=== PATIENT | female | born 1945 | race Caucasian/White ===

== ENCOUNTER → 2017-12-26 08:26 | Outpatient (REF) | payer OTHER, SELFPAY ==
[2017-12-26 09:13] LABS: Add Manual Diff / Slide Review NO; Basophils Percent Auto 0.9 % (0-2); Eosinophils Percent Auto 1.3 % (2-4); Hematocrit 37.1 % (36-46); Hemoglobin 12.3 g/dL (12.0-16.0); Lymphocytes Percent Auto 25.8 % (25-40); Mean Corpuscular HGB Conc 33.2 % (30-36); Mean Corpuscular Volume 90.5 fL (80-100); Monocytes Percent Auto 10.1 % (3-14); Neutrophils Absolute Auto 5000 /uL (3000-5900); Neutrophils Percent Auto 61.9 % (50-75); Platelet Count 233 X10^3/uL (150-400); Red Cell Distribution Width 18.8 % (11.6-14.8)
[2017-12-26 09:38] LABS: Alanine Aminotransferase 36 IU/L (9-52); Albumin 4.1 g/dL (3.5-5.0); Albumin Globulin Ratio 1.5 (1.0-2.8); Alkaline Phosphatase 56 U/L (38-126); Aspartate Aminotransferase 42 IU/L (14-36); BUN Creatinine Ratio 24.3 (6-22); Bilirubin Total 0.7 mg/dL (0.2-1.3); Calcium 8.9 mg/dL (8.4-10.2); Estimated Glomerular Filt Rate > 60.0 mL/min (>60); Globulin 2.8 g/dL (1.7-4.1); Glucose 75 mg/dL (80-110); HEMOLYSIS < 15 (0-50); Potassium 4.2 mmol/L (3.4-5.1); Sodium 140 mmol/L (137-145); Total Protein 6.9 g/dL (6.3-8.2)
== END ==
LOC: LAB 08:26
PROVIDERS: PCP Internal Medicine; Visit Provider Nurse Practitioner Family
DX: N39.0 Urinary tract infection, site not specified (principal); R53.83 Other fatigue
CPT/HCPCS: 36415; 80053; 85025

== ENCOUNTER → 2018-01-04 08:15 | Outpatient (REF) | payer OTHER, SELFPAY ==
[2018-01-04 08:57] LABS: INR 2.7 (0.9-1.3); Prothrombin Time 28.7 SECONDS (10.1-12.7)
== END ==
LOC: LAB 08:15
PROVIDERS: PCP Internal Medicine; Visit Provider Nurse Practitioner Family
DX: Z92.29 Personal history of other drug therapy (principal)
CPT/HCPCS: 36415; 85610

== ENCOUNTER 2018-01-10 10:47 | Emergency (ER) | payer OTHER, SELFPAY ==
[2018-01-10] VITALS (7 sets, daily range): BP systolic 98–109; BP diastolic 50–67; PULSE 97–105; RESP 14–20; TEMP 36.3; O2SAT 95–100
--- NOTE | 2018-01-10 11:08 | ED.ABDPAIN ---
HPI - Abdominal Pain General Chief Complaint: Abdominal Pain Stated Complaint: Belly Pain Time Seen by Provider: 01/10/18 11:08 Source: patient Mode of arrival: EMS Limitations: no limitations History of Present Illness HPI narrative: 72-year-old female with a history of cardiac valve replacement presents with suprapubic abdominal pain since this morning. It has been intermittent and come on very strong twice rated at its worst as a 6/10. At the current moment she has no pain. Nothing she does makes the pain worse and nothing she does makes the pain better. There has been no injury. She denies any dysuria or urinary frequency but did have some several days ago. Denies fevers but has had some chills/felt cold. Denies history of frequent UTIs. Denies history of diverticulitis. Denies diarrhea or constipation, nausea or vomiting. Related Data Home Medications Medication Instructions Recorded Confirmed risperidone [Risperdal] 0.5 mg PO BID #0 05/13/16 01/10/18 furosemide 80 mg PO QDAY #0 05/14/17 01/10/18 isosorbide dinitrate 30 mg PO QDAY #0 05/14/17 01/10/18 sennosides [senna] 2 tab PO QDAY #0 05/14/17 01/10/18 warfarin [Coumadin] 4 mg PO QPM #0 05/14/17 01/10/18 acetaminophen 650 mg PO BID 01/10/18 01/10/18 albuterol sulfate [Ventolin HFA] 2 puff INHALATION Q2H PRN 01/10/18 01/10/18 atorvastatin 80 mg PO DAILY 01/10/18 01/10/18 beclomethasone dipropionate [Qvar 2 puff INHALATION BID 01/10/18 01/10/18 RediHaler] calcium carbonate [Tums] 2 tab PO TID PRN 01/10/18 01/10/18 docusate sodium 100 mg PO DAILY 01/10/18 01/10/18 duloxetine 20 mg PO DAILY 01/10/18 01/10/18 ezetimibe 10 mg PO DAILY 01/10/18 01/10/18 fluticasone 1 spray INTRANASAL DAILY 01/10/18 01/10/18 hydrocodone-acetaminophen 1 tab PO BID MDD 3 gm apap 01/10/18 01/10/18 hydrocodone-acetaminophen 1 tab PO Q4HP PRN MDD 3 gm apap 01/10/18 01/10/18 lidocaine HCl 1 applic TOPICAL QAM 01/10/18 01/10/18 magnesium chloride [Mag 64] 2 tab PO DAILY 01/10/18 01/10/18 methimazole 5 mg PO DAILY 01/10/18 01/10/18 metoprolol tartrate [Lopressor] 50 mg PO BID 01/10/18 01/10/18 nystatin 1 applic TOPICAL TID PRN 01/10/18 01/10/18 omeprazole 40 mg PO DAILY 01/10/18 01/10/18 potassium chloride 40 meq PO BID 01/10/18 01/10/18 pramipexole 1 mg PO BEDTIME 01/10/18 01/10/18 prednisone 10 mg PO QDAY 01/10/18 01/10/18 spironolactone 25 mg PO DAILY 01/10/18 01/10/18 Previous Rx's Medication Instructions Recorded nitrofurantoin monohyd/m-cryst 100 mg PO Q12H 10 Days #20 cap 01/10/18 [Macrobid] Allergies Allergy/AdvReac Type Severity Reaction Status Date / Time aspartame [ASPARTAME] Allergy Intermediate violently Verified 01/10/18 11:00 ill, fever, rashes. codeine [CODEINE] Allergy Intermediate PROJECTILE Verified 01/10/18 11:00 VOMITING latex [LATEX] Allergy Intermediate VERY Verified 01/10/18 11:00 ITCHY RASH morphine [MORPHINE] Allergy Intermediate HALLUCINATI Verified 01/10/18 11:00 ONS. albuterol Allergy Verified 01/10/18 11:07 ipratropium Allergy Verified 01/10/18 11:07 Review of Systems Review of Systems All systems reviewed & are unremarkable except as noted in HPI and below Constitutional Denies chills, Denies fever(s), Denies lethargy and Denies weakness Eyes Denies change in vision, Denies eye discharge, Denies irritation and Denies loss of vision ENT Ears, Nose, Mouth, and Throat: Denies change in voice, Denies neck pain and Denies sore throat Cardiovascular Denies chest pain, Denies irregular heart rhythm, Denies lightheadedness, Denies palpitations, Denies dyspnea, Denies dyspnea on exertion and Denies orthopnea Respiratory Denies cough, Denies dyspnea, Denies dyspnea on exertion and Denies wheezing Gastrointestinal Gastrointestinal: Reports abdominal pain (Suprapubic), Denies change in bowel habits, Denies diarrhea, Denies nausea and Denies vomiting Genitourinary Denies hematuria, Denies flank pain, Denies urinary incontinence and Denies urinary urgency Musculoskeletal Denies neck pain Integumentary/Breasts Denies pruritus, Denies erythema, Denies rash and Denies wounds Neurologic Denies confusion, Denies loss of vision and Denies weakness Psychiatric Denies anxiety, Denies confusion, Denies depression, Denies homicidal ideation and Denies suicidal ideation Endocrine Denies palpitations Hematologic/Lymphatic Denies easy bruising Allergic/Immunologic Denies wheezing [facility] Surgical History Status post appendectomy Status post hysterectomy Social History Smoking Status: Former smoker Exam Initial Vital Signs Initial Vital Signs: Vital Signs Temperature 97.3 F L 01/10/18 10:55 Pulse Rate 105 H 01/10/18 10:55 Respiratory Rate 18 01/10/18 10:55 Blood Pressure 101/50 L 01/10/18 10:55 Pulse Oximetry 95 01/10/18 10:55 Const General: cooperative and well developed Nutritional Appearance: well nourished Orientation: alert, awake, oriented x3 and not confused [facility] Head: normocephalic and atraumatic Ears: external ears normal and TM's normal bilaterally Nose: external nose normal and No nasal discharge Face and sinus: sinuses nontender, face symmetric, no sinus tenderness and No dry mucous membranes Mouth: oral mucosae normal and moist mucous membranes Teeth and gingiva: dentition normal Throat: tonsils normal and uvula midline Eyes General: appearance normal, both eyes and all related structures Eyelids: eyelids normal Conjunctivae: conjunctivae normal Sclera: sclerae normal Pupils: PERRL EOM: EOM intact bilaterally Neck Neck: normal visual inspection, trachea midline, No lymphadenopathy, No midline deformity and No JVD Lymphatic: No lymphedema Chest Chest: normal inspection of the chest Resp Effort & Inspection: normal respiratory effort, able to speak in complete sentences, no respiratory distress and no use of accessory muscles Auscultation: clear to auscultation bilaterally, no rales, no rhonchi and no wheezes Cardio Rate: regular rate Rhythm: regular rhythm Heart Sounds: no click, no gallops, no murmurs and no rubs Pulses: normal peripheral pulses GI Inspection: non-distended Palpation: soft, no hepatosplenomegaly, No guarding, No pulsatile mass and tender (Suprapubic tenderness to palpation. No overlying rashes or skin changes) Auscultation: normal bowel sounds Back/Spine/Pelvis Back: No CVA tenderness Cervical Spine: cervical ROM normal and No pain with cervical ROM Thoracic/Lumbar Spine: thoracic and lumbar spine normal to inspection Skin General: no rashes or lesions noted, No jaundice and No petechiae Neuro General: alert, oriented x3, gait normal and no focal motor deficits Speech: speech normal Extrem General: full ROM, no clubbing, cyanosis or edema, no pedal edema and no calf tenderness Psych Appearance: well kempt Mental Status: mental status grossly normal Attitude: cooperative Thought Content: normal and suicidality Judgment: judgment good Course Orders Ordered: ED Orders 01/10/18 11:00 Complete Blood Count AUTO DIFF Stat Comprehensive Metabolic Panel Stat Lipase Stat 01/10/18 13:10 Urine Culture Stat Urine Microscopic Stat Discontinued Medications Sodium Chloride (Normal Saline 0.9%) 1,000 mls @ 150 mls/hr IV CONT AGUSTIN Last Admin: 01/10/18 11:27 Dose: 150 mls/hr Vital Signs - 8 hr 01/10/18 10:55 01/10/18 10:57 01/10/18 11:30 Temperature 97.3 F L 97.3 F L Pulse Rate 105 H 105 H 102 H Respiratory Rate 18 18 18 Blood Pressure 101/50 L Blood Pressure [Right Arm] 101/50 L 98/56 L Pulse Oximetry 95 95 96 01/10/18 12:32 01/10/18 13:07 01/10/18 14:02 Temperature Pulse Rate 100 H 102 H 97 H Respiratory Rate 14 20 16 Blood Pressure Blood Pressure [Right Arm] 106/54 L 106/54 L 104/59 L Pulse Oximetry 95 100 97 01/10/18 14:45 Temperature Pulse Rate 98 H Respiratory Rate 17 Blood Pressure Blood Pressure [Right Arm] 109/67 Pulse Oximetry 96 MDM - Abdominal Pain Differential Diagnosis Differential diagnosis: Likely abdominal pain, acute appendicitis, diverticulitis, gastroenteritis and small bowel obstruction Medical Records Attestation: I reviewed the patient's medical records. Lab Data Attestation: I reviewed the patient's lab results. Result diagrams: 01/10/18 11:00 01/10/18 11:00 Lab Results 01/10/18 01/10/18 01/10/18 Range/Units 11:00 11:00 13:10 WBC 9.1 (4.5-11.0) X10^3/uL RBC 4.15 (4.0-5.2) X10^6/uL Hgb 12.5 (12.0-16.0) g/dL Hct 38.3 (36-46) % MCV 92.3 (80-100) fL MCH 30.2 (26-34) PG MCHC 32.7 (30-36) % RDW 17.9 H (11.6-14.8) % Plt Count 240 (150-400) X10^3/uL Neut % (Auto) 69.7 (50-75) % Lymph % (Auto) 17.3 L (25-40) % [place] % (Auto) 11.3 (3-14) % Eos % (Auto) 0.9 L (2-4) % Baso % (Auto) 0.8 (0-2) % Neut # (Auto) 6300 H (7446-6625) /uL Sodium 143 (137-145) mmol/L Potassium 4.0 (3.4-5.1) mmol/L Chloride 99 (98-107) mmol/L Carbon Dioxide 31 (22-32) mmol/L BUN 16 (7-17) mg/dL Creatinine 0.50 L (0.52-1.04) mg/dL Estimated GFR > 60.0 (>60) mL/min BUN/Creatinine Ratio 32.0 H (6-22) Glucose 90 (80-110) mg/dL Calcium 8.9 (8.4-10.2) mg/dL Total Bilirubin 0.8 (0.2-1.3) mg/dL AST 55 H (14-36) IU/L ALT 51 (9-52) IU/L Alkaline Phosphatase 54 (38-126) U/L Total Protein 7.4 (6.3-8.2) g/dL Albumin 4.3 (3.5-5.0) g/dL Globulin 3.1 (1.7-4.1) g/dL Albumin/Globulin Ratio 1.4 (1.0-2.8) Lipase 134 (23-300) U/L Urine RBC 5-10/hpf H (0-5/HPF) Urine WBC 10-30/hpf H (0-5/HPF) Urine Bacteria Many (>30) H (None) Ur Culture Indicated? Specimen cultured Micro UA Comment Microscopic normal MDM Narrative Medical decision making narrative: 72-year-old female presenting with intermittent suprapubic abdominal pain and dysuria several days ago. She has a history of recurrent UTIs. She denies fevers or chills. She was afebrile and vitals were essentially normal although she was borderline tachycardic. She had no pain in the ER although there was some mild suprapubic tenderness. Her catheterized UA is consistent with UTI. She has no flank pain to suggest renal stone. Given that her labs do not show a significant leukocytosis, she had no flank pain, and her vitals were centrally normal, did not feel an abdominal CT was necessary although I did consider it. She was given Pyridium and Macrobid for her pain and UTI. Ten days of Macrobid were given as she stated that her most recent antibiotic was only a 5 day course. We called her facility to try to locate the name of most recent antibiotic and how long it was taken, but after speaking with 5 nurses known was able to tell us. I prescribed Macrobid while we are waiting cultures, due to less interaction with Coumadin then other antibiotics. Patient understands and agrees with the plan for follow-up. Return precautions given. Discharge Plan Departure Patient Disposition: Home, Self-Care Clinical Impression: Acute UTI, Abdominal pain, lower Discharge Date/Time: 01/10/18 15:24 Interventions: ED Discharge Assessment Last Done: 01/10/18 15:23 Instructions: DI for Urinary Tract Infection (UTI) Activity Restrictions/Additional Instructions: Thank you for trusting is with your care today. You have urinary tract infection causing your pain. Take the antibiotics and Pyridium as prescribed. Return to the ER for new or worsening symptoms. Follow up with your primary care within 1 week. Prescriptions: New nitrofurantoin monohyd/m-cryst [Macrobid] 100 mg capsule 100 mg PO Q12H 10 Days Qty: 20 RF: 0 No Action risperidone [Risperdal] 0.5 MG tablet 0.5 mg PO BID Qty: 0 RF: 0 furosemide 80 MG tablet 80 mg PO QDAY Qty: 0 RF: 0 isosorbide dinitrate 30 MG tablet 30 mg PO QDAY Qty: 0 RF: 0 sennosides [senna] 8.6 MG tablet 2 tab PO QDAY Qty: 0 RF: 0 warfarin [Coumadin] 4 MG tablet 4 mg PO QPM Qty: 0 RF: 0 atorvastatin 80 mg Tablet 80 mg PO DAILY RF: 0 acetaminophen 325 mg Tablet 650 mg PO BID RF: 0 docusate sodium 100 mg Capsule 100 mg PO DAILY RF: 0 ezetimibe 10 mg Tablet 10 mg PO DAILY RF: 0 duloxetine 20 mg Capsule,Delayed Release(Dr/Ec) 20 mg PO DAILY RF: 0 pramipexole 1 mg Tablet 1 mg PO BEDTIME RF: 0 omeprazole 40 mg Capsule,Delayed Release(Dr/Ec) 40 mg PO DAILY RF: 0 spironolactone 25 mg Tablet 25 mg PO DAILY RF: 0 calcium carbonate [Tums] 200 mg calcium (500 mg) Tablet,Chewable 2 tab PO TID PRN (Reason: Indigestion) RF: 0 metoprolol tartrate [Lopressor] 50 mg Tablet 50 mg PO BID RF: 0 methimazole 5 mg Tablet 5 mg PO DAILY RF: 0 nystatin 100,000 unit/gram Powder 1 applic TOPICAL TID PRN (Reason: yeast) RF: 0 albuterol sulfate [Ventolin HFA] 90 mcg/actuation Hfa Aerosol Inhaler 2 puff Inhalation Q2H PRN (Reason: Shortness Of Breath Or Wheezing) RF: 0 fluticasone 50 mcg/actuation [place],Suspension 1 spray INTRANASAL DAILY RF: 0 lidocaine HCl 4 % Solution 1 applic Topical QAM RF: 0 magnesium chloride [Mag 64] 64 mg Tablet,Delayed Release (Dr/Ec) 2 tab PO DAILY RF: 0 potassium chloride 20 mEq Tablet Extended Release 40 meq PO BID RF: 0 beclomethasone dipropionate [Qvar RediHaler] 40 mcg/actuation Hfa Aerosol Breath Activated 2 puff INHALATION BID RF: 0 prednisone 10 MG tablet 10 mg PO QDAY RF: 0 hydrocodone-acetaminophen 5 MG/325 MG tablet 1 tab PO BID MDD 3 gm apap RF: 0 hydrocodone-acetaminophen 5 MG/325 MG tablet 1 tab PO Q4HP MDD 3 gm apap PRN (Reason: Pain, Moderate) RF: 0
[2018-01-10 11:18] LABS: Add Manual Diff / Slide Review NO; Basophils Percent Auto 0.8 % (0-2); Eosinophils Percent Auto 0.9 % (2-4); Hematocrit 38.3 % (36-46); Hemoglobin 12.5 g/dL (12.0-16.0); Lymphocytes Percent Auto 17.3 % (25-40); Mean Corpuscular HGB Conc 32.7 % (30-36); Mean Corpuscular Hemoglobin 30.2 PG (26-34); Mean Corpuscular Volume 92.3 fL (80-100); Monocytes Percent Auto 11.3 % (3-14); Neutrophils Absolute Auto 6300 /uL (3000-5900); Neutrophils Percent Auto 69.7 % (50-75); Platelet Count 240 X10^3/uL (150-400); Red Blood Cell Count 4.15 X10^6/uL (4.0-5.2); Red Cell Distribution Width 17.9 % (11.6-14.8); White Blood Cell Count 9.1 X10^3/uL (4.5-11.0)
[2018-01-10 11:24] LABS: Alanine Aminotransferase 51 IU/L (9-52); Albumin 4.3 g/dL (3.5-5.0); Albumin Globulin Ratio 1.4 (1.0-2.8); Alkaline Phosphatase 54 U/L (38-126); Aspartate Aminotransferase 55 IU/L (14-36); Bilirubin Total 0.8 mg/dL (0.2-1.3); Blood Urea Nitrogen 16 mg/dL (7-17); Calcium 8.9 mg/dL (8.4-10.2); Carbon Dioxide 31 mmol/L (22-32); Chloride 99 mmol/L (98-107); Estimated Glomerular Filt Rate > 60.0 mL/min (>60); Globulin 3.1 g/dL (1.7-4.1); Glucose 90 mg/dL (80-110); HEMOLYSIS 15 (0-50); Lipase 134 U/L (23-300); Sodium 143 mmol/L (137-145); Total Protein 7.4 g/dL (6.3-8.2)
[2018-01-10] MEDS: SODIUM CHLORIDE 0.9% 1,000 ML 150 ML IV (11:27)
[2018-01-10 13:35] LABS: RBC Urine 5-10/HPF (0-5/HPF); WBC Urine 10-30/HPF (0-5/HPF)
[2018-01-10 13:36] LABS: Bacteria Urine Many (>30); Culture Indicated Urine Specimen Cultured; Urine Comments Microscopic Normal
--- NOTE | 2018-02-25 13:56 | PC.NURSE ---
Sodium Chloride stopped at 01/10/18 1640
== END 2018-01-10 15:24 | disposition home or self-care (01) ==
PROVIDERS: Emergency Provider Emergency Medicine; PCP Internal Medicine
DX: N39.0 Urinary tract infection, site not specified (principal); R10.30 Lower abdominal pain, unspecified
CPT/HCPCS: 80053; 81003; 81015; 83690; 85025; 87077; 87086; 87186; 96360; 96361; 99284; 99285

== ENCOUNTER → 2018-01-17 13:21 | Outpatient (CLI) | payer OTHER, SELFPAY ==
[2018-01-17 14:11] LABS: Add Manual Diff / Slide Review NO; Basophils Percent Auto 0.6 % (0-2); Eosinophils Percent Auto 0.3 % (2-4); Hematocrit 37.7 % (36-46); Hemoglobin 12.2 g/dL (12.0-16.0); Lymphocytes Percent Auto 8.9 % (25-40); Mean Corpuscular HGB Conc 32.4 % (30-36); Mean Corpuscular Volume 92.6 fL (80-100); Monocytes Percent Auto 4.9 % (3-14); Neutrophils Absolute Auto 7800 /uL (3000-5900); Neutrophils Percent Auto 85.3 % (50-75); Platelet Count 242 X10^3/uL (150-400); Red Blood Cell Count 4.07 X10^6/uL (4.0-5.2); Red Cell Distribution Width 17.5 % (11.6-14.8); White Blood Cell Count 9.1 X10^3/uL (4.5-11.0)
[2018-01-17 19:18] LABS: Alanine Aminotransferase 52 IU/L (9-52); Albumin 4.1 g/dL (3.5-5.0); Albumin Globulin Ratio 1.4 (1.0-2.8); Alkaline Phosphatase 65 U/L (38-126); Aspartate Aminotransferase 48 IU/L (14-36); Bilirubin Total 0.8 mg/dL (0.2-1.3); Blood Urea Nitrogen 18 mg/dL (7-17); Carbon Dioxide 26 mmol/L (22-32); Chloride 99 mmol/L (98-107); Estimated Glomerular Filt Rate > 60.0 mL/min (>60); Globulin 2.9 g/dL (1.7-4.1); Glucose 192 mg/dL (80-110); HEMOLYSIS < 15 (0-50); Potassium 4.1 mmol/L (3.4-5.1); Sodium 140 mmol/L (137-145)
== END ==
PROVIDERS: PCP Internal Medicine; Visit Provider Nurse Practitioner Family
DX: R10.9 Unspecified abdominal pain (principal)
CPT/HCPCS: 36415; 80053; 83880; 85025

== ENCOUNTER → 2018-01-25 12:34 | Outpatient (CLI) | payer OTHER, SELFPAY ==
--- NOTE | 2018-01-25 | DI.CT.S_ITS ---
PROCEDURE: CT ABDOMEN WO CON INDICATIONS: ABDOMINAL PAIN TECHNIQUE: After the administration of oral contrast, 5 mm thick sections acquired from the diaphragms to the iliac crests. 5 mm coronal and sagittal reformats were then performed. For radiation dose reduction, the following was used: automated exposure control, adjustment of mA and/or kV according to patient size. COMPARISON: [facility], CT, ABDOMEN/PELVIS WITH CONTRAST, 07/17/2015, 23:35. FINDINGS: Image quality: Excellent. Lung bases: Lung bases are clear. Heart size is borderline enlarged and there are mitral valvular and coronary artery calcifications. Solid organs: Liver is normal in size. Gallbladder contains multiple 5 mm gallstones although no definite gallbladder wall thickening or pericholecystic inflammation. There is minimal hazy attenuation surrounding the head and uncinate process of the pancreas although this could be due to fatty infiltration. This is probably grossly unchanged since 07/17/15 the lower to mid correlation with pancreatic enzymes if needed. Spleen is normal in size. No adrenal nodules. Both kidneys are normal in size, without hydronephrosis or nephrolithiasis. Peritoneum and bowel: Bowel loops demonstrate normal wall thickness and caliber. No free fluid or air. Nodes and vessels: No retroperitoneal or mesenteric adenopathy by size criteria. Aorta and inferior vena cava are normal in size. Bones: No suspicious bony lesions. Multiple unchanged lumbar compression fractures. There is diffuse osteopenia Miscellaneous: No ventral hernias. Partially visualized left flank subcutaneous edema IMPRESSION: Overall, no acute abnormality. Cholelithiasis without evidence of acute cholecystitis; recommend clinical correlation and with LFTs. Minimal hazy attenuation surrounding the head and uncinate process of the pancreas although this could be a chronic appearance. Please see discussion above. Recommend clinical correlation and if needed with pancreatic enzymes Additional chronic and incidental findings as above. Dictated by: Adan Ohara M.D. on 01/25/2018 at 12:41 Approved by: Adan Ohara M.D. on 01/25/2018 at 13:06
== END ==
PROVIDERS: PCP Internal Medicine; Visit Provider Nurse Practitioner Family
DX: R10.9 Unspecified abdominal pain (principal); K80.20 Calculus of gallbladder without cholecystitis without obstruction
CPT/HCPCS: 74150

== ENCOUNTER → 2018-01-30 07:40 | Outpatient (REF) | payer OTHER, SELFPAY ==
[2018-01-30 08:19] LABS: Add Manual Diff / Slide Review NO; Basophils Percent Auto 0.7 % (0-2); Eosinophils Percent Auto 0.6 % (2-4); Hematocrit 37.5 % (36-46); Hemoglobin 12.2 g/dL (12.0-16.0); Mean Corpuscular HGB Conc 32.6 % (30-36); Mean Corpuscular Hemoglobin 29.9 PG (26-34); Mean Corpuscular Volume 91.8 fL (80-100); Monocytes Percent Auto 10.2 % (3-14); Neutrophils Absolute Auto 5300 /uL (3000-5900); Neutrophils Percent Auto 63.5 % (50-75); Platelet Count 265 X10^3/uL (150-400); Red Blood Cell Count 4.08 X10^6/uL (4.0-5.2); Red Cell Distribution Width 16.5 % (11.6-14.8); White Blood Cell Count 8.3 X10^3/uL (4.5-11.0)
[2018-01-30 08:35] LABS: Alanine Aminotransferase 37 IU/L (9-52); Albumin 3.9 g/dL (3.5-5.0); Albumin Globulin Ratio 1.3 (1.0-2.8); Alkaline Phosphatase 52 U/L (38-126); Amylase 79 U/L (30-110); Aspartate Aminotransferase 38 IU/L (14-36); Bilirubin Total 0.6 mg/dL (0.2-1.3); Bilirubin Unconjugated 0.4 mg/dL (0.0-1.1); HEMOLYSIS < 15 (0-50); Lipase 121 U/L (23-300); Total Protein 6.9 g/dL (6.3-8.2)
== END ==
LOC: LAB 07:40
PROVIDERS: PCP Internal Medicine; Visit Provider Nurse Practitioner Family
DX: R10.9 Unspecified abdominal pain (principal)
CPT/HCPCS: 36415; 80076; 82150; 83690; 85025

== ENCOUNTER → 2018-02-01 07:26 | Outpatient (REF) | payer OTHER, SELFPAY ==
[2018-02-01 08:00] LABS: INR 2.5 (0.9-1.3); Prothrombin Time 27.2 SECONDS (10.1-12.7)
== END ==
LOC: LAB 07:26
PROVIDERS: PCP Internal Medicine; Visit Provider Nurse Practitioner Family
DX: Z51.81 Encounter for therapeutic drug level monitoring (principal)
CPT/HCPCS: 36415; 85610

== ENCOUNTER 2018-02-21 14:00 | Emergency (ER) | payer OTHER, SELFPAY ==
[2018-02-21] VITALS (8 sets, daily range): BP systolic 110–124; BP diastolic 63–72; PULSE 95–104; RESP 14–24; TEMP 36.6; O2SAT 94–100
--- NOTE | 2018-02-21 14:09 | DI.RAD.S_ITS ---
PROCEDURE: XR CHEST 1V INDICATIONS: short of breath TECHNIQUE: One view of the chest was acquired. COMPARISON: [facility], , CHEST 1 VIEW, 10/14/2017, 10:10. [facility], , CHEST 2 VIEW, 10/13/2017, 13:48. Abdomen and pelvis CT from 01/25/2018. FINDINGS: Surgical changes and devices: None. Lungs and pleura: No pleural effusions or pneumothorax. Lungs are clear. Mediastinum: Interval enlargement of the cardiomediastinal silhouette. Sternotomy with mediastinal postoperative changes and mitral valve prosthesis. Bones and chest wall: No suspicious bony lesions. Overlying soft tissues appear unremarkable. IMPRESSION: 1. Minimal enlargement of the cardiomediastinal silhouette. Given its rapid onset findings are concerning for pericardial effusion. Consider a chest CT with contrast for further evaluation. 2. Sternotomy with mitral valve prosthesis. Dictated by: Rohit Patel M.D. on 02/21/2018 at 14:56 Approved by: Rohit Patel M.D. on 02/21/2018 at 14:58
[2018-02-21 14:20] LABS: Add Manual Diff / Slide Review NO; Basophils Percent Auto 0.5 % (0-2); Eosinophils Percent Auto 0.2 % (2-4); Hematocrit 39.8 % (36-46); Hemoglobin 13.1 g/dL (12.0-16.0); Lymphocytes Percent Auto 9.4 % (25-40); Mean Corpuscular Volume 90.9 fL (80-100); Monocytes Percent Auto 3.8 % (3-14); Neutrophils Absolute Auto 10100 /uL (3000-5900); Neutrophils Percent Auto 86.1 % (50-75); Platelet Count 285 X10^3/uL (150-400); Red Blood Cell Count 4.37 X10^6/uL (4.0-5.2); Red Cell Distribution Width 15.7 % (11.6-14.8); White Blood Cell Count 11.7 X10^3/uL (4.5-11.0)
[2018-02-21 14:23] LABS: INR 4.3 (0.9-1.3); Prothrombin Time 48.4 SECONDS (10.1-12.7)
[2018-02-21 14:26] LABS: PTT Partial Thromboplastin Tim 44 SECONDS (26.4-36.2)
[2018-02-21 14:32] LABS: Alanine Aminotransferase 38 IU/L (9-52); Albumin 4.5 g/dL (3.5-5.0); Albumin Globulin Ratio 1.5 (1.0-2.8); Alkaline Phosphatase 63 U/L (38-126); Aspartate Aminotransferase 60 IU/L (14-36); Bilirubin Total 0.9 mg/dL (0.2-1.3); Blood Urea Nitrogen 15 mg/dL (7-17); Calcium 9.5 mg/dL (8.4-10.2); Carbon Dioxide 27 mmol/L (22-32); Chloride 98 mmol/L (98-107); Estimated Glomerular Filt Rate > 60.0 mL/min (>60); Globulin 3.1 g/dL (1.7-4.1); Glucose 167 mg/dL (80-110); HEMOLYSIS 29 (0-50); Potassium 4.6 mmol/L (3.4-5.1); Sodium 138 mmol/L (137-145); Total Protein 7.6 g/dL (6.3-8.2)
[2018-02-21 14:33] LABS: Creatine Kinase 68 U/L (30-135); Magnesium 2.1 mg/dL (1.6-2.3)
[2018-02-21 14:48] LABS: Troponin I < 0.012 ng/mL (0.01-0.034)
[2018-02-21 14:54] LABS: Lactate (Lactic Acid) 1.6 mmol/L (0.7-2.1)
[2018-02-21] MEDS: ALBUTEROL/IPRATROPIUM 3 ML AMPUL INH (14:54)
[2018-02-21 14:58] LABS: Procalcitonin < 0.05 ng/mL (<0.5)
--- NOTE | 2018-02-21 15:33 | DI.CT.S_ITS ---
PROCEDURE: CT ANGIO CHEST PE PROTOCOL INDICATIONS: Shortness of breath, pericardial effusion on x ray TECHNIQUE: After the administration of intravenous contrast, 2 mm thick sections acquired from the pulmonary apices to the posterior costophrenic angles. 3-dimensional maximum intensity projection (MIP) coronal and sagittal reformats were then acquired through the thorax. For radiation dose reduction, the following was used: automated exposure control, adjustment of mA and/or kV according to patient size. COMPARISON: [facility], CT, PE STUDY (CTA CHEST), 11/18/2015, 10:39. [facility], CR, CHEST 1 VIEW, 10/14/2017, 10:10. [facility], CT, CT ABDOMEN WO CON, 01/25/2018, 12:56. [facility], CR, XR CHEST 1V, 02/21/2018, 14:15. FINDINGS: Image quality: Excellent. Pulmonary arteries: Pulmonary arteries are normal in size, and demonstrate no intraluminal filling defects to suggest central pulmonary embolism. Lungs and pleura: There is increased pulmonary vascularity and mild groundglass infiltrates in the lower lobes, consistent mild congestive heart failure. No confluent edema. No focal consolidation or pleural effusion. No pneumothorax. Central and peripheral airways are patent. Mediastinum: Heart size is moderately increased, without pericardial effusion. There is a mitral valve prosthesis and coronary artery bypass grafting. No mediastinal or hilar adenopathy. Thoracic aorta is normal in caliber and enhancement. Esophagus is normal in caliber, without hiatal hernia. Bones and chest wall: No suspicious bony lesions. Ribs and thoracic spine appear intact throughout. Thyroid gland is prominent. No axillary or supraclavicular adenopathy. Abdomen: There are gallstones. Visualized upper abdominal solid organs appear normal in the early arterial phase of enhancement. IMPRESSION: 1. No evidence for central pulmonary embolism. 2. Cardiomegaly. No pericardial effusion. Suspect mild congestive heart failure but no confluent pulmonary edema. 3. Cholelithiasis. 4. Prominent thyroid gland. Please correlate with TSH. Dictated by: Elvira Blanco M.D. on 02/21/2018 at 16:25 Approved by: Elvira Blanco M.D. on 02/21/2018 at 16:36
--- NOTE | 2018-02-21 15:42 | ED.SOB ---
HPI - SOB/Dyspnea General Chief Complaint: Shortness of Breath/Dyspnea Stated Complaint: SOB / Diaphoretic Time Seen by Provider: 02/21/18 14:06 Source: patient Mode of arrival: ambulatory Limitations: no limitations History of Present Illness Patient is a 72-year-old female who presents with sudden onset of shortness of breath. She was outside at a picnic eating and feeling overall okay when suddenly she got shortness of breath. She said he was little difficult to swallow did not feel like her tongue or lips were big. No new foods or prior allergic reactions. She denies any fever or cough. She has a very remote history of smoking and denies any history of CHF though she is on Lasix. She denies any chest pain or heart palpitations. MD Complaint: shortness of breath Related Data Home Medications Medication Instructions Recorded Confirmed risperidone [Risperdal] 0.5 mg PO BID #0 05/13/16 01/10/18 furosemide 80 mg PO QDAY #0 05/14/17 01/10/18 isosorbide dinitrate 30 mg PO QDAY #0 05/14/17 01/10/18 sennosides [senna] 2 tab PO QDAY #0 05/14/17 01/10/18 warfarin [Coumadin] 4 mg PO QPM #0 05/14/17 01/10/18 acetaminophen 650 mg PO BID 01/10/18 01/10/18 albuterol sulfate [Ventolin HFA] 2 puff INHALATION Q2H PRN 01/10/18 01/10/18 atorvastatin 80 mg PO DAILY 01/10/18 01/10/18 beclomethasone dipropionate [Qvar 2 puff INHALATION BID 01/10/18 01/10/18 RediHaler] calcium carbonate [Tums] 2 tab PO TID PRN 01/10/18 01/10/18 docusate sodium 100 mg PO DAILY 01/10/18 01/10/18 duloxetine 20 mg PO DAILY 01/10/18 01/10/18 ezetimibe 10 mg PO DAILY 01/10/18 01/10/18 fluticasone 1 spray INTRANASAL DAILY 01/10/18 01/10/18 hydrocodone-acetaminophen 1 tab PO BID MDD 3 gm apap 01/10/18 01/10/18 hydrocodone-acetaminophen 1 tab PO Q4HP PRN MDD 3 gm apap 01/10/18 01/10/18 lidocaine HCl 1 applic TOPICAL QAM 01/10/18 01/10/18 magnesium chloride [Mag 64] 2 tab PO DAILY 01/10/18 01/10/18 methimazole 5 mg PO DAILY 01/10/18 01/10/18 metoprolol tartrate [Lopressor] 50 mg PO BID 01/10/18 01/10/18 nystatin 1 applic TOPICAL TID PRN 01/10/18 01/10/18 omeprazole 40 mg PO DAILY 01/10/18 01/10/18 potassium chloride 40 meq PO BID 01/10/18 01/10/18 pramipexole 1 mg PO BEDTIME 01/10/18 01/10/18 prednisone 10 mg PO QDAY 01/10/18 01/10/18 spironolactone 25 mg PO DAILY 01/10/18 01/10/18 Previous Rx's Medication Instructions Recorded albuterol sulfate 2 puff INHALATION Q6H PRN #8 gram 02/21/18 Allergies Allergy/AdvReac Type Severity Reaction Status Date / Time aspartame [ASPARTAME] Allergy Intermediate violently Verified 02/21/18 14:03 ill, fever, rashes. codeine [CODEINE] Allergy Intermediate PROJECTILE Verified 02/21/18 14:03 VOMITING latex [LATEX] Allergy Intermediate VERY Verified 02/21/18 14:03 ITCHY RASH morphine [MORPHINE] Allergy Intermediate HALLUCINATI Verified 02/21/18 14:03 ONS. albuterol Allergy Verified 02/21/18 14:03 ipratropium Allergy Verified 02/21/18 14:03 Review of Systems Review of Systems GENERAL: Denies chills, fatigue, malaise, fever, sweats, travel HEENT: Denies sinus pain, ear pain, sore throat, difficulty swallowing, neck pain RESPIRATORY: See HPI CARDIOVASCULAR: Denies chest pain, palpitations, orthopnea, edema GASTROINTESTINAL: Denies nausea, vomiting, abdominal pain, diarrhea, constipation, melena. : Denies dysuria, frequency, incontinence, hematuria, urinary retention, flank pain. MUSCULOSKELETAL: Denies weakness, joint pain, or bony pain SKIN: No rash, no erythema, no pruritus NEUROLOGIC: Denies weakness, dizziness, headache, numbness, change in speech, confusion PSYCHIATRIC: No concerning psychosocial issues. 12 point review of systems is negative except for those stated above and HPI All systems reviewed & are unremarkable except as noted in HPI and below PFSH Surgical History Status post appendectomy Status post hysterectomy Social History Smoking Status: Former smoker Exam Initial Vital Signs Initial Vital Signs: Vital Signs Temperature 97.8 F 02/21/18 14:04 Pulse Rate 102 H 02/21/18 14:04 Respiratory Rate 20 02/21/18 14:04 Blood Pressure 114/65 02/21/18 14:04 Pulse Oximetry 100 02/21/18 14:04 GENERAL: Obese female in mild respiratory distress HEENT: Head atraumatic,EOMI, pupils reactive, CARDIOVASCULAR: Regular rate and rhythm without murmurs, rubs or gallops. RESPIRATORY: Speaking in 5-10 worse decreased breath sounds bilaterally ABDOMEN: Soft, nontender. Normoactive bowel sounds all 4 quadrants. No guarding or rebound. EXTREMITIES: Normal range of motion, no clubbing or edema. Neurovascularly intact NEUROLOGICAL: Alert and oriented x4.Normal gait and speech. SKIN: Warm, dry, no laceration, no petechiae, no rashes or lesions. Course Orders Ordered: ED Orders 02/21/18 13:55 B Type Natriuretic Peptide Stat Complete Blood Count AUTO DIFF Stat Comprehensive Metabolic Panel Stat Magnesium Stat Partial Thromboplastin Time Stat Prothrombin Time INR Stat Troponin & CK Cardiac Panel Stat 02/21/18 14:08 Consult to Respiratory Therapy Evaluate & Treat Procalcitonin Stat EKG-12 Lead Stat 02/21/18 14:09 XR chest 1V Stat 02/21/18 14:32 Lactate (Lactic Acid) Stat 02/21/18 15:33 CT angio chest PE protocol Stat Discontinued Medications Albuterol (Ventolin) 2.5 mg INH NOW ONE Stop: 02/21/18 16:41 Last Admin: 02/21/18 16:53 Dose: 2.5 mg Albuterol/Ipratropium (Duoneb) 3 ml INH NOW ONE Stop: 02/21/18 14:47 Last Admin: 02/21/18 14:54 Dose: 3 ml Methylprednisolone (Solu-Medrol 125 Mg Vial) 125 mg IV NOW ONE Stop: 02/21/18 16:41 Vital Signs - 8 hr 02/21/18 14:04 02/21/18 14:40 02/21/18 14:55 Temperature 97.8 F Pulse Rate 102 H 104 H 97 H Respiratory Rate 20 24 14 Blood Pressure 114/65 Blood Pressure [Left Arm] 112/63 Pulse Oximetry 100 100 100 02/21/18 15:35 02/21/18 16:00 02/21/18 16:30 Temperature Pulse Rate 104 H 95 H 99 H Respiratory Rate 21 22 22 Blood Pressure Blood Pressure [Left Arm] 124/68 H 110/64 116/72 Pulse Oximetry 100 100 98 02/21/18 16:53 02/21/18 17:07 Temperature Pulse Rate 100 H 102 H Respiratory Rate 16 16 Blood Pressure Blood Pressure [Left Arm] 116/70 Pulse Oximetry 98 94 MDM - SOB/Dyspnea Lab Data Attestation: I reviewed the patient's lab results. Result diagrams: 02/21/18 13:55 02/21/18 13:55 Lab Results 02/21/18 02/21/18 02/21/18 Range/Units 13:55 13:55 13:55 WBC 11.7 H (4.5-11.0) X10^3/uL RBC 4.37 (4.0-5.2) X10^6/uL Hgb 13.1 (12.0-16.0) g/dL Hct 39.8 (36-46) % MCV 90.9 (80-100) fL MCH 30.0 (26-34) PG MCHC 33.0 (30-36) % RDW 15.7 H (11.6-14.8) % Plt Count 285 (150-400) X10^3/uL Neut % (Auto) 86.1 H (50-75) % Lymph % (Auto) 9.4 L (25-40) % [place] % (Auto) 3.8 (3-14) % Eos % (Auto) 0.2 L (2-4) % Baso % (Auto) 0.5 (0-2) % Neut # (Auto) 93956 H (2767-8144) /uL PT 48.4 H (10.1-12.7) SECONDS INR 4.3 H (0.9-1.3) APTT 44 H (26.4-36.2) SECONDS Sodium (137-145) mmol/L Potassium (3.4-5.1) mmol/L Chloride (98-107) mmol/L Carbon Dioxide (22-32) mmol/L BUN (7-17) mg/dL Creatinine (0.52-1.04) mg/dL Estimated GFR (>60) mL/min BUN/Creatinine Ratio (6-22) Glucose (80-110) mg/dL Lactate (0.7-2.1) mmol/L Calcium (8.4-10.2) mg/dL Magnesium 2.1 (1.6-2.3) mg/dL Total Bilirubin (0.2-1.3) mg/dL AST (14-36) IU/L ALT (9-52) IU/L Alkaline Phosphatase (38-126) U/L Total Creatine Kinase 68 (30-135) U/L Troponin I < 0.012 (0.01-0.034) ng/mL B-Natriuretic Peptide 108.0 H (<100) Total Protein (6.3-8.2) g/dL Albumin (3.5-5.0) g/dL Globulin (1.7-4.1) g/dL Albumin/Globulin Ratio (1.0-2.8) Procalcitonin (<0.5) ng/mL 02/21/18 02/21/18 02/21/18 Range/Units 13:55 14:08 14:32 WBC (4.5-11.0) X10^3/uL RBC (4.0-5.2) X10^6/uL Hgb (12.0-16.0) g/dL Hct (36-46) % MCV (80-100) fL MCH (26-34) PG MCHC (30-36) % RDW (11.6-14.8) % Plt Count (150-400) X10^3/uL Neut % (Auto) (50-75) % Lymph % (Auto) (25-40) % [place] % (Auto) (3-14) % Eos % (Auto) (2-4) % Baso % (Auto) (0-2) % Neut # (Auto) (7829-8094) /uL PT (10.1-12.7) SECONDS INR (0.9-1.3) APTT (26.4-36.2) SECONDS Sodium 138 (137-145) mmol/L Potassium 4.6 (3.4-5.1) mmol/L Chloride 98 (98-107) mmol/L Carbon Dioxide 27 (22-32) mmol/L BUN 15 (7-17) mg/dL Creatinine 0.60 (0.52-1.04) mg/dL Estimated GFR > 60.0 (>60) mL/min BUN/Creatinine Ratio 25.0 H (6-22) Glucose 167 H (80-110) mg/dL Lactate 1.6 (0.7-2.1) mmol/L Calcium 9.5 (8.4-10.2) mg/dL Magnesium (1.6-2.3) mg/dL Total Bilirubin 0.9 (0.2-1.3) mg/dL AST 60 H (14-36) IU/L ALT 38 (9-52) IU/L Alkaline Phosphatase 63 (38-126) U/L Total Creatine Kinase (30-135) U/L Troponin I (0.01-0.034) ng/mL B-Natriuretic Peptide (<100) Total Protein 7.6 (6.3-8.2) g/dL Albumin 4.5 (3.5-5.0) g/dL Globulin 3.1 (1.7-4.1) g/dL Albumin/Globulin Ratio 1.5 (1.0-2.8) Procalcitonin < 0.05 (<0.5) ng/mL Imaging Data Chest x-ray: Radiologist's impression: PROCEDURE: XR CHEST 1V INDICATIONS: short of breath TECHNIQUE: One view of the chest was acquired. COMPARISON: [facility], CHEST 1 VIEW, 10/14/2017, 10:10. [facility], CHEST 2 VIEW, 10/13/2017, 13:48. Abdomen and pelvis CT from 01/25/2018. FINDINGS: Surgical changes and devices: None. Lungs and pleura: No pleural effusions or pneumothorax. Lungs are clear. Mediastinum: Interval enlargement of the cardiomediastinal silhouette. Sternotomy with mediastinal postoperative changes and mitral valve prosthesis. Bones and chest wall: No suspicious bony lesions. Overlying soft tissues appear unremarkable. IMPRESSION: 1. Minimal enlargement of the cardiomediastinal silhouette. Given its rapid onset findings are concerning for pericardial effusion. Consider a chest CT with contrast for further evaluation. 2. Sternotomy with mitral valve prosthesis. Dictated by: Rohit Patel M.D. on 02/21/2018 at 14:56 ct angio: Radiologist's impression: PROCEDURE: CT ANGIO CHEST PE PROTOCOL INDICATIONS: Shortness of breath, pericardial effusion on x ray TECHNIQUE: After the administration of intravenous contrast, 2 mm thick sections acquired from the pulmonary apices to the posterior costophrenic angles. 3-dimensional maximum intensity projection (MIP) coronal and sagittal reformats were then acquired through the thorax. For radiation dose reduction, the following was used: automated exposure control, adjustment of mA and/or kV according to patient size. COMPARISON: [facility], CT, PE STUDY (CTA CHEST), 11/18/2015, 10:39. [facility], CR, CHEST 1 VIEW, 10/14/2017, 10:10. [facility], CT, CT ABDOMEN WO CON, 01/25/2018, 12:56. [facility], CR, XR CHEST 1V, 02/21/2018, 14:15. FINDINGS: Image quality: Excellent. Pulmonary arteries: Pulmonary arteries are normal in size, and demonstrate no intraluminal filling defects to suggest central pulmonary embolism. Lungs and pleura: There is increased pulmonary vascularity and mild groundglass infiltrates in the lower lobes, consistent mild congestive heart failure. No confluent edema. No focal consolidation or pleural effusion. No pneumothorax. Central and peripheral airways are patent. Mediastinum: Heart size is moderately increased, without pericardial effusion. There is a mitral valve prosthesis and coronary artery bypass grafting. No mediastinal or hilar adenopathy. Thoracic aorta is normal in caliber and enhancement. Esophagus is normal in caliber, without hiatal hernia. Bones and chest wall: No suspicious bony lesions. Ribs and thoracic spine appear intact throughout. Thyroid gland is prominent. No axillary or supraclavicular adenopathy. Abdomen: There are gallstones. Visualized upper abdominal solid organs appear normal in the early arterial phase of enhancement. IMPRESSION: 1. No evidence for central pulmonary embolism. 2. Cardiomegaly. No pericardial effusion. Suspect mild congestive heart failure but no confluent pulmonary edema. 3. Cholelithiasis. 4. Prominent thyroid gland. Please correlate with TSH. Dictated by: Elvira Blanco M.D. on 02/21/2018 at 16:25 Approved by: Elvira Blanco M.D. on 02/21/2018 at 16:36 ECG Data Attestation: I personally reviewed and interpreted this ECG as follows: Prior ECG tracings: available for review Interpretation: Atrial fib rate 102 do not agree with computer not sinus tachycardia, similar to previous EKGs no acute ST change MDM Narrative Medical decision making narrative: X-ray was concerned with possible pericardial effusion. She had says that she is normally able to lay flat at night to sleep she has not noticed any difference there is no real orthopnea. No change in the tripod or leaning forward position either although that position does help on her bottom. Will get a CT to look for pericardial effusion, I do not suspect a PE her INR is therapeutic CT does not show any pericardial effusion. The patient is breathing much better after a bronchodilators. I think that this is really how reaction to something outside. She had no precursor thing symptoms this happened quite abruptly. And resolved with bronchodilators. Differential diagnosis: Cardiac tamponade, pericardial effusion, pulmonary embolism, coronary artery disease, CHF, COPD Discharge Plan Departure Patient Disposition: Home, Self-Care Clinical Impression: Mild reactive airways disease Instructions: Chronic Obstructive Pulmonary Disease Activity Restrictions/Additional Instructions: *You have been diagnosed with bronchospasm/reactive airway disease *What to do: Use albuterol inhaler every 4 hr if needed for difficulty breathing *Continue to take medications as directed *Follow up with your primary care provider in 2-3 days *Return to ER if you should have increasing chest pain, increasing shortness of breath or any new, worsening or concerning symptoms Prescriptions: New albuterol sulfate 90 mcg/actuation HFA aerosol inhaler 2 puff INHALATION Q6H PRN (Reason: shortness of breath) Qty: 8 RF: 0 No Action risperidone [Risperdal] 0.5 MG tablet 0.5 mg PO BID Qty: 0 RF: 0 furosemide 80 MG tablet 80 mg PO QDAY Qty: 0 RF: 0 isosorbide dinitrate 30 MG tablet 30 mg PO QDAY Qty: 0 RF: 0 sennosides [senna] 8.6 MG tablet 2 tab PO QDAY Qty: 0 RF: 0 warfarin [Coumadin] 4 MG tablet 4 mg PO QPM Qty: 0 RF: 0 atorvastatin 80 mg Tablet 80 mg PO DAILY RF: 0 acetaminophen 325 mg Tablet 650 mg PO BID RF: 0 docusate sodium 100 mg Capsule 100 mg PO DAILY RF: 0 ezetimibe 10 mg Tablet 10 mg PO DAILY RF: 0 duloxetine 20 mg Capsule,Delayed Release(Dr/Ec) 20 mg PO DAILY RF: 0 pramipexole 1 mg Tablet 1 mg PO BEDTIME RF: 0 omeprazole 40 mg Capsule,Delayed Release(Dr/Ec) 40 mg PO DAILY RF: 0 spironolactone 25 mg Tablet 25 mg PO DAILY RF: 0 calcium carbonate [Tums] 200 mg calcium (500 mg) Tablet,Chewable 2 tab PO TID PRN (Reason: Indigestion) RF: 0 metoprolol tartrate [Lopressor] 50 mg Tablet 50 mg PO BID RF: 0 methimazole 5 mg Tablet 5 mg PO DAILY RF: 0 nystatin 100,000 unit/gram Powder 1 applic TOPICAL TID PRN (Reason: yeast) RF: 0 albuterol sulfate [Ventolin HFA] 90 mcg/actuation Hfa Aerosol Inhaler 2 puff Inhalation Q2H PRN (Reason: Shortness Of Breath Or Wheezing) RF: 0 fluticasone 50 mcg/actuation [place],Suspension 1 spray INTRANASAL DAILY RF: 0 lidocaine HCl 4 % Solution 1 applic Topical QAM RF: 0 magnesium chloride [Mag 64] 64 mg Tablet,Delayed Release (Dr/Ec) 2 tab PO DAILY RF: 0 potassium chloride 20 mEq Tablet Extended Release 40 meq PO BID RF: 0 beclomethasone dipropionate [Qvar RediHaler] 40 mcg/actuation Hfa Aerosol Breath Activated 2 puff INHALATION BID RF: 0 prednisone 10 MG tablet 10 mg PO QDAY RF: 0 hydrocodone-acetaminophen 5 MG/325 MG tablet 1 tab PO BID MDD 3 gm apap RF: 0 hydrocodone-acetaminophen 5 MG/325 MG tablet 1 tab PO Q4HP MDD 3 gm apap PRN (Reason: Pain, Moderate) RF: 0 Referrals: Amna Franco MD [Primary Care Provider] -
[2018-02-21] MEDS: ALBUTEROL 2.5 MG/3 ML NEB (ADULT) INH (16:53)
[2018-02-21] MEDS: methylPREDNISolone 125 MG/2 ML VIAL IV (17:26)
== END 2018-02-21 18:06 | disposition home or self-care (01) ==
PROVIDERS: Emergency Provider Emergency Medicine; PCP Internal Medicine
DX: J45.909 Unspecified asthma, uncomplicated (principal)
CPT/HCPCS: 71045; 71275; 80053; 82550; 82553; 83605; 83735; 83880; 84145; 84484; 85025; 85610; 85730; 93005; 93041; 94640; 96374; 99284; 99285; J2930; J7613; Q9967

== ENCOUNTER → 2018-02-27 07:49 | Outpatient (REF) | payer OTHER, SELFPAY ==
[2018-02-27 10:10] LABS: INR 3.9 (0.9-1.3); Prothrombin Time 43.3 SECONDS (10.1-12.7)
== END ==
LOC: LAB 07:49
PROVIDERS: PCP Internal Medicine; Visit Provider Nurse Practitioner Family
DX: Z51.81 Encounter for therapeutic drug level monitoring (principal)
CPT/HCPCS: 36415; 85610

== ENCOUNTER → 2018-03-01 07:47 | Outpatient (REF) | payer OTHER, SELFPAY ==
[2018-03-01 08:45] LABS: INR 2.1 (0.9-1.3); Prothrombin Time 22.7 SECONDS (10.1-12.7)
== END ==
LOC: LAB 07:47
PROVIDERS: PCP Internal Medicine; Visit Provider Nurse Practitioner Family
DX: Z51.81 Encounter for therapeutic drug level monitoring (principal)
CPT/HCPCS: 36415; 85610

== ENCOUNTER → 2018-03-04 18:51 | Outpatient (REF) | payer OTHER, SELFPAY ==
[2018-03-04 18:57] LABS: Bacteria Urine None Seen; RBC Urine None Seen (0-5/HPF); WBC Urine None Seen (0-5/HPF)
[2018-03-04 19:03] LABS: Appearance Urine UA CLEAR; Bilirubin Urine UA NEGATIVE (NEGATIVE); Color Urine UA YELLOW; Glucose Urine UA NEGATIVE (Normal); Ketones Urine UA NEGATIVE (NEGATIVE); Leukocyte Esterase Urine UA NEGATIVE (NEGATIVE); Nitrite Urine UA Negative (Negative); Occult Blood Urine UA NEGATIVE (Negative); Protein Urine UA NEGATIVE (Negative); Urobilinogen Urine UA 0.2 E.U./dL (0.2)
[2018-03-04 19:16] LABS: Culture Indicated Urine Cult Not Indicated; Urine Comments Microscopic Normal
== END ==
LOC: LAB 18:51
PROVIDERS: PCP Internal Medicine; Visit Provider Registered Nurse
DX: R41.0 Disorientation, unspecified (principal)
CPT/HCPCS: 81001

== ENCOUNTER → 2018-03-06 08:12 | Outpatient (REF) | payer OTHER, SELFPAY ==
[2018-03-06 08:47] LABS: Add Manual Diff / Slide Review NO; Basophils Percent Auto 0.4 % (0-2); Eosinophils Percent Auto 0.6 % (2-4); Hematocrit 40.5 % (36-46); Hemoglobin 13.5 g/dL (12.0-16.0); Lymphocytes Percent Auto 21.4 % (25-40); Mean Corpuscular HGB Conc 33.2 % (30-36); Mean Corpuscular Hemoglobin 29.9 PG (26-34); Neutrophils Absolute Auto 7400 /uL (3000-5900); Neutrophils Percent Auto 70.6 % (50-75); Platelet Count 242 X10^3/uL (150-400); White Blood Cell Count 10.5 X10^3/uL (4.5-11.0)
[2018-03-06 09:19] LABS: BUN Creatinine Ratio 31.7 (6-22); Blood Urea Nitrogen 19 mg/dL (7-17); Calcium 8.8 mg/dL (8.4-10.2); Carbon Dioxide 34 mmol/L (22-32); Chloride 97 mmol/L (98-107); Estimated Glomerular Filt Rate > 60.0 mL/min (>60); Glucose 81 mg/dL (80-110); Potassium 4.1 mmol/L (3.4-5.1); Sodium 140 mmol/L (137-145)
[2018-03-06 09:24] LABS: HEMOLYSIS 91 (0-50)
== END ==
LOC: LAB 08:12
PROVIDERS: PCP Internal Medicine; Visit Provider Nurse Practitioner Family
DX: R53.83 Other fatigue (principal)
CPT/HCPCS: 36415; 80048; 85025

== ENCOUNTER → 2018-03-08 10:30 | Outpatient (REF) | payer OTHER, SELFPAY ==
[2018-03-08 11:50] LABS: INR 3.8 (0.9-1.3); Prothrombin Time 42.9 SECONDS (10.1-12.7)
== END ==
LOC: LAB 10:30
PROVIDERS: PCP Internal Medicine; Visit Provider Nurse Practitioner Family
DX: R79.1 Abnormal coagulation profile (principal)
CPT/HCPCS: 36415; 85610

== ENCOUNTER → 2018-03-11 07:12 | Outpatient (REF) | payer OTHER, SELFPAY ==
[2018-03-11 07:52] LABS: Blood Urea Nitrogen 18 mg/dL (7-17); Calcium 8.8 mg/dL (8.4-10.2); Carbon Dioxide 35 mmol/L (22-32); Chloride 98 mmol/L (98-107); Estimated Glomerular Filt Rate > 60.0 mL/min (>60); Glucose 89 mg/dL (80-110); HEMOLYSIS < 15 (0-50); Potassium 3.7 mmol/L (3.4-5.1); Sodium 140 mmol/L (137-145)
== END ==
LOC: LAB 07:12
PROVIDERS: PCP Internal Medicine; Visit Provider Nurse Practitioner Family
DX: Z92.29 Personal history of other drug therapy (principal); R60.9 Edema, unspecified
CPT/HCPCS: 36415; 80048

== ENCOUNTER → 2018-03-13 08:28 | Outpatient (REF) | payer OTHER, SELFPAY ==
[2018-03-13 09:32] LABS: INR 2.4 (0.9-1.3); Prothrombin Time 26.1 SECONDS (10.1-12.7)
== END ==
LOC: LAB 08:28
PROVIDERS: PCP Internal Medicine; Visit Provider Nurse Practitioner Family
DX: Z51.81 Encounter for therapeutic drug level monitoring (principal)
CPT/HCPCS: 36415; 85610

== ENCOUNTER → 2018-03-15 07:01 | Outpatient (REF) | payer OTHER, SELFPAY ==
[2018-03-15 08:30] LABS: INR 2.9 (0.9-1.3); Prothrombin Time 32.6 SECONDS (10.1-12.7)
[2018-03-15 08:40] LABS: Blood Urea Nitrogen 21 mg/dL (7-17); Calcium 9.1 mg/dL (8.4-10.2); Carbon Dioxide 35 mmol/L (22-32); Chloride 101 mmol/L (98-107); Cholesterol 144 mg/dL (140-199); Estimated Glomerular Filt Rate > 60.0 mL/min (>60); Glucose 78 mg/dL (80-110); HDL Cholesterol 31 mg/dL (40-60); HEMOLYSIS < 15 (0-50); LDL Cholesterol Calculated 90 mg/dL (<100); Potassium 3.9 mmol/L (3.4-5.1); Sodium 143 mmol/L (137-145); Triglycerides 117 mg/dL (35-150)
[2018-03-15 08:58] LABS: Vitamin D 25 Hydroxy (D3) 30.9 ng/mL (30.0-100.0)
[2018-03-15 09:11] LABS: Thyroid Stimulating Hormone 2.64 uIU/mL (0.47-4.68)
[2018-03-15 09:28] LABS: Vitamin B12 267 pg/mL (239-931)
== END ==
LOC: LAB 07:01
PROVIDERS: PCP Internal Medicine; Visit Provider Nurse Practitioner Family
DX: Z51.81 Encounter for therapeutic drug level monitoring (principal); R41.89 Other symptoms and signs involving cognitive functions and awareness
CPT/HCPCS: 36415; 80048; 80061; 82306; 82607; 84443; 85610

== ENCOUNTER 2018-03-17 08:42 | Emergency (ER) | payer OTHER, SELFPAY ==
--- NOTE | 2018-03-17 08:45 | ED.EXTPRO ---
HPI - Extremity Problem General Chief complaint: Extremity Injury, Lower Stated complaint: right foot pain Time Seen by Provider: 03/17/18 08:44 Source: patient Mode of arrival: ambulatory Limitations: no limitations History of Present Illness HPI Narrative: 72-year-old female presents for evaluation of right foot and ankle injury suffered this morning. [facility] was being transferred with a Josiah lift when her foot was caught between the lift and a wall. She denies any knee hip or other pain. She is otherwise well and free of complaint. She denies dizziness, weakness or lightheadedness. She has taken no medications thus far MD Complaint: extremity pain Onset (ago): minute(s) Pain Consistency: constant Location: right Quality: aching and sharp Relieving factors: rest Exacerbating factors: range of motion and palpation Associated symptoms: denies other symptoms Related Data Home Medications Medication Instructions Recorded Confirmed risperidone [Risperdal] 0.5 mg PO BID #0 05/13/16 01/10/18 furosemide 80 mg PO QDAY #0 05/14/17 01/10/18 isosorbide dinitrate 30 mg PO QDAY #0 05/14/17 01/10/18 sennosides [senna] 2 tab PO QDAY #0 05/14/17 01/10/18 warfarin [Coumadin] 4 mg PO QPM #0 05/14/17 01/10/18 acetaminophen 650 mg PO BID 01/10/18 01/10/18 albuterol sulfate [Ventolin HFA] 2 puff INHALATION Q2H PRN 01/10/18 01/10/18 atorvastatin 80 mg PO DAILY 01/10/18 01/10/18 beclomethasone dipropionate [Qvar 2 puff INHALATION BID 01/10/18 01/10/18 RediHaler] calcium carbonate [Tums] 2 tab PO TID PRN 01/10/18 01/10/18 docusate sodium 100 mg PO DAILY 01/10/18 01/10/18 duloxetine 20 mg PO DAILY 01/10/18 01/10/18 ezetimibe 10 mg PO DAILY 01/10/18 01/10/18 fluticasone 1 spray INTRANASAL DAILY 01/10/18 01/10/18 hydrocodone-acetaminophen 1 tab PO BID MDD 3 gm apap 01/10/18 01/10/18 hydrocodone-acetaminophen 1 tab PO Q4HP PRN MDD 3 gm apap 01/10/18 01/10/18 lidocaine HCl 1 applic TOPICAL QAM 01/10/18 01/10/18 magnesium chloride [Mag 64] 2 tab PO DAILY 01/10/18 01/10/18 methimazole 5 mg PO DAILY 01/10/18 01/10/18 metoprolol tartrate [Lopressor] 50 mg PO BID 01/10/18 01/10/18 nystatin 1 applic TOPICAL TID PRN 01/10/18 01/10/18 omeprazole 40 mg PO DAILY 01/10/18 01/10/18 potassium chloride 40 meq PO BID 01/10/18 01/10/18 pramipexole 1 mg PO BEDTIME 01/10/18 01/10/18 prednisone 10 mg PO QDAY 01/10/18 01/10/18 spironolactone 25 mg PO DAILY 01/10/18 01/10/18 Previous Rx's Medication Instructions Recorded albuterol sulfate 2 puff INHALATION Q6H PRN #8 gram 02/21/18 Allergies Allergy/AdvReac Type Severity Reaction Status Date / Time aspartame [ASPARTAME] Allergy Intermediate violently Verified 03/17/18 08:58 ill, fever, rashes. codeine [CODEINE] Allergy Intermediate PROJECTILE Verified 03/17/18 08:57 VOMITING latex [LATEX] Allergy Intermediate VERY Verified 03/17/18 08:57 ITCHY RASH morphine [MORPHINE] Allergy Intermediate HALLUCINATI Verified 03/17/18 08:58 ONS. albuterol Allergy Verified 03/17/18 08:58 ipratropium Allergy Verified 03/17/18 08:58 Review of Systems Review of Systems All systems reviewed & are unremarkable except as noted in HPI and below Constitutional Denies chills, Denies fever(s), Denies lethargy and Denies weakness Eyes Denies change in vision, Denies eye discharge, Denies irritation and Denies loss of vision ENT Ears, Nose, Mouth, and Throat: Denies change in voice, Denies neck pain and Denies sore throat Cardiovascular Denies chest pain, Denies irregular heart rhythm, Denies lightheadedness, Denies palpitations, Denies dyspnea, Denies dyspnea on exertion and Denies orthopnea Respiratory Denies cough, Denies dyspnea, Denies dyspnea on exertion and Denies wheezing Gastrointestinal Gastrointestinal: Denies abdominal pain, Denies change in bowel habits, Denies diarrhea, Denies nausea and Denies vomiting Genitourinary Denies hematuria, Denies flank pain, Denies urinary incontinence and Denies urinary urgency Musculoskeletal Reports joint swelling, Reports limited range of motion and Denies neck pain Integumentary/Breasts Denies pruritus, Denies erythema, Denies rash and Denies wounds Neurologic Denies confusion, Denies loss of vision and Denies weakness Psychiatric Denies anxiety, Denies confusion, Denies depression, Denies homicidal ideation and Denies suicidal ideation Endocrine Denies palpitations Hematologic/Lymphatic Denies easy bruising Allergic/Immunologic Denies wheezing [facility] Surgical History Status post appendectomy Status post hysterectomy Comment: Extensive past medical history reviewed on problem list Exam Narrative Exam Narrative: GEN: Pleasant 72-year-old female, wheelchair bound, and mild distress EYES: Pupils are equal, round, and reactive to light and accommodation. Extraoccular muscles are intact bilaterally. There is no subconjunctival hemorrhage or exudate. CHEST: Lungs are clear to auscultation bilaterally and free of wheezes, rales, or rhonchi. Heart rate is regular rhythm, there are no murmurs, clicks, rubs, or gallops. There is no chest wall tenderness. ABD: Abdomen is soft and nontender, obese. There is no guarding or rebound. Bowel sounds are normal in all 4 quadrants. There is no mass or organomegaly. EXT: No obvious deformity of right foot or ankle. No significant swelling or break in the skin. There is a small amount of ecchymosis on the dorsum of the foot. Patient has sensation intact. Dorsalis pedis intact. Cap refill less than 2 sec. Patient most tender over metatarsals and lateral malleolus SKIN: Warm, pink, and dry. No erythema or rash Initial Vital Signs Initial Vital Signs: Vital Signs Temperature 97.9 F 03/17/18 08:50 Pulse Rate 105 H 03/17/18 08:50 Respiratory Rate 20 03/17/18 08:50 Blood Pressure 145/71 H 03/17/18 08:50 Pulse Oximetry 95 03/17/18 08:50 Course Orders Ordered: ED Orders 03/17/18 08:54 XR ankle RT min 3V Stat XR foot RT min 3V Stat Vital Signs - 8 hr 03/17/18 08:50 03/17/18 10:13 Temperature 97.9 F Pulse Rate 105 H 105 H Respiratory Rate 20 18 Blood Pressure 145/71 H 143/69 H Pulse Oximetry 95 93 MDM - Extremity (Nontraumatic) Imaging Data Ankle Xray: My impression: NAP. Hardware in tact Radiologist's impression: PROCEDURE: XR ANKLE RT MIN 3V INDICATIONS: ankle injury with Josiah lift at [facility] TECHNIQUE: 3 views of the ankle were acquired. COMPARISON: None. FINDINGS: Bones are diffusely osteopenic. Vascular calcifications are noted. Internal fixation hardware along the medial and lateral malleolus are noted, without convincing evidence of acute hardware complication. A fracture lucency persists through the medial malleolus, which appears chronic. No acute fracture or dislocation is identified. IMPRESSION: #1. Right medial and lateral malleoli internal fixation hardware without convincing evidence of acute hardware complication. Chronic-appearing medial malleolar fracture lucency persists. #2. No convincing acute fracture or dislocation of the right ankle. Dictated by: Jong Ortiz M.D. on 03/17/2018 at 9:53 Approved by: Jong Ortiz M.D. on 03/17/2018 at 9:55 Foot Xray: Attestation: I personally reviewed and interpreted this imaging study as follows: My impression: NAP Radiologist's impression: PROCEDURE: XR ANKLE RT MIN 3V INDICATIONS: ankle injury with Josiah lift at [facility] TECHNIQUE: 3 views of the ankle were acquired. COMPARISON: None. FINDINGS: Bones are diffusely osteopenic. Vascular calcifications are noted. Internal fixation hardware along the medial and lateral malleolus are noted, without convincing evidence of acute hardware complication. A fracture lucency persists through the medial malleolus, which appears chronic. No acute fracture or dislocation is identified. IMPRESSION: #1. Right medial and lateral malleoli internal fixation hardware without convincing evidence of acute hardware complication. Chronic-appearing medial malleolar fracture lucency persists. #2. No convincing acute fracture or dislocation of the right ankle. Dictated by: Jong Ortiz M.D. on 03/17/2018 at 9:53 Approved by: Jong Ortiz M.D. on 03/17/2018 at 9:55 Discharge Plan Departure Patient Disposition: Home, Self-Care Clinical Impression: Ankle contusion, Contusion of foot Discharge Date/Time: 03/17/18 10:15 Interventions: ED Discharge Assessment Last Done: 03/17/18 10:13 Instructions: DI for Contusion Activity Restrictions/Additional Instructions: *You have been diagnosed with [ contusion of right foot and ankle ] *What to do: *Take medications as directed: Motrin and Tylenol *Follow up with your primary care provider in 2-3 days, call for an appointment. Let them know you were seen in the Emergency Department and that we ask that you be seen in follow up *Return to ER if you should have any new, worsening or concerning symptoms, such as [ increasing pain, swelling, tingling or other bothersome symptoms] Prescriptions: No Action risperidone [Risperdal] 0.5 MG tablet 0.5 mg PO BID Qty: 0 RF: 0 furosemide 80 MG tablet 80 mg PO QDAY Qty: 0 RF: 0 isosorbide dinitrate 30 MG tablet 30 mg PO QDAY Qty: 0 RF: 0 sennosides [senna] 8.6 MG tablet 2 tab PO QDAY Qty: 0 RF: 0 warfarin [Coumadin] 4 MG tablet 4 mg PO QPM Qty: 0 RF: 0 atorvastatin 80 mg Tablet 80 mg PO DAILY RF: 0 acetaminophen 325 mg Tablet 650 mg PO BID RF: 0 docusate sodium 100 mg Capsule 100 mg PO DAILY RF: 0 ezetimibe 10 mg Tablet 10 mg PO DAILY RF: 0 duloxetine 20 mg Capsule,Delayed Release(Dr/Ec) 20 mg PO DAILY RF: 0 pramipexole 1 mg Tablet 1 mg PO BEDTIME RF: 0 omeprazole 40 mg Capsule,Delayed Release(Dr/Ec) 40 mg PO DAILY RF: 0 spironolactone 25 mg Tablet 25 mg PO DAILY RF: 0 calcium carbonate [Tums] 200 mg calcium (500 mg) Tablet,Chewable 2 tab PO TID PRN (Reason: Indigestion) RF: 0 metoprolol tartrate [Lopressor] 50 mg Tablet 50 mg PO BID RF: 0 methimazole 5 mg Tablet 5 mg PO DAILY RF: 0 nystatin 100,000 unit/gram Powder 1 applic TOPICAL TID PRN (Reason: yeast) RF: 0 albuterol sulfate [Ventolin HFA] 90 mcg/actuation Hfa Aerosol Inhaler 2 puff Inhalation Q2H PRN (Reason: Shortness Of Breath Or Wheezing) RF: 0 fluticasone 50 mcg/actuation [place],Suspension 1 spray INTRANASAL DAILY RF: 0 lidocaine HCl 4 % Solution 1 applic Topical QAM RF: 0 magnesium chloride [Mag 64] 64 mg Tablet,Delayed Release (Dr/Ec) 2 tab PO DAILY RF: 0 potassium chloride 20 mEq Tablet Extended Release 40 meq PO BID RF: 0 beclomethasone dipropionate [Qvar RediHaler] 40 mcg/actuation Hfa Aerosol Breath Activated 2 puff INHALATION BID RF: 0 prednisone 10 MG tablet 10 mg PO QDAY RF: 0 hydrocodone-acetaminophen 5 MG/325 MG tablet 1 tab PO BID MDD 3 gm apap RF: 0 hydrocodone-acetaminophen 5 MG/325 MG tablet 1 tab PO Q4HP MDD 3 gm apap PRN (Reason: Pain, Moderate) RF: 0 albuterol sulfate 90 mcg/actuation HFA aerosol inhaler 2 puff INHALATION Q6H PRN (Reason: shortness of breath) Qty: 8 RF: 0
[2018-03-17 08:50] VITALS: BP 145/71; PULSE 105; RESP 20; TEMP 36.6; O2SAT 95
--- NOTE | 2018-03-17 08:54 | DI.RAD.S_ITS ---
PROCEDURE: XR ANKLE RT MIN 3V INDICATIONS: ankle injury with Josiah lift at [facility] TECHNIQUE: 3 views of the ankle were acquired. COMPARISON: None. FINDINGS: Bones are diffusely osteopenic. Vascular calcifications are noted. Internal fixation hardware along the medial and lateral malleolus are noted, without convincing evidence of acute hardware complication. A fracture lucency persists through the medial malleolus, which appears chronic. No acute fracture or dislocation is identified. IMPRESSION: #1. Right medial and lateral malleoli internal fixation hardware without convincing evidence of acute hardware complication. Chronic-appearing medial malleolar fracture lucency persists. #2. No convincing acute fracture or dislocation of the right ankle. Dictated by: Jong Ortiz M.D. on 03/17/2018 at 9:53 Approved by: Jong Ortiz M.D. on 03/17/2018 at 9:55
--- NOTE | 2018-03-17 08:54 | DI.RAD.S_ITS ---
PROCEDURE: XR FOOT RT MIN 3V INDICATIONS: foot injury with Josiah lift at [facility] TECHNIQUE: 3 views of the foot were acquired. COMPARISON: None. FINDINGS: Bones are diffusely osteopenic. There are mild degenerative changes at the first metacarpophalangeal joint. Vascular calcification noted. Internal fixation hardware noted along the medial and lateral malleolus, partially imaged on this exam. Fracture lucency through the medial malleolus persists. IMPRESSION: #1. Right medial and lateral malleolar internal fixation hardware, without convincing evidence of acute hardware complication. Chronic-appearing fracture lucency through the medial malleolus persists. #2. No convincing acute fracture or dislocation of the right foot. Dictated by: Jong Ortiz M.D. on 03/17/2018 at 9:49 Approved by: Jong Ortiz M.D. on 03/17/2018 at 9:52
[2018-03-17 10:13] VITALS: BP 143/69; PULSE 105; RESP 18; O2SAT 93
== END 2018-03-17 10:15 | disposition home or self-care (01) ==
PROVIDERS: Emergency Provider Emergency Medicine; PCP Internal Medicine
DX: S90.01XA Contusion of right ankle, initial encounter (principal); W23.0XXA Caught, crushed, jammed, or pinched between moving objects, initial encounter; Y92.129 Unspecified place in nursing home as the place of occurrence of the external cause
CPT/HCPCS: 73610; 73630; 99282; 99283

== ENCOUNTER → 2018-03-25 08:00 | Outpatient (REF) | payer OTHER, SELFPAY ==
[2018-03-25 09:17] LABS: Blood Urea Nitrogen 12 mg/dL (7-17); Calcium 8.8 mg/dL (8.4-10.2); Carbon Dioxide 34 mmol/L (22-32); Chloride 102 mmol/L (98-107); Estimated Glomerular Filt Rate > 60.0 mL/min (>60); Glucose 91 mg/dL (80-110); HEMOLYSIS < 15 (0-50); Potassium 3.7 mmol/L (3.4-5.1); Sodium 142 mmol/L (137-145)
== END ==
LOC: LAB 08:00
PROVIDERS: PCP Internal Medicine; Visit Provider Nurse Practitioner Family
DX: I50.9 Heart failure, unspecified (principal)
CPT/HCPCS: 36415; 80048

== ENCOUNTER → 2018-03-29 06:55 | Outpatient (REF) | payer OTHER, SELFPAY ==
[2018-03-29 07:28] LABS: INR 3.7 (0.9-1.3); Prothrombin Time 40.6 SECONDS (10.1-12.7)
== END ==
LOC: LAB 06:55
PROVIDERS: PCP Internal Medicine; Visit Provider Nurse Practitioner Family
DX: I48.91 Unspecified atrial fibrillation (principal); Z92.29 Personal history of other drug therapy
CPT/HCPCS: 36415; 85610

== ENCOUNTER → 2018-04-05 07:48 | Outpatient (REF) | payer OTHER, SELFPAY ==
[2018-04-05 08:16] LABS: INR 2.3 (0.9-1.3); Prothrombin Time 24.8 SECONDS (10.1-12.7)
== END ==
LOC: LAB 07:48
PROVIDERS: PCP Internal Medicine; Visit Provider Nurse Practitioner Family
DX: Z51.81 Encounter for therapeutic drug level monitoring (principal)
CPT/HCPCS: 36415; 85610

== ENCOUNTER 2018-04-11 13:07 | Emergency (ER) | payer OTHER, SELFPAY ==
[2018-04-11] VITALS (8 sets, daily range): BP systolic 121–143; BP diastolic 68–84; PULSE 91–103; RESP 19–28; TEMP 36.9–37.2; O2SAT 93–96
--- NOTE | 2018-04-11 13:33 | ED.NEUROSD ---
HPI - Neuro Symptoms/Deficit General Chief Complaint: Neuro Symptoms/Deficit Stated Complaint: Decreased level of Consciousness Time Seen by Provider: 04/11/18 13:17 Source: patient and EMS Mode of arrival: EMS Limitations: no limitations History of Present Illness HPI Narrative: Patient is a 72-year-old female who presents with altered mental status from [facility]. She frequently has this when she has an infection of some sort. It just started today. she is now awake she is alert she has no complaints. She is here with family who state that in the past it has been UTIs. She denies any chest pain, shortness of breath abdominal pain nausea or vomiting. She feels warm to touch but she is currently afebrile. She did get Tylenol and Vicodin prior to arrival. On Anticoagulants: Yes Related Data Home Medications Medication Instructions Recorded Confirmed furosemide 80 mg PO QDAY #0 05/14/17 04/11/18 isosorbide dinitrate 30 mg PO QDAY #0 05/14/17 04/11/18 acetaminophen 650 mg PO BID 01/10/18 04/11/18 albuterol sulfate [Ventolin HFA] 2 puff INHALATION Q4H PRN 01/10/18 04/11/18 atorvastatin 80 mg PO DAILY 01/10/18 04/11/18 calcium carbonate [Tums] 2 tab PO TID PRN 01/10/18 04/11/18 docusate sodium 100 mg PO DAILY 01/10/18 04/11/18 duloxetine 20 mg PO DAILY 01/10/18 04/11/18 ezetimibe 10 mg PO DAILY 01/10/18 04/11/18 fluticasone 1 spray INTRANASAL DAILY 01/10/18 04/11/18 hydrocodone-acetaminophen 1 tab PO BID MDD 3 gm apap 01/10/18 04/11/18 hydrocodone-acetaminophen 1 tab PO Q4HP PRN MDD 3 gm apap 01/10/18 04/11/18 lidocaine HCl 1 applic TOPICAL QAM 01/10/18 04/11/18 magnesium chloride [Mag 64] 2 tab PO DAILY 01/10/18 04/11/18 methimazole 5 mg PO DAILY 01/10/18 04/11/18 metoprolol tartrate [Lopressor] 50 mg PO BID 01/10/18 04/11/18 nystatin 1 applic TOPICAL TID PRN 01/10/18 04/11/18 omeprazole 40 mg PO DAILY 01/10/18 04/11/18 potassium chloride 40 meq PO BID 01/10/18 04/11/18 pramipexole 1 mg PO BEDTIME 01/10/18 04/11/18 spironolactone 25 mg PO DAILY 01/10/18 04/11/18 beclomethasone dipropionate [Qvar 2 puff INHALATION BID 04/11/18 04/11/18 RediHaler] ondansetron 4 mg PO Q4H PRN 04/11/18 04/11/18 phenazopyridine 200 mg PO TID PRN 04/11/18 04/11/18 sennosides [senna] 2 tab PO DAILY 04/11/18 04/11/18 warfarin 3 mg PO QPM 04/11/18 04/11/18 Previous Rx's Medication Instructions Recorded nitrofurantoin monohyd/m-cryst 100 mg PO BID #14 cap 04/11/18 [Macrobid] Allergies Allergy/AdvReac Type Severity Reaction Status Date / Time aspartame [ASPARTAME] Allergy Intermediate violently Verified 03/17/18 08:58 ill, fever, rashes. codeine [CODEINE] Allergy Intermediate PROJECTILE Verified 03/17/18 08:57 VOMITING latex [LATEX] Allergy Intermediate VERY Verified 03/17/18 08:57 ITCHY RASH morphine [MORPHINE] Allergy Intermediate HALLUCINATI Verified 03/17/18 08:58 ONS. albuterol Allergy Verified 03/17/18 08:58 ipratropium Allergy Verified 03/17/18 08:58 Review of Systems Review of Systems All systems reviewed & are unremarkable except as noted in HPI and below Constitutional Reports body ache(s), Denies excessive sweating and Reports malaise Cardiovascular Denies chest pain, Denies irregular heart rhythm, Denies lightheadedness, Denies palpitations, Denies dyspnea, Denies dyspnea on exertion and Denies orthopnea Respiratory Denies cough, Denies dyspnea, Denies dyspnea on exertion and Denies wheezing Gastrointestinal Gastrointestinal: Denies abdominal pain, Denies change in bowel habits, Denies diarrhea, Denies nausea and Denies vomiting Musculoskeletal Denies back pain, Denies muscle weakness, Denies numbness and Denies tingling Integumentary/Breasts Denies pruritus, Denies erythema, Denies rash and Denies wounds Neurologic Denies numbness and Denies tingling Endocrine Denies excessive sweating and Denies palpitations Allergic/Immunologic Denies wheezing PFSH Medical History Hyperlipidemia (Acute) Hypertension (Acute) Surgical History Status post appendectomy Status post hysterectomy Social History Smoking Status: Unknown if ever smoked Exam Initial Vital Signs Initial Vital Signs: Vital Signs Temperature 98.5 F 04/11/18 13:16 Pulse Rate 101 H 04/11/18 13:16 Respiratory Rate 26 H 04/11/18 13:16 Blood Pressure 121/75 04/11/18 13:16 Pulse Oximetry 95 04/11/18 13:16 GENERAL: Obese female awake alert confused on year HEENT: Head atraumatic,EOMI, pupils reactive, face symmetric, CARDIOVASCULAR: Regular rate and rhythm without murmurs, rubs or gallops. RESPIRATORY: Breath sounds equal bilaterally, no wheezes rales or rhonchi. ABDOMEN: Soft, nontender. Normoactive bowel sounds all 4 quadrants. No guarding or rebound. EXTREMITIES: Normal range of motion, no clubbing or edema. Neurovascularly intact NEUROLOGICAL: Alert and oriented x4. Normal speech no gross deficits. Able to follow commands SKIN: Warm, dry, no laceration, no petechiae, no rashes or lesions. Course Orders Ordered: ED Orders 04/11/18 13:39 XR chest 1V Stat 04/11/18 13:40 Complete Blood Count AUTO DIFF Stat Lactate (Lactic Acid) Stat Partial Thromboplastin Time Stat Procalcitonin Stat Prothrombin Time INR Stat 04/11/18 14:03 Blood Culture Stat 04/11/18 14:11 Comprehensive Metabolic Panel Stat 04/11/18 14:56 Urinalysis and Microscopic Stat Urine Culture Stat Sodium Chloride (Normal Saline 0.9%) 1,000 mls @ 200 mls/hr IV CONT AGUSTIN Last Admin: 04/11/18 15:00 Dose: 200 mls/hr Discontinued Medications Ceftriaxone Sodium/Dextrose (Rocephin) 1 gm in 50 mls @ 100 mls/hr IV NOW ONE Stop: 04/11/18 16:10 Last Admin: 04/11/18 15:57 Dose: 100 mls/hr Vital Signs - 8 hr 04/11/18 13:16 04/11/18 13:48 04/11/18 14:30 Temperature 98.5 F Pulse Rate 101 H 102 H 101 H Respiratory Rate 26 H 28 H 20 Blood Pressure 121/75 Blood Pressure [Right Arm] 139/68 134/79 Pulse Oximetry 95 95 95 04/11/18 15:00 04/11/18 15:01 04/11/18 15:34 Temperature 98.9 F Pulse Rate 91 H 102 H Respiratory Rate 25 H 25 H Blood Pressure Blood Pressure [Right Arm] 143/78 H 134/71 Pulse Oximetry 95 94 04/11/18 16:24 Temperature Pulse Rate 102 H Respiratory Rate 19 Blood Pressure Blood Pressure [Right Arm] 131/84 Pulse Oximetry 93 MDM - Neuro Symptoms/Deficit Medical Records Attestation: I reviewed the patient's medical records. Lab Data Attestation: I reviewed the patient's lab results. Result diagrams: 04/11/18 13:40 04/11/18 14:11 Lab Results 04/11/18 04/11/18 04/11/18 Range/Units 13:40 13:40 13:40 WBC 10.8 (4.5-11.0) X10^3/uL RBC 4.40 (4.0-5.2) X10^6/uL Hgb 13.2 (12.0-16.0) g/dL Hct 39.9 (36-46) % MCV 90.7 (80-100) fL MCH 30.0 (26-34) PG MCHC 33.1 (30-36) % RDW 17.2 H (11.6-14.8) % Plt Count 297 (150-400) X10^3/uL Neut % (Auto) 70.5 (50-75) % Lymph % (Auto) 17.3 L (25-40) % [place] % (Auto) 10.4 (3-14) % Eos % (Auto) 0.8 L (2-4) % Baso % (Auto) 1.0 (0-2) % Neut # (Auto) 7600 H (8036-9755) /uL PT 23.5 H (10.1-12.7) SECONDS INR 2.1 H (0.9-1.3) APTT 36 D (26.4-36.2) SECONDS Sodium (137-145) mmol/L Potassium (3.4-5.1) mmol/L Chloride (98-107) mmol/L Carbon Dioxide (22-32) mmol/L BUN (7-17) mg/dL Creatinine (0.52-1.04) mg/dL Estimated GFR (>60) mL/min BUN/Creatinine Ratio (6-22) Glucose (80-110) mg/dL Lactate (0.7-2.1) mmol/L Calcium (8.4-10.2) mg/dL Total Bilirubin (0.2-1.3) mg/dL AST (14-36) IU/L ALT (9-52) IU/L Alkaline Phosphatase (38-126) U/L Total Protein (6.3-8.2) g/dL Albumin (3.5-5.0) g/dL Globulin (1.7-4.1) g/dL Albumin/Globulin Ratio (1.0-2.8) Procalcitonin < 0.05 (<0.5) ng/mL Urine Color Urine Appearance Urine pH (4.5-8.0) Ur Specific [place] (1.000-1.035) Urine Protein (Negative) Urine Glucose (UA) (Normal) g/dL Urine Ketones (NEGATIVE) Urine Occult Blood (Negative) Urine Nitrate (Negative) Urine Bilirubin (NEGATIVE) Urine Urobilinogen (0.2) E.U./dL Ur Leukocyte Esterase (NEGATIVE) Urine RBC (0-5/HPF) Urine WBC (0-5/HPF) Ur Transition Epith Cell (0-5/HPF) Urine Bacteria (None) Ur Culture Indicated? Micro UA Comment 04/11/18 04/11/18 04/11/18 Range/Units 13:40 14:11 14:56 WBC (4.5-11.0) X10^3/uL RBC (4.0-5.2) X10^6/uL Hgb (12.0-16.0) g/dL Hct (36-46) % MCV (80-100) fL MCH (26-34) PG MCHC (30-36) % RDW (11.6-14.8) % Plt Count (150-400) X10^3/uL Neut % (Auto) (50-75) % Lymph % (Auto) (25-40) % [place] % (Auto) (3-14) % Eos % (Auto) (2-4) % Baso % (Auto) (0-2) % Neut # (Auto) (0571-1061) /uL PT (10.1-12.7) SECONDS INR (0.9-1.3) APTT (26.4-36.2) SECONDS Sodium 140 (137-145) mmol/L Potassium 4.4 (3.4-5.1) mmol/L Chloride 104 (98-107) mmol/L Carbon Dioxide 29 (22-32) mmol/L BUN 14 (7-17) mg/dL Creatinine 0.60 (0.52-1.04) mg/dL Estimated GFR > 60.0 (>60) mL/min BUN/Creatinine Ratio 23.3 H (6-22) Glucose 86 (80-110) mg/dL Lactate 1.2 (0.7-2.1) mmol/L Calcium 9.3 (8.4-10.2) mg/dL Total Bilirubin 0.8 (0.2-1.3) mg/dL AST 39 H (14-36) IU/L ALT 25 (9-52) IU/L Alkaline Phosphatase 72 (38-126) U/L Total Protein 7.3 (6.3-8.2) g/dL Albumin 4.2 (3.5-5.0) g/dL Globulin 3.1 (1.7-4.1) g/dL Albumin/Globulin Ratio 1.4 (1.0-2.8) Procalcitonin (<0.5) ng/mL Urine Color Yellow Urine Appearance Clear Urine pH 5.0 (4.5-8.0) Ur Specific [place] 1.020 (1.000-1.035) Urine Protein Negative (Negative) Urine Glucose (UA) Negative (Normal) g/dL Urine Ketones Negative (NEGATIVE) Urine Occult Blood 2+ H (Negative) Urine Nitrate Positive H (Negative) Urine Bilirubin Negative (NEGATIVE) Urine Urobilinogen 0.2 (0.2) E.U./dL Ur Leukocyte Esterase 1+ H (NEGATIVE) Urine RBC 1-5/hpf (0-5/HPF) Urine WBC 1-5/hpf (0-5/HPF) Ur Transition Epith Cell 0-1/hpf (0-5/HPF) Urine Bacteria None seen (None) Ur Culture Indicated? Specimen cultured Micro UA Comment Not Reportable Imaging Data Chest x-ray: Radiologist's impression: PROCEDURE: XR CHEST 1V INDICATIONS: weakness fever TECHNIQUE: One view of the chest was acquired. COMPARISON: [facility], CT, CT ANGIO CHEST PE PROTOCOL, 02/21/2018, 15:50. [facility], CR, CHEST 1 VIEW, 10/14/2017, 10:10. [facility], CR, CHEST 2 VIEW, 10/13/2017, 13:48. [facility], CR, CHEST 1 VIEW, 05/18/2017, 8:38. [facility], CR, CHEST 1 VIEW, 05/15/2017, 10:50. [facility], CR, CHEST 1 VIEW, 05/14/2017, 17:50. [facility], CR, CHEST 1 VIEW, 10/12/2016, 13:07. [facility], CR, CHEST 1 VIEW, 08/09/2016, 20:16. [facility], CR, CHEST 1 VIEW, 05/13/2016, 10:45. [facility], CR, XR CHEST 1V, 02/21/2018, 14:15. FINDINGS: Surgical changes and devices: Status post CABG procedure. Lungs and pleura: No pleural effusions or pneumothorax. Lungs are clear. Mediastinum: Mediastinal contours appear normal. Heart size is enlarged. Bones and chest wall: No suspicious bony lesions. Overlying soft tissues appear unremarkable. IMPRESSION: No acute cardiopulmonary disease process. Dictated by: Rox Alvarado MD, PhD on 04/11/2018 at 13:58 MDM Narrative Medical decision making narrative: The patient has nitrates in her urine no leukocytosis lactic acid is normal. She does not appear severely septic or septic shock. Based on previous urinalysis she does have some drug resistance however both cultures are sensitive to Rocephin. She is given 1 dose of IV Rocephin. She does have some sensitivity and resistance to Bactrim and Macrobid. Will start her on Bactrim and wait for culture and sensitivities to return. At this time I think she can be treated as an outpatient. Discharge Plan Departure Patient Disposition: Home Clinical Impression: UTI (urinary tract infection) Instructions: DI for Urinary Tract Infection (UTI) Activity Restrictions/Additional Instructions: *You have been diagnosed with UTI --get INR we checked next week, antibiotics can cause changes in it *Continue to take medications as directed Macrobid twice a day for 7 days-this has been faxed to [facility] *Follow up with your primary care provider in 2-3 days *Return to ER if you should have increased confusion, fever, or any new, worsening or concerning symptoms Prescriptions: New nitrofurantoin monohyd/m-cryst [Macrobid] 100 mg capsule 100 mg PO BID Qty: 14 RF: 0 No Action furosemide 80 MG tablet 80 mg PO QDAY Qty: 0 RF: 0 isosorbide dinitrate 30 MG tablet 30 mg PO QDAY Qty: 0 RF: 0 atorvastatin 80 mg Tablet 80 mg PO DAILY RF: 0 acetaminophen 325 mg Tablet 650 mg PO BID RF: 0 docusate sodium 100 mg Capsule 100 mg PO DAILY RF: 0 ezetimibe 10 mg Tablet 10 mg PO DAILY RF: 0 duloxetine 20 mg Capsule,Delayed Release(Dr/Ec) 20 mg PO DAILY RF: 0 pramipexole 1 mg Tablet 1 mg PO BEDTIME RF: 0 omeprazole 40 mg Capsule,Delayed Release(Dr/Ec) 40 mg PO DAILY RF: 0 spironolactone 25 mg Tablet 25 mg PO DAILY RF: 0 calcium carbonate [Tums] 200 mg calcium (500 mg) Tablet,Chewable 2 tab PO TID PRN (Reason: Indigestion) RF: 0 metoprolol tartrate [Lopressor] 50 mg Tablet 50 mg PO BID RF: 0 methimazole 5 mg Tablet 5 mg PO DAILY RF: 0 nystatin 100,000 unit/gram Powder 1 applic TOPICAL TID PRN (Reason: yeast) RF: 0 albuterol sulfate [Ventolin HFA] 90 mcg/actuation Hfa Aerosol Inhaler 2 puff Inhalation Q4H PRN (Reason: Shortness Of Breath Or Wheezing) RF: 0 fluticasone 50 mcg/actuation [place],Suspension 1 spray INTRANASAL DAILY RF: 0 lidocaine HCl 4 % Solution 1 applic Topical QAM RF: 0 magnesium chloride [Mag 64] 64 mg Tablet,Delayed Release (Dr/Ec) 2 tab PO DAILY RF: 0 potassium chloride 20 mEq Tablet Extended Release 40 meq PO BID RF: 0 hydrocodone-acetaminophen 5 MG/325 MG tablet 1 tab PO BID MDD 3 gm apap RF: 0 hydrocodone-acetaminophen 5 MG/325 MG tablet 1 tab PO Q4HP MDD 3 gm apap PRN (Reason: Pain, Moderate) RF: 0 phenazopyridine 200 mg Tablet 200 mg PO TID PRN (Reason: painful urination) RF: 0 warfarin 3 mg Tablet 3 mg PO QPM RF: 0 ondansetron 4 mg Tablet,Disintegrating 4 mg PO Q4H PRN (Reason: Nausea) RF: 0 beclomethasone dipropionate [Qvar RediHaler] 40 mcg/actuation Hfa Aerosol Breath Activated 2 puff Inhalation BID RF: 0 sennosides [senna] 8.6 mg Tablet 2 tab PO DAILY RF: 0 Referrals: Amna Franco MD [Primary Care Provider] -
--- NOTE | 2018-04-11 13:39 | DI.RAD.S_ITS ---
PROCEDURE: XR CHEST 1V INDICATIONS: weakness fever TECHNIQUE: One view of the chest was acquired. COMPARISON: [facility], CT, CT ANGIO CHEST PE PROTOCOL, 02/21/2018, 15:50. [facility], CR, CHEST 1 VIEW, 10/14/2017, 10:10. [facility], CR, CHEST 2 VIEW, 10/13/2017, 13:48. [facility], CR, CHEST 1 VIEW, 05/18/2017, 8:38. [facility], CR, CHEST 1 VIEW, 05/15/2017, 10:50. [facility], CR, CHEST 1 VIEW, 05/14/2017, 17:50. [facility], CR, CHEST 1 VIEW, 10/12/2016, 13:07. [facility], CR, CHEST 1 VIEW, 08/09/2016, 20:16. [facility], CR, CHEST 1 VIEW, 05/13/2016, 10:45. [facility], , XR CHEST 1V, 02/21/2018, 14:15. FINDINGS: Surgical changes and devices: Status post CABG procedure. Lungs and pleura: No pleural effusions or pneumothorax. Lungs are clear. Mediastinum: Mediastinal contours appear normal. Heart size is enlarged. Bones and chest wall: No suspicious bony lesions. Overlying soft tissues appear unremarkable. IMPRESSION: No acute cardiopulmonary disease process. Dictated by: Rox Alvarado MD, PhD on 04/11/2018 at 13:58 Approved by: Rox Alvarado MD, PhD on 04/11/2018 at 13:58
[2018-04-11 14:00] LABS: Add Manual Diff / Slide Review NO; Eosinophils Percent Auto 0.8 % (2-4); Hematocrit 39.9 % (36-46); Hemoglobin 13.2 g/dL (12.0-16.0); Lymphocytes Percent Auto 17.3 % (25-40); Mean Corpuscular HGB Conc 33.1 % (30-36); Mean Corpuscular Volume 90.7 fL (80-100); Monocytes Percent Auto 10.4 % (3-14); Neutrophils Absolute Auto 7600 /uL (3000-5900); Neutrophils Percent Auto 70.5 % (50-75); Platelet Count 297 X10^3/uL (150-400); Red Cell Distribution Width 17.2 % (11.6-14.8); White Blood Cell Count 10.8 X10^3/uL (4.5-11.0)
[2018-04-11 14:05] LABS: INR 2.1 (0.9-1.3); Prothrombin Time 23.5 SECONDS (10.1-12.7)
[2018-04-11 14:08] LABS: PTT Partial Thromboplastin Tim 36 SECONDS (26.4-36.2)
[2018-04-11 14:13] LABS: Lactate (Lactic Acid) 1.2 mmol/L (0.7-2.1)
[2018-04-11 14:17] LABS: Alanine Aminotransferase 25 IU/L (9-52); Albumin 4.2 g/dL (3.5-5.0); Albumin Globulin Ratio 1.4 (1.0-2.8); Alkaline Phosphatase 72 U/L (38-126); Aspartate Aminotransferase 39 IU/L (14-36); BUN Creatinine Ratio 23.3 (6-22); Bilirubin Total 0.8 mg/dL (0.2-1.3); Blood Urea Nitrogen 14 mg/dL (7-17); Calcium 9.3 mg/dL (8.4-10.2); Carbon Dioxide 29 mmol/L (22-32); Chloride 104 mmol/L (98-107); Estimated Glomerular Filt Rate > 60.0 mL/min (>60); Globulin 3.1 g/dL (1.7-4.1); Glucose 86 mg/dL (80-110); HEMOLYSIS < 15 (0-50); Potassium 4.4 mmol/L (3.4-5.1); Sodium 140 mmol/L (137-145); Total Protein 7.3 g/dL (6.3-8.2)
[2018-04-11 14:34] LABS: Procalcitonin < 0.05 ng/mL (<0.5)
[2018-04-11] MEDS: SODIUM CHLORIDE 0.9% 1,000 ML 200 ML IV (15:00)
[2018-04-11 15:07] LABS: Bacteria Urine None Seen
[2018-04-11 15:12] LABS: Appearance Urine UA CLEAR; Bilirubin Urine UA NEGATIVE (NEGATIVE); Color Urine UA YELLOW; Glucose Urine UA NEGATIVE (Normal); Ketones Urine UA NEGATIVE (NEGATIVE); Leukocyte Esterase Urine UA 1+ (NEGATIVE); Nitrite Urine UA POSITIVE (Negative); Occult Blood Urine UA 2+ (Negative); Protein Urine UA NEGATIVE (Negative); Urobilinogen Urine UA 0.2 E.U./dL (0.2)
--- NOTE | 2018-04-11 15:18 | PC.NURSE ---
someone who has taken care of patient reports that she has some baseline confusion.
[2018-04-11 15:52] LABS: Transitional Epi Cells Urine 0-1/HPF (0-5/HPF)
[2018-04-11 15:53] LABS: Culture Indicated Urine Specimen Cultured; RBC Urine 1-5/HPF (0-5/HPF); WBC Urine 1-5/HPF (0-5/HPF)
[2018-04-11] MEDS: CEFTRIAXONE 1 GM/50 ML FROZ.PIGGY IV (15:57)
--- NOTE | 2018-04-11 16:53 | PC.NURSE ---
[facility] called to filler picker patient. nurse states that it will be 10 minutes before someone comes to filler picker the patient.
[2018-04-12 10:28] LABS: Acinetobacter baumannii Not Detected (Not Detect); Candida albicans Not Detected (Not Detect); Candida glabrata Not Detected (Not Detect); Candida krusei Not Detected (Not Detect); Candida parapsilosis Not Detected (Not Detect); Candida tropicalis Not Detected (Not Detect); E. coli Not Detected (Not Detect); Enterobacter cloacae complex Not Detected (Not Detect); Enterobacteriaceae species Not Detected (Not Detect); Enterococcus species Not Detected (Not Detect); Haemophilus influenzae Not Detected (Not Detect); Listeria monocytogenes Not Detected (Not Detect); Methicillin-resistant gene Detected (Not Detect); Neisseria meningitidis Not Detected (Not Detect); Proteus species Not Detected (Not Detect); Pseudomonas aeruginosa Not Detected (Not Detect); Serratia marcescens Not Detected (Not Detect); Staphylococcus species Detected (Not Detect); Streptococcus agalactiae (Gr B Not Detected (Not Detect); Streptococcus pneumonia Not Detected (Not Detect); Streptococcus pyogenes (Gr A) Not Detected (Not Detect); Streptococcus species Not Detected (Not Detect)
--- NOTE | 2018-04-12 17:22 | PC.NURSE ---
Spoke with Celine, nurse at [facility] at 1700. Patient is feeling better today and has been up all day. She will notify Zeynep, the [employer] with the positive blood culture. 1708, per Dr. Chavarria, the provider is to be alerted and the patient is to be monitored closely and return if any change in condition. Information faxed to [facility] @ [phone]
== END 2018-04-11 17:25 | disposition home or self-care (01) ==
PROVIDERS: Emergency Provider Emergency Medicine; PCP Internal Medicine
DX: N39.0 Urinary tract infection, site not specified (principal)
CPT/HCPCS: 36415; 36591; 71045; 80053; 81001; 83605; 84145; 85025; 85610; 85730; 87040; 87077; 87086; 87150; 87186; 87205; 96361; 96374; 99284; 99285; 99291

== ENCOUNTER → 2018-04-12 07:40 | Outpatient (REF) | payer OTHER, SELFPAY ==
[2018-04-12 08:24] LABS: INR 2.4 (0.9-1.3); Prothrombin Time 26.4 SECONDS (10.1-12.7)
== END ==
LOC: LAB 07:40
PROVIDERS: PCP Internal Medicine; Visit Provider Nurse Practitioner Family
DX: Z92.29 Personal history of other drug therapy (principal)
CPT/HCPCS: 36415; 85610

== ENCOUNTER 2018-04-12 18:04 | Emergency (ER) | payer OTHER, SELFPAY ==
[2018-04-12 18:27] VITALS: BP 135/59; PULSE 105; RESP 26; TEMP 36.8; O2SAT 96
--- NOTE | 2018-04-12 18:44 | ED.RECABL ---
HPI - Recheck/Abnormal Lab/Rx <Romina Bahena PA-C - Last Filed: 04/12/18 22:11> General Chief Complaint: Recheck/Abnormal Lab/Rx Stated Complaint: TEST CAME BACK NEEDS MORE ANTIBIOTICS Time Seen by Provider: 04/12/18 18:38 Source: patient, old records reviewed and other (Dr. Franco) Mode of arrival: ambulatory Limitations: no limitations History of Present Illness HPI narrative: This 72 year old female returns from local assisted living facility due to positive blood culture. She was seen here yesterday on states she had just been feeling poor and tired in general with some chills the last couple of days. Facility noted some increased confusion which has happened with previous infections and sent her here. She was found to have urinary infection growing Klebsiella as well as E coli susceptible to ceftriaxone, which she received here. We called her due to 1/2 positive blood cultures which shows Staph species, type unknown at this point. Patient states that she is definitely not feeling any worse today. She denies any dyspnea or chest pain. She denies any abdominal complaints and states she has been eating and drinking normally. She has not had any urinary symptoms. She denies any recent upper respiratory symptoms such as cough or sinus pain. She denies any bowel habit changes, new pain in the extremities or other complaints on systems review Related Data Home Medications Medication Instructions Recorded Confirmed furosemide 80 mg PO QDAY #0 05/14/17 04/11/18 isosorbide dinitrate 30 mg PO QDAY #0 05/14/17 04/11/18 acetaminophen 650 mg PO BID 01/10/18 04/11/18 albuterol sulfate [Ventolin HFA] 2 puff INHALATION Q4H PRN 01/10/18 04/11/18 atorvastatin 80 mg PO DAILY 01/10/18 04/11/18 calcium carbonate [Tums] 2 tab PO TID PRN 01/10/18 04/11/18 docusate sodium 100 mg PO DAILY 01/10/18 04/11/18 duloxetine 20 mg PO DAILY 01/10/18 04/11/18 ezetimibe 10 mg PO DAILY 01/10/18 04/11/18 fluticasone 1 spray INTRANASAL DAILY 01/10/18 04/11/18 hydrocodone-acetaminophen 1 tab PO BID MDD 3 gm apap 01/10/18 04/11/18 hydrocodone-acetaminophen 1 tab PO Q4HP PRN MDD 3 gm apap 01/10/18 04/11/18 lidocaine HCl 1 applic TOPICAL QAM 01/10/18 04/11/18 magnesium chloride [Mag 64] 2 tab PO DAILY 01/10/18 04/11/18 methimazole 5 mg PO DAILY 01/10/18 04/11/18 metoprolol tartrate [Lopressor] 50 mg PO BID 01/10/18 04/11/18 nystatin 1 applic TOPICAL TID PRN 01/10/18 04/11/18 omeprazole 40 mg PO DAILY 01/10/18 04/11/18 potassium chloride 40 meq PO BID 01/10/18 04/11/18 pramipexole 1 mg PO BEDTIME 01/10/18 04/11/18 spironolactone 25 mg PO DAILY 01/10/18 04/11/18 beclomethasone dipropionate [Qvar 2 puff INHALATION BID 04/11/18 04/11/18 RediHaler] ondansetron 4 mg PO Q4H PRN 04/11/18 04/11/18 phenazopyridine 200 mg PO TID PRN 04/11/18 04/11/18 sennosides [senna] 2 tab PO DAILY 04/11/18 04/11/18 warfarin 3 mg PO QPM 04/11/18 04/11/18 Previous Rx's Medication Instructions Recorded nitrofurantoin monohyd/m-cryst 100 mg PO BID #14 cap 04/11/18 [Macrobid] amoxicillin-pot clavulanate 1 tab PO Q12H #10 tab 04/12/18 Allergies Allergy/AdvReac Type Severity Reaction Status Date / Time aspartame [ASPARTAME] Allergy Intermediate violently Verified 03/17/18 08:58 ill, fever, rashes. codeine [CODEINE] Allergy Intermediate PROJECTILE Verified 03/17/18 08:57 VOMITING latex [LATEX] Allergy Intermediate VERY Verified 03/17/18 08:57 ITCHY RASH morphine [MORPHINE] Allergy Intermediate HALLUCINATI Verified 03/17/18 08:58 ONS. albuterol Allergy Verified 03/17/18 08:58 ipratropium Allergy Verified 03/17/18 08:58 Review of Systems <GAVI Nguyen Last Filed: 04/12/18 22:11> Review of Systems All systems reviewed & are unremarkable except as noted in HPI and below Exam <Romina Bahena PA-C - Last Filed: 04/12/18 22:11> Narrative Exam Narrative: GENERAL APPEARANCE: Patient sitting comfortably, in no distress. HEENT: PERRL, EOMI NECK: Supple, no lymphadenopathy LUNGS: Clear to auscultation bilaterally, no cough on exam. HEART: Rate and rhythm irregular without murmur ABDOMEN: Soft, NT, ND, +BS x 4 quadrants, no CVAT. EXTREMITIES: venous stasis skin discoloration noted bilaterally, trace symmetric edema, no cyanosis, no calf tenderness NEUROLOGIC: Patient is alert, reasonable historian, normal speech and coordination DERM: No exanthem Initial Vital Signs Initial Vital Signs: Vital Signs Temperature 98.2 F 04/12/18 18:27 Pulse Rate 105 H 04/12/18 18:27 Respiratory Rate 26 H 04/12/18 18:27 Blood Pressure 135/59 L 04/12/18 18:27 Pulse Oximetry 96 04/12/18 18:27 <Perico Corral MD - Last Filed: 04/12/18 23:23> Initial Vital Signs Initial Vital Signs: Vital Signs Temperature 98.2 F 04/12/18 18:27 Pulse Rate 105 H 04/12/18 18:27 Respiratory Rate 26 H 04/12/18 18:27 Blood Pressure 135/59 L 04/12/18 18:27 Pulse Oximetry 96 04/12/18 18:27 Course <Romina Bahena PA-C - Last Filed: 04/12/18 22:11> Additional Information: I spoke with Dr. Franco (patient's PCP) who does not know of any acute changes today. She advised that she does not think repeat blood cultures are needed if patient is stable given that this may be contaminant. Patient is not feeling any worse today and is resting comfortably during her stay. Urine cultures reviewed and one organism is not susceptible to Macrobid, one is so will have her continue that and also add augmentin. She was given another dose of Ceftriaxone here (both organisms susceptible). No acute changes in labwork and patient does not appear septic (her heartrates today are typical of previous visits). She agreed with plan to return if acutely worsening symptoms, otherwise plan to f/u with PCP after weekend Orders Ordered: ED Orders 04/12/18 18:45 Basic Metabolic Panel Stat Blood Culture Stat Complete Blood Count AUTO DIFF Stat Lactate (Lactic Acid) Stat Prothrombin Time INR Stat Discontinued Medications Ceftriaxone Sodium/Dextrose (Rocephin) 1 gm in 50 mls @ 100 mls/hr IV NOW ONE Stop: 04/12/18 19:35 Last Infusion: 04/12/18 19:50 Dose: 0 mls/hr Admin: 04/12/18 19:23 Dose: 100 mls/hr Vital Signs - 8 hr 04/12/18 18:27 04/12/18 19:35 04/12/18 20:30 Temperature 98.2 F Pulse Rate 105 H 109 H 112 H Respiratory Rate 26 H 25 H 17 Blood Pressure 135/59 L Blood Pressure [Left Arm] 131/79 126/52 L Pulse Oximetry 96 96 96 04/12/18 21:03 Temperature Pulse Rate 105 H Respiratory Rate 25 H Blood Pressure Blood Pressure [Left Arm] 128/52 L Pulse Oximetry 95 <Perico Corral MD - Last Filed: 04/12/18 23:23> Orders Ordered: ED Orders 04/12/18 18:45 Basic Metabolic Panel Stat Blood Culture Stat Complete Blood Count AUTO DIFF Stat Lactate (Lactic Acid) Stat Prothrombin Time INR Stat Discontinued Medications Ceftriaxone Sodium/Dextrose (Rocephin) 1 gm in 50 mls @ 100 mls/hr IV NOW ONE Stop: 04/12/18 19:35 Last Infusion: 04/12/18 19:50 Dose: 0 mls/hr Admin: 04/12/18 19:23 Dose: 100 mls/hr Vital Signs - 8 hr 04/12/18 18:27 04/12/18 19:35 04/12/18 20:30 Temperature 98.2 F Pulse Rate 105 H 109 H 112 H Respiratory Rate 26 H 25 H 17 Blood Pressure 135/59 L Blood Pressure [Left Arm] 131/79 126/52 L Pulse Oximetry 96 96 96 04/12/18 21:03 Temperature Pulse Rate 105 H Respiratory Rate 25 H Blood Pressure Blood Pressure [Left Arm] 128/52 L Pulse Oximetry 95 MDM - Recheck/Abnormal Lab/Rx <Romina Bahena PA-C - Last Filed: 04/12/18 22:11> Lab Data Attestation: I reviewed the patient's lab results. Result diagrams: 04/12/18 18:45 04/12/18 18:45 Lab Results 04/12/18 04/12/18 04/12/18 Range/Units 18:45 18:45 18:45 WBC 9.3 (4.5-11.0) X10^3/uL RBC 4.39 (4.0-5.2) X10^6/uL Hgb 12.9 (12.0-16.0) g/dL Hct 39.4 (36-46) % MCV 89.8 (80-100) fL MCH 29.4 (26-34) PG MCHC 32.8 (30-36) % RDW 17.1 H (11.6-14.8) % Plt Count 265 (150-400) X10^3/uL Neut % (Auto) 69.4 (50-75) % Lymph % (Auto) 17.8 L (25-40) % M[place]racken % (Auto) 10.9 (3-14) % Eos % (Auto) 0.9 L (2-4) % Baso % (Auto) 1.0 (0-2) % Neut # (Auto) 6500 H (3336-8739) /uL PT 27.9 H (10.1-12.7) SECONDS INR 2.5 H (0.9-1.3) Sodium 142 (137-145) mmol/L Potassium 3.6 (3.4-5.1) mmol/L Chloride 102 (98-107) mmol/L Carbon Dioxide 31 (22-32) mmol/L BUN 11 (7-17) mg/dL Creatinine 0.50 L (0.52-1.04) mg/dL Estimated GFR > 60.0 (>60) mL/min BUN/Creatinine Ratio 22.0 (6-22) Glucose 93 (80-110) mg/dL Lactate (0.7-2.1) mmol/L Calcium 9.0 (8.4-10.2) mg/dL 04/12/18 Range/Units 18:45 WBC (4.5-11.0) X10^3/uL RBC (4.0-5.2) X10^6/uL Hgb (12.0-16.0) g/dL Hct (36-46) % MCV (80-100) fL MCH (26-34) PG MCHC (30-36) % RDW (11.6-14.8) % Plt Count (150-400) X10^3/uL Neut % (Auto) (50-75) % Lymph % (Auto) (25-40) % [place]racken % (Auto) (3-14) % Eos % (Auto) (2-4) % Baso % (Auto) (0-2) % Neut # (Auto) (8261-1623) /uL PT (10.1-12.7) SECONDS INR (0.9-1.3) Sodium (137-145) mmol/L Potassium (3.4-5.1) mmol/L Chloride (98-107) mmol/L Carbon Dioxide (22-32) mmol/L BUN (7-17) mg/dL Creatinine (0.52-1.04) mg/dL Estimated GFR (>60) mL/min BUN/Creatinine Ratio (6-22) Glucose (80-110) mg/dL Lactate 1.5 (0.7-2.1) mmol/L Calcium (8.4-10.2) mg/dL <Perico Corral MD - Last Filed: 04/12/18 23:23> Lab Data Lab Results 04/12/18 04/12/18 04/12/18 Range/Units 18:45 18:45 18:45 WBC 9.3 (4.5-11.0) X10^3/uL RBC 4.39 (4.0-5.2) X10^6/uL Hgb 12.9 (12.0-16.0) g/dL Hct 39.4 (36-46) % MCV 89.8 (80-100) fL MCH 29.4 (26-34) PG MCHC 32.8 (30-36) % RDW 17.1 H (11.6-14.8) % Plt Count 265 (150-400) X10^3/uL Neut % (Auto) 69.4 (50-75) % Lymph % (Auto) 17.8 L (25-40) % M[place]racken % (Auto) 10.9 (3-14) % Eos % (Auto) 0.9 L (2-4) % Baso % (Auto) 1.0 (0-2) % Neut # (Auto) 6500 H (9304-0170) /uL PT 27.9 H (10.1-12.7) SECONDS INR 2.5 H (0.9-1.3) Sodium 142 (137-145) mmol/L Potassium 3.6 (3.4-5.1) mmol/L Chloride 102 (98-107) mmol/L Carbon Dioxide 31 (22-32) mmol/L BUN 11 (7-17) mg/dL Creatinine 0.50 L (0.52-1.04) mg/dL Estimated GFR > 60.0 (>60) mL/min BUN/Creatinine Ratio 22.0 (6-22) Glucose 93 (80-110) mg/dL Lactate (0.7-2.1) mmol/L Calcium 9.0 (8.4-10.2) mg/dL 04/12/18 Range/Units 18:45 WBC (4.5-11.0) X10^3/uL RBC (4.0-5.2) X10^6/uL Hgb (12.0-16.0) g/dL Hct (36-46) % MCV (80-100) fL MCH (26-34) PG MCHC (30-36) % RDW (11.6-14.8) % Plt Count (150-400) X10^3/uL Neut % (Auto) (50-75) % Lymph % (Auto) (25-40) % Mccracken % (Auto) (3-14) % Eos % (Auto) (2-4) % Baso % (Auto) (0-2) % Neut # (Auto) (6621-2871) /uL PT (10.1-12.7) SECONDS INR (0.9-1.3) Sodium (137-145) mmol/L Potassium (3.4-5.1) mmol/L Chloride (98-107) mmol/L Carbon Dioxide (22-32) mmol/L BUN (7-17) mg/dL Creatinine (0.52-1.04) mg/dL Estimated GFR (>60) mL/min BUN/Creatinine Ratio (6-22) Glucose (80-110) mg/dL Lactate 1.5 (0.7-2.1) mmol/L Calcium (8.4-10.2) mg/dL Discharge Plan Departure Patient Disposition: Home Clinical Impression: Acute UTI Discharge Date/Time: 04/12/18 21:32 Interventions: ED Discharge Assessment Last Done: 04/12/18 21:15 Instructions: DI for Urinary Tract Infection (UTI) Activity Restrictions/Additional Instructions: Please return if you have acutely worsening symptoms, or new symptoms such as vomiting, pain, or fever. We have given you a 2nd dose of IV antibiotic tonight for your urinary infection. The urine culture showed 2 types of bacteria and the antibiotic you had here treats both of them. I have included a prescription for a 2nd antibiotic pill to take twice daily. Please take the original Macrobid/nitrofurantoin that you were prescribed twice daily as well as the new antibiotic amoxicillin/clavulanic acid twice daily. One out of your 2 blood cultures did show some bacteria however this may be a contaminant. Based on your blood tests today, it appears safe to treat you at home. Prescriptions: New amoxicillin-pot clavulanate 500-125 mg tablet 1 tab PO Q12H Qty: 10 RF: 0 No Action furosemide 80 MG tablet 80 mg PO QDAY Qty: 0 RF: 0 isosorbide dinitrate 30 MG tablet 30 mg PO QDAY Qty: 0 RF: 0 atorvastatin 80 mg Tablet 80 mg PO DAILY RF: 0 acetaminophen 325 mg Tablet 650 mg PO BID RF: 0 docusate sodium 100 mg Capsule 100 mg PO DAILY RF: 0 ezetimibe 10 mg Tablet 10 mg PO DAILY RF: 0 duloxetine 20 mg Capsule,Delayed Release(Dr/Ec) 20 mg PO DAILY RF: 0 pramipexole 1 mg Tablet 1 mg PO BEDTIME RF: 0 omeprazole 40 mg Capsule,Delayed Release(Dr/Ec) 40 mg PO DAILY RF: 0 spironolactone 25 mg Tablet 25 mg PO DAILY RF: 0 calcium carbonate [Tums] 200 mg calcium (500 mg) Tablet,Chewable 2 tab PO TID PRN (Reason: Indigestion) RF: 0 metoprolol tartrate [Lopressor] 50 mg Tablet 50 mg PO BID RF: 0 methimazole 5 mg Tablet 5 mg PO DAILY RF: 0 nystatin 100,000 unit/gram Powder 1 applic TOPICAL TID PRN (Reason: yeast) RF: 0 albuterol sulfate [Ventolin HFA] 90 mcg/actuation Hfa Aerosol Inhaler 2 puff Inhalation Q4H PRN (Reason: Shortness Of Breath Or Wheezing) RF: 0 fluticasone 50 mcg/actuation [place],Suspension 1 spray INTRANASAL DAILY RF: 0 lidocaine HCl 4 % Solution 1 applic Topical QAM RF: 0 magnesium chloride [Mag 64] 64 mg Tablet,Delayed Release (Dr/Ec) 2 tab PO DAILY RF: 0 potassium chloride 20 mEq Tablet Extended Release 40 meq PO BID RF: 0 hydrocodone-acetaminophen 5 MG/325 MG tablet 1 tab PO BID MDD 3 gm apap RF: 0 hydrocodone-acetaminophen 5 MG/325 MG tablet 1 tab PO Q4HP MDD 3 gm apap PRN (Reason: Pain, Moderate) RF: 0 phenazopyridine 200 mg Tablet 200 mg PO TID PRN (Reason: painful urination) RF: 0 warfarin 3 mg Tablet 3 mg PO QPM RF: 0 ondansetron 4 mg Tablet,Disintegrating 4 mg PO Q4H PRN (Reason: Nausea) RF: 0 beclomethasone dipropionate [Qvar RediHaler] 40 mcg/actuation Hfa Aerosol Breath Activated 2 puff Inhalation BID RF: 0 sennosides [senna] 8.6 mg Tablet 2 tab PO DAILY RF: 0 nitrofurantoin monohyd/m-cryst [Macrobid] 100 mg capsule 100 mg PO BID Qty: 14 RF: 0 Referrals: Amna Franco MD [Primary Care Provider] - <Perico Corral MD - Last Filed: 04/12/18 23:23> Cosign ED Attending Cosignature Attestation: I was present in the ER at the time of this patient's evaluation. I was available for verbal consultation or to see the patient directly if need be. I agree with the assessment and treatment plan.
[2018-04-12 18:57] LABS: Add Manual Diff / Slide Review NO; Eosinophils Percent Auto 0.9 % (2-4); Hematocrit 39.4 % (36-46); Hemoglobin 12.9 g/dL (12.0-16.0); Lymphocytes Percent Auto 17.8 % (25-40); Mean Corpuscular HGB Conc 32.8 % (30-36); Mean Corpuscular Hemoglobin 29.4 PG (26-34); Mean Corpuscular Volume 89.8 fL (80-100); Monocytes Percent Auto 10.9 % (3-14); Neutrophils Absolute Auto 6500 /uL (3000-5900); Neutrophils Percent Auto 69.4 % (50-75); Platelet Count 265 X10^3/uL (150-400); Red Blood Cell Count 4.39 X10^6/uL (4.0-5.2); Red Cell Distribution Width 17.1 % (11.6-14.8); White Blood Cell Count 9.3 X10^3/uL (4.5-11.0)
[2018-04-12 19:10] LABS: Blood Urea Nitrogen 11 mg/dL (7-17); Carbon Dioxide 31 mmol/L (22-32); Chloride 102 mmol/L (98-107); Estimated Glomerular Filt Rate > 60.0 mL/min (>60); Glucose 93 mg/dL (80-110); HEMOLYSIS < 15 (0-50); Potassium 3.6 mmol/L (3.4-5.1); Sodium 142 mmol/L (137-145)
[2018-04-12 19:22] LABS: INR 2.5 (0.9-1.3); Prothrombin Time 27.9 SECONDS (10.1-12.7)
[2018-04-12] MEDS: CEFTRIAXONE 1 GM/50 ML FROZ.PIGGY IV (19:23)
[2018-04-12 19:35] VITALS: BP 131/79; PULSE 109; RESP 25; O2SAT 96
[2018-04-12 20:30] VITALS: BP 126/52; PULSE 112; RESP 17; O2SAT 96
[2018-04-12 20:40] LABS: Lactate (Lactic Acid) 1.5 mmol/L (0.7-2.1)
[2018-04-12 21:03] VITALS: BP 128/52; PULSE 105; RESP 25; O2SAT 95
== END 2018-04-12 21:32 | disposition home or self-care (01) ==
PROVIDERS: Emergency Provider Internal Medicine; PCP Internal Medicine
DX: N39.0 Urinary tract infection, site not specified (principal)
CPT/HCPCS: 36415; 36591; 80048; 83605; 85025; 85610; 87040; 96374; 99283; 99284

== ENCOUNTER → 2018-04-17 10:32 | Outpatient (REF) | payer OTHER, SELFPAY ==
[2018-04-17 13:58] LABS: Prothrombin Time 22.3 SECONDS (10.1-12.7)
== END ==
LOC: LAB 10:32
PROVIDERS: PCP Internal Medicine; Visit Provider Nurse Practitioner Family
DX: Z92.29 Personal history of other drug therapy (principal)
CPT/HCPCS: 36415; 85610

== ENCOUNTER → 2018-04-24 08:43 | Outpatient (REF) | payer OTHER, SELFPAY ==
[2018-04-24 09:49] LABS: Add Manual Diff / Slide Review NO; Basophils Percent Auto 0.7 % (0-2); Eosinophils Percent Auto 0.8 % (2-4); Hematocrit 37.4 % (36-46); Hemoglobin 12.2 g/dL (12.0-16.0); Lymphocytes Percent Auto 25.2 % (25-40); Mean Corpuscular HGB Conc 32.6 % (30-36); Mean Corpuscular Hemoglobin 29.5 PG (26-34); Mean Corpuscular Volume 90.3 fL (80-100); Neutrophils Absolute Auto 3600 /uL (3000-5900); Neutrophils Percent Auto 65.3 % (50-75); Platelet Count 266 X10^3/uL (150-400); Red Blood Cell Count 4.14 X10^6/uL (4.0-5.2); Red Cell Distribution Width 17.1 % (11.6-14.8); White Blood Cell Count 5.6 X10^3/uL (4.5-11.0)
[2018-04-24 09:52] LABS: Alanine Aminotransferase 20 IU/L (9-52); Albumin 3.9 g/dL (3.5-5.0); Albumin Globulin Ratio 1.3 (1.0-2.8); Alkaline Phosphatase 71 U/L (38-126); Aspartate Aminotransferase 34 IU/L (14-36); BUN Creatinine Ratio 23.3 (6-22); Bilirubin Total 0.7 mg/dL (0.2-1.3); Blood Urea Nitrogen 14 mg/dL (7-17); Calcium 9.1 mg/dL (8.4-10.2); Carbon Dioxide 34 mmol/L (22-32); Chloride 101 mmol/L (98-107); Estimated Glomerular Filt Rate > 60.0 mL/min (>60); Glucose 80 mg/dL (80-110); HEMOLYSIS < 15 (0-50); Potassium 3.8 mmol/L (3.4-5.1); Sodium 144 mmol/L (137-145); Total Protein 6.9 g/dL (6.3-8.2)
[2018-04-24 10:12] LABS: Prothrombin Time 62.7 SECONDS (10.1-12.7)
[2018-04-24 10:42] LABS: Thyroid Stimulating Hormone 1.54 uIU/mL (0.47-4.68)
[2018-04-24 10:54] LABS: INR 5.6 (0.9-1.3)
== END ==
LOC: LAB 08:43
PROVIDERS: PCP Internal Medicine; Visit Provider Internal Medicine
DX: I50.9 Heart failure, unspecified (principal)
CPT/HCPCS: 36415; 80053; 84443; 85025; 85610

== ENCOUNTER → 2018-04-26 07:39 | Outpatient (REF) | payer OTHER, SELFPAY ==
[2018-04-26 08:02] LABS: INR 3.3 (0.9-1.3); Prothrombin Time 36.5 SECONDS (10.1-12.7)
[2018-04-26 16:47] LABS: Bacteria Urine None Seen; RBC Urine None Seen (0-5/HPF); WBC Urine None Seen (0-5/HPF)
[2018-04-26 17:40] LABS: Appearance Urine UA CLEAR; Bilirubin Urine UA NEGATIVE (NEGATIVE); Color Urine UA YELLOW; Glucose Urine UA NEGATIVE (Normal); Ketones Urine UA NEGATIVE (NEGATIVE); Leukocyte Esterase Urine UA NEGATIVE (NEGATIVE); Nitrite Urine UA Negative (Negative); Occult Blood Urine UA NEGATIVE (Negative); Protein Urine UA NEGATIVE (Negative); Specific Gravity Urine UA 1.015 (1.000-1.035); pH Urine UA 6.5 (4.5-8.0)
[2018-04-26 18:06] LABS: Culture Indicated Urine Cult Not Indicated; Urine Comments Microscopic Normal
== END ==
LOC: LAB 07:39
PROVIDERS: PCP Internal Medicine; Visit Provider Internal Medicine
DX: Z51.81 Encounter for therapeutic drug level monitoring (principal)
CPT/HCPCS: 36415; 81001; 85610

== ENCOUNTER → 2018-05-01 07:15 | Outpatient (REF) | payer OTHER, SELFPAY ==
[2018-05-01 09:23] LABS: INR 2.8 (0.9-1.3); Prothrombin Time 31.3 SECONDS (10.1-12.7)
== END ==
LOC: LAB 07:15
PROVIDERS: PCP Internal Medicine; Visit Provider Nurse Practitioner Family
DX: Z51.81 Encounter for therapeutic drug level monitoring (principal)
CPT/HCPCS: 36415; 85610

== ENCOUNTER → 2018-05-15 08:02 | Outpatient (REF) | payer OTHER, SELFPAY ==
[2018-05-15 08:45] LABS: INR 1.9 (0.9-1.3); Prothrombin Time 21.4 SECONDS (10.1-12.7)
== END ==
LOC: LAB 08:02
PROVIDERS: PCP Internal Medicine; Visit Provider Internal Medicine
DX: Z51.81 Encounter for therapeutic drug level monitoring (principal); Z79.01 Long term (current) use of anticoagulants
CPT/HCPCS: 36415; 85610

== ENCOUNTER → 2018-05-22 08:33 | Outpatient (REF) | payer OTHER, SELFPAY ==
[2018-05-22 09:02] LABS: INR 1.6 (0.9-1.3); Prothrombin Time 17.4 SECONDS (10.1-12.7)
== END ==
LOC: LAB 08:33
PROVIDERS: PCP Internal Medicine; Visit Provider Nurse Practitioner Family
DX: Z51.81 Encounter for therapeutic drug level monitoring (principal)
CPT/HCPCS: 36415; 85610

== ENCOUNTER → 2018-05-29 08:38 | Outpatient (REF) | payer OTHER, SELFPAY ==
[2018-05-29 10:06] LABS: INR 3.2 (0.9-1.3); Prothrombin Time 36.1 SECONDS (10.1-12.7)
== END ==
LOC: LAB 08:38
PROVIDERS: PCP Internal Medicine; Visit Provider Nurse Practitioner Family
DX: Z51.81 Encounter for therapeutic drug level monitoring (principal)
CPT/HCPCS: 36415; 85610

== ENCOUNTER → 2018-05-31 07:59 | Outpatient (REF) | payer OTHER, SELFPAY ==
[2018-05-31 09:14] LABS: INR 2.6 (0.9-1.3); Prothrombin Time 29.2 SECONDS (10.1-12.7)
== END ==
LOC: LAB 07:59
PROVIDERS: PCP Internal Medicine; Visit Provider Registered Nurse
DX: Z79.01 Long term (current) use of anticoagulants (principal)
CPT/HCPCS: 36415; 85610

== ENCOUNTER → 2018-06-03 06:58 | Outpatient (REF) | payer OTHER, SELFPAY ==
[2018-06-03 07:37] LABS: INR 1.3 (0.9-1.3); Prothrombin Time 14.7 SECONDS (10.1-12.7)
== END ==
LOC: LAB 06:58
PROVIDERS: PCP Internal Medicine; Visit Provider Nurse Practitioner Family
DX: Z79.01 Long term (current) use of anticoagulants (principal)
CPT/HCPCS: 36415; 85610

== ENCOUNTER → 2018-06-07 07:18 | Outpatient (REF) | payer OTHER, SELFPAY ==
[2018-06-07 08:10] LABS: INR 1.4 (0.9-1.3); Prothrombin Time 15.1 SECONDS (10.1-12.7)
== END ==
LOC: LAB 07:18
PROVIDERS: PCP Internal Medicine; Visit Provider Nurse Practitioner Family
DX: Z51.81 Encounter for therapeutic drug level monitoring (principal)
CPT/HCPCS: 36415; 85610

== ENCOUNTER → 2018-06-10 08:03 | Outpatient (REF) | payer OTHER, SELFPAY ==
[2018-06-10 09:11] LABS: INR 2.1 (0.9-1.3); Prothrombin Time 22.9 SECONDS (10.1-12.7)
== END ==
LOC: LAB 08:03
PROVIDERS: PCP Internal Medicine; Visit Provider Nurse Practitioner Family
DX: Z79.01 Long term (current) use of anticoagulants (principal)
CPT/HCPCS: 36415; 85610

== ENCOUNTER → 2018-06-14 07:14 | Outpatient (REF) | payer OTHER, SELFPAY ==
[2018-06-14 08:03] LABS: INR 3.7 (0.9-1.3); Prothrombin Time 41.8 SECONDS (10.1-12.7)
== END ==
LOC: LAB 07:14
PROVIDERS: PCP Internal Medicine; Visit Provider Nurse Practitioner Family
DX: Z51.81 Encounter for therapeutic drug level monitoring (principal)
CPT/HCPCS: 36415; 85610

== ENCOUNTER → 2018-06-19 08:02 | Outpatient (REF) | payer OTHER, SELFPAY ==
[2018-06-19 08:43] LABS: INR 2.6 (0.9-1.3); Prothrombin Time 28.9 SECONDS (10.1-12.7)
== END ==
LOC: LAB 08:02
PROVIDERS: PCP Internal Medicine; Visit Provider Nurse Practitioner Family
DX: Z51.81 Encounter for therapeutic drug level monitoring (principal)
CPT/HCPCS: 36415; 85610

== ENCOUNTER → 2018-06-26 09:51 | Outpatient (REF) | payer OTHER, SELFPAY ==
[2018-06-26 11:19] LABS: Prothrombin Time 32.9 SECONDS (10.1-12.7)
== END ==
LOC: LAB 09:51
PROVIDERS: PCP Internal Medicine; Visit Provider Nurse Practitioner Family
DX: Z51.81 Encounter for therapeutic drug level monitoring (principal)
CPT/HCPCS: 36415; 85610

== ENCOUNTER → 2018-07-05 15:58 | Outpatient (REF) | payer OTHER, SELFPAY ==
[2018-07-05 19:23] LABS: Adenovirus F 40/41 Not Detected (Not Detect); Astrovirus Not Detected (Not Detect); Campylobacter Not Detected (Not Detect); Clostridium difficile toxin AB Not Detected (Not Detect); Cryptosporidium Not Detected (Not Detect); Cyclospora cayetanensis Not Detected (Not Detect); Entamoeba histolytica Not Detected (Not Detect); Enteroaggregative E.coli Not Detected (Not Detect); Enteropathogenic E.coli Not Detected (Not Detect); Enterotoxigenic E.coli It/st Not Detected (Not Detect); Giardia lamblia Not Detected (Not Detect); Norovirus GI/GII Not Detected (Not Detect); Plesiomonsa shigelloides Not Detected (Not Detect); Rotavirus A Not Detected (Not Detect); Salmonella Not Detected (Not Detect); Sapovirus Not Detected (Not Detect); Shiga-like toxin-prod E.coli Not Detected (Not Detect); Shigella/Enteroinvasive E.coli Not Detected (Not Detect); Vibrio Not Detected (Not Detect); Vibrio cholerae Not Detected (Not Detect); Yersinia enterocolitica Not Detected (Not Detect)
== END ==
LOC: LAB 15:58
PROVIDERS: PCP Internal Medicine; Visit Provider Nurse Practitioner Family
DX: R19.5 Other fecal abnormalities (principal)
CPT/HCPCS: 87507

== ENCOUNTER → 2018-07-10 08:46 | Outpatient (REF) | payer OTHER, SELFPAY ==
[2018-07-10 09:41] LABS: INR 2.5 (0.9-1.3); Prothrombin Time 29.6 SECONDS (10.1-12.7)
== END ==
LOC: LAB 08:46
PROVIDERS: PCP Internal Medicine; Visit Provider Nurse Practitioner Family
DX: Z51.81 Encounter for therapeutic drug level monitoring (principal)
CPT/HCPCS: 36415; 85610

== ENCOUNTER 2018-07-30 12:54 | Emergency (ER) | payer OTHER, SELFPAY ==
[2018-07-30 12:55] VITALS: BP 108/59; PULSE 91; RESP 14; TEMP 36.7; O2SAT 96
--- NOTE | 2018-07-30 13:07 | DI.RAD.S_ITS ---
PROCEDURE: XR CHEST 1V INDICATIONS: short of breath TECHNIQUE: One view of the chest was acquired. COMPARISON: [facility], CR, XR CHEST 1V, 04/11/2018, 13:46. FINDINGS: Surgical changes and devices: Sternotomy wires and surgical clips are seen. Lungs and pleura: No pleural effusions or pneumothorax. Lungs are clear. Mediastinum: Mediastinal contours appear normal. Heart size is enlarged. Bones and chest wall: No suspicious bony lesions. Overlying soft tissues appear unremarkable. IMPRESSION: No acute cardiopulmonary pathology. Dictated by: Mitch Rodriguez M.D. on 07/30/2018 at 13:52 Approved by: Mitch Rodriguez M.D. on 07/30/2018 at 13:52
[2018-07-30 13:30] VITALS: BP 118/66; PULSE 94; RESP 20; O2SAT 99
[2018-07-30] MEDS: ALBUTEROL/IPRATROPIUM 3 ML AMPUL INH (13:37)
[2018-07-30 13:58] VITALS: PULSE 93; RESP 20; O2SAT 96
[2018-07-30 14:02] LABS: INR 2.4 (0.9-1.3); Prothrombin Time 27.5 SECONDS (10.1-12.7)
[2018-07-30 14:04] LABS: PTT Partial Thromboplastin Tim 39 SECONDS (26.4-36.2)
[2018-07-30 14:05] LABS: Add Manual Diff / Slide Review NO; Basophils Percent Auto 0.8 % (0-2); Eosinophils Percent Auto 1.1 % (2-4); Hematocrit 40.7 % (36-46); Hemoglobin 13.4 g/dL (12.0-16.0); Mean Corpuscular HGB Conc 32.8 % (30-36); Mean Corpuscular Hemoglobin 27.3 PG (26-34); Mean Corpuscular Volume 83.3 fL (80-100); Monocytes Percent Auto 10.5 % (3-14); Neutrophils Absolute Auto 5700 /uL (1500-7000); Neutrophils Percent Auto 67.6 % (50-75); Platelet Count 289 X10^3/uL (150-400); Red Blood Cell Count 4.89 X10^6/uL (4.0-5.2); Red Cell Distribution Width 17.1 % (11.6-14.8); White Blood Cell Count 8.5 X10^3/uL (4.5-11.0)
[2018-07-30 14:06] LABS: Alanine Aminotransferase 20 IU/L (9-52); Albumin 4.3 g/dL (3.5-5.0); Albumin Globulin Ratio 1.2 (1.0-2.8); Alkaline Phosphatase 102 U/L (38-126); Aspartate Aminotransferase 40 IU/L (14-36); Bilirubin Total 0.9 mg/dL (0.2-1.3); Blood Urea Nitrogen 13 mg/dL (7-17); Carbon Dioxide 29 mmol/L (22-32); Chloride 98 mmol/L (98-107); Creatine Kinase 24 U/L (30-135); Estimated Glomerular Filt Rate > 60.0 mL/min (>60); Globulin 3.7 g/dL (1.7-4.1); Glucose 105 mg/dL (80-110); HEMOLYSIS < 15 (0-50); Potassium 3.8 mmol/L (3.4-5.1); Sodium 142 mmol/L (137-145)
[2018-07-30 14:07] LABS: Lactate (Lactic Acid) 1.4 mmol/L (0.7-2.1)
[2018-07-30 14:19] LABS: Troponin I 0.022 ng/mL (0.01-0.034)
[2018-07-30 14:22] LABS: Procalcitonin < 0.05 ng/mL (<0.5)
[2018-07-30 14:24] LABS: B Type Natriuretic Peptide 105 (<100)
--- NOTE | 2018-07-30 15:21 | ED_ITS ---
HPI - SOB/Dyspnea General Chief Complaint: Shortness of Breath/Dyspnea Stated Complaint: SOB Time Seen by Provider: 07/30/18 13:03 Source: patient and EMS Mode of arrival: EMS Limitations: no limitations History of Present Illness Patient is a 72-year-old female who presents with shortness of breath. She says she feels like she can't breathe out of her nose. She does have history of COPD does but does not feel like she is having difficulty with her lungs. She has no chest tightness no chest pain no heart palpitations. No nausea or vomiting. Not had any fever or chills. This just started today. Related Data Home Medications Medication Instructions Recorded Confirmed furosemide 80 mg PO QDAY #0 05/14/17 04/11/18 isosorbide dinitrate 30 mg PO QDAY #0 05/14/17 04/11/18 acetaminophen 650 mg PO BID 01/10/18 04/11/18 albuterol sulfate [Ventolin HFA] 2 puff INHALATION Q4H PRN 01/10/18 04/11/18 atorvastatin 80 mg PO DAILY 01/10/18 04/11/18 calcium carbonate [Tums] 2 tab PO TID PRN 01/10/18 04/11/18 docusate sodium 100 mg PO DAILY 01/10/18 04/11/18 duloxetine 20 mg PO DAILY 01/10/18 04/11/18 ezetimibe 10 mg PO DAILY 01/10/18 04/11/18 fluticasone 1 spray INTRANASAL DAILY 01/10/18 04/11/18 hydrocodone-acetaminophen 1 tab PO BID MDD 3 gm apap 01/10/18 04/11/18 hydrocodone-acetaminophen 1 tab PO Q4HP PRN MDD 3 gm apap 01/10/18 04/11/18 lidocaine HCl 1 applic TOPICAL QAM 01/10/18 04/11/18 magnesium chloride [Mag 64] 2 tab PO DAILY 01/10/18 04/11/18 methimazole 5 mg PO DAILY 01/10/18 04/11/18 metoprolol tartrate [Lopressor] 50 mg PO BID 01/10/18 04/11/18 nystatin 1 applic TOPICAL TID PRN 01/10/18 04/11/18 omeprazole 40 mg PO DAILY 01/10/18 04/11/18 potassium chloride 40 meq PO BID 01/10/18 04/11/18 pramipexole 1 mg PO BEDTIME 01/10/18 04/11/18 spironolactone 25 mg PO DAILY 01/10/18 04/11/18 beclomethasone dipropionate [Qvar 2 puff INHALATION BID 04/11/18 04/11/18 RediHaler] ondansetron 4 mg PO Q4H PRN 04/11/18 04/11/18 phenazopyridine 200 mg PO TID PRN 04/11/18 04/11/18 sennosides [senna] 2 tab PO DAILY 04/11/18 04/11/18 warfarin 3 mg PO QPM 04/11/18 04/11/18 Previous Rx's Medication Instructions Recorded nitrofurantoin monohyd/m-cryst 100 mg PO BID #14 cap 04/11/18 [Macrobid] amoxicillin-pot clavulanate 1 tab PO Q12H #10 tab 04/12/18 Allergies Allergy/AdvReac Type Severity Reaction Status Date / Time aspartame [ASPARTAME] Allergy Intermediate violently Verified 03/17/18 08:58 ill, fever, rashes. codeine [CODEINE] Allergy Intermediate PROJECTILE Verified 03/17/18 08:57 VOMITING latex [LATEX] Allergy Intermediate VERY Verified 03/17/18 08:57 ITCHY RASH morphine [MORPHINE] Allergy Intermediate HALLUCINATI Verified 03/17/18 08:58 ONS. albuterol Allergy Verified 03/17/18 08:58 ipratropium Allergy Verified 03/17/18 08:58 Review of Systems Review of Systems All systems reviewed & are unremarkable except as noted in HPI and below Constitutional Denies chills, Denies fever(s), Denies lethargy and Denies weakness ENT Ears, Nose, Mouth, and Throat: Denies vertigo, Denies dizziness and Reports nasal congestion Cardiovascular Denies chest pain, Denies irregular heart rhythm, Denies lightheadedness, Denies palpitations and Denies orthopnea Respiratory Reports as per HPI Gastrointestinal Gastrointestinal: Denies abdominal pain, Denies change in bowel habits, Denies diarrhea, Denies nausea and Denies vomiting Genitourinary Denies hematuria, Denies flank pain, Denies urinary incontinence and Denies urinary urgency Musculoskeletal Denies back pain, Denies muscle weakness, Denies numbness and Denies tingling Integumentary/Breasts Denies pruritus, Denies erythema, Denies rash and Denies wounds Neurologic Denies vertigo, Denies dizziness, Denies numbness, Denies tingling and Denies weakness Endocrine Denies palpitations ON LICENSE OF [facility] Medical History COPD (chronic obstructive pulmonary disease) (Chronic) Chronic a-fib (Chronic) GERD (gastroesophageal reflux disease) (Chronic) Hyperlipidemia (Chronic) Hypertension (Chronic) Hyperthyroidism (Chronic) Surgical History Status post appendectomy Status post hysterectomy Social History housing: assisted living facility Exam Initial Vital Signs Initial Vital Signs: Vital Signs Temperature 98.0 F 07/30/18 12:55 Pulse Rate 91 H 07/30/18 12:55 Respiratory Rate 14 07/30/18 12:55 Blood Pressure 108/59 L 07/30/18 12:55 Pulse Oximetry 96 07/30/18 12:55 GENERAL: Overweight well-appearing female no acute distress HEENT: Head atraumatic,EOMI, pupils reactive, face symmetric, neck is supple no meningeal signs CARDIOVASCULAR: Regular rate and rhythm without murmurs, rubs or gallops. RESPIRATORY: Breath sounds equal bilaterally, no wheezes rales or rhonchi. No difficulty breathing speaks in full sentences ABDOMEN: Soft, nontender. Normoactive bowel sounds all 4 quadrants. No guarding or rebound. : No CVA tenderness EXTREMITIES: Normal range of motion, no clubbing or edema. Neurovascularly intact NEUROLOGICAL: Alert and oriented x4. No focal deficits SKIN: Warm, dry, no laceration, no petechiae, no rashes or lesions. Course Orders Ordered: ED Orders 07/30/18 13:05 Consult to Respiratory Therapy Evaluate & Treat EKG-12 Lead Stat 07/30/18 13:07 XR chest 1V Stat 07/30/18 13:40 B Type Natriuretic Peptide Stat Complete Blood Count AUTO DIFF Stat Comprehensive Metabolic Panel Stat Lactate (Lactic Acid) Stat Partial Thromboplastin Time Stat Procalcitonin Stat Prothrombin Time INR Stat Troponin & CK Cardiac Panel Stat Discontinued Medications Albuterol/Ipratropium (Duoneb) 3 ml INH NOW ONE Stop: 12/25/18 13:05 Last Admin: 07/30/18 13:37 Dose: 3 ml Vital Signs - 8 hr 07/30/18 12:55 07/30/18 13:30 07/30/18 13:58 Temperature 98.0 F Pulse Rate 91 H 94 H 93 H Respiratory Rate 14 20 20 Blood Pressure 108/59 L Blood Pressure [Right Arm] 118/66 Pulse Oximetry 96 99 96 07/30/18 15:23 Temperature Pulse Rate 91 H Respiratory Rate 18 Blood Pressure Blood Pressure [Right Arm] 108/70 Pulse Oximetry 96 MDM - SOB/Dyspnea Lab Data Attestation: I reviewed the patient's lab results. Result diagrams: 07/30/18 13:40 07/30/18 13:40 Lab Results 07/30/18 07/30/18 07/30/18 Range/Units 13:40 13:40 13:40 WBC 8.5 (4.5-11.0) X10^3/uL RBC 4.89 (4.0-5.2) X10^6/uL Hgb 13.4 (12.0-16.0) g/dL Hct 40.7 (36-46) % MCV 83.3 (80-100) fL MCH 27.3 (26-34) PG MCHC 32.8 (30-36) % RDW 17.1 H (11.6-14.8) % Plt Count 289 (150-400) X10^3/uL Neut % (Auto) 67.6 (50-75) % Lymph % (Auto) 20.0 L (25-40) % [place] % (Auto) 10.5 (3-14) % Eos % (Auto) 1.1 L (2-4) % Baso % (Auto) 0.8 (0-2) % Neut # (Auto) 5700 (7656-6983) /uL PT 27.5 H (10.1-12.7) SECONDS INR 2.4 H (0.9-1.3) APTT 39 H D (26.4-36.2) SECONDS Sodium (137-145) mmol/L Potassium (3.4-5.1) mmol/L Chloride (98-107) mmol/L Carbon Dioxide (22-32) mmol/L BUN (7-17) mg/dL Creatinine (0.52-1.04) mg/dL Estimated GFR (>60) mL/min BUN/Creatinine Ratio (6-22) Glucose (80-110) mg/dL Lactate (0.7-2.1) mmol/L Calcium (8.4-10.2) mg/dL Total Bilirubin (0.2-1.3) mg/dL AST (14-36) IU/L ALT (9-52) IU/L Alkaline Phosphatase (38-126) U/L Total Creatine Kinase 24 L (30-135) U/L CK-MB (CK-2) TNP CK-MB (CK-2) Rel Index TNP Troponin I 0.022 (0.01-0.034) ng/mL B-Natriuretic Peptide 105 H (<100) Total Protein (6.3-8.2) g/dL Albumin (3.5-5.0) g/dL Globulin (1.7-4.1) g/dL Albumin/Globulin Ratio (1.0-2.8) Procalcitonin (<0.5) ng/mL 07/30/18 07/30/18 07/30/18 Range/Units 13:40 13:40 13:40 WBC (4.5-11.0) X10^3/uL RBC (4.0-5.2) X10^6/uL Hgb (12.0-16.0) g/dL Hct (36-46) % MCV (80-100) fL MCH (26-34) PG MCHC (30-36) % RDW (11.6-14.8) % Plt Count (150-400) X10^3/uL Neut % (Auto) (50-75) % Lymph % (Auto) (25-40) % Tyler % (Auto) (3-14) % Eos % (Auto) (2-4) % Baso % (Auto) (0-2) % Neut # (Auto) (3237-6567) /uL PT (10.1-12.7) SECONDS INR (0.9-1.3) APTT (26.4-36.2) SECONDS Sodium 142 (137-145) mmol/L Potassium 3.8 (3.4-5.1) mmol/L Chloride 98 (98-107) mmol/L Carbon Dioxide 29 (22-32) mmol/L BUN 13 (7-17) mg/dL Creatinine 0.50 L (0.52-1.04) mg/dL Estimated GFR > 60.0 (>60) mL/min BUN/Creatinine Ratio 26.0 H (6-22) Glucose 105 (80-110) mg/dL Lactate 1.4 (0.7-2.1) mmol/L Calcium 9.0 (8.4-10.2) mg/dL Total Bilirubin 0.9 (0.2-1.3) mg/dL AST 40 H (14-36) IU/L ALT 20 (9-52) IU/L Alkaline Phosphatase 102 (38-126) U/L Total Creatine Kinase (30-135) U/L CK-MB (CK-2) CK-MB (CK-2) Rel Index Troponin I (0.01-0.034) ng/mL B-Natriuretic Peptide (<100) Total Protein 8.0 (6.3-8.2) g/dL Albumin 4.3 (3.5-5.0) g/dL Globulin 3.7 (1.7-4.1) g/dL Albumin/Globulin Ratio 1.2 (1.0-2.8) Procalcitonin < 0.05 (<0.5) ng/mL Imaging Data Chest x-ray: Radiologist's impression: PROCEDURE: XR CHEST 1V INDICATIONS: short of breath TECHNIQUE: One view of the chest was acquired. COMPARISON: [facility], , XR CHEST 1V, 04/11/2018, 13:46. FINDINGS: Surgical changes and devices: Sternotomy wires and surgical clips are seen. Lungs and pleura: No pleural effusions or pneumothorax. Lungs are clear. Mediastinum: Mediastinal contours appear normal. Heart size is enlarged. Bones and chest wall: No suspicious bony lesions. Overlying soft tissues appear unremarkable. IMPRESSION: No acute cardiopulmonary pathology. Dictated by: Mitch Rodriguez M.D. on 07/30/2018 at 13:52 ECG Data Attestation: I personally reviewed and interpreted this ECG as follows: Prior ECG tracings: available for review Interpretation: Atrial fibrillation rate [address] changes similar to previous EKGs MDM Narrative Medical decision making narrative: The patient is not allergic to albuterol or Atrovent. Not sure why or how these are on her allergy medications. She is feeling better after albuterol. She feels ready and able to return. Daughter at bedside. She was never in significant respiratory distress. She has a therapeutic INR do not think that she has PE. Discharge Plan Departure Patient Disposition: Home Clinical Impression: COPD with exacerbation Discharge Date/Time: 07/30/18 15:45 Interventions: ED Discharge Assessment Last Done: 07/30/18 15:59 Instructions: Chronic Obstructive Pulmonary Disease Activity Restrictions/Additional Instructions: *You have been diagnosed with COPD exacerbation *What to do: Blood work x-ray reassuring. No sign of infection. *Continue to take medications as directed Albuterol every 4 hr if needed for shortness of breath as prescribed *Follow up with your primary care provider in 2-3 days *Return to ER if you should have increasing shortness of breath, chest pain, heart palpitations or any new, worsening or concerning symptoms Prescriptions: No Action furosemide 80 MG tablet 80 mg PO QDAY Qty: 0 RF: 0 isosorbide dinitrate 30 MG tablet 30 mg PO QDAY Qty: 0 RF: 0 atorvastatin 80 mg Tablet 80 mg PO DAILY RF: 0 acetaminophen 325 mg Tablet 650 mg PO BID RF: 0 docusate sodium 100 mg Capsule 100 mg PO DAILY RF: 0 ezetimibe 10 mg Tablet 10 mg PO DAILY RF: 0 duloxetine 20 mg Capsule,Delayed Release(Dr/Ec) 20 mg PO DAILY RF: 0 pramipexole 1 mg Tablet 1 mg PO BEDTIME RF: 0 omeprazole 40 mg Capsule,Delayed Release(Dr/Ec) 40 mg PO DAILY RF: 0 spironolactone 25 mg Tablet 25 mg PO DAILY RF: 0 calcium carbonate [Tums] 200 mg calcium (500 mg) Tablet,Chewable 2 tab PO TID PRN (Reason: Indigestion) RF: 0 metoprolol tartrate [Lopressor] 50 mg Tablet 50 mg PO BID RF: 0 methimazole 5 mg Tablet 5 mg PO DAILY RF: 0 nystatin 100,000 unit/gram Powder 1 applic TOPICAL TID PRN (Reason: yeast) RF: 0 albuterol sulfate [Ventolin HFA] 90 mcg/actuation Hfa Aerosol Inhaler 2 puff Inhalation Q4H PRN (Reason: Shortness Of Breath Or Wheezing) RF: 0 fluticasone 50 mcg/actuation [place],Suspension 1 spray INTRANASAL DAILY RF: 0 lidocaine HCl 4 % Solution 1 applic Topical QAM RF: 0 magnesium chloride [Mag 64] 64 mg Tablet,Delayed Release (Dr/Ec) 2 tab PO DAILY RF: 0 potassium chloride 20 mEq Tablet Extended Release 40 meq PO BID RF: 0 hydrocodone-acetaminophen 5 MG/325 MG tablet 1 tab PO BID MDD 3 gm apap RF: 0 hydrocodone-acetaminophen 5 MG/325 MG tablet 1 tab PO Q4HP MDD 3 gm apap PRN (Reason: Pain, Moderate) RF: 0 phenazopyridine 200 mg Tablet 200 mg PO TID PRN (Reason: painful urination) RF: 0 warfarin 3 mg Tablet 3 mg PO QPM RF: 0 ondansetron 4 mg Tablet,Disintegrating 4 mg PO Q4H PRN (Reason: Nausea) RF: 0 beclomethasone dipropionate [Qvar RediHaler] 40 mcg/actuation Hfa Aerosol Breath Activated 2 puff Inhalation BID RF: 0 sennosides [senna] 8.6 mg Tablet 2 tab PO DAILY RF: 0 nitrofurantoin monohyd/m-cryst [Macrobid] 100 mg capsule 100 mg PO BID Qty: 14 RF: 0 amoxicillin-pot clavulanate 500-125 mg tablet 1 tab PO Q12H Qty: 10 RF: 0 Referrals: Amna Franco MD [Primary Care Provider] -
[2018-07-30 15:23] VITALS: BP 108/70; PULSE 91; RESP 18; O2SAT 96
== END 2018-07-30 15:45 | disposition home or self-care (01) ==
PROVIDERS: Emergency Provider Emergency Medicine; PCP Internal Medicine
DX: J44.1 Chronic obstructive pulmonary disease with (acute) exacerbation (principal)
CPT/HCPCS: 36415; 71045; 80053; 82550; 83605; 83880; 84145; 84484; 85025; 85610; 85730; 93005; 94640; 99283; 99285

== ENCOUNTER → 2018-07-31 07:52 | Outpatient (REF) | payer OTHER, SELFPAY ==
[2018-07-31 08:48] LABS: Add Manual Diff / Slide Review NO; Basophils Percent Auto 0.7 % (0-2); Hematocrit 40.3 % (36-46); Hemoglobin 13.1 g/dL (12.0-16.0); Lymphocytes Percent Auto 18.4 % (25-40); Mean Corpuscular HGB Conc 32.5 % (30-36); Mean Corpuscular Hemoglobin 27.1 PG (26-34); Mean Corpuscular Volume 83.3 fL (80-100); Monocytes Percent Auto 9.4 % (3-14); Neutrophils Absolute Auto 5300 /uL (1500-7000); Neutrophils Percent Auto 70.5 % (50-75); Platelet Count 256 X10^3/uL (150-400); Red Blood Cell Count 4.84 X10^6/uL (4.0-5.2); Red Cell Distribution Width 17.3 % (11.6-14.8); White Blood Cell Count 7.5 X10^3/uL (4.5-11.0)
[2018-07-31 09:06] LABS: Blood Urea Nitrogen 13 mg/dL (7-17); Calcium 9.1 mg/dL (8.4-10.2); Carbon Dioxide 29 mmol/L (22-32); Chloride 101 mmol/L (98-107); Estimated Glomerular Filt Rate > 60.0 mL/min (>60); Glucose 98 mg/dL (80-110); HEMOLYSIS < 15 (0-50); Potassium 3.5 mmol/L (3.4-5.1); Sodium 142 mmol/L (137-145)
== END ==
LOC: LAB 07:52
PROVIDERS: PCP Internal Medicine; Visit Provider Nurse Practitioner Family
DX: Z79.899 Other long term (current) drug therapy (principal)
CPT/HCPCS: 36415; 80048; 85025

== ENCOUNTER → 2018-08-02 14:18 | Outpatient (REF) | payer OTHER, SELFPAY ==
[2018-08-02 15:49] LABS: Campylobacter Not Detected (Not Detect); Clostridium difficile toxin AB Not Detected (Not Detect); Enteroaggregative E.coli Not Detected (Not Detect); Enteropathogenic E.coli Not Detected (Not Detect); Enterotoxigenic E.coli It/st Not Detected (Not Detect); Plesiomonsa shigelloides Not Detected (Not Detect); Salmonella Not Detected (Not Detect); Shiga-like toxin-prod E.coli Not Detected (Not Detect); Vibrio Not Detected (Not Detect); Vibrio cholerae Not Detected (Not Detect); Yersinia enterocolitica Not Detected (Not Detect)
[2018-08-02 15:50] LABS: Adenovirus F 40/41 Not Detected (Not Detect); Astrovirus Not Detected (Not Detect); Cryptosporidium Not Detected (Not Detect); Cyclospora cayetanensis Not Detected (Not Detect); Entamoeba histolytica Not Detected (Not Detect); Giardia lamblia Not Detected (Not Detect); Norovirus GI/GII Not Detected (Not Detect); Rotavirus A Not Detected (Not Detect); Sapovirus Not Detected (Not Detect); Shigella/Enteroinvasive E.coli Not Detected (Not Detect)
== END ==
LOC: LAB 14:18
PROVIDERS: PCP Internal Medicine; Visit Provider Nurse Practitioner Family
DX: R19.7 Diarrhea, unspecified (principal)
CPT/HCPCS: 87507

== ENCOUNTER → 2018-08-07 07:47 | Outpatient (REF) | payer OTHER, SELFPAY ==
[2018-08-07 08:18] LABS: Prothrombin Time 22.9 SECONDS (10.1-12.7)
== END ==
LOC: LAB 07:47
PROVIDERS: PCP Internal Medicine; Visit Provider Nurse Practitioner Family
DX: Z51.81 Encounter for therapeutic drug level monitoring (principal)
CPT/HCPCS: 36415; 85610

== ENCOUNTER → 2018-08-16 07:26 | Outpatient (REF) | payer OTHER, SELFPAY ==
[2018-08-16 09:32] LABS: Blood Urea Nitrogen 9 mg/dL (7-17); Calcium 8.6 mg/dL (8.4-10.2); Carbon Dioxide 31 mmol/L (22-32); Chloride 102 mmol/L (98-107); Estimated Glomerular Filt Rate > 60.0 mL/min (>60); Glucose 74 mg/dL (80-110); HEMOLYSIS 29 (0-50); Sodium 141 mmol/L (137-145)
== END ==
LOC: LAB 07:26
PROVIDERS: PCP Internal Medicine; Visit Provider Nurse Practitioner Family
DX: Z79.899 Other long term (current) drug therapy (principal)
CPT/HCPCS: 36415; 80048

== ENCOUNTER 2018-08-17 17:40 | Emergency (ER) | payer OTHER, SELFPAY ==
[2018-08-17 17:56] VITALS: BP 128/82; PULSE 102; RESP 20; TEMP 36.4; O2SAT 94
--- NOTE | 2018-08-17 17:59 | DI.RAD.S_ITS ---
PROCEDURE: XR CHEST 1V INDICATIONS: short of breath TECHNIQUE: One view of the chest was acquired. COMPARISON: [facility], CR, XR CHEST 1V, 07/30/2018, 13:57. FINDINGS: Surgical changes and devices: Status post CABG and aortic valve replacement. Lungs and pleura: No pleural effusions or pneumothorax. There is cephalization of pulmonary vasculature and interstitial prominence concerning for CHF. Mediastinum: Mediastinal contours appear normal. Heart size is normal. Bones and chest wall: No suspicious bony lesions. Overlying soft tissues appear unremarkable. IMPRESSION: Cephalization of pulmonary vasculature interstitial prominence suspicious for CHF. Dictated by: Rox Alvarado MD, PhD on 08/17/2018 at 18:16 Approved by: Rox Alvarado MD, PhD on 08/17/2018 at 18:17
[2018-08-17 18:30] VITALS: BP 133/58; PULSE 105; RESP 32; O2SAT 94
[2018-08-17 18:39] LABS: Add Manual Diff / Slide Review NO; Basophils Absolute Auto 100 /uL (0-100); Eosinophils Absolute Auto 100 /uL (0-450); Eosinophils Percent Auto 0.8 % (2-4); Hematocrit 40.8 % (36-46); Lymphocytes Absolute Auto 1200 /uL (1100-4500); Lymphocytes Percent Auto 15.6 % (25-40); Mean Corpuscular HGB Conc 31.9 % (30-36); Mean Corpuscular Hemoglobin 26.9 PG (26-34); Mean Corpuscular Volume 84.2 fL (80-100); Monocytes Absolute Auto 600 /uL (0-900); Monocytes Percent Auto 7.8 % (3-14); Neutrophils Absolute Auto 5800 /uL (1500-7000); Neutrophils Percent Auto 74.8 % (50-75); Platelet Count 260 X10^3/uL (150-400); Red Blood Cell Count 4.84 X10^6/uL (4.0-5.2); White Blood Cell Count 7.8 X10^3/uL (4.5-11.0)
[2018-08-17 18:42] LABS: INR 2.8 (0.9-1.3)
[2018-08-17 18:45] LABS: PTT Partial Thromboplastin Tim 44 SECONDS (26.4-36.2)
[2018-08-17 18:46] LABS: Alanine Aminotransferase 22 IU/L (9-52); Albumin 4.3 g/dL (3.5-5.0); Albumin Globulin Ratio 1.3 (1.0-2.8); Alkaline Phosphatase 81 U/L (38-126); Aspartate Aminotransferase 37 IU/L (14-36); BUN Creatinine Ratio 18.3 (6-22); Bilirubin Total 0.7 mg/dL (0.2-1.3); Blood Urea Nitrogen 11 mg/dL (7-17); Calcium 9.2 mg/dL (8.4-10.2); Carbon Dioxide 30 mmol/L (22-32); Chloride 106 mmol/L (98-107); Creatine Kinase 28 U/L (30-135); Estimated Glomerular Filt Rate > 60.0 mL/min (>60); Globulin 3.3 g/dL (1.7-4.1); Glucose 103 mg/dL (80-110); HEMOLYSIS 15 (0-50); Magnesium 2.1 mg/dL (1.6-2.3); Potassium 3.8 mmol/L (3.4-5.1); Sodium 143 mmol/L (137-145); Total Protein 7.6 g/dL (6.3-8.2)
[2018-08-17 18:58] LABS: Troponin I 0.026 ng/mL (0.01-0.034)
--- NOTE | 2018-08-17 19:06 | ED.SOB ---
HPI - SOB/Dyspnea General Chief Complaint: Shortness of Breath/Dyspnea Stated Complaint: SOB Time Seen by Provider: 08/17/18 17:57 Source: patient History of Present Illness 72-year-old female former smoker with history of COPD and CHF presents by EMS for evaluation of difficulty in breathing over the course of the day. The patient states her shortness of breath is worse with any exertion or with lying flat. She denies missing any doses of Lasix, weight gain or swelling in her legs. She has had cough which produces clear sputum. She denies chest pain is not dizzy nor weak or lightheaded. She denies any fever or shaking chills. She has had no nausea, vomiting or diarrhea MD Complaint: shortness of breath and cough Onset (ago): hour(s) Context: occurred during exertion Severity: mild Consistency/Duration: constant Exacerbating factors: lying flat and exertion Known history of: COPD and congestive heart failure Associated symptoms: denies other symptoms Treatment prior to arrival: none Related Data Home Medications Medication Instructions Recorded Confirmed furosemide 80 mg PO QDAY #0 05/14/17 04/11/18 isosorbide dinitrate 30 mg PO QDAY #0 05/14/17 04/11/18 acetaminophen 650 mg PO BID 01/10/18 04/11/18 albuterol sulfate [Ventolin HFA] 2 puff INHALATION Q4H PRN 01/10/18 04/11/18 atorvastatin 80 mg PO DAILY 01/10/18 04/11/18 calcium carbonate [Tums] 2 tab PO TID PRN 01/10/18 04/11/18 docusate sodium 100 mg PO DAILY 01/10/18 04/11/18 duloxetine 20 mg PO DAILY 01/10/18 04/11/18 ezetimibe 10 mg PO DAILY 01/10/18 04/11/18 fluticasone 1 spray INTRANASAL DAILY 01/10/18 04/11/18 hydrocodone-acetaminophen 1 tab PO BID MDD 3 gm apap 01/10/18 04/11/18 hydrocodone-acetaminophen 1 tab PO Q4HP PRN MDD 3 gm apap 01/10/18 04/11/18 lidocaine HCl 1 applic TOPICAL QAM 01/10/18 04/11/18 magnesium chloride [Mag 64] 2 tab PO DAILY 01/10/18 04/11/18 methimazole 5 mg PO DAILY 01/10/18 04/11/18 metoprolol tartrate [Lopressor] 50 mg PO BID 01/10/18 04/11/18 nystatin 1 applic TOPICAL TID PRN 01/10/18 04/11/18 omeprazole 40 mg PO DAILY 01/10/18 04/11/18 potassium chloride 40 meq PO BID 01/10/18 04/11/18 pramipexole 1 mg PO BEDTIME 01/10/18 04/11/18 spironolactone 25 mg PO DAILY 01/10/18 04/11/18 beclomethasone dipropionate [Qvar 2 puff INHALATION BID 04/11/18 04/11/18 RediHaler] ondansetron 4 mg PO Q4H PRN 04/11/18 04/11/18 phenazopyridine 200 mg PO TID PRN 04/11/18 04/11/18 sennosides [senna] 2 tab PO DAILY 04/11/18 04/11/18 warfarin 3 mg PO QPM 04/11/18 04/11/18 Previous Rx's Medication Instructions Recorded nitrofurantoin monohyd/m-cryst 100 mg PO BID #14 cap 04/11/18 [Macrobid] amoxicillin-pot clavulanate 1 tab PO Q12H #10 tab 04/12/18 Allergies Allergy/AdvReac Type Severity Reaction Status Date / Time aspartame [ASPARTAME] Allergy Intermediate violently Verified 08/17/18 17:56 ill, fever, rashes. codeine [CODEINE] Allergy Intermediate PROJECTILE Verified 08/17/18 17:56 VOMITING latex [LATEX] Allergy Intermediate VERY Verified 08/17/18 17:56 ITCHY RASH morphine [MORPHINE] Allergy Intermediate HALLUCINATI Verified 08/17/18 17:56 ONS. albuterol Allergy Verified 08/17/18 17:56 ipratropium Allergy Verified 08/17/18 17:56 Review of Systems Constitutional Denies chills, Denies fever(s), Denies lethargy and Denies weakness Eyes Denies change in vision, Denies eye discharge, Denies irritation and Denies loss of vision ENT Ears, Nose, Mouth, and Throat: Denies change in voice, Denies neck pain and Denies sore throat Cardiovascular Denies chest pain, Denies irregular heart rhythm, Denies lightheadedness, Denies palpitations, Reports dyspnea, Reports dyspnea on exertion and Reports orthopnea Respiratory Reports cough, Reports dyspnea, Reports dyspnea on exertion and Denies wheezing Gastrointestinal Gastrointestinal: Denies abdominal pain, Denies change in bowel habits, Denies diarrhea, Denies nausea and Denies vomiting Genitourinary Denies hematuria, Denies flank pain, Denies urinary incontinence and Denies urinary urgency Musculoskeletal Denies neck pain Integumentary/Breasts Denies pruritus, Denies erythema, Denies rash and Denies wounds Neurologic Denies confusion, Denies loss of vision and Denies weakness Psychiatric Denies anxiety, Denies confusion, Denies depression, Denies homicidal ideation and Denies suicidal ideation Endocrine Denies palpitations Hematologic/Lymphatic Denies easy bruising Allergic/Immunologic Denies wheezing FOR[facility], [facility] Medical History COPD (chronic obstructive pulmonary disease) (Chronic) Chronic a-fib (Chronic) GERD (gastroesophageal reflux disease) (Chronic) Hyperlipidemia (Chronic) Hypertension (Chronic) Hyperthyroidism (Chronic) Surgical History Status post appendectomy Status post hysterectomy Social History housing: assisted living facility Exam Narrative Exam Narrative: GENERAL: Chronically ill 72-year-old female in mild distress. Pulse ox 95% on room air. Obese HEAD: Atraumatic. Normocephalic. No temporal or scalp tenderness. EYES: Pupils equal round and reactive. Extraocular motions intact. No scleral icterus. No injection or drainage. ENT: Nose without bleeding, purulent drainage or septal hematoma. Throat without erythema, tonsillar hypertrophy or exudate. Uvula midline. Airway patent. NECK: Trachea midline. No JVD or lymphadenopathy. Supple, nontender, no meningeal signs. CARDIOVASCULAR: Regular rate and rhythm without murmurs, gallops, or rubs. RESPIRATORY: Faint crackles in B/L bases. No tachypnea. No rhonchi GASTROINTESTINAL: Abdomen soft, non-tender, nondistended. No hepato-splenomegaly, or palpable masses. No guarding. EXTREMITIES: No clubbing, cyanosis, or edema. No joint tenderness, effusion, or edema noted. BACK: Nontender without deformity or crepitance. No flank tenderness. NEURO: AOx3. SKIN: No rash or erythema. Initial Vital Signs Initial Vital Signs: Vital Signs Temperature 97.6 F 08/17/18 17:56 Pulse Rate 102 H 08/17/18 17:56 Respiratory Rate 20 08/17/18 17:56 Blood Pressure 128/82 08/17/18 17:56 Pulse Oximetry 94 08/17/18 17:56 Course Orders Ordered: Discontinued Medications Furosemide (Lasix) 40 mg IV NOW ONE Stop: 08/17/18 19:06 Last Admin: 08/17/18 19:21 Dose: 40 mg Vital Signs - 8 hr 08/17/18 20:12 Pulse Rate 101 H Respiratory Rate 24 Blood Pressure 135/74 Pulse Oximetry 94 MDM - SOB/Dyspnea Differential Diagnosis Likely acute exacerbation of chronic obstructive airways disease, congestive heart failure, community acquired pneumonia and asthma with exacerbation Medical Records Attestation: I reviewed the patient's medical records. Lab Data Attestation: I reviewed the patient's lab results. Result diagrams: 08/17/18 18:25 08/17/18 18:25 Lab Results 08/17/18 08/17/18 08/17/18 Range/Units 18:25 18:25 18:25 WBC 7.8 (4.5-11.0) X10^3/uL RBC 4.84 (4.0-5.2) X10^6/uL Hgb 13.0 (12.0-16.0) g/dL Hct 40.8 (36-46) % MCV 84.2 (80-100) fL MCH 26.9 (26-34) PG MCHC 31.9 (30-36) % RDW 18.0 H (11.6-14.8) % Plt Count 260 (150-400) X10^3/uL Neut % (Auto) 74.8 (50-75) % Lymph % (Auto) 15.6 L (25-40) % Andrew % (Auto) 7.8 (3-14) % Eos % (Auto) 0.8 L (2-4) % Baso % (Auto) 1.0 (0-2) % Neut # (Auto) 5800 (8803-2503) /uL Lymph # (Auto) 1200 (2824-5350) /uL Andrew # (Auto) 600 (0-900) /uL Eos # (Auto) 100 (0-450) /uL Baso # (Auto) 100 (0-100) /uL PT 33.0 H (10.1-12.7) SECONDS INR 2.8 H (0.9-1.3) APTT 44 H D (26.4-36.2) SECONDS Sodium 143 (137-145) mmol/L Potassium 3.8 (3.4-5.1) mmol/L Chloride 106 (98-107) mmol/L Carbon Dioxide 30 (22-32) mmol/L BUN 11 (7-17) mg/dL Creatinine 0.60 (0.52-1.04) mg/dL Estimated GFR > 60.0 (>60) mL/min BUN/Creatinine Ratio 18.3 (6-22) Glucose 103 (80-110) mg/dL Calcium 9.2 (8.4-10.2) mg/dL Magnesium 2.1 (1.6-2.3) mg/dL Total Bilirubin 0.7 (0.2-1.3) mg/dL AST 37 H (14-36) IU/L ALT 22 (9-52) IU/L Alkaline Phosphatase 81 (38-126) U/L Total Creatine Kinase 28 L (30-135) U/L CK-MB (CK-2) TNP CK-MB (CK-2) Rel Index TNP Troponin I 0.026 (0.01-0.034) ng/mL B-Natriuretic Peptide 158 H (<100) Total Protein 7.6 (6.3-8.2) g/dL Albumin 4.3 (3.5-5.0) g/dL Globulin 3.3 (1.7-4.1) g/dL Albumin/Globulin Ratio 1.3 (1.0-2.8) Imaging Data Chest x-ray: Radiologist's impression: View Report History [address] [address] XRay Report Signed Patient: Vivi Yeh MR#: [id number] : 1945 Acct:[id number] Age/Sex: 72 / F Date of Service: 08/17/18 Loc: ED Accession Number: [id number] Procedure: XR chest 1V Ordering Provider: Jayde Moss D.O. PROCEDURE: XR CHEST 1V INDICATIONS: short of breath TECHNIQUE: One view of the chest was acquired. COMPARISON: [facility], CR, XR CHEST 1V, 07/30/2018, 13:57. FINDINGS: Surgical changes and devices: Status post CABG and aortic valve replacement. Lungs and pleura: No pleural effusions or pneumothorax. There is cephalization of pulmonary vasculature and interstitial prominence concerning for CHF. Mediastinum: Mediastinal contours appear normal. Heart size is normal. Bones and chest wall: No suspicious bony lesions. Overlying soft tissues appear unremarkable. IMPRESSION: Cephalization of pulmonary vasculature interstitial prominence suspicious for CHF. Dictated by: Rox Alvarado MD, PhD on 08/17/2018 at 18:16 Approved by: Rox Alvarado MD, PhD on 08/17/2018 at 18:17 MDM Narrative Medical decision making narrative: Multiple etiologies for patient's symptoms considered including: [Acute CHF is likely given orthopnea, exertional dyspnea, CXR. COPD considered, but no wheeze on exam or response to EMS bronchodilators. PNA considered, but no fever, purulent sputum or CXR findings. ] Patient's symptoms improved or duration of stay with above-stated therapies. SHe does not require supplemental oxygen Findings and discharge diagnosis discussed with patient/family followed by verbalization of understanding Return precautions discussed with patient/family whom verbalize understanding. Discharge Plan Departure Patient Disposition: Home Clinical Impression: CHF (congestive heart failure) Discharge Date/Time: 08/17/18 20:14 Interventions: ED Discharge Assessment Last Done: 08/17/18 20:12 Instructions: DI for Heart Failure Activity Restrictions/Additional Instructions: *You have been diagnosed with [ acute exacerbation of CHF ] *What to do: *Take medications as directed, but take one extra Lasix tomorrow *Follow up with your primary care provider in 2-3 days, call for an appointment. Let them know you were seen in the Emergency Department and that we ask that you be seen in follow up *Return to ER if you should have any new, worsening or concerning symptoms Prescriptions: No Action furosemide 80 MG tablet 80 mg PO QDAY Qty: 0 RF: 0 isosorbide dinitrate 30 MG tablet 30 mg PO QDAY Qty: 0 RF: 0 atorvastatin 80 mg Tablet 80 mg PO DAILY RF: 0 acetaminophen 325 mg Tablet 650 mg PO BID RF: 0 docusate sodium 100 mg Capsule 100 mg PO DAILY RF: 0 ezetimibe 10 mg Tablet 10 mg PO DAILY RF: 0 duloxetine 20 mg Capsule,Delayed Release(Dr/Ec) 20 mg PO DAILY RF: 0 pramipexole 1 mg Tablet 1 mg PO BEDTIME RF: 0 omeprazole 40 mg Capsule,Delayed Release(Dr/Ec) 40 mg PO DAILY RF: 0 spironolactone 25 mg Tablet 25 mg PO DAILY RF: 0 calcium carbonate [Tums] 200 mg calcium (500 mg) Tablet,Chewable 2 tab PO TID PRN (Reason: Indigestion) RF: 0 metoprolol tartrate [Lopressor] 50 mg Tablet 50 mg PO BID RF: 0 methimazole 5 mg Tablet 5 mg PO DAILY RF: 0 nystatin 100,000 unit/gram Powder 1 applic TOPICAL TID PRN (Reason: yeast) RF: 0 albuterol sulfate [Ventolin HFA] 90 mcg/actuation Hfa Aerosol Inhaler 2 puff Inhalation Q4H PRN (Reason: Shortness Of Breath Or Wheezing) RF: 0 fluticasone 50 mcg/actuation [place],Suspension 1 spray INTRANASAL DAILY RF: 0 lidocaine HCl 4 % Solution 1 applic Topical QAM RF: 0 magnesium chloride [Mag 64] 64 mg Tablet,Delayed Release (Dr/Ec) 2 tab PO DAILY RF: 0 potassium chloride 20 mEq Tablet Extended Release 40 meq PO BID RF: 0 hydrocodone-acetaminophen 5 MG/325 MG tablet 1 tab PO BID MDD 3 gm apap RF: 0 hydrocodone-acetaminophen 5 MG/325 MG tablet 1 tab PO Q4HP MDD 3 gm apap PRN (Reason: Pain, Moderate) RF: 0 phenazopyridine 200 mg Tablet 200 mg PO TID PRN (Reason: painful urination) RF: 0 warfarin 3 mg Tablet 3 mg PO QPM RF: 0 ondansetron 4 mg Tablet,Disintegrating 4 mg PO Q4H PRN (Reason: Nausea) RF: 0 beclomethasone dipropionate [Qvar RediHaler] 40 mcg/actuation Hfa Aerosol Breath Activated 2 puff Inhalation BID RF: 0 sennosides [senna] 8.6 mg Tablet 2 tab PO DAILY RF: 0 nitrofurantoin monohyd/m-cryst [Macrobid] 100 mg capsule 100 mg PO BID Qty: 14 RF: 0 amoxicillin-pot clavulanate 500-125 mg tablet 1 tab PO Q12H Qty: 10 RF: 0
[2018-08-17] MEDS: FUROSEMIDE 40 MG/4 ML VIAL IV (19:21)
[2018-08-17 19:27] LABS: B Type Natriuretic Peptide 158 (<100)
[2018-08-17 20:12] VITALS: BP 135/74; PULSE 101; RESP 24; O2SAT 94
--- NOTE | 2018-08-17 20:21 | ED_ITS ---
HPI - SOB/Dyspnea General Chief Complaint: Shortness of Breath/Dyspnea Stated Complaint: SOB Time Seen by Provider: 08/17/18 17:57 Source: patient History of Present Illness 72-year-old female former smoker with history of COPD and CHF presents by EMS for evaluation of difficulty in breathing over the course of the day. The patient states her shortness of breath is worse with any exertion or with lying flat. She denies missing any doses of Lasix, weight gain or swelling in her legs. She has had cough which produces clear sputum. She denies chest pain is not dizzy nor weak or lightheaded. She denies any fever or shaking chills. She has had no nausea, vomiting or diarrhea MD Complaint: shortness of breath and cough Onset (ago): hour(s) Context: occurred during exertion Severity: mild Consistency/Duration: constant Exacerbating factors: lying flat and exertion Known history of: COPD and congestive heart failure Associated symptoms: denies other symptoms Treatment prior to arrival: none Related Data Home Medications Medication Instructions Recorded Confirmed furosemide 80 mg PO QDAY #0 05/14/17 04/11/18 isosorbide dinitrate 30 mg PO QDAY #0 05/14/17 04/11/18 acetaminophen 650 mg PO BID 01/10/18 04/11/18 albuterol sulfate [Ventolin HFA] 2 puff INHALATION Q4H PRN 01/10/18 04/11/18 atorvastatin 80 mg PO DAILY 01/10/18 04/11/18 calcium carbonate [Tums] 2 tab PO TID PRN 01/10/18 04/11/18 docusate sodium 100 mg PO DAILY 01/10/18 04/11/18 duloxetine 20 mg PO DAILY 01/10/18 04/11/18 ezetimibe 10 mg PO DAILY 01/10/18 04/11/18 fluticasone 1 spray INTRANASAL DAILY 01/10/18 04/11/18 hydrocodone-acetaminophen 1 tab PO BID MDD 3 gm apap 01/10/18 04/11/18 hydrocodone-acetaminophen 1 tab PO Q4HP PRN MDD 3 gm apap 01/10/18 04/11/18 lidocaine HCl 1 applic TOPICAL QAM 01/10/18 04/11/18 magnesium chloride [Mag 64] 2 tab PO DAILY 01/10/18 04/11/18 methimazole 5 mg PO DAILY 01/10/18 04/11/18 metoprolol tartrate [Lopressor] 50 mg PO BID 01/10/18 04/11/18 nystatin 1 applic TOPICAL TID PRN 01/10/18 04/11/18 omeprazole 40 mg PO DAILY 01/10/18 04/11/18 potassium chloride 40 meq PO BID 01/10/18 04/11/18 pramipexole 1 mg PO BEDTIME 01/10/18 04/11/18 spironolactone 25 mg PO DAILY 01/10/18 04/11/18 beclomethasone dipropionate [Qvar 2 puff INHALATION BID 04/11/18 04/11/18 RediHaler] ondansetron 4 mg PO Q4H PRN 04/11/18 04/11/18 phenazopyridine 200 mg PO TID PRN 04/11/18 04/11/18 sennosides [senna] 2 tab PO DAILY 04/11/18 04/11/18 warfarin 3 mg PO QPM 04/11/18 04/11/18 Previous Rx's Medication Instructions Recorded nitrofurantoin monohyd/m-cryst 100 mg PO BID #14 cap 04/11/18 [Macrobid] amoxicillin-pot clavulanate 1 tab PO Q12H #10 tab 04/12/18 Allergies Allergy/AdvReac Type Severity Reaction Status Date / Time aspartame [ASPARTAME] Allergy Intermediate violently Verified 08/17/18 17:56 ill, fever, rashes. codeine [CODEINE] Allergy Intermediate PROJECTILE Verified 08/17/18 17:56 VOMITING latex [LATEX] Allergy Intermediate VERY Verified 08/17/18 17:56 ITCHY RASH morphine [MORPHINE] Allergy Intermediate HALLUCINATI Verified 08/17/18 17:56 ONS. albuterol Allergy Verified 08/17/18 17:56 ipratropium Allergy Verified 08/17/18 17:56 Review of Systems Constitutional Denies chills, Denies fever(s), Denies lethargy and Denies weakness Eyes Denies change in vision, Denies eye discharge, Denies irritation and Denies loss of vision ENT Ears, Nose, Mouth, and Throat: Denies change in voice, Denies neck pain and Denies sore throat Cardiovascular Denies chest pain, Denies irregular heart rhythm, Denies lightheadedness, Denies palpitations, Reports dyspnea, Reports dyspnea on exertion and Reports orthopnea Respiratory Reports cough, Reports dyspnea, Reports dyspnea on exertion and Denies wheezing Gastrointestinal Gastrointestinal: Denies abdominal pain, Denies change in bowel habits, Denies diarrhea, Denies nausea and Denies vomiting Genitourinary Denies hematuria, Denies flank pain, Denies urinary incontinence and Denies urinary urgency Musculoskeletal Denies neck pain Integumentary/Breasts Denies pruritus, Denies erythema, Denies rash and Denies wounds Neurologic Denies confusion, Denies loss of vision and Denies weakness Psychiatric Denies anxiety, Denies confusion, Denies depression, Denies homicidal ideation and Denies suicidal ideation Endocrine Denies palpitations Hematologic/Lymphatic Denies easy bruising Allergic/Immunologic Denies wheezing [facility] Medical History COPD (chronic obstructive pulmonary disease) (Chronic) Chronic a-fib (Chronic) GERD (gastroesophageal reflux disease) (Chronic) Hyperlipidemia (Chronic) Hypertension (Chronic) Hyperthyroidism (Chronic) Surgical History Status post appendectomy Status post hysterectomy Social History housing: assisted living facility Exam Narrative Exam Narrative: GENERAL: Chronically ill 72-year-old female in mild distress. Pulse ox 95% on room air. Obese HEAD: Atraumatic. Normocephalic. No temporal or scalp tenderness. EYES: Pupils equal round and reactive. Extraocular motions intact. No scleral icterus. No injection or drainage. ENT: Nose without bleeding, purulent drainage or septal hematoma. Throat without erythema, tonsillar hypertrophy or exudate. Uvula midline. Airway patent. NECK: Trachea midline. No JVD or lymphadenopathy. Supple, nontender, no meningeal signs. CARDIOVASCULAR: Regular rate and rhythm without murmurs, gallops, or rubs. RESPIRATORY: Faint crackles in B/L bases. No tachypnea. No rhonchi GASTROINTESTINAL: Abdomen soft, non-tender, nondistended. No hepato-splenomegaly , or palpable masses. No guarding. EXTREMITIES: No clubbing, cyanosis, or edema. No joint tenderness, effusion, or edema noted. BACK: Nontender without deformity or crepitance. No flank tenderness. NEURO: AOx3. SKIN: No rash or erythema. Initial Vital Signs Initial Vital Signs: Vital Signs Temperature 97.6 F 08/17/18 17:56 Pulse Rate 102 H 08/17/18 17:56 Respiratory Rate 20 08/17/18 17:56 Blood Pressure 128/82 08/17/18 17:56 Pulse Oximetry 94 08/17/18 17:56 Course Orders Ordered: Discontinued Medications Furosemide (Lasix) 40 mg IV NOW ONE Stop: 08/17/18 19:06 Last Admin: 08/17/18 19:21 Dose: 40 mg Vital Signs - 8 hr 08/17/18 20:12 Pulse Rate 101 H Respiratory Rate 24 Blood Pressure 135/74 Pulse Oximetry 94 MDM - SOB/Dyspnea Differential Diagnosis Likely acute exacerbation of chronic obstructive airways disease, congestive heart failure, community acquired pneumonia and asthma with exacerbation Medical Records Attestation: I reviewed the patient's medical records. Lab Data Attestation: I reviewed the patient's lab results. Result diagrams: 08/17/18 18:25 08/17/18 18:25 Lab Results 08/17/18 08/17/18 08/17/18 Range/Units 18:25 18:25 18:25 WBC 7.8 (4.5-11.0) X10^3/uL RBC 4.84 (4.0-5.2) X10^6/uL Hgb 13.0 (12.0-16.0) g/dL Hct 40.8 (36-46) % MCV 84.2 (80-100) fL MCH 26.9 (26-34) PG MCHC 31.9 (30-36) % RDW 18.0 H (11.6-14.8) % Plt Count 260 (150-400) X10^3/uL Neut % (Auto) 74.8 (50-75) % Lymph % (Auto) 15.6 L (25-40) % [place] % (Auto) 7.8 (3-14) % Eos % (Auto) 0.8 L (2-4) % Baso % (Auto) 1.0 (0-2) % Neut # (Auto) 5800 (1716-0118) /uL Lymph # (Auto) 1200 (8189-6276) /uL [place] # (Auto) 600 (0-900) /uL Eos # (Auto) 100 (0-450) /uL Baso # (Auto) 100 (0-100) /uL PT 33.0 H (10.1-12.7) SECONDS INR 2.8 H (0.9-1.3) APTT 44 H D (26.4-36.2) SECONDS Sodium 143 (137-145) mmol/L Potassium 3.8 (3.4-5.1) mmol/L Chloride 106 (98-107) mmol/L Carbon Dioxide 30 (22-32) mmol/L BUN 11 (7-17) mg/dL Creatinine 0.60 (0.52-1.04) mg/dL Estimated GFR > 60.0 (>60) mL/min BUN/Creatinine Ratio 18.3 (6-22) Glucose 103 (80-110) mg/dL Calcium 9.2 (8.4-10.2) mg/dL Magnesium 2.1 (1.6-2.3) mg/dL Total Bilirubin 0.7 (0.2-1.3) mg/dL AST 37 H (14-36) IU/L ALT 22 (9-52) IU/L Alkaline Phosphatase 81 (38-126) U/L Total Creatine Kinase 28 L (30-135) U/L CK-MB (CK-2) TNP CK-MB (CK-2) Rel Index TNP Troponin I 0.026 (0.01-0.034) ng/mL B-Natriuretic Peptide 158 H (<100) Total Protein 7.6 (6.3-8.2) g/dL Albumin 4.3 (3.5-5.0) g/dL Globulin 3.3 (1.7-4.1) g/dL Albumin/Globulin Ratio 1.3 (1.0-2.8) Imaging Data Chest x-ray: Radiologist's impression: View Report History [address] [address] XRay Report Signed Patient: Vivi Yeh MR#: [id number] : 1945 Acct:[id number] Age/Sex: 72 / F Date of Service: 08/17/18 Loc: ED Accession Number: [id number] Procedure: XR chest 1V Ordering Provider: Jayde Moss D.O. PROCEDURE: XR CHEST 1V INDICATIONS: short of breath TECHNIQUE: One view of the chest was acquired. COMPARISON: [facility], CR, XR CHEST 1V, 07/30/2018, 13:57. FINDINGS: Surgical changes and devices: Status post CABG and aortic valve replacement. Lungs and pleura: No pleural effusions or pneumothorax. There is cephalization of pulmonary vasculature and interstitial prominence concerning for CHF. Mediastinum: Mediastinal contours appear normal. Heart size is normal. Bones and chest wall: No suspicious bony lesions. Overlying soft tissues appear unremarkable. IMPRESSION: Cephalization of pulmonary vasculature interstitial prominence suspicious for CHF. Dictated by: Rox Alvarado MD, PhD on 08/17/2018 at 18:16 Approved by: Rox Alvarado MD, PhD on 08/17/2018 at 18:17 MDM Narrative Medical decision making narrative: Multiple etiologies for patient's symptoms considered including: [Acute CHF is likely given orthopnea, exertional dyspnea, CXR. COPD considered, but no wheeze on exam or response to EMS bronchodilators. PNA considered, but no fever, purulent sputum or CXR findings. ] Patient's symptoms improved or duration of stay with above-stated therapies. SHe does not require supplemental oxygen Findings and discharge diagnosis discussed with patient/family followed by verbalization of understanding Return precautions discussed with patient/family whom verbalize understanding. Discharge Plan Departure Patient Disposition: Home Clinical Impression: CHF (congestive heart failure) Discharge Date/Time: 08/17/18 20:14 Interventions: ED Discharge Assessment Last Done: 08/17/18 20:12 Instructions: DI for Heart Failure Activity Restrictions/Additional Instructions: *You have been diagnosed with [ acute exacerbation of CHF ] *What to do: *Take medications as directed, but take one extra Lasix tomorrow *Follow up with your primary care provider in 2-3 days, call for an appointment. Let them know you were seen in the Emergency Department and that we ask that you be seen in follow up *Return to ER if you should have any new, worsening or concerning symptoms Prescriptions: No Action furosemide 80 MG tablet 80 mg PO QDAY Qty: 0 RF: 0 isosorbide dinitrate 30 MG tablet 30 mg PO QDAY Qty: 0 RF: 0 atorvastatin 80 mg Tablet 80 mg PO DAILY RF: 0 acetaminophen 325 mg Tablet 650 mg PO BID RF: 0 docusate sodium 100 mg Capsule 100 mg PO DAILY RF: 0 ezetimibe 10 mg Tablet 10 mg PO DAILY RF: 0 duloxetine 20 mg Capsule,Delayed Release(Dr/Ec) 20 mg PO DAILY RF: 0 pramipexole 1 mg Tablet 1 mg PO BEDTIME RF: 0 omeprazole 40 mg Capsule,Delayed Release(Dr/Ec) 40 mg PO DAILY RF: 0 spironolactone 25 mg Tablet 25 mg PO DAILY RF: 0 calcium carbonate [Tums] 200 mg calcium (500 mg) Tablet,Chewable 2 tab PO TID PRN (Reason: Indigestion) RF: 0 metoprolol tartrate [Lopressor] 50 mg Tablet 50 mg PO BID RF: 0 methimazole 5 mg Tablet 5 mg PO DAILY RF: 0 nystatin 100,000 unit/gram Powder 1 applic TOPICAL TID PRN (Reason: yeast) RF: 0 albuterol sulfate [Ventolin HFA] 90 mcg/actuation Hfa Aerosol Inhaler 2 puff Inhalation Q4H PRN (Reason: Shortness Of Breath Or Wheezing) RF: 0 fluticasone 50 mcg/actuation [place],Suspension 1 spray INTRANASAL DAILY RF: 0 lidocaine HCl 4 % Solution 1 applic Topical QAM RF: 0 magnesium chloride [Mag 64] 64 mg Tablet,Delayed Release (Dr/Ec) 2 tab PO DAILY RF: 0 potassium chloride 20 mEq Tablet Extended Release 40 meq PO BID RF: 0 hydrocodone-acetaminophen 5 MG/325 MG tablet 1 tab PO BID MDD 3 gm apap RF: 0 hydrocodone-acetaminophen 5 MG/325 MG tablet 1 tab PO Q4HP MDD 3 gm apap PRN (Reason: Pain, Moderate) RF: 0 phenazopyridine 200 mg Tablet 200 mg PO TID PRN (Reason: painful urination) RF: 0 warfarin 3 mg Tablet 3 mg PO QPM RF: 0 ondansetron 4 mg Tablet,Disintegrating 4 mg PO Q4H PRN (Reason: Nausea) RF: 0 beclomethasone dipropionate [Qvar RediHaler] 40 mcg/actuation Hfa Aerosol Breath Activated 2 puff Inhalation BID RF: 0 sennosides [senna] 8.6 mg Tablet 2 tab PO DAILY RF: 0 nitrofurantoin monohyd/m-cryst [Macrobid] 100 mg capsule 100 mg PO BID Qty: 14 RF: 0 amoxicillin-pot clavulanate 500-125 mg tablet 1 tab PO Q12H Qty: 10 RF: 0
== END 2018-08-17 20:14 | disposition home or self-care (01) ==
PROVIDERS: Emergency Medicine; Emergency Provider Emergency Medicine; PCP Internal Medicine
DX: I50.9 Heart failure, unspecified (principal)
CPT/HCPCS: 36591; 71045; 80053; 82550; 83735; 83880; 84484; 85025; 85610; 85730; 93005; 93010; 96374; 99282; 99285; J1940

== ENCOUNTER → 2018-08-23 08:35 | Outpatient (REF) | payer OTHER, SELFPAY ==
[2018-08-23 11:16] LABS: Blood Urea Nitrogen 13 mg/dL (7-17); Calcium 8.8 mg/dL (8.4-10.2); Carbon Dioxide 30 mmol/L (22-32); Chloride 103 mmol/L (98-107); Estimated Glomerular Filt Rate > 60.0 mL/min (>60); Glucose 72 mg/dL (80-110); HEMOLYSIS < 15 (0-50); Potassium 3.3 mmol/L (3.4-5.1); Sodium 141 mmol/L (137-145)
== END ==
LOC: LAB 08:35
PROVIDERS: PCP Internal Medicine; Visit Provider Nurse Practitioner Family
DX: I10 Essential (primary) hypertension (principal); Z79.899 Other long term (current) drug therapy
CPT/HCPCS: 36415; 80048

== ENCOUNTER → 2018-08-26 07:34 | Outpatient (REF) | payer OTHER, SELFPAY ==
[2018-08-26 08:24] LABS: Blood Urea Nitrogen 9 mg/dL (7-17); Calcium 9.1 mg/dL (8.4-10.2); Carbon Dioxide 30 mmol/L (22-32); Chloride 106 mmol/L (98-107); Estimated Glomerular Filt Rate > 60.0 mL/min (>60); Glucose 93 mg/dL (80-110); HEMOLYSIS < 15 (0-50); Potassium 3.3 mmol/L (3.4-5.1); Sodium 142 mmol/L (137-145)
== END ==
LOC: LAB 07:34
PROVIDERS: PCP Internal Medicine; Visit Provider Internal Medicine
DX: I50.9 Heart failure, unspecified (principal)
CPT/HCPCS: 36415; 80048

== ENCOUNTER → 2018-08-28 08:04 | Outpatient (REF) | payer OTHER, SELFPAY ==
[2018-08-28 08:50] LABS: Blood Urea Nitrogen 12 mg/dL (7-17); Calcium 9.2 mg/dL (8.4-10.2); Carbon Dioxide 32 mmol/L (22-32); Chloride 103 mmol/L (98-107); Estimated Glomerular Filt Rate > 60.0 mL/min (>60); Glucose 86 mg/dL (80-110); HEMOLYSIS < 15 (0-50); Potassium 3.6 mmol/L (3.4-5.1); Sodium 142 mmol/L (137-145)
== END ==
LOC: LAB 08:04
PROVIDERS: PCP Internal Medicine; Visit Provider Nurse Practitioner Family
DX: E87.6 Hypokalemia (principal)
CPT/HCPCS: 36415; 80048

== ENCOUNTER → 2018-09-06 08:36 | Outpatient (REF) | payer OTHER, SELFPAY ==
[2018-09-06 09:22] LABS: INR 2.9 (0.9-1.3); Prothrombin Time 34.5 SECONDS (10.1-12.7)
[2018-09-06 10:14] LABS: Thyroid Stimulating Hormone 2.17 uIU/mL (0.47-4.68)
== END ==
LOC: LAB 08:36
PROVIDERS: PCP Internal Medicine; Visit Provider Nurse Practitioner Family
DX: Z79.01 Long term (current) use of anticoagulants (principal); E05.00 Thyrotoxicosis with diffuse goiter without thyrotoxic crisis or storm
CPT/HCPCS: 36415; 84443; 85610

== ENCOUNTER → 2018-09-20 10:15 | Outpatient (REF) | payer OTHER, SELFPAY ==
[2018-09-20 10:54] LABS: Blood Urea Nitrogen 13 mg/dL (7-17); Calcium 9.4 mg/dL (8.4-10.2); Carbon Dioxide 30 mmol/L (22-32); Chloride 97 mmol/L (98-107); Estimated Glomerular Filt Rate > 60.0 mL/min (>60); Glucose 80 mg/dL (80-110); HEMOLYSIS 21 (0-50); Potassium 3.9 mmol/L (3.4-5.1); Sodium 140 mmol/L (137-145)
== END ==
LOC: LAB 10:15
PROVIDERS: PCP Internal Medicine; Visit Provider Nurse Practitioner Family
DX: E87.6 Hypokalemia (principal); Z79.899 Other long term (current) drug therapy
CPT/HCPCS: 80048

== ENCOUNTER → 2018-09-25 08:14 | Outpatient (REF) | payer OTHER, SELFPAY ==
[2018-09-25 09:21] LABS: Blood Urea Nitrogen 11 mg/dL (7-17); Calcium 9.2 mg/dL (8.4-10.2); Carbon Dioxide 29 mmol/L (22-32); Chloride 99 mmol/L (98-107); Estimated Glomerular Filt Rate > 60.0 mL/min (>60); Glucose 91 mg/dL (80-110); HEMOLYSIS < 15 (0-50); Potassium 3.9 mmol/L (3.4-5.1); Sodium 137 mmol/L (137-145)
== END ==
LOC: LAB 08:14
PROVIDERS: PCP Internal Medicine; Visit Provider Nurse Practitioner Family
DX: E87.6 Hypokalemia (principal); R60.9 Edema, unspecified
CPT/HCPCS: 36415; 80048

== ENCOUNTER → 2018-10-02 07:45 | Outpatient (REF) | payer OTHER, SELFPAY ==
[2018-10-02 08:39] LABS: INR 2.9 (0.9-1.3); Prothrombin Time 33.5 SECONDS (10.1-12.7)
== END ==
LOC: LAB 07:45
PROVIDERS: PCP Internal Medicine; Visit Provider Nurse Practitioner Family
DX: Z79.01 Long term (current) use of anticoagulants (principal)
CPT/HCPCS: 36415; 85610

== ENCOUNTER → 2018-10-25 15:45 | Outpatient (CLI) | payer OTHER, SELFPAY ==
[2018-10-25 16:39] LABS: Influenza A and B by PCR Rapid Negative (Negative)
== END ==
PROVIDERS: Visit Provider Registered Nurse
DX: R05 Cough (principal)
CPT/HCPCS: 87400

== ENCOUNTER 2018-10-27 09:50 | Emergency (ER) | payer OTHER, SELFPAY ==
[2018-10-27] VITALS (18 sets, daily range): BP systolic 95–154; BP diastolic 31–99; PULSE 105–135; RESP 18–35; TEMP 36.6–38.6; O2SAT 92–95
[2018-10-27] MEDS: ALBUTEROL/IPRATROPIUM 3 ML AMPUL INH (09:50)
--- NOTE | 2018-10-27 09:55 | DI.RAD.S_ITS ---
PROCEDURE: XR CHEST 1V INDICATIONS: short of breath TECHNIQUE: One view of the chest was acquired. COMPARISON: [facility], CR, XR CHEST 1V, 08/17/2018, 18:27. FINDINGS: Surgical changes and devices: Median sternotomy, CABG, and aortic arthroplasty changes. Lungs and pleura: Lungs demonstrate scarring and epicardial fat-pad left lateral lung field. No dense consolidations. Diffuse interstitial thickening.. No pleural effusions or pneumothorax. Mediastinum: Mediastinal contours appear normal. Heart size is partially obscured by elevated hemidiaphragm, but appears at the upper limits of normal. Bones and chest wall: No suspicious bony lesions. Overlying soft tissues appear unremarkable. IMPRESSION: 1. Diffuse interstitial thickening may suggest chronic edema, similar compared to the prior study. 2. Enlarged heart with postsurgical changes. Dictated by: Luz Marina Hidalgo M.D. on 10/27/2018 at 10:35 Approved by: Luz Marina Hidalgo M.D. on 10/27/2018 at 10:37
[2018-10-27] MEDS: ALBUTEROL 2.5 MG/3 ML NEB (ADULT) INH ×2 (10:01→10:07)
--- NOTE | 2018-10-27 10:11 | ED_ITS ---
HPI - SOB/Dyspnea General Chief Complaint: Shortness of Breath/Dyspnea Stated Complaint: SOB Time Seen by Provider: 10/27/18 09:54 Source: patient and EMS Mode of arrival: EMS Limitations: no limitations History of Present Illness Patient is a 73-year-old female with history of COPD and CHF presenting with increasing shortness of breath. It started this morning suddenly. She is also noted to be febrile in the ED. She is not able to give much history for me. But does appear in moderate respiratory distress. Oxygen levels remain in the low 90s. Not on home oxygen. She denies any chest pain or abdominal pain. MD Complaint: shortness of breath Onset (ago): hour(s) Severity: moderate Relieving factors: nothing Related Data Home Medications Medication Instructions Recorded Confirmed furosemide 80 mg PO QDAY #0 05/14/17 04/11/18 isosorbide dinitrate 30 mg PO QDAY #0 05/14/17 04/11/18 acetaminophen 650 mg PO BID 01/10/18 04/11/18 albuterol sulfate [Ventolin HFA] 2 puff INHALATION Q4H PRN 01/10/18 04/11/18 atorvastatin 80 mg PO DAILY 01/10/18 04/11/18 calcium carbonate [Tums] 2 tab PO TID PRN 01/10/18 04/11/18 docusate sodium 100 mg PO DAILY 01/10/18 04/11/18 duloxetine 20 mg PO DAILY 01/10/18 04/11/18 ezetimibe 10 mg PO DAILY 01/10/18 04/11/18 fluticasone propionate 1 spray INTRANASAL DAILY 01/10/18 04/11/18 hydrocodone-acetaminophen 1 tab PO BID MDD 3 gm apap 01/10/18 04/11/18 hydrocodone-acetaminophen 1 tab PO Q4HP PRN MDD 3 gm apap 01/10/18 04/11/18 lidocaine HCl 1 applic TOPICAL QAM 01/10/18 04/11/18 magnesium chloride [Mag 64] 2 tab PO DAILY 01/10/18 04/11/18 methimazole 5 mg PO DAILY 01/10/18 04/11/18 metoprolol tartrate [Lopressor] 50 mg PO BID 01/10/18 04/11/18 nystatin 1 applic TOPICAL TID PRN 01/10/18 04/11/18 omeprazole 40 mg PO DAILY 01/10/18 04/11/18 potassium chloride 40 meq PO BID 01/10/18 04/11/18 pramipexole 1 mg PO BEDTIME 01/10/18 04/11/18 spironolactone 25 mg PO DAILY 01/10/18 04/11/18 beclomethasone dipropionate [Qvar 2 puff INHALATION BID 04/11/18 04/11/18 RediHaler] ondansetron 4 mg PO Q4H PRN 04/11/18 04/11/18 phenazopyridine 200 mg PO TID PRN 04/11/18 04/11/18 sennosides [senna] 2 tab PO DAILY 04/11/18 04/11/18 warfarin 3 mg PO QPM 04/11/18 04/11/18 Previous Rx's Medication Instructions Recorded nitrofurantoin monohyd/m-cryst 100 mg PO BID #14 cap 04/11/18 [Macrobid] amoxicillin-pot clavulanate 1 tab PO Q12H #10 tab 04/12/18 Allergies Allergy/AdvReac Type Severity Reaction Status Date / Time aspartame [ASPARTAME] Allergy Intermediate violently Verified 08/17/18 17:56 ill, fever, rashes. codeine [CODEINE] Allergy Intermediate PROJECTILE Verified 08/17/18 17:56 VOMITING latex [LATEX] Allergy Intermediate VERY Verified 08/17/18 17:56 ITCHY RASH morphine [MORPHINE] Allergy Intermediate HALLUCINATI Verified 08/17/18 17:56 ONS. albuterol Allergy Verified 08/17/18 17:56 ipratropium Allergy Verified 08/17/18 17:56 Review of Systems Review of Systems ROS Unobtainable: All systems reviewed & are unremarkable except as noted in HPI and below Constitutional Denies chills, Reports fever(s), Denies frequent falls and Denies lethargy ENT Ears, Nose, Mouth, and Throat: Denies change in voice, Denies dizziness, Denies neck pain and Denies sore throat Cardiovascular Reports rapid heart rate, Reports irregular heart rhythm (Atrial fibrillation), Reports dyspnea and Reports dyspnea on exertion Respiratory Reports as per HPI, Reports dyspnea, Reports dyspnea on exertion and Reports wheezing Gastrointestinal Gastrointestinal: Denies abdominal pain, Denies change in bowel habits, Denies diarrhea, Denies nausea and Denies vomiting Genitourinary Denies hematuria, Denies flank pain, Denies urinary incontinence and Denies urinary urgency Musculoskeletal Denies neck pain and Denies numbness Integumentary/Breasts Denies pruritus, Denies erythema, Denies rash and Denies wounds Neurologic Denies behavioral changes, Denies confusion, Denies dizziness, Denies frequent falls and Denies numbness Psychiatric Denies behavioral changes and Denies confusion Allergic/Immunologic Reports wheezing [facility] Medical History COPD (chronic obstructive pulmonary disease) (Chronic) Chronic a-fib (Chronic) GERD (gastroesophageal reflux disease) (Chronic) Hyperlipidemia (Chronic) Hypertension (Chronic) Hyperthyroidism (Chronic) Surgical History Status post appendectomy Status post hysterectomy Social History housing: assisted living facility Smoking Status: Unknown if ever smoked Social History housing: assisted living facility Smoking Status: Unknown if ever smoked Exam Initial Vital Signs Initial Vital Signs: Vital Signs Pulse Rate 127 H 10/27/18 09:58 Respiratory Rate 24 10/27/18 09:58 Pulse Oximetry 92 10/27/18 09:58 GENERAL: Alert overweight female in moderate respiratory distress, diaphoretic HEENT: Head atraumatic,EOMI, pupils reactive, CARDIOVASCULAR: Regular rate and rhythm without murmurs, rubs or gallops. RESPIRATORY: Tachypneic decreased breath sounds bilaterally with slight expiratory wheeze no rales or rhonchi ABDOMEN: Soft, nontender. Normoactive bowel sounds all 4 quadrants. No guarding or rebound. EXTREMITIES: Normal range of motion, no clubbing or edema. Neurovascularly intact NEUROLOGICAL: Alert moving all extremities SKIN: Warm, dry, no laceration, no petechiae, no rashes or lesions. Course Orders Ordered: ED Orders 10/27/18 09:55 XR chest 1V Stat EKG-12 Lead Stat 10/27/18 10:46 B Type Natriuretic Peptide Stat Complete Blood Count AUTO DIFF Stat Comprehensive Metabolic Panel Stat Lactate (Lactic Acid) Stat Partial Thromboplastin Time Stat Procalcitonin Stat Prothrombin Time INR Stat Troponin & CK Cardiac Panel Stat 10/27/18 11:10 Blood Culture Stat FLU A and B [Influenza A and B by PCR Rapid] Stat 10/27/18 11:31 Urinalysis and Microscopic Stat Urine Culture Stat Discontinued Medications Acetaminophen (Tylenol) 975 mg PO NOW ONE Stop: 10/27/18 10:02 Last Admin: 10/27/18 10:55 Dose: 975 mg Albuterol (Ventolin) 2.5 mg INH Q20M PRN PRN Reason: Shortness Of Breath Stop: 10/27/18 10:41 Last Admin: 10/27/18 10:07 Dose: 2.5 mg Admin: 10/27/18 10:01 Dose: 2.5 mg Albuterol/Ipratropium (Duoneb) 3 ml INH NOW ONE Stop: 10/27/18 09:59 Last Admin: 10/27/18 09:50 Dose: 3 ml Furosemide (Lasix) 80 mg IV NOW ONE Stop: 10/27/18 11:42 Last Admin: 10/27/18 11:47 Dose: 80 mg Sodium Chloride (Normal Saline 0.9%) 1,000 mls @ 100 mls/hr IV BOLUS ONE Stop: 10/27/18 23:48 Last Infusion: 10/27/18 15:04 Dose: 100 mls/hr Admin: 10/27/18 14:20 Dose: 100 mls/hr Methylprednisolone (Solu-Medrol 125 Mg Vial) 125 mg IV NOW ONE Stop: 10/27/18 09:56 Last Admin: 10/27/18 10:59 Dose: 125 mg Metoprolol Tartrate (Lopressor) 5 mg IV NOW ONE Stop: 10/27/18 11:59 Last Admin: 10/27/18 12:01 Dose: 1.5 mg Oseltamivir Phosphate (Tamiflu) 75 mg PO NOW ONE Stop: 10/27/18 11:59 Last Admin: 10/27/18 12:01 Dose: 75 mg Vital Signs - 8 hr 10/27/18 09:58 10/27/18 09:59 10/27/18 10:00 Temperature 101.4 F H Pulse Rate 127 H 134 H 135 H Respiratory Rate 24 26 H 30 H Blood Pressure 154/61 H Blood Pressure [Right Arm] 146/58 H Pulse Oximetry 92 92 92 10/27/18 10:02 10/27/18 10:09 10/27/18 10:55 Temperature 101.4 F H Pulse Rate 134 H 132 H Respiratory Rate 26 H 26 H Blood Pressure Blood Pressure [Right Arm] Pulse Oximetry 92 92 10/27/18 11:03 10/27/18 11:06 10/27/18 11:15 Temperature 99.8 F H Pulse Rate 132 H 131 H Respiratory Rate 25 H 35 H Blood Pressure Blood Pressure [Right Arm] 104/45 L 104/60 Pulse Oximetry 94 93 10/27/18 11:30 10/27/18 11:59 10/27/18 12:10 Temperature 100.0 F H Pulse Rate 126 H 106 H Respiratory Rate 35 H 29 H Blood Pressure Blood Pressure [Right Arm] 114/81 106/33 L Pulse Oximetry 95 94 10/27/18 12:20 10/27/18 12:50 10/27/18 13:40 Temperature 99.0 F Pulse Rate 108 H 114 H 109 H Respiratory Rate 24 29 H 29 H Blood Pressure Blood Pressure [Right Arm] 95/31 L 118/69 110/44 L Pulse Oximetry 95 95 94 10/27/18 14:22 10/27/18 14:46 10/27/18 15:06 Temperature 97.9 F 98.7 F Pulse Rate 105 H 107 H Respiratory Rate 24 26 H Blood Pressure Blood Pressure [Right Arm] 113/63 112/99 H Pulse Oximetry 93 95 MDM - SOB/Dyspnea Lab Data Attestation: I reviewed the patient's lab results. Result diagrams: 10/27/18 10:46 10/27/18 10:46 Lab Results 10/27/18 10/27/18 10/27/18 Range/Units 10:46 10:46 10:46 WBC 7.8 (4.5-11.0) X10^3/uL RBC 5.13 (4.0-5.2) X10^6/uL Hgb 14.4 (12.0-16.0) g/dL Hct 44.4 (36-46) % MCV 86.5 (80-100) fL MCH 28.0 (26-34) PG MCHC 32.4 (30-36) % RDW 17.4 H (11.6-14.8) % Plt Count 252 (150-400) X10^3/uL Neut % (Auto) 78.5 H (50-75) % Lymph % (Auto) 10.1 L (25-40) % [place] % (Auto) 10.9 (3-14) % Eos % (Auto) 0.0 L (2-4) % Baso % (Auto) 0.5 (0-2) % Neut # (Auto) 6100 (4784-4462) /uL Lymph # (Auto) 800 L (4412-6544) /uL [place] # (Auto) 800 (0-900) /uL Eos # (Auto) 0 (0-450) /uL Baso # (Auto) 0 (0-100) /uL PT 16.0 H (10.1-12.7) SECONDS INR 1.4 H (0.9-1.3) APTT 38 H D (26.4-36.2) SECONDS Sodium 140 (137-145) mmol/L Potassium 3.9 (3.4-5.1) mmol/L Chloride 97 L (98-107) mmol/L Carbon Dioxide 27 (22-32) mmol/L BUN 13 (7-17) mg/dL Creatinine 0.70 (0.52-1.04) mg/dL Estimated GFR > 60.0 (>60) mL/min BUN/Creatinine Ratio 18.6 (6-22) Glucose 138 H (80-110) mg/dL Lactate (0.7-2.1) mmol/L Calcium 9.8 (8.4-10.2) mg/dL Total Bilirubin 1.2 (0.2-1.3) mg/dL AST 65 H (14-36) IU/L ALT 21 (9-52) IU/L Alkaline Phosphatase 97 (38-126) U/L Total Creatine Kinase 42 (30-135) U/L CK-MB (CK-2) TNP CK-MB (CK-2) Rel Index TNP Troponin I 0.115 H (0.01-0.034) ng/mL B-Natriuretic Peptide (<100) Total Protein 9.1 H (6.3-8.2) g/dL Albumin 4.9 (3.5-5.0) g/dL Globulin 4.2 H (1.7-4.1) g/dL Albumin/Globulin Ratio 1.2 (1.0-2.8) Procalcitonin (<0.5) ng/mL Urine Color Urine Appearance Urine pH (4.5-8.0) Ur Specific [place] (1.000-1.035) Urine Protein (Negative) Urine Glucose (UA) (Negative) g/dL Urine Ketones (NEGATIVE) Urine Occult Blood (Negative) Urine Nitrate (Negative) Urine Bilirubin (NEGATIVE) Urine Urobilinogen (0.2) E.U./dL Ur Leukocyte Esterase (NEGATIVE) Urine RBC (0-5/HPF) Urine WBC (0-5/HPF) Ur Squamous Epith Cells Amorphous Sediment Urine Bacteria (None) Ur Culture Indicated? Influenza A & B (PCR) (Negative) 10/27/18 10/27/18 10/27/18 Range/Units 10:46 10:46 10:46 WBC (4.5-11.0) X10^3/uL RBC (4.0-5.2) X10^6/uL Hgb (12.0-16.0) g/dL Hct (36-46) % MCV (80-100) fL MCH (26-34) PG MCHC (30-36) % RDW (11.6-14.8) % Plt Count (150-400) X10^3/uL Neut % (Auto) (50-75) % Lymph % (Auto) (25-40) % [place] % (Auto) (3-14) % Eos % (Auto) (2-4) % Baso % (Auto) (0-2) % Neut # (Auto) (8245-1196) /uL Lymph # (Auto) (7691-8777) /uL [place] # (Auto) (0-900) /uL Eos # (Auto) (0-450) /uL Baso # (Auto) (0-100) /uL PT (10.1-12.7) SECONDS INR (0.9-1.3) APTT (26.4-36.2) SECONDS Sodium (137-145) mmol/L Potassium (3.4-5.1) mmol/L Chloride (98-107) mmol/L Carbon Dioxide (22-32) mmol/L BUN (7-17) mg/dL Creatinine (0.52-1.04) mg/dL Estimated GFR (>60) mL/min BUN/Creatinine Ratio (6-22) Glucose (80-110) mg/dL Lactate 3.8 H (0.7-2.1) mmol/L Calcium (8.4-10.2) mg/dL Total Bilirubin (0.2-1.3) mg/dL AST (14-36) IU/L ALT (9-52) IU/L Alkaline Phosphatase (38-126) U/L Total Creatine Kinase (30-135) U/L CK-MB (CK-2) CK-MB (CK-2) Rel Index Troponin I (0.01-0.034) ng/mL B-Natriuretic Peptide 853 H (<100) Total Protein (6.3-8.2) g/dL Albumin (3.5-5.0) g/dL Globulin (1.7-4.1) g/dL Albumin/Globulin Ratio (1.0-2.8) Procalcitonin 0.09 (<0.5) ng/mL Urine Color Urine Appearance Urine pH (4.5-8.0) Ur Specific [place] (1.000-1.035) Urine Protein (Negative) Urine Glucose (UA) (Negative) g/dL Urine Ketones (NEGATIVE) Urine Occult Blood (Negative) Urine Nitrate (Negative) Urine Bilirubin (NEGATIVE) Urine Urobilinogen (0.2) E.U./dL Ur Leukocyte Esterase (NEGATIVE) Urine RBC (0-5/HPF) Urine WBC (0-5/HPF) Ur Squamous Epith Cells Amorphous Sediment Urine Bacteria (None) Ur Culture Indicated? Influenza A & B (PCR) (Negative) 10/27/18 10/27/18 Range/Units 11:10 11:31 WBC (4.5-11.0) X10^3/uL RBC (4.0-5.2) X10^6/uL Hgb (12.0-16.0) g/dL Hct (36-46) % MCV (80-100) fL MCH (26-34) PG MCHC (30-36) % RDW (11.6-14.8) % Plt Count (150-400) X10^3/uL Neut % (Auto) (50-75) % Lymph % (Auto) (25-40) % [place] % (Auto) (3-14) % Eos % (Auto) (2-4) % Baso % (Auto) (0-2) % Neut # (Auto) (4647-4522) /uL Lymph # (Auto) (8902-2784) /uL [place] # (Auto) (0-900) /uL Eos # (Auto) (0-450) /uL Baso # (Auto) (0-100) /uL PT (10.1-12.7) SECONDS INR (0.9-1.3) APTT (26.4-36.2) SECONDS Sodium (137-145) mmol/L Potassium (3.4-5.1) mmol/L Chloride (98-107) mmol/L Carbon Dioxide (22-32) mmol/L BUN (7-17) mg/dL Creatinine (0.52-1.04) mg/dL Estimated GFR (>60) mL/min BUN/Creatinine Ratio (6-22) Glucose (80-110) mg/dL Lactate (0.7-2.1) mmol/L Calcium (8.4-10.2) mg/dL Total Bilirubin (0.2-1.3) mg/dL AST (14-36) IU/L ALT (9-52) IU/L Alkaline Phosphatase (38-126) U/L Total Creatine Kinase (30-135) U/L CK-MB (CK-2) CK-MB (CK-2) Rel Index Troponin I (0.01-0.034) ng/mL B-Natriuretic Peptide (<100) Total Protein (6.3-8.2) g/dL Albumin (3.5-5.0) g/dL Globulin (1.7-4.1) g/dL Albumin/Globulin Ratio (1.0-2.8) Procalcitonin (<0.5) ng/mL Urine Color Yellow Urine Appearance Sl cloudy Urine pH 5.0 (4.5-8.0) Ur Specific [place] >=1.030 H (1.000-1.035) Urine Protein 2+ H (Negative) Urine Glucose (UA) Negative (Negative) g/dL Urine Ketones Negative (NEGATIVE) Urine Occult Blood 2+ H (Negative) Urine Nitrate Negative (Negative) Urine Bilirubin Negative (NEGATIVE) Urine Urobilinogen 0.2 (0.2) E.U./dL Ur Leukocyte Esterase Negative (NEGATIVE) Urine RBC 1-5/hpf (0-5/HPF) Urine WBC 1-5/hpf (0-5/HPF) Ur Squamous Epith Cells 1-5 /hpf Amorphous Sediment 3+ Urine Bacteria Moderate (10-30) H (None) Ur Culture Indicated? Specimen cultured Influenza A & B (PCR) Positive, type a A (Negative) Imaging Data Chest x-ray: Radiologist's impression: PROCEDURE: XR CHEST 1V INDICATIONS: short of breath TECHNIQUE: One view of the chest was acquired. COMPARISON: [facility], CR, XR CHEST 1V, 08/17/2018, 18:27. FINDINGS: Surgical changes and devices: Median sternotomy, CABG, and aortic arthroplasty c hanges. Lungs and pleura: Lungs demonstrate scarring and epicardial fat-pad left lateral lung field. No dense consolidations. Diffuse interstitial thickening.. No pleural effusions or pneumothorax. Mediastinum: Mediastinal contours appear normal. Heart size is partially obscured by elevated hemidiaphragm, but appears at the upper limits of normal. Bones and chest wall: No suspicious bony lesions. Overlying soft tissues appear unremarkable. IMPRESSION: 1. Diffuse interstitial thickening may suggest chronic edema, similar compared to the prior study. 2. Enlarged heart with postsurgical changes. Dictated by: Luz Marina Hidalgo M.D. on 10/27/2018 at 10:35 ECG Data Attestation: I personally reviewed and interpreted this ECG as follows: Prior ECG tracings: available for review Interpretation: AFib with RVR rate 136 PVC noted no acute ST changes similar to previous EKGs MDM Narrative Medical decision making narrative: Patient does appear to have more CHF BNP of 850 baseline is at about 400, she was given Lasix item Medrol a bronchodilators overall significant improvement in her breathing status. She does have sleep apnea and is requiring 1-2 L while sleeping. AFib with RVR she was given 2.5 mg of Lopressor which quickly decreased her rate into the 110s and her pressure did decrease as well. She was given Cardizem due to acute CHF. Positive for influenza and acute CHF patient will need hospitalization. [facility] is full Patient is caused her. I spoke with Jesús Contreras physician who has found a bed at [facility]. Accepting doctor will be Tuan Toledo Critical Care Time Critical Care Time: Yes Total Critical Care Time: 30 Attestation: The high probability of a clinically significant, sudden or life threatening deterioration of the respiratory system(s) required my full and direct attention, intervention and personal management. The aggregate critical care time was 30 minutes. This time is in addition to time spent performing reported procedures but includes the following: [x] Data Review and interpretation [x] Patient assessment and monitoring of vital signs [x] Documentation [x] Medication orders and management Discharge Plan Departure Patient Disposition: [facility] Clinical Impression: Influenza A, Atrial fibrillation with rapid ventricular response CHF (congestive heart failure) Qualifiers: Heart failure type: systolic Heart failure chronicity: acute on chronic Qualified Code(s): I50.23 - Acute on chronic systolic (congestive) heart failure COPD (chronic obstructive pulmonary disease) Qualifiers: COPD type: COPD with acute lower respiratory infection Qualified Code(s): J44.0 - Chronic obstructive pulmonary disease with acute lower respiratory infection Discharge Date/Time: 10/27/18 15:11 Interventions: ED Discharge Assessment Last Done: 10/27/18 15:09 Prescriptions: No Action furosemide 80 MG tablet 80 mg PO QDAY Qty: 0 RF: 0 isosorbide dinitrate 30 MG tablet 30 mg PO QDAY Qty: 0 RF: 0 atorvastatin 80 mg Tablet 80 mg PO DAILY RF: 0 acetaminophen 325 mg Tablet 650 mg PO BID RF: 0 docusate sodium 100 mg Capsule 100 mg PO DAILY RF: 0 ezetimibe 10 mg Tablet 10 mg PO DAILY RF: 0 duloxetine 20 mg Capsule,Delayed Release(Dr/Ec) 20 mg PO DAILY RF: 0 pramipexole 1 mg Tablet 1 mg PO BEDTIME RF: 0 omeprazole 40 mg Capsule,Delayed Release(Dr/Ec) 40 mg PO DAILY RF: 0 spironolactone 25 mg Tablet 25 mg PO DAILY RF: 0 calcium carbonate [Tums] 200 mg calcium (500 mg) Tablet,Chewable 2 tab PO TID PRN (Reason: Indigestion) RF: 0 metoprolol tartrate [Lopressor] 50 mg Tablet 50 mg PO BID RF: 0 methimazole 5 mg Tablet 5 mg PO DAILY RF: 0 nystatin 100,000 unit/gram Powder 1 applic TOPICAL TID PRN (Reason: yeast) RF: 0 albuterol sulfate [Ventolin HFA] 90 mcg/actuation Hfa Aerosol Inhaler 2 puff Inhalation Q4H PRN (Reason: Shortness Of Breath Or Wheezing) RF: 0 fluticasone propionate 50 mcg/actuation [place],Suspension 1 spray INTRANASAL DAILY RF: 0 lidocaine HCl 4 % Solution 1 applic Topical QAM RF: 0 magnesium chloride [Mag 64] 64 mg Tablet,Delayed Release (Dr/Ec) 2 tab PO DAILY RF: 0 potassium chloride 20 mEq Tablet Extended Release 40 meq PO BID RF: 0 hydrocodone-acetaminophen 5 MG/325 MG tablet 1 tab PO BID MDD 3 gm apap RF: 0 hydrocodone-acetaminophen 5 MG/325 MG tablet 1 tab PO Q4HP MDD 3 gm apap PRN (Reason: Pain, Moderate) RF: 0 phenazopyridine 200 mg Tablet 200 mg PO TID PRN (Reason: painful urination) RF: 0 warfarin 3 mg Tablet 3 mg PO QPM RF: 0 ondansetron 4 mg Tablet,Disintegrating 4 mg PO Q4H PRN (Reason: Nausea) RF: 0 beclomethasone dipropionate [Qvar RediHaler] 40 mcg/actuation Hfa Aerosol Breath Activated 2 puff Inhalation BID RF: 0 sennosides [senna] 8.6 mg Tablet 2 tab PO DAILY RF: 0 nitrofurantoin monohyd/m-cryst [Macrobid] 100 mg capsule 100 mg PO BID Qty: 14 RF: 0 amoxicillin-pot clavulanate 500-125 mg tablet 1 tab PO Q12H Qty: 10 RF: 0 Referrals: Amna Franco MD [Primary Care Provider] -
[2018-10-27] MEDS: ACETAMINOPHEN 325 MG TABLET 975 MG PO (10:55)
[2018-10-27 10:59] LABS: Add Manual Diff / Slide Review NO; Basophils Absolute Auto 0 /uL (0-100); Basophils Percent Auto 0.5 % (0-2); Eosinophils Absolute Auto 0 /uL (0-450); Hematocrit 44.4 % (36-46); Hemoglobin 14.4 g/dL (12.0-16.0); Lymphocytes Absolute Auto 800 /uL (1100-4500); Lymphocytes Percent Auto 10.1 % (25-40); Mean Corpuscular HGB Conc 32.4 % (30-36); Mean Corpuscular Volume 86.5 fL (80-100); Monocytes Absolute Auto 800 /uL (0-900); Monocytes Percent Auto 10.9 % (3-14); Neutrophils Absolute Auto 6100 /uL (1500-7000); Neutrophils Percent Auto 78.5 % (50-75); Platelet Count 252 X10^3/uL (150-400); Red Blood Cell Count 5.13 X10^6/uL (4.0-5.2); Red Cell Distribution Width 17.4 % (11.6-14.8); White Blood Cell Count 7.8 X10^3/uL (4.5-11.0)
[2018-10-27] MEDS: methylPREDNISolone 125 MG/2 ML VIAL IV (10:59)
[2018-10-27 11:05] LABS: INR 1.4 (0.9-1.3)
[2018-10-27 11:08] LABS: Lactate (Lactic Acid) 3.8 mmol/L (0.7-2.1); PTT Partial Thromboplastin Tim 38 SECONDS (26.4-36.2)
[2018-10-27 11:09] LABS: Alanine Aminotransferase 21 IU/L (9-52); Albumin 4.9 g/dL (3.5-5.0); Albumin Globulin Ratio 1.2 (1.0-2.8); Alkaline Phosphatase 97 U/L (38-126); Aspartate Aminotransferase 65 IU/L (14-36); BUN Creatinine Ratio 18.6 (6-22); Bilirubin Total 1.2 mg/dL (0.2-1.3); Blood Urea Nitrogen 13 mg/dL (7-17); Calcium 9.8 mg/dL (8.4-10.2); Carbon Dioxide 27 mmol/L (22-32); Chloride 97 mmol/L (98-107); Creatine Kinase 42 U/L (30-135); Estimated Glomerular Filt Rate > 60.0 mL/min (>60); Globulin 4.2 g/dL (1.7-4.1); Glucose 138 mg/dL (80-110); HEMOLYSIS < 15 (0-50); Potassium 3.9 mmol/L (3.4-5.1); Sodium 140 mmol/L (137-145); Total Protein 9.1 g/dL (6.3-8.2)
[2018-10-27 11:20] LABS: B Type Natriuretic Peptide 853 (<100); Troponin I 0.115 ng/mL (0.01-0.034)
[2018-10-27 11:24] LABS: Procalcitonin 0.09 ng/mL (<0.5)
[2018-10-27 11:39] LABS: Appearance Urine UA SL CLOUDY; Bilirubin Urine UA NEGATIVE (NEGATIVE); Color Urine UA YELLOW; Glucose Urine UA NEGATIVE (Negative); Ketones Urine UA NEGATIVE (NEGATIVE); Leukocyte Esterase Urine UA NEGATIVE (NEGATIVE); Nitrite Urine UA NEGATIVE (Negative); Occult Blood Urine UA 2+ (Negative); Protein Urine UA 2+ (Negative); Specific Gravity Urine UA >=1.030 (1.000-1.035); Urobilinogen Urine UA 0.2 E.U./dL (0.2)
[2018-10-27] MEDS: FUROSEMIDE 100 MG/10 ML VIAL 80 MG IV (11:47)
[2018-10-27 11:48] LABS: Amorphous Sediment Urine 3+; Bacteria Urine Moderate (10-30); Culture Indicated Urine Specimen Cultured; RBC Urine 1-5/HPF (0-5/HPF); Squamous Epithelial Cell Urine 1-5 /HPF; WBC Urine 1-5/HPF (0-5/HPF)
[2018-10-27] MEDS: METOPROLOL TARTRATE 5 MG/5 ML INJ IV (12:01)
[2018-10-27] MEDS: OSELTAMIVIR 75 MG CAPSULE PO (12:01)
[2018-10-27] MEDS: SODIUM CHLORIDE 0.9% 1,000 ML 100 ML IV (14:20)
[2018-10-27 14:55] LABS: Reflexed Lactate in 2 Hours Y
== END 2018-10-27 15:11 | disposition short-term general hospital (02) ==
PROVIDERS: Emergency Provider Emergency Medicine; PCP Internal Medicine
DX: J10.1 Influenza due to other identified influenza virus with other respiratory manifestations (principal); I50.23 Acute on chronic systolic (congestive) heart failure; J44.0 Chronic obstructive pulmonary disease with (acute) lower respiratory infection
CPT/HCPCS: 36415; 36591; 71045; 80053; 81001; 82550; 83605; 83880; 84145; 84484; 85025; 85610; 85730; 87040; 87086; 87400; 93005; 94640; 96361; 96374; 96375; 99285; J1940; J2930; J7613

== ENCOUNTER → 2018-11-02 21:59 | Outpatient (REF) | payer OTHER, SELFPAY ==
[2018-11-02 23:00] LABS: Clostridium Difficile Tox PCR Negative for C. diff
== END ==
LOC: LAB 21:59
PROVIDERS: PCP Internal Medicine; Visit Provider Registered Nurse
DX: R19.5 Other fecal abnormalities (principal)
CPT/HCPCS: 87493

== ENCOUNTER → 2018-11-04 08:00 | Outpatient (REF) | payer OTHER, SELFPAY ==
[2018-11-04 09:19] LABS: Add Manual Diff / Slide Review NO; Basophils Absolute Auto 0 /uL (0-100); Basophils Percent Auto 0.1 % (0-2); Eosinophils Absolute Auto 0 /uL (0-450); Eosinophils Percent Auto 0.5 % (2-4); Hematocrit 39.7 % (36-46); Lymphocytes Absolute Auto 2000 /uL (1100-4500); Lymphocytes Percent Auto 24.5 % (25-40); Mean Corpuscular HGB Conc 32.8 % (30-36); Mean Corpuscular Hemoglobin 27.8 PG (26-34); Mean Corpuscular Volume 84.6 fL (80-100); Monocytes Absolute Auto 900 /uL (0-900); Monocytes Percent Auto 10.7 % (3-14); Neutrophils Absolute Auto 5300 /uL (1500-7000); Neutrophils Percent Auto 64.2 % (50-75); Platelet Count 261 X10^3/uL (150-400); Red Cell Distribution Width 16.1 % (11.6-14.8); White Blood Cell Count 8.2 X10^3/uL (4.5-11.0)
[2018-11-04 09:31] LABS: Alanine Aminotransferase 35 IU/L (9-52); Albumin Globulin Ratio 1.2 (1.0-2.8); Alkaline Phosphatase 58 U/L (38-126); Aspartate Aminotransferase 35 IU/L (14-36); Blood Urea Nitrogen 14 mg/dL (7-17); Calcium 8.8 mg/dL (8.4-10.2); Carbon Dioxide 35 mmol/L (22-32); Chloride 95 mmol/L (98-107); Estimated Glomerular Filt Rate > 60.0 mL/min (>60); Globulin 3.3 g/dL (1.7-4.1); Glucose 67 mg/dL (80-110); HEMOLYSIS < 15 (0-50); Magnesium 2.2 mg/dL (1.6-2.3); Potassium 3.3 mmol/L (3.4-5.1); Sodium 139 mmol/L (137-145); Total Protein 7.3 g/dL (6.3-8.2)
== END ==
LOC: LAB 08:00
PROVIDERS: PCP Internal Medicine; Visit Provider Nurse Practitioner Family
DX: A41.9 Sepsis, unspecified organism (principal); R19.7 Diarrhea, unspecified
CPT/HCPCS: 36415; 80053; 83735; 85025

== ENCOUNTER → 2018-11-06 08:42 | Outpatient (REF) | payer OTHER, SELFPAY ==
[2018-11-06 09:18] LABS: INR 1.7 (0.9-1.3); Prothrombin Time 19.7 SECONDS (10.1-12.7)
[2018-11-06 09:39] LABS: Carbon Dioxide 32 mmol/L (22-32); Chloride 97 mmol/L (98-107); HEMOLYSIS < 15 (0-50); Potassium 3.1 mmol/L (3.4-5.1); Sodium 137 mmol/L (137-145)
== END ==
LOC: LAB 08:42
PROVIDERS: PCP Internal Medicine; Visit Provider Nurse Practitioner Family
DX: I48.91 Unspecified atrial fibrillation (principal); E87.6 Hypokalemia
CPT/HCPCS: 36415; 80051; 85610

== ENCOUNTER → 2018-11-08 08:40 | Outpatient (REF) | payer OTHER, SELFPAY ==
[2018-11-08 09:53] LABS: INR 1.6 (0.9-1.3); Prothrombin Time 18.4 SECONDS (10.1-12.7)
[2018-11-08 10:04] LABS: Blood Urea Nitrogen 13 mg/dL (7-17); Calcium 9.2 mg/dL (8.4-10.2); Carbon Dioxide 33 mmol/L (22-32); Chloride 98 mmol/L (98-107); Estimated Glomerular Filt Rate > 60.0 mL/min (>60); Glucose 100 mg/dL (80-110); HEMOLYSIS < 15 (0-50); Magnesium 2.3 mg/dL (1.6-2.3); Potassium 3.9 mmol/L (3.4-5.1); Sodium 139 mmol/L (137-145)
== END ==
LOC: LAB 08:40
PROVIDERS: PCP Internal Medicine; Visit Provider Nurse Practitioner Family
DX: E87.6 Hypokalemia (principal)
CPT/HCPCS: 36415; 80048; 83735; 85610

== ENCOUNTER → 2018-11-13 09:20 | Outpatient (REF) | payer OTHER, SELFPAY ==
[2018-11-13 10:11] LABS: INR 1.4 (0.9-1.3); Prothrombin Time 15.6 SECONDS (10.1-12.7)
== END ==
LOC: LAB 09:20
PROVIDERS: PCP Internal Medicine; Visit Provider Registered Nurse
DX: Z79.01 Long term (current) use of anticoagulants (principal)
CPT/HCPCS: 36415; 85610

== ENCOUNTER → 2018-11-20 08:47 | Outpatient (REF) | payer OTHER, SELFPAY ==
[2018-11-20 09:30] LABS: INR 3.2 (0.9-1.3)
[2018-11-20 09:39] LABS: HEMOLYSIS < 15 (0-50); Potassium 3.8 mmol/L (3.4-5.1)
== END ==
LOC: LAB 08:47
PROVIDERS: PCP Internal Medicine; Visit Provider Nurse Practitioner Family
DX: I48.91 Unspecified atrial fibrillation (principal); E87.6 Hypokalemia
CPT/HCPCS: 36415; 84132; 85610

== ENCOUNTER → 2018-11-22 09:35 | Outpatient (REF) | payer OTHER, SELFPAY ==
[2018-11-22 10:31] LABS: Blood Urea Nitrogen 11 mg/dL (7-17); Calcium 8.9 mg/dL (8.4-10.2); Carbon Dioxide 29 mmol/L (22-32); Chloride 100 mmol/L (98-107); Estimated Glomerular Filt Rate > 60.0 mL/min (>60); Glucose 77 mg/dL (80-110); HEMOLYSIS < 15 (0-50); Sodium 139 mmol/L (137-145)
[2018-11-22 10:32] LABS: Add Manual Diff / Slide Review NO; Basophils Absolute Auto 100 /uL (0-100); Eosinophils Absolute Auto 100 /uL (0-450); Eosinophils Percent Auto 1.8 % (2-4); Hemoglobin 13.6 g/dL (12.0-16.0); Lymphocytes Absolute Auto 1700 /uL (1100-4500); Lymphocytes Percent Auto 23.4 % (25-40); Mean Corpuscular HGB Conc 32.3 % (30-36); Mean Corpuscular Volume 86.6 fL (80-100); Monocytes Absolute Auto 700 /uL (0-900); Monocytes Percent Auto 8.8 % (3-14); Neutrophils Absolute Auto 4800 /uL (1500-7000); Platelet Count 239 X10^3/uL (150-400); Red Blood Cell Count 4.85 X10^6/uL (4.0-5.2); Red Cell Distribution Width 17.2 % (11.6-14.8); White Blood Cell Count 7.4 X10^3/uL (4.5-11.0)
== END ==
LOC: LAB 09:35
PROVIDERS: PCP Internal Medicine; Visit Provider Nurse Practitioner Family
DX: R41.0 Disorientation, unspecified (principal); R30.0 Dysuria
CPT/HCPCS: 36415; 80048; 85025

== ENCOUNTER → 2018-11-25 06:42 | Outpatient (REF) | payer OTHER, SELFPAY ==
[2018-11-25 07:08] LABS: INR 4.5 (0.9-1.3); Prothrombin Time 54.1 SECONDS (10.1-12.7)
== END ==
LOC: LAB 06:42
PROVIDERS: PCP Internal Medicine; Visit Provider Nurse Practitioner Family
DX: Z79.01 Long term (current) use of anticoagulants (principal)
CPT/HCPCS: 36415; 85610

== ENCOUNTER → 2018-11-27 08:06 | Outpatient (REF) | payer OTHER, SELFPAY ==
[2018-11-27 10:01] LABS: INR 3.3 (0.9-1.3); Prothrombin Time 38.3 SECONDS (10.1-12.7)
== END ==
LOC: LAB 08:06
PROVIDERS: PCP Internal Medicine; Visit Provider Nurse Practitioner Family
DX: Z79.01 Long term (current) use of anticoagulants (principal)
CPT/HCPCS: 36415; 85610

== ENCOUNTER → 2018-12-04 08:02 | Outpatient (REF) | payer OTHER, SELFPAY ==
[2018-12-04 09:02] LABS: Prothrombin Time 47.8 SECONDS (10.1-12.7)
== END ==
LOC: LAB 08:02
PROVIDERS: PCP Internal Medicine; Visit Provider Nurse Practitioner Family
DX: Z79.01 Long term (current) use of anticoagulants (principal)
CPT/HCPCS: 36415; 85610

== ENCOUNTER → 2018-12-11 10:08 | Outpatient (ROUT) | payer OTHER, SELFPAY ==
[2018-12-11 11:36] LABS: INR 3.6 (0.9-1.3); Prothrombin Time 42.7 SECONDS (10.1-12.7)
== END ==
PROVIDERS: PCP Internal Medicine; Visit Provider Nurse Practitioner Family
DX: Z79.01 Long term (current) use of anticoagulants (principal)
CPT/HCPCS: 36415; 85610

== ENCOUNTER → 2018-12-18 08:40 | Outpatient (ROUT) | payer OTHER, SELFPAY ==
[2018-12-18 11:32] LABS: INR 2.7 (0.9-1.3); Prothrombin Time 32.1 SECONDS (10.1-12.7)
== END ==
PROVIDERS: PCP Internal Medicine; Visit Provider Nurse Practitioner Family
DX: Z92.29 Personal history of other drug therapy (principal)
CPT/HCPCS: 36415; 85610

== ENCOUNTER → 2019-01-01 08:30 | Outpatient (ROUT) | payer OTHER, SELFPAY ==
[2019-01-01 10:17] LABS: INR 3.1 (0.9-1.3)
== END ==
PROVIDERS: PCP Internal Medicine; Visit Provider Nurse Practitioner Family
DX: Z79.01 Long term (current) use of anticoagulants (principal)
CPT/HCPCS: 36415; 85610

== ENCOUNTER → 2019-01-29 09:29 | Outpatient (ROUT) | payer OTHER, SELFPAY ==
[2019-01-29 11:19] LABS: INR 2.7 (0.9-1.3); Prothrombin Time 31.4 SECONDS (10.1-12.7)
== END ==
PROVIDERS: PCP Internal Medicine; Visit Provider Nurse Practitioner Family
DX: Z79.899 Other long term (current) drug therapy (principal)
CPT/HCPCS: 36415; 85610

== ENCOUNTER → 2019-02-26 07:15 | Outpatient (ROUT) | payer OTHER, SELFPAY ==
[2019-02-26 08:06] LABS: INR 2.2 (0.9-1.3); Prothrombin Time 25.2 SECONDS (10.1-12.7)
== END ==
PROVIDERS: PCP Internal Medicine; Visit Provider Nurse Practitioner Family
DX: Z95.2 Presence of prosthetic heart valve (principal)
CPT/HCPCS: 36415; 85610

== ENCOUNTER → 2019-03-05 07:25 | Outpatient (ROUT) | payer OTHER, SELFPAY ==
[2019-03-05 08:58] LABS: Prothrombin Time 23.1 SECONDS (10.1-12.7)
== END ==
PROVIDERS: PCP Internal Medicine; Visit Provider Nurse Practitioner Family
DX: Z79.01 Long term (current) use of anticoagulants (principal)
CPT/HCPCS: 36415; 85610

== ENCOUNTER → 2019-03-12 07:19 | Outpatient (ROUT) | payer OTHER, SELFPAY ==
[2019-03-12 07:45] LABS: Prothrombin Time 23.2 SECONDS (10.1-12.7)
== END ==
PROVIDERS: PCP Internal Medicine; Visit Provider Nurse Practitioner Family
DX: Z95.2 Presence of prosthetic heart valve (principal)
CPT/HCPCS: 36415; 85610

== ENCOUNTER → 2019-03-19 07:32 | Outpatient (ROUT) | payer OTHER, SELFPAY ==
[2019-03-19 08:31] LABS: INR 2.6 (0.9-1.3)
== END ==
PROVIDERS: PCP Internal Medicine; Visit Provider Nurse Practitioner Family
DX: Z51.81 Encounter for therapeutic drug level monitoring (principal)
CPT/HCPCS: 36415; 85610

== ENCOUNTER → 2019-04-02 07:57 | Outpatient (ROUT) | payer OTHER, SELFPAY ==
[2019-04-02 09:10] LABS: INR 2.4 (0.9-1.3); Prothrombin Time 28.8 SECONDS (10.1-12.7)
== END ==
PROVIDERS: PCP Internal Medicine; Visit Provider Nurse Practitioner Family
DX: Z51.81 Encounter for therapeutic drug level monitoring (principal)
CPT/HCPCS: 36415; 85610

== ENCOUNTER → 2019-04-16 07:18 | Outpatient (ROUT) | payer OTHER, SELFPAY | PROVIDERS: PCP Internal Medicine; Visit Provider Nurse Practitioner Family | DX: Z79.899 Other long term (current) drug therapy (principal) | CPT/HCPCS: 36415; 85610 ==

== ENCOUNTER → 2019-04-23 09:48 | Outpatient (ROUT) | payer OTHER, SELFPAY ==
[2019-04-23 11:05] LABS: INR 2.7 (0.9-1.3); Prothrombin Time 32.2 SECONDS (10.1-12.7)
== END ==
PROVIDERS: PCP Internal Medicine; Visit Provider Nurse Practitioner Family
DX: Z95.2 Presence of prosthetic heart valve (principal)
CPT/HCPCS: 36415; 85610

== ENCOUNTER → 2019-05-07 07:37 | Outpatient (ROUT) | payer OTHER, SELFPAY ==
[2019-05-07 08:17] LABS: INR 3.2 (0.9-1.3); Prothrombin Time 37.9 SECONDS (10.1-12.7)
== END ==
PROVIDERS: PCP Internal Medicine; Visit Provider Nurse Practitioner Family
DX: Z92.29 Personal history of other drug therapy (principal)
CPT/HCPCS: 36415; 85610

== ENCOUNTER → 2019-05-21 07:31 | Outpatient (ROUT) | payer OTHER, SELFPAY | PROVIDERS: PCP Internal Medicine; Visit Provider Nurse Practitioner Family | DX: Z92.29 Personal history of other drug therapy (principal) | CPT/HCPCS: 36415; 85610 ==

== ENCOUNTER → 2019-06-04 07:25 | Outpatient (ROUT) | payer OTHER, SELFPAY ==
[2019-06-04 08:08] LABS: Add Manual Diff / Slide Review NO; Basophils Absolute Auto 0 /uL (0-100); Basophils Percent Auto 0.8 % (0-2); Eosinophils Absolute Auto 100 /uL (0-450); Eosinophils Percent Auto 1.6 % (2-4); Hematocrit 40.1 % (36-46); Hemoglobin 13.7 g/dL (12.0-16.0); Lymphocytes Absolute Auto 2000 /uL (1100-4500); Lymphocytes Percent Auto 34.6 % (25-40); Mean Corpuscular HGB Conc 34.1 % (30-36); Mean Corpuscular Hemoglobin 29.2 PG (26-34); Mean Corpuscular Volume 85.6 fL (80-100); Monocytes Absolute Auto 700 /uL (0-900); Monocytes Percent Auto 11.4 % (3-14); Neutrophils Absolute Auto 3000 /uL (1500-7000); Neutrophils Percent Auto 51.6 % (50-75); Platelet Count 243 X10^3/uL (150-400); Red Blood Cell Count 4.69 X10^6/uL (4.0-5.2); Red Cell Distribution Width 15.9 % (11.6-14.8); White Blood Cell Count 5.7 X10^3/uL (4.5-11.0)
[2019-06-04 08:12] LABS: INR 2.7 (0.9-1.3); Prothrombin Time 31.7 SECONDS (10.1-12.7)
[2019-06-04 08:25] LABS: Blood Urea Nitrogen 17 mg/dL (7-17); Calcium 9.4 mg/dL (8.4-10.2); Carbon Dioxide 31 mmol/L (22-32); Chloride 103 mmol/L (98-107); Estimated Glomerular Filt Rate > 60.0 mL/min (>60); Glucose 91 mg/dL (80-110); HEMOLYSIS < 15 (0-50); Potassium 4.1 mmol/L (3.4-5.1); Sodium 141 mmol/L (137-145)
== END ==
PROVIDERS: PCP Internal Medicine; Visit Provider Nurse Practitioner Family
DX: Z51.81 Encounter for therapeutic drug level monitoring (principal); I50.9 Heart failure, unspecified; J44.9 Chronic obstructive pulmonary disease, unspecified
CPT/HCPCS: 36415; 80048; 85025; 85610

== ENCOUNTER → 2019-07-02 12:41 | Outpatient (CLI) | payer OTHER, SELFPAY ==
[2019-07-02 13:47] LABS: INR 1.6 (0.9-1.3); Prothrombin Time 18.9 SECONDS (10.1-12.7)
== END ==
PROVIDERS: PCP Internal Medicine; Visit Provider Registered Nurse
DX: I48.91 Unspecified atrial fibrillation (principal)
CPT/HCPCS: 36415; 85610

== ENCOUNTER → 2019-07-09 13:20 | Outpatient (ROUT) | payer OTHER, SELFPAY | PROVIDERS: PCP Internal Medicine; Visit Provider Nurse Practitioner Family | DX: A04.72 Enterocolitis due to Clostridium difficile, not specified as recurrent (principal) | CPT/HCPCS: 87493 ==

== ENCOUNTER → 2019-07-11 07:30 | Outpatient (ROUT) | payer OTHER, SELFPAY ==
[2019-07-11 09:14] LABS: INR 2.5 (0.9-1.3); Prothrombin Time 29.3 SECONDS (10.1-12.7)
== END ==
PROVIDERS: PCP Internal Medicine; Visit Provider Nurse Practitioner Family
DX: Z51.81 Encounter for therapeutic drug level monitoring (principal)
CPT/HCPCS: 36415; 85610

== ENCOUNTER → 2019-07-18 10:54 | Outpatient (ROUT) | payer OTHER, SELFPAY ==
[2019-07-18 11:29] LABS: INR 3.5 (0.9-1.3); Prothrombin Time 41.7 SECONDS (10.1-12.7)
== END ==
PROVIDERS: PCP Internal Medicine; Visit Provider Nurse Practitioner Family
DX: I48.91 Unspecified atrial fibrillation (principal)
CPT/HCPCS: 36415; 85610

== ENCOUNTER → 2019-07-25 07:05 | Outpatient (ROUT) | payer OTHER, SELFPAY ==
[2019-07-25 08:26] LABS: INR 3.6 (0.9-1.3); Prothrombin Time 42.6 SECONDS (10.1-12.7)
== END ==
PROVIDERS: PCP Internal Medicine; Visit Provider Internal Medicine
DX: Z79.899 Other long term (current) drug therapy (principal)
CPT/HCPCS: 36415; 85610

== ENCOUNTER → 2019-08-01 07:18 | Outpatient (ROUT) | payer OTHER, SELFPAY ==
[2019-08-01 08:16] LABS: INR 3.2 (0.9-1.3); Prothrombin Time 38.2 SECONDS (10.1-12.7)
== END ==
PROVIDERS: PCP Internal Medicine; Visit Provider Nurse Practitioner Family
DX: I48.91 Unspecified atrial fibrillation (principal)
CPT/HCPCS: 36415; 85610

== ENCOUNTER → 2019-08-08 07:35 | Outpatient (ROUT) | payer OTHER, SELFPAY ==
[2019-08-08 08:31] LABS: INR 3.5 (0.9-1.3); Prothrombin Time 41.9 SECONDS (10.1-12.7)
== END ==
PROVIDERS: PCP Internal Medicine; Visit Provider Internal Medicine
DX: Z79.899 Other long term (current) drug therapy (principal)
CPT/HCPCS: 36415; 85610

== ENCOUNTER → 2019-08-15 08:10 | Outpatient (ROUT) | payer OTHER, SELFPAY ==
[2019-08-15 08:54] LABS: INR 2.3 (0.9-1.3); Prothrombin Time 26.8 SECONDS (10.1-12.7)
== END ==
PROVIDERS: PCP Internal Medicine; Visit Provider Nurse Practitioner Family
DX: I48.91 Unspecified atrial fibrillation (principal)
CPT/HCPCS: 36415; 85610

== ENCOUNTER → 2019-08-22 07:34 | Outpatient (ROUT) | payer OTHER, SELFPAY ==
[2019-08-22 09:05] LABS: INR 1.6 (0.9-1.3); Prothrombin Time 19.2 SECONDS (10.1-12.7)
== END ==
PROVIDERS: PCP Internal Medicine; Visit Provider Nurse Practitioner Family
DX: I48.20 Chronic atrial fibrillation, unspecified (principal)
CPT/HCPCS: 36415; 85610

== ENCOUNTER → 2019-09-03 07:31 | Outpatient (ROUT) | payer OTHER, SELFPAY ==
[2019-09-03 08:32] LABS: INR 2.3 (0.9-1.3); Prothrombin Time 26.8 SECONDS (10.1-12.7)
== END ==
PROVIDERS: PCP Internal Medicine; Visit Provider Nurse Practitioner Family
DX: I48.91 Unspecified atrial fibrillation (principal); Z95.2 Presence of prosthetic heart valve
CPT/HCPCS: 36415; 85610

== ENCOUNTER → 2019-09-10 07:05 | Outpatient (ROUT) | payer OTHER, SELFPAY ==
[2019-09-10 08:27] LABS: Add Manual Diff / Slide Review NO; Basophils Absolute Auto 100 /uL (0-100); Basophils Percent Auto 0.7 % (0-2); Eosinophils Absolute Auto 100 /uL (0-450); Eosinophils Percent Auto 1.8 % (2-4); Hematocrit 38.6 % (36-46); Hemoglobin 12.8 g/dL (12.0-16.0); Lymphocytes Absolute Auto 2000 /uL (1100-4500); Lymphocytes Percent Auto 28.6 % (25-40); Mean Corpuscular HGB Conc 33.2 % (30-36); Mean Corpuscular Hemoglobin 28.8 PG (26-34); Mean Corpuscular Volume 86.8 fL (80-100); Monocytes Absolute Auto 700 /uL (0-900); Monocytes Percent Auto 9.4 % (3-14); Neutrophils Absolute Auto 4300 /uL (1500-7000); Neutrophils Percent Auto 59.5 % (50-75); Platelet Count 258 X10^3/uL (150-400); Red Blood Cell Count 4.44 X10^6/uL (4.0-5.2); Red Cell Distribution Width 16.4 % (11.6-14.8); White Blood Cell Count 7.2 X10^3/uL (4.5-11.0)
[2019-09-10 08:32] LABS: INR 3.9 (0.9-1.3); Prothrombin Time 44.1 SECONDS (10.1-12.7)
[2019-09-10 08:39] LABS: Blood Urea Nitrogen 16 mg/dL (7-17); Calcium 9.4 mg/dL (8.4-10.2); Carbon Dioxide 30 mmol/L (22-32); Chloride 102 mmol/L (98-107); Estimated Glomerular Filt Rate > 60.0 mL/min (>60); Glucose 106 mg/dL (80-110); HEMOLYSIS 21 (0-50); Potassium 4.2 mmol/L (3.4-5.1); Sodium 141 mmol/L (137-145)
[2019-09-10 09:15] LABS: Thyroid Stimulating Hormone 2.64 uIU/mL (0.47-4.68)
== END ==
PROVIDERS: PCP Internal Medicine; Visit Provider Nurse Practitioner Family
DX: Z95.2 Presence of prosthetic heart valve (principal); I50.9 Heart failure, unspecified; J44.9 Chronic obstructive pulmonary disease, unspecified; I48.91 Unspecified atrial fibrillation; E05.00 Thyrotoxicosis with diffuse goiter without thyrotoxic crisis or storm
CPT/HCPCS: 36415; 80048; 84443; 85025; 85610

== ENCOUNTER → 2019-09-17 07:55 | Outpatient (ROUT) | payer OTHER, SELFPAY ==
[2019-09-17 09:40] LABS: INR 2.2 (0.9-1.3); Prothrombin Time 25.5 SECONDS (10.1-12.7)
== END ==
PROVIDERS: PCP Internal Medicine; Visit Provider Nurse Practitioner Family
DX: Z95.2 Presence of prosthetic heart valve (principal)
CPT/HCPCS: 36415; 85610

== ENCOUNTER → 2019-09-24 08:17 | Outpatient (ROUT) | payer OTHER, SELFPAY ==
[2019-09-24 10:02] LABS: INR 2.8 (0.9-1.3)
== END ==
PROVIDERS: PCP Internal Medicine; Visit Provider Nurse Practitioner Family
DX: Z95.2 Presence of prosthetic heart valve (principal)
CPT/HCPCS: 36415; 85610

== ENCOUNTER → 2019-10-08 07:08 | Outpatient (ROUT) | payer OTHER, SELFPAY ==
[2019-10-08 07:36] LABS: INR 3.4 (0.9-1.3); Prothrombin Time 38.8 SECONDS (10.1-12.7)
== END ==
PROVIDERS: PCP Internal Medicine; Visit Provider Nurse Practitioner Family
DX: Z95.2 Presence of prosthetic heart valve (principal)
CPT/HCPCS: 36415; 85610

== ENCOUNTER → 2019-10-22 07:26 | Outpatient (ROUT) | payer OTHER, SELFPAY ==
[2019-10-22 08:41] LABS: Prothrombin Time 60.8 SECONDS (10.1-12.7)
[2019-10-22 08:48] LABS: INR 5.3 (0.9-1.3)
== END ==
PROVIDERS: PCP Internal Medicine; Visit Provider Nurse Practitioner Family
DX: Z95.2 Presence of prosthetic heart valve (principal)
CPT/HCPCS: 36415; 85610

== ENCOUNTER → 2019-10-24 07:19 | Outpatient (ROUT) | payer OTHER, SELFPAY ==
[2019-10-24 09:12] LABS: INR 2.8 (0.9-1.3)
== END ==
PROVIDERS: PCP Internal Medicine; Visit Provider Internal Medicine
DX: Z51.81 Encounter for therapeutic drug level monitoring (principal)
CPT/HCPCS: 36415; 85610

== ENCOUNTER 2019-10-28 18:45 | Observation (INO) | payer OTHER, SELFPAY ==
[2019-10-28] VITALS (10 sets, daily range): BP systolic 119–141; BP diastolic 58–85; PULSE 82–94; RESP 10–24; TEMP 36.8; O2SAT 90–98; BMI 35.3
--- NOTE | 2019-10-28 | DI.CT.S_ITS ---
PROCEDURE: CT ANGIO HEAD AND NECK INDICATIONS: Altered mental status, TIA TECHNIQUE: Pre-contrast 4.5 mm thick sections acquired from the foramen magnum to the vertex. After the administration of intravenous contrast, 1 mm thick sections acquired from the aortic arch through the [place] of [place]. Post-contrast 4.5 mm thick sections then re-acquired from the foramen magnum to the vertex. 3-dimensional dhsthth-ktwoqaeku-myeaayauwv (MIP) and/or volume rendering reformats were acquired of the central intracranial vasculature and neck separately. COMPARISON: [facility], CT, CT HEAD/BRAIN WO CON, 10/28/2019, 21:10. FINDINGS: Image quality: Excellent. BRAIN: CSF spaces: Ventricles are normal in size and shape. Basal cisterns are patent. No extra-axial fluid collections. Brain: No midline shift. No intracranial bleeds or masses. [place]-white matter interface appears intact. Skull and face: Calvarium and facial bones appear intact, without suspicious lesions. Orbits appear normal. Sinuses: Sinuses and mastoids are clear. HEAD CT ANGIOGRAPHY: Anterior circulation: Intracranial internal carotid arteries are normal in size and flow. The flow within the paired anterior cerebral arteries is normal and symmetric. The flow within the middle cerebral arteries is normal and symmetric. The anterior communicating artery is seen. No aneurysms are seen. Posterior circulation: Visualized portions of the vertebral arteries demonstrate normal caliber, and join to form a normal appearing basilar artery. Flow within the posterior cerebral arteries is normal and symmetric. No aneurysms are seen. NECK CT ANGIOGRAPHY: Carotid system: The great vessels demonstrate a conventional anatomy as they arise from the aortic arch. The origins of the common carotid arteries appear patent. The common carotid arteries demonstrate normal caliber and courses. The bifurcation regions are both patent but there is atherosclerotic calcific and soft plaque at the bifurcation and extending into the proximal internal carotid arteries bilaterally. The degree of involvement is asymmetrically significantly more prominent on the right than the left with greater than 70% stenosis suspected on the right and approximately 50% stenosis on the left. The internal carotid arteries demonstrate normal calibers and courses. Posterior circulation: The origins of the vertebral arteries both appear widely patent. The more superior extracranial portions of both vertebral arteries also demonstrate normal courses and calibers. They join to form a normal appearing basilar artery. Soft tissues: Visualized neck soft tissues demonstrate no suspicious abnormalities. Bones: No suspicious bony lesions. Visualized cervical spine appears normally aligned. IMPRESSION: Asymmetric proximal internal carotid artery stenosis, right greater than left, estimated at approximately 70% stenosis on the right or greater, and approximately 50% stenosis on the left. Given this appearance carotid ultrasound is recommended to be obtained for further characterization. Any quantitative measurements of stenosis were performed using NASCET criteria. Dictated by: Jone Suarez M.D. on 10/29/2019 at 10:15 Approved by: Jone Suarez M.D. on 10/29/2019 at 10:22
--- NOTE | 2019-10-28 18:59 | DI.RAD.S_ITS ---
PROCEDURE: XR CHEST 1V INDICATIONS: confusion TECHNIQUE: One view of the chest was acquired. COMPARISON: [facility], CR, XR CHEST 1V, 08/17/2018, 18:27. [facility], CR, XR CHEST 1V, 07/30/2018, 13:57. [facility], CR, XR CHEST 1V, 10/27/2018, 10:06. FINDINGS: Surgical changes and devices: Postsurgical changes are redemonstrated in the mediastinum compatible with prior CABG. Lungs and pleura: There is mild interstitial prominence which appears chronic. No acute consolidation. No pleural effusions or pneumothorax. Mediastinum: Mediastinal contours appear unchanged. Heart size is enlarged. Bones and chest wall: No suspicious bony lesions. Overlying soft tissues appear unremarkable. IMPRESSION: 1. Mild chronic interstitial prominence redemonstrated without acute cardiopulmonary disease. Dictated by: Jonathan Burleson M.D. on 10/28/2019 at 19:10 Approved by: Jonathan Burlseon M.D. on 10/28/2019 at 19:11
[2019-10-28 19:31] LABS: Add Manual Diff / Slide Review NO; Basophils Absolute Auto 100 /uL (0-100); Basophils Percent Auto 1.4 % (0-2); Eosinophils Absolute Auto 100 /uL (0-450); Eosinophils Percent Auto 0.9 % (2-4); Hematocrit 40.4 % (36-46); Hemoglobin 13.2 g/dL (12.0-16.0); Lymphocytes Absolute Auto 2300 /uL (1100-4500); Lymphocytes Percent Auto 27.8 % (25-40); Mean Corpuscular HGB Conc 32.6 % (30-36); Mean Corpuscular Hemoglobin 27.7 PG (26-34); Monocytes Absolute Auto 700 /uL (0-900); Monocytes Percent Auto 8.9 % (3-14); Neutrophils Absolute Auto 5100 /uL (1500-7000); Platelet Count 288 X10^3/uL (150-400); Red Blood Cell Count 4.75 X10^6/uL (4.0-5.2); Red Cell Distribution Width 16.4 % (11.6-14.8); White Blood Cell Count 8.4 X10^3/uL (4.5-11.0)
[2019-10-28 19:37] LABS: INR 2.6 (0.9-1.3); Prothrombin Time 29.6 SECONDS (10.1-12.7)
[2019-10-28 19:40] LABS: PTT Partial Thromboplastin Tim 45 SECONDS (26.4-36.2)
[2019-10-28 19:42] LABS: Ammonia (NH3) < 9 umol/L (9-30); Lactate (Lactic Acid) 1.6 mmol/L (0.7-2.1)
[2019-10-28 19:44] LABS: Alanine Aminotransferase 15 IU/L (<35); Albumin 4.3 g/dL (3.5-5.0); Albumin Globulin Ratio 1.2 (1.0-2.8); Alkaline Phosphatase 95 U/L (38-126); Aspartate Aminotransferase 35 IU/L (14-36); BUN Creatinine Ratio 23.4 (6-22); Bilirubin Total 0.4 mg/dL (0.2-1.3); Blood Urea Nitrogen 18 mg/dL (7-17); Calcium 9.3 mg/dL (8.4-10.2); Carbon Dioxide 29 mmol/L (22-32); Chloride 102 mmol/L (98-107); Creatine Kinase 28 U/L (30-135); Estimated Glomerular Filt Rate > 60.0 mL/min (>60); Globulin 3.7 g/dL (1.7-4.1); Glucose 113 mg/dL (80-110); HEMOLYSIS < 15 (0-50); Potassium 4.4 mmol/L (3.4-5.1); Sodium 137 mmol/L (137-145)
[2019-10-28 19:55] LABS: Troponin I < 0.012 ng/mL (0.01-0.034)
[2019-10-28 19:58] LABS: Procalcitonin < 0.05 ng/mL (<0.5)
[2019-10-28] MEDS: SODIUM CHLORIDE 0.9% 1,000 ML 150 ML IV (20:04)
[2019-10-28 20:22] LABS: Bacteria Urine None Seen; RBC Urine None Seen (0-5/HPF)
[2019-10-28 20:23] LABS: Appearance Urine UA CLEAR; Bilirubin Urine UA NEGATIVE (NEGATIVE); Color Urine UA YELLOW; Glucose Urine UA NEGATIVE (Negative); Ketones Urine UA NEGATIVE (NEGATIVE); Leukocyte Esterase Urine UA NEGATIVE (NEGATIVE); Nitrite Urine UA NEGATIVE (Negative); Occult Blood Urine UA NEGATIVE (Negative); Protein Urine UA NEGATIVE (Negative); Specific Gravity Urine UA >=1.030 (1.000-1.035); Urobilinogen Urine UA 0.2 E.U./dL (0.2)
[2019-10-28 20:28] LABS: UR Morphine/Opiate cutoff 300 Positive (Negative); Ur Creatinine Normal (Normal); Ur Specific Gravity Normal (Normal); Urine pH Normal (Normal)
[2019-10-28 20:29] LABS: Urine Amphetamines Negative (Negative); Urine Barbiturates Negative (Negative); Urine Benzodiazepines Negative (Negative); Urine Cocaine Negative (Negative); Urine MDMA Negative (Negative); Urine Methadone Negative (Negative); Urine Methamphetamines Negative (Negative); Urine Oxycodone Negative (Negative); Urine Phencyclidine Negative (Negative); Urine Tetrahydrocannabinol Negative (Negative); Urine Tricyclic Antidepressant Negative (Negative)
[2019-10-28 20:41] LABS: Amorphous Sediment Urine 1+; Culture Indicated Urine Cult Not Indicated; Mucus Urine 1+ (Negative); Squamous Epithelial Cell Urine 0-1 /HPF (0-5/HPF); WBC Urine 1-5/HPF (0-5/HPF)
--- NOTE | 2019-10-28 21:00 | DI.CT.S_ITS ---
PROCEDURE: CT HEAD/BRAIN WO CON INDICATIONS: altered mental status TECHNIQUE: Noncontrast 4.5 mm thick angled axial sections acquired from the foramen magnum to the vertex, with coronal and sagittal reformats. For radiation dose reduction, the following was used: automated exposure control, adjustment of mA and/or kV according to patient size. COMPARISON: [facility], CT, HEAD WITHOUT CONTRAST, 11/19/2015, 9:47. FINDINGS: Image quality: Excellent. CSF spaces: Basal cisterns are patent. No extra-axial fluid collections. The ventricles are symmetric in size and shape. There is mild to moderate cerebral volume loss, with resultant ventricular and sulcal prominence. Brain: No intracranial hemorrhage, mass, or mass effect. There are subcortical, periventricular and deep white matter hypodensities consistent with mild to moderate chronic small vessel ischemic changes. There is intracranial internal carotid artery atherosclerosis. Skull and face: Calvarium and visualized facial bones appear intact, without suspicious lesions. Sinuses: Visualized sinuses and mastoids are clear. IMPRESSION: 1. No acute intracranial abnormality. 2. Mild to moderate cerebral volume loss and chronic white matter small vessel ischemic changes. Dictated by: Jonathan Burleson M.D. on 10/28/2019 at 21:44 Approved by: Jonathan Burleson M.D. on 10/28/2019 at 21:45
--- NOTE | 2019-10-28 21:14 | ED.NEUROSD ---
HPI - Neuro Symptoms/Deficit <CECILIA CollierP - Last Filed: 10/28/19 23:04> General Chief Complaint: Neuro Symptoms/Deficit Stated Complaint: Confusion Time Seen by Provider: 10/28/19 18:54 Source: patient and EMS Mode of arrival: EMS Limitations: no limitations History of Present Illness HPI Narrative: This is a 74-year-old female who was brought in by [facility] with c/o altered mental status and drowsiness from [facility]. Patient has history of AFib, hypothyroidism, hypertension, COPD, GERD, depression. According to medication administration record patient takes potassium, spironolactone, warfarin, Burke, furosemide, metoprolol or, inhalers for her chronic conditions. RN at [facility] states patient is usually alert and oriented to person, time and place and she requires almost total care and mostly bed-bound. The daughter called and informed she occasionally has drowsiness and altered mental status when she has urinary tract infection. Patient denies chest pain, breathing difficulty, pain, fever or cough. RN at [facility] reports patient had T-max of 99.4? and patient has chronic cough. On Anticoagulants: No Related Data Home Medications Medication Instructions Recorded Confirmed furosemide 80 mg PO QDAY #0 05/14/17 04/11/18 isosorbide dinitrate 30 mg PO QDAY #0 05/14/17 04/11/18 acetaminophen 650 mg PO BID 01/10/18 04/11/18 albuterol sulfate [Ventolin HFA] 2 puff INHALATION Q4H PRN 01/10/18 04/11/18 atorvastatin 80 mg PO DAILY 01/10/18 04/11/18 calcium carbonate [Tums] 2 tab PO TID PRN 01/10/18 04/11/18 docusate sodium 100 mg PO DAILY 01/10/18 04/11/18 duloxetine 20 mg PO DAILY 01/10/18 04/11/18 ezetimibe 10 mg PO DAILY 01/10/18 04/11/18 fluticasone propionate 1 spray INTRANASAL DAILY 01/10/18 04/11/18 hydrocodone-acetaminophen 1 tab PO BID MDD 3 gm apap 01/10/18 04/11/18 hydrocodone-acetaminophen 1 tab PO Q4HP PRN MDD 3 gm apap 01/10/18 04/11/18 lidocaine HCl 1 applic TOPICAL QAM 01/10/18 04/11/18 magnesium chloride [Mag 64] 2 tab PO DAILY 01/10/18 04/11/18 methimazole 5 mg PO DAILY 01/10/18 04/11/18 metoprolol tartrate [Lopressor] 50 mg PO BID 01/10/18 04/11/18 nystatin 1 applic TOPICAL TID PRN 01/10/18 04/11/18 omeprazole 40 mg PO DAILY 01/10/18 04/11/18 potassium chloride 40 meq PO BID 01/10/18 04/11/18 pramipexole 1 mg PO BEDTIME 01/10/18 04/11/18 spironolactone 25 mg PO DAILY 01/10/18 04/11/18 beclomethasone dipropionate [Qvar 2 puff INHALATION BID 04/11/18 04/11/18 RediHaler] ondansetron 4 mg PO Q4H PRN 04/11/18 04/11/18 phenazopyridine 200 mg PO TID PRN 04/11/18 04/11/18 sennosides [senna] 2 tab PO DAILY 04/11/18 04/11/18 warfarin 3 mg PO QPM 04/11/18 04/11/18 Previous Rx's Medication Instructions Recorded nitrofurantoin monohyd/m-cryst 100 mg PO BID #14 cap 04/11/18 [Macrobid] amoxicillin-pot clavulanate 1 tab PO Q12H #10 tab 04/12/18 Allergies Allergy/AdvReac Type Severity Reaction Status Date / Time aspartame [ASPARTAME] Allergy Intermediate violently Verified 10/28/19 18:54 ill, fever, rashes. codeine [CODEINE] Allergy Intermediate PROJECTILE Verified 10/28/19 18:54 VOMITING latex [LATEX] Allergy Intermediate VERY Verified 10/28/19 18:54 ITCHY RASH morphine [MORPHINE] Allergy Intermediate HALLUCINATI Verified 10/28/19 18:54 ONS. albuterol Allergy Verified 10/28/19 18:54 ipratropium Allergy Verified 10/28/19 18:54 Review of Systems <IHSAN Collier - Last Filed: 10/28/19 23:04> Review of Systems Narrative: General: Denies fever, chills, (+) fatigue, malaise, sweats. HEENT: Denies sinus pain, ear pain, sore throat, difficulty swallowing, dizziness. Respiratory: Denies dyspnea, (+) cough, wheezing, hemoptysis, sputum. Cardiovascular: Denies chest pain, palpitations, orthopnea, edema. Gastrointestinal: Denies nausea, vomiting, abdominal pain, diarrhea, constipation, melena. : Denies dysuria, frequency, incontinence, hematuria, urinary retention. Musculoskeletal: Denies weakness, joint pain or bony pain. Skin: Denies rash, skin lesions, or other. Neurologic: Denies weakness, headache, numbness, change in speech, confusion, seizures, incoordination. Patient History <IHSAN Collier - Last Filed: 10/28/19 23:04> Medical History Chronic a-fib (Chronic) COPD (chronic obstructive pulmonary disease) (Chronic) GERD (gastroesophageal reflux disease) (Chronic) Hyperlipidemia (Chronic) Hypertension (Chronic) Hyperthyroidism (Chronic) Surgical History Status post appendectomy Status post hysterectomy Social History housing: assisted living facility Smoking Status: Unknown if ever smoked Smoking Status: Unknown if ever smoked alcohol intake frequency: 0-2 drinks per day Substance Use Type: does not use Exam <IHSAN Collier - Last Filed: 10/28/19 23:04> Narrative Exam Narrative: GEN: Alert, oriented to person, place but not time. Well appearing and nourished, and in no acute distress. Head: Normal cephalic, atraumatic. No scalp or temporal tenderness, palpable mass or rash. EYES: Pupils are equal, round, and reactive to light and accommodation. Extraocular muscles are intact bilaterally. There is no subconjunctival hemorrhage, exudate and sclera non-icteric. ENT: Bilateral auditory canals and tympanic membranes clear. Hearing grossly intact. Nose without bleeding, purulent discharge or deviation. Facial sinuses nontender to palpate. Mucous membrane moist, no mucosal lesion. Throat without erythema, tonsillar hypertrophy or exudate. Uvula in midline, airway patent. Neck: Trachea in midline. No JVD, non-tender without lymphadenopathy. No masses or thyroid megaly. Supple, non-tender and no meningeal signs. CARDIAC: Irregular rhythm without murmurs, gallops, or rubs. No chest wall tenderness. No peripheral edema, cyanosis or pallor. Capillary refill is less than 2 seconds. RESPIRATORY: Lungs are clear to auscultate bilaterally. No cough, wheezes, rales, or rhonchi. No stridor, respiratory distress, increase work of breathing, or accessary muscle used. ABD: Abdomen soft, nontender and non-distended. No guarding or rebound tenderness to palpate. Bowel sounds are normal in all 4 quadrants. There is no palpable masses or organomegaly. EXT: Painless ROM of all extremities with no loss of sensation, effusion or edema. Neurovascularly intact. SKIN: Warm, dry, normal color for patient. No erythema, lesions or rash over visible areas. BACK: Nontender without deformity or crepitance. No flank tenderness. NEUROLOGICAL: Alert and oriented to place and person. Sensation and motor function intact bilaterally. No facial droops, dysphasia. PSYCHIATRIC: Good judgement and reason, without hallucinations, abnormal affect or abnormal behaviors during the examination. Initial Vital Signs Initial Vital Signs: Vital Signs Temperature 98.2 F 10/28/19 18:50 Pulse Rate 90 10/28/19 18:50 Respiratory Rate 24 10/28/19 18:50 Blood Pressure 119/58 L 10/28/19 18:50 Pulse Oximetry 93 10/28/19 18:50 <Rachel Beck DO - Last Filed: 10/29/19 01:04> Initial Vital Signs Initial Vital Signs: Vital Signs Temperature 98.2 F 10/28/19 18:50 Pulse Rate 90 10/28/19 18:50 Respiratory Rate 24 10/28/19 18:50 Blood Pressure 119/58 L 10/28/19 18:50 Pulse Oximetry 93 10/28/19 18:50 Scores <IHSAN Collier - Last Filed: 10/28/19 23:04> GCS [place] coma scale eye opening: Spontaneous [place] coma scale verbal response: Confused [place] coma scale motor response: Obey commands Makenna coma scale total score: 14 Course <IHSAN Collier - Last Filed: 10/28/19 23:04> Orders Ordered: ED Orders 10/28/19 17:15 Ammonia (NH3) Stat Complete Blood Count AUTO DIFF Stat Comprehensive Metabolic Panel Stat Lactate (Lactic Acid) Stat Partial Thromboplastin Time Stat Procalcitonin Stat Prothrombin Time INR Stat Troponin & CK Cardiac Panel Stat 10/28/19 18:59 XR chest 1V Stat 10/28/19 19:41 Blood Culture Stat 10/28/19 20:13 Urinalysis and Microscopic Stat Urine Drug Screen, Rapid Stat 10/28/19 21:00 CT head/brain wo con Stat 10/28/19 22:27 EKG-12 Lead Stat Acetaminophen (Tylenol) 650 mg PO Q6HR PRN PRN Reason: Fever/Mild Pain (1-3) Hydrocodone Bitart/Acetaminophen (Burke 5/325) 1 tab PO Q4H PRN PRN Reason: Pain, Moderate Atorvastatin Calcium (Lipitor) 80 mg PO DAILY [facility] Beclomethasone Dipropionate (Qvar) 2 puff INH BID [facility] Bisacodyl (Dulcolax) 10 mg DE DAILY PRN PRN Reason: Constipation Calcium Carbonate (Tums) 500 mg PO TID PRN PRN Reason: Indigestion Methimazole (Methimazole) 5 mg PO DAILY [facility] Metoprolol Tartrate (Lopressor) 50 mg PO BID [facility] Naloxone HCl (Narcan) 0.2 mg IV Q2MIN PRN PRN Reason: Opiate Reversal Non-Formulary Medication (Magnesium Chloride [Mag 64]) 2 tab PO DAILY [facility] Ondansetron HCl (Zofran) 4 mg IV Q8HR PRN PRN Reason: Nausea And Vomiting Discontinued Medications Sodium Chloride (Normal Saline 0.9%) 1,000 mls @ 150 mls/hr IV CONT AGUSTIN Stop: 10/28/19 23:39 Last Admin: 10/28/19 20:04 Dose: 150 mls/hr Documented by: JETHRO Vital Signs Vital signs: Vital Signs - 8 hr 10/28/19 18:50 10/28/19 19:30 10/28/19 20:22 Temperature 98.2 F Pulse Rate 90 91 H 94 H Respiratory Rate 24 13 14 Blood Pressure 119/58 L Blood Pressure [Right Arm] 129/85 Pulse Oximetry 93 94 94 10/28/19 20:30 10/28/19 21:00 10/28/19 21:35 Temperature Pulse Rate 90 90 85 Respiratory Rate 12 14 15 Blood Pressure Blood Pressure [Right Arm] 132/62 129/61 141/63 H Pulse Oximetry 96 95 95 10/28/19 22:04 10/28/19 22:30 Temperature Pulse Rate 84 82 Respiratory Rate 10 L 10 L Blood Pressure Blood Pressure [Right Arm] 135/63 131/59 L Pulse Oximetry 98 96 <Rachel Beck, - Last Filed: 10/29/19 01:04> Orders Ordered: ED Orders 10/28/19 17:15 Ammonia (NH3) Stat Complete Blood Count AUTO DIFF Stat Comprehensive Metabolic Panel Stat Lactate (Lactic Acid) Stat Partial Thromboplastin Time Stat Procalcitonin Stat Prothrombin Time INR Stat Troponin & CK Cardiac Panel Stat 10/28/19 18:59 XR chest 1V Stat 10/28/19 19:41 Blood Culture Stat 10/28/19 20:13 Urinalysis and Microscopic Stat Urine Drug Screen, Rapid Stat 10/28/19 21:00 CT head/brain wo con Stat 10/28/19 22:27 EKG-12 Lead Stat Acetaminophen (Tylenol) 650 mg PO Q6HR PRN PRN Reason: Fever/Mild Pain (1-3) Hydrocodone Bitart/Acetaminophen (Burke 5/325) 1 tab PO Q4H PRN PRN Reason: Pain, Moderate Atorvastatin Calcium (Lipitor) 80 mg PO DAILY [facility] Beclomethasone Dipropionate (Qvar) 2 puff INH BID [facility] Bisacodyl (Dulcolax) 10 mg DE DAILY PRN PRN Reason: Constipation Calcium Carbonate (Tums) 500 mg PO TID PRN PRN Reason: Indigestion Methimazole (Methimazole) 5 mg PO DAILY [facility] Metoprolol Tartrate (Lopressor) 50 mg PO BID [facility] Naloxone HCl (Narcan) 0.2 mg IV Q2MIN PRN PRN Reason: Opiate Reversal Non-Formulary Medication (Magnesium Chloride [Mag 64]) 2 tab PO DAILY [facility] Ondansetron HCl (Zofran) 4 mg IV Q8HR PRN PRN Reason: Nausea And Vomiting Discontinued Medications Sodium Chloride (Normal Saline 0.9%) 1,000 mls @ 150 mls/hr IV CONT AGUSTIN Stop: 10/28/19 23:39 Last Admin: 10/28/19 20:04 Dose: 150 mls/hr Documented by: JETHRO Vital Signs Vital signs: Vital Signs - 8 hr 10/28/19 18:50 10/28/19 19:30 10/28/19 20:22 Temperature 98.2 F Pulse Rate 90 91 H 94 H Respiratory Rate 24 13 14 Blood Pressure 119/58 L Blood Pressure [Right Arm] 129/85 Pulse Oximetry 93 94 94 10/28/19 20:30 10/28/19 21:00 10/28/19 21:35 Temperature Pulse Rate 90 90 85 Respiratory Rate 12 14 15 Blood Pressure Blood Pressure [Right Arm] 132/62 129/61 141/63 H Pulse Oximetry 96 95 95 10/28/19 22:04 10/28/19 22:30 Temperature Pulse Rate 84 82 Respiratory Rate 10 L 10 L Blood Pressure Blood Pressure [Right Arm] 135/63 131/59 L Pulse Oximetry 98 96 MDM - Neuro Symptoms/Deficit <IHSAN Collier - Last Filed: 10/28/19 23:04> Differential Diagnosis Differential diagnosis: Likely cerebrovascular accident, transient cerebral ischemia and other (UTI, pneumonia, cerebral hemorrhage) Medical Records Attestation: I reviewed the patient's medical records. Lab Data Attestation: I reviewed the patient's lab results. Result diagrams: 10/28/19 17:15 10/28/19 17:15 Labs: Lab Results 10/28/19 10/28/19 10/28/19 Range/Units 17:15 17:15 17:15 WBC 8.4 (4.5-11.0) X10^3/uL RBC 4.75 (4.0-5.2) X10^6/uL Hgb 13.2 (12.0-16.0) g/dL Hct 40.4 (36-46) % MCV 85.0 (80-100) fL MCH 27.7 (26-34) PG MCHC 32.6 (30-36) % RDW 16.4 H (11.6-14.8) % Plt Count 288 (150-400) X10^3/uL Neut % (Auto) 61.0 (50-75) % Lymph % (Auto) 27.8 (25-40) % Addison % (Auto) 8.9 (3-14) % Eos % (Auto) 0.9 L (2-4) % Baso % (Auto) 1.4 (0-2) % Neut # (Auto) 5100 (1062-4671) /uL Lymph # (Auto) 2300 (6317-8484) /uL Addison # (Auto) 700 (0-900) /uL Eos # (Auto) 100 (0-450) /uL Baso # (Auto) 100 (0-100) /uL PT 29.6 H (10.1-12.7) SECONDS INR 2.6 H (0.9-1.3) APTT 45 H D (26.4-36.2) SECONDS Sodium 137 (137-145) mmol/L Potassium 4.4 (3.4-5.1) mmol/L Chloride 102 (98-107) mmol/L Carbon Dioxide 29 (22-32) mmol/L BUN 18 H (7-17) mg/dL Creatinine 0.77 (0.52-1.04) mg/dL Estimated GFR > 60.0 (>60) mL/min BUN/Creatinine Ratio 23.4 H (6-22) Glucose 113 H (80-110) mg/dL Lactate (0.7-2.1) mmol/L Calcium 9.3 (8.4-10.2) mg/dL Total Bilirubin 0.4 (0.2-1.3) mg/dL AST 35 (14-36) IU/L ALT 15 (<35) IU/L Alkaline Phosphatase 95 (38-126) U/L Ammonia (9-30) umol/L Total Creatine Kinase 28 L (30-135) U/L CK-MB (CK-2) TNP CK-MB (CK-2) Rel Index TNP Troponin I < 0.012 (0.01-0.034) ng/mL Total Protein 8.0 (6.3-8.2) g/dL Albumin 4.3 (3.5-5.0) g/dL Globulin 3.7 (1.7-4.1) g/dL Albumin/Globulin Ratio 1.2 (1.0-2.8) Procalcitonin (<0.5) ng/mL Urine Color Urine Appearance Urine pH (4.5-8.0) Ur Specific [place] (1.000-1.035) Urine Protein (Negative) Urine Glucose (UA) (Negative) g/dL Urine Ketones (NEGATIVE) Urine Occult Blood (Negative) Urine Nitrate (Negative) Urine Bilirubin (NEGATIVE) Urine Urobilinogen (0.2) E.U./dL Ur Leukocyte Esterase (NEGATIVE) Urine RBC (0-5/HPF) Urine WBC (0-5/HPF) Ur Squamous Epith Cells (0-5/HPF) Amorphous Sediment Urine Bacteria (None) Urine Mucus (Negative) Ur Culture Indicated? U Opiates 300ng/mL cut (Negative) Ur Oxycodone Screen (Negative) Urine Methadone Screen (Negative) Ur Barbiturates Screen (Negative) U Tricyclic Antidepress (Negative) Ur Phencyclidine Scrn (Negative) Ur Amphetamines Screen (Negative) U Methamphetamines Scrn (Negative) Ur MDMA Scrn (Ecstasy) (Negative) U Benzodiazepines Scrn (Negative) Urine Cocaine Screen (Negative) U Marijuana (THC) Screen (Negative) 10/28/19 10/28/19 10/28/19 Range/Units 17:15 17:15 17:15 WBC (4.5-11.0) X10^3/uL RBC (4.0-5.2) X10^6/uL Hgb (12.0-16.0) g/dL Hct (36-46) % MCV (80-100) fL MCH (26-34) PG MCHC (30-36) % RDW (11.6-14.8) % Plt Count (150-400) X10^3/uL Neut % (Auto) (50-75) % Lymph % (Auto) (25-40) % Addison % (Auto) (3-14) % Eos % (Auto) (2-4) % Baso % (Auto) (0-2) % Neut # (Auto) (1225-6277) /uL Lymph # (Auto) (3350-2656) /uL Addison # (Auto) (0-900) /uL Eos # (Auto) (0-450) /uL Baso # (Auto) (0-100) /uL PT (10.1-12.7) SECONDS INR (0.9-1.3) APTT (26.4-36.2) SECONDS Sodium (137-145) mmol/L Potassium (3.4-5.1) mmol/L Chloride (98-107) mmol/L Carbon Dioxide (22-32) mmol/L BUN (7-17) mg/dL Creatinine (0.52-1.04) mg/dL Estimated GFR (>60) mL/min BUN/Creatinine Ratio (6-22) Glucose (80-110) mg/dL Lactate 1.6 (0.7-2.1) mmol/L Calcium (8.4-10.2) mg/dL Total Bilirubin (0.2-1.3) mg/dL AST (14-36) IU/L ALT (<35) IU/L Alkaline Phosphatase (38-126) U/L Ammonia < 9 L (9-30) umol/L Total Creatine Kinase (30-135) U/L CK-MB (CK-2) CK-MB (CK-2) Rel Index Troponin I (0.01-0.034) ng/mL Total Protein (6.3-8.2) g/dL Albumin (3.5-5.0) g/dL Globulin (1.7-4.1) g/dL Albumin/Globulin Ratio (1.0-2.8) Procalcitonin < 0.05 (<0.5) ng/mL Urine Color Urine Appearance Urine pH (4.5-8.0) Ur Specific [place] (1.000-1.035) Urine Protein (Negative) Urine Glucose (UA) (Negative) g/dL Urine Ketones (NEGATIVE) Urine Occult Blood (Negative) Urine Nitrate (Negative) Urine Bilirubin (NEGATIVE) Urine Urobilinogen (0.2) E.U./dL Ur Leukocyte Esterase (NEGATIVE) Urine RBC (0-5/HPF) Urine WBC (0-5/HPF) Ur Squamous Epith Cells (0-5/HPF) Amorphous Sediment Urine Bacteria (None) Urine Mucus (Negative) Ur Culture Indicated? U Opiates 300ng/mL cut (Negative) Ur Oxycodone Screen (Negative) Urine Methadone Screen (Negative) Ur Barbiturates Screen (Negative) U Tricyclic Antidepress (Negative) Ur Phencyclidine Scrn (Negative) Ur Amphetamines Screen (Negative) U Methamphetamines Scrn (Negative) Ur MDMA Scrn (Ecstasy) (Negative) U Benzodiazepines Scrn (Negative) Urine Cocaine Screen (Negative) U Marijuana (THC) Screen (Negative) 10/28/19 10/28/19 Range/Units 20:13 20:13 WBC (4.5-11.0) X10^3/uL RBC (4.0-5.2) X10^6/uL Hgb (12.0-16.0) g/dL Hct (36-46) % MCV (80-100) fL MCH (26-34) PG MCHC (30-36) % RDW (11.6-14.8) % Plt Count (150-400) X10^3/uL Neut % (Auto) (50-75) % Lymph % (Auto) (25-40) % Addison % (Auto) (3-14) % Eos % (Auto) (2-4) % Baso % (Auto) (0-2) % Neut # (Auto) (5686-9089) /uL Lymph # (Auto) (2898-7605) /uL Addison # (Auto) (0-900) /uL Eos # (Auto) (0-450) /uL Baso # (Auto) (0-100) /uL PT (10.1-12.7) SECONDS INR (0.9-1.3) APTT (26.4-36.2) SECONDS Sodium (137-145) mmol/L Potassium (3.4-5.1) mmol/L Chloride (98-107) mmol/L Carbon Dioxide (22-32) mmol/L BUN (7-17) mg/dL Creatinine (0.52-1.04) mg/dL Estimated GFR (>60) mL/min BUN/Creatinine Ratio (6-22) Glucose (80-110) mg/dL Lactate (0.7-2.1) mmol/L Calcium (8.4-10.2) mg/dL Total Bilirubin (0.2-1.3) mg/dL AST (14-36) IU/L ALT (<35) IU/L Alkaline Phosphatase (38-126) U/L Ammonia (9-30) umol/L Total Creatine Kinase (30-135) U/L CK-MB (CK-2) CK-MB (CK-2) Rel Index Troponin I (0.01-0.034) ng/mL Total Protein (6.3-8.2) g/dL Albumin (3.5-5.0) g/dL Globulin (1.7-4.1) g/dL Albumin/Globulin Ratio (1.0-2.8) Procalcitonin (<0.5) ng/mL Urine Color Yellow Urine Appearance Clear Urine pH 5.0 (4.5-8.0) Ur Specific [place] >=1.030 H (1.000-1.035) Urine Protein Negative (Negative) Urine Glucose (UA) Negative (Negative) g/dL Urine Ketones Negative (NEGATIVE) Urine Occult Blood Negative (Negative) Urine Nitrate Negative (Negative) Urine Bilirubin Negative (NEGATIVE) Urine Urobilinogen 0.2 (0.2) E.U./dL Ur Leukocyte Esterase Negative (NEGATIVE) Urine RBC None seen (0-5/HPF) Urine WBC 1-5/hpf (0-5/HPF) Ur Squamous Epith Cells 0-1 /hpf (0-5/HPF) Amorphous Sediment 1+ Urine Bacteria None seen (None) Urine Mucus 1+ H (Negative) Ur Culture Indicated? Cult not indicated U Opiates 300ng/mL cut Positive H (Negative) Ur Oxycodone Screen Negative (Negative) Urine Methadone Screen Negative (Negative) Ur Barbiturates Screen Negative (Negative) U Tricyclic Antidepress Negative (Negative) Ur Phencyclidine Scrn Negative (Negative) Ur Amphetamines Screen Negative (Negative) U Methamphetamines Scrn Negative (Negative) Ur MDMA Scrn (Ecstasy) Negative (Negative) U Benzodiazepines Scrn Negative (Negative) Urine Cocaine Screen Negative (Negative) U Marijuana (THC) Screen Negative (Negative) Imaging Data Chest x-ray: Radiologist's Impression: [address] [address] XRay Report Signed Patient: Vivi Yeh GMR#: [id number] : 6Acct:[id number] Age/Sex: 74 / FDate of Service: 10/28/19 Loc: ED Accession Number: [id number] Procedure: XR chest 1V Ordering Provider: Otto Christopher PROCEDURE: XR CHEST 1V INDICATIONS: confusion TECHNIQUE: One view of the chest was acquired. COMPARISON: [facility], CR, XR CHEST 1V, 08/17/2018, 18:27. [facility], CR, XR CHEST 1V, 07/30/2018, 13:57. [facility], CR, XR CHEST 1V, 10/27/2018, 10:06. FINDINGS: Surgical changes and devices: Postsurgical changes are redemonstrated in the mediastinum compatible with prior CABG. Lungs and pleura: There is mild interstitial prominence which appears chronic. No acute consolidation. No pleural effusions or pneumothorax. Mediastinum: Mediastinal contours appear unchanged. Heart size is enlarged. Bones and chest wall: No suspicious bony lesions. Overlying soft tissues appear unremarkable. IMPRESSION: 1. Mild chronic interstitial prominence redemonstrated without acute cardiopulmonary disease. Dictated by: Jonathan Burleson M.D. on 10/28/2019 at 19:10 Approved by: Jonathan Burleson M.D. on 10/28/2019 at 19:11 CT scan - head: Radiologist's Impression: [place] [address] CT Scan Report Signed Patient: Vivi Yeh R#: [id number] : 6Acct:[id number] Age/Sex: 74 / FDate of Service: 10/28/19 Loc: ED Accession Number: [id number] Procedure: CT head/brain wo con Ordering Provider: Otto Christopher PROCEDURE: CT HEAD/BRAIN WO CON INDICATIONS: altered mental status TECHNIQUE: Noncontrast 4.5 mm thick angled axial sections acquired from the foramen magnum to the vertex, with coronal and sagittal reformats. For radiation dose reduction, the following was used: automated exposure control, adjustment of mA and/or kV according to patient size. COMPARISON: [facility], CT, HEAD WITHOUT CONTRAST, 11/19/2015, 9:47. FINDINGS: Image quality: Excellent. CSF spaces: Basal cisterns are patent. No extra-axial fluid collections. The ventricles are symmetric in size and shape. There is mild to moderate cerebral volume loss, with resultant ventricular and sulcal prominence. Brain: No intracranial hemorrhage, mass, or mass effect. There are subcortical, periventricular and deep white matter hypodensities consistent with mild to moderate chronic small vessel ischemic changes. There is intracranial internal carotid artery atherosclerosis. Skull and face: Calvarium and visualized facial bones appear intact, without suspicious lesions. Sinuses: Visualized sinuses and mastoids are clear. IMPRESSION: 1. No acute intracranial abnormality. 2. Mild to moderate cerebral volume loss and chronic white matter small vessel ischemic changes. Dictated by: Jonathan Burleson M.D. on 10/28/2019 at 21:44 Approved by: Jonathan Burleson M.D. on 10/28/2019 at 21:45 ECG Data Attestation: I personally reviewed and interpreted this ECG as follows: Prior ECG tracings: available for review Interpretation: Afib rate at 85. Left dominant axis. QRS dur 112, QT/QTC 406/483. Nonspecific ST and T-wave abnormality Prolonged QT. Previous EKGs in AFib is with RVR. MDM Narrative Medical decision making narrative: This is a 74-year-old female who presents to ED by [facility] from [facility] with chief complaint of altered mental status. Patient has history of AFib and takes Coumadin, TIA, hypertension, hypothyroidism, GERD, COPD, CABG and depression. According to reports patient's baseline is alert and oriented x3 which is different from today. Patient is not oriented to time but place and person. Patient has history of UTI with confusion per patient's daughter. EKG shows AFib rate in [address] or T-wave abnormality. Chest x-ray showed no acute cardiopulmonary disease but there is mild interstitial prominence which appears to be chronic. Patient is afebrile in ED with within normal vital signs. Lungs others are clear to auscultate without increased work of breathing. CBC was unremarkable without leukocytosis. INR today is 2.6. Chemistry test were unremarkable today. Cardiac enzymes were negative. TSH was within normal in 09/10/19 was 2.64 and he was unable to locate thyroid medications in OCT. Her neuro exam was unremarkable and no focal deficit has been appreciated. Catheterized urine sample showed UDS of of opiates which the patient takes Burke up to 4 times a day as needed for chronic pain. UA was negative for urine leukoesterase and urine nitrate. Serum glucose was 113 today. Lactate and procalcitonin were negative. Ammonia level was negative as well. CT of head without contrast without acute findings. Patient was evaluated several times in ED stay, patient appears to be more alert later on but still patient was unable to recall her year or accurate dates/years. Since this is patient's acute change in mental status, patient may require further imaging test such as MRI. Hospitalist, ROAD CUTTER Jone kindly accepted patient's care to monitor her overnight for mental status changes/improvement and further evaluation with imaging test. <Rachel Beck, DO - Last Filed: 10/29/19 01:04> Lab Data Attestation: I reviewed the patient's lab results. Labs: Lab Results 10/28/19 10/28/19 10/28/19 Range/Units 17:15 17:15 17:15 WBC 8.4 (4.5-11.0) X10^3/uL RBC 4.75 (4.0-5.2) X10^6/uL Hgb 13.2 (12.0-16.0) g/dL Hct 40.4 (36-46) % MCV 85.0 (80-100) fL MCH 27.7 (26-34) PG MCHC 32.6 (30-36) % RDW 16.4 H (11.6-14.8) % Plt Count 288 (150-400) X10^3/uL Neut % (Auto) 61.0 (50-75) % Lymph % (Auto) 27.8 (25-40) % [place] % (Auto) 8.9 (3-14) % Eos % (Auto) 0.9 L (2-4) % Baso % (Auto) 1.4 (0-2) % Neut # (Auto) 5100 (0947-2739) /uL Lymph # (Auto) 2300 (4734-0071) /uL [place] # (Auto) 700 (0-900) /uL Eos # (Auto) 100 (0-450) /uL Baso # (Auto) 100 (0-100) /uL PT 29.6 H (10.1-12.7) SECONDS INR 2.6 H (0.9-1.3) APTT 45 H D (26.4-36.2) SECONDS Sodium 137 (137-145) mmol/L Potassium 4.4 (3.4-5.1) mmol/L Chloride 102 (98-107) mmol/L Carbon Dioxide 29 (22-32) mmol/L BUN 18 H (7-17) mg/dL Creatinine 0.77 (0.52-1.04) mg/dL Estimated GFR > 60.0 (>60) mL/min BUN/Creatinine Ratio 23.4 H (6-22) Glucose 113 H (80-110) mg/dL Lactate (0.7-2.1) mmol/L Calcium 9.3 (8.4-10.2) mg/dL Total Bilirubin 0.4 (0.2-1.3) mg/dL AST 35 (14-36) IU/L ALT 15 (<35) IU/L Alkaline Phosphatase 95 (38-126) U/L Ammonia (9-30) umol/L Total Creatine Kinase 28 L (30-135) U/L CK-MB (CK-2) TNP CK-MB (CK-2) Rel Index TNP Troponin I < 0.012 (0.01-0.034) ng/mL Total Protein 8.0 (6.3-8.2) g/dL Albumin 4.3 (3.5-5.0) g/dL Globulin 3.7 (1.7-4.1) g/dL Albumin/Globulin Ratio 1.2 (1.0-2.8) Procalcitonin (<0.5) ng/mL Urine Color Urine Appearance Urine pH (4.5-8.0) Ur Specific [place] (1.000-1.035) Urine Protein (Negative) Urine Glucose (UA) (Negative) g/dL Urine Ketones (NEGATIVE) Urine Occult Blood (Negative) Urine Nitrate (Negative) Urine Bilirubin (NEGATIVE) Urine Urobilinogen (0.2) E.U./dL Ur Leukocyte Esterase (NEGATIVE) Urine RBC (0-5/HPF) Urine WBC (0-5/HPF) Ur Squamous Epith Cells (0-5/HPF) Amorphous Sediment Urine Bacteria (None) Urine Mucus (Negative) Ur Culture Indicated? U Opiates 300ng/mL cut (Negative) Ur Oxycodone Screen (Negative) Urine Methadone Screen (Negative) Ur Barbiturates Screen (Negative) U Tricyclic Antidepress (Negative) Ur Phencyclidine Scrn (Negative) Ur Amphetamines Screen (Negative) U Methamphetamines Scrn (Negative) Ur MDMA Scrn (Ecstasy) (Negative) U Benzodiazepines Scrn (Negative) Urine Cocaine Screen (Negative) U Marijuana (THC) Screen (Negative) 10/28/19 10/28/19 10/28/19 Range/Units 17:15 17:15 17:15 WBC (4.5-11.0) X10^3/uL RBC (4.0-5.2) X10^6/uL Hgb (12.0-16.0) g/dL Hct (36-46) % MCV (80-100) fL MCH (26-34) PG MCHC (30-36) % RDW (11.6-14.8) % Plt Count (150-400) X10^3/uL Neut % (Auto) (50-75) % Lymph % (Auto) (25-40) % [place] % (Auto) (3-14) % Eos % (Auto) (2-4) % Baso % (Auto) (0-2) % Neut # (Auto) (5185-8193) /uL Lymph # (Auto) (5660-6376) /uL [place] # (Auto) (0-900) /uL Eos # (Auto) (0-450) /uL Baso # (Auto) (0-100) /uL PT (10.1-12.7) SECONDS INR (0.9-1.3) APTT (26.4-36.2) SECONDS Sodium (137-145) mmol/L Potassium (3.4-5.1) mmol/L Chloride (98-107) mmol/L Carbon Dioxide (22-32) mmol/L BUN (7-17) mg/dL Creatinine (0.52-1.04) mg/dL Estimated GFR (>60) mL/min BUN/Creatinine Ratio (6-22) Glucose (80-110) mg/dL Lactate 1.6 (0.7-2.1) mmol/L Calcium (8.4-10.2) mg/dL Total Bilirubin (0.2-1.3) mg/dL AST (14-36) IU/L ALT (<35) IU/L Alkaline Phosphatase (38-126) U/L Ammonia < 9 L (9-30) umol/L Total Creatine Kinase (30-135) U/L CK-MB (CK-2) CK-MB (CK-2) Rel Index Troponin I (0.01-0.034) ng/mL Total Protein (6.3-8.2) g/dL Albumin (3.5-5.0) g/dL Globulin (1.7-4.1) g/dL Albumin/Globulin Ratio (1.0-2.8) Procalcitonin < 0.05 (<0.5) ng/mL Urine Color Urine Appearance Urine pH (4.5-8.0) Ur Specific [place] (1.000-1.035) Urine Protein (Negative) Urine Glucose (UA) (Negative) g/dL Urine Ketones (NEGATIVE) Urine Occult Blood (Negative) Urine Nitrate (Negative) Urine Bilirubin (NEGATIVE) Urine Urobilinogen (0.2) E.U./dL Ur Leukocyte Esterase (NEGATIVE) Urine RBC (0-5/HPF) Urine WBC (0-5/HPF) Ur Squamous Epith Cells (0-5/HPF) Amorphous Sediment Urine Bacteria (None) Urine Mucus (Negative) Ur Culture Indicated? U Opiates 300ng/mL cut (Negative) Ur Oxycodone Screen (Negative) Urine Methadone Screen (Negative) Ur Barbiturates Screen (Negative) U Tricyclic Antidepress (Negative) Ur Phencyclidine Scrn (Negative) Ur Amphetamines Screen (Negative) U Methamphetamines Scrn (Negative) Ur MDMA Scrn (Ecstasy) (Negative) U Benzodiazepines Scrn (Negative) Urine Cocaine Screen (Negative) U Marijuana (THC) Screen (Negative) 10/28/19 10/28/19 Range/Units 20:13 20:13 WBC (4.5-11.0) X10^3/uL RBC (4.0-5.2) X10^6/uL Hgb (12.0-16.0) g/dL Hct (36-46) % MCV (80-100) fL MCH (26-34) PG MCHC (30-36) % RDW (11.6-14.8) % Plt Count (150-400) X10^3/uL Neut % (Auto) (50-75) % Lymph % (Auto) (25-40) % [place] % (Auto) (3-14) % Eos % (Auto) (2-4) % Baso % (Auto) (0-2) % Neut # (Auto) (8441-9548) /uL Lymph # (Auto) (4284-0154) /uL [place] # (Auto) (0-900) /uL Eos # (Auto) (0-450) /uL Baso # (Auto) (0-100) /uL PT (10.1-12.7) SECONDS INR (0.9-1.3) APTT (26.4-36.2) SECONDS Sodium (137-145) mmol/L Potassium (3.4-5.1) mmol/L Chloride (98-107) mmol/L Carbon Dioxide (22-32) mmol/L BUN (7-17) mg/dL Creatinine (0.52-1.04) mg/dL Estimated GFR (>60) mL/min BUN/Creatinine Ratio (6-22) Glucose (80-110) mg/dL Lactate (0.7-2.1) mmol/L Calcium (8.4-10.2) mg/dL Total Bilirubin (0.2-1.3) mg/dL AST (14-36) IU/L ALT (<35) IU/L Alkaline Phosphatase (38-126) U/L Ammonia (9-30) umol/L Total Creatine Kinase (30-135) U/L CK-MB (CK-2) CK-MB (CK-2) Rel Index Troponin I (0.01-0.034) ng/mL Total Protein (6.3-8.2) g/dL Albumin (3.5-5.0) g/dL Globulin (1.7-4.1) g/dL Albumin/Globulin Ratio (1.0-2.8) Procalcitonin (<0.5) ng/mL Urine Color Yellow Urine Appearance Clear Urine pH 5.0 (4.5-8.0) Ur Specific [place] >=1.030 H (1.000-1.035) Urine Protein Negative (Negative) Urine Glucose (UA) Negative (Negative) g/dL Urine Ketones Negative (NEGATIVE) Urine Occult Blood Negative (Negative) Urine Nitrate Negative (Negative) Urine Bilirubin Negative (NEGATIVE) Urine Urobilinogen 0.2 (0.2) E.U./dL Ur Leukocyte Esterase Negative (NEGATIVE) Urine RBC None seen (0-5/HPF) Urine WBC 1-5/hpf (0-5/HPF) Ur Squamous Epith Cells 0-1 /hpf (0-5/HPF) Amorphous Sediment 1+ Urine Bacteria None seen (None) Urine Mucus 1+ H (Negative) Ur Culture Indicated? Cult not indicated U Opiates 300ng/mL cut Positive H (Negative) Ur Oxycodone Screen Negative (Negative) Urine Methadone Screen Negative (Negative) Ur Barbiturates Screen Negative (Negative) U Tricyclic Antidepress Negative (Negative) Ur Phencyclidine Scrn Negative (Negative) Ur Amphetamines Screen Negative (Negative) U Methamphetamines Scrn Negative (Negative) Ur MDMA Scrn (Ecstasy) Negative (Negative) U Benzodiazepines Scrn Negative (Negative) Urine Cocaine Screen Negative (Negative) U Marijuana (THC) Screen Negative (Negative) MDM Narrative Medical decision making narrative: Patient case was discussed, no focal neurologic defects. But patient does seemed confused. Patient was seen by ROAD C[facility]TER Todd Becerril in the department and plan for admission as no clear cause for altered mental status was found. Discharge Plan Departure Patient Disposition: Admitted as Observation Clinical Impression: Altered mental status Qualifiers: Altered mental status type: unspecified Qualified Code(s): R41.82 - Altered mental status, unspecified Discharge Date/Time: 10/29/19 00:39 Admit Date/Time: 10/28/19 22:55 Admit Provider: Karel Becerril
[2019-10-29 00:25] VITALS: BP 114/63; RESP 18; TEMP 36.2; O2SAT 95
--- NOTE | 2019-10-29 02:37 | PC.NURSE ---
0025 - Patient admitted to room 222. Brought to room on stretcher by nursing staff and transferred to bed using slider board. Alert and responsive with pleasant affect, but is forgetful. Oriented patient to room and call light, call light within reach and bed alarm on.
--- NOTE | 2019-10-29 03:44 | PM.HP.1 ---
History of Present Illness History of Present Illness Date Patient Seen: 10/28/19 Time Patient Seen: 23:00 Date of Onset of Symptoms: 10/28/19 Chief complaint: Confusion Narrative: Ms. Vivi Yeh is a 74-year-old female with history significant for atrial fibrillation anticoagulated on Coumadin, coronary artery disease status post CABG and mitral valve replacement in 1993, diastolic heart failure, COPD, recurrent UTIs, TIA, hypertension, hyperlipidemia, degenerative disc disease and dementia who presents to the ER via EMS from [facility] for altered mental status. The patient was sent to the ER following the RN finding the patient to be drowsy with confusion and disorientation. The patient's family is notified who states that the patient has previously presented with the symptoms with urinary tract infection. At baseline the patient is fully oriented and lives with her in the assisted living facility. The patient reports no complaints of headaches or dizziness and no visual changes. She is predominantly bed bound in use a wheelchair for mobilization. She sustained no recent falls and reports no weakness. She states she has always feeling cold and denies fevers. She denies complaints of chest pain or palpitations, shortness of breath has a chronic cough. She denies abdominal pain has no heartburn, nausea or vomiting. She denies complaints he urinary symptoms with no burning urgency or frequency and no hematuria. She reports irregular stooling hearing between constipation and loose stool. Upon arrival to the ER the patient is afebrile with a temperature of 98.2?. Her heart rate is 90 with a BP of 119/58, respirations of 18 saturating 93% on room air. Head CT is obtained which finds no acute intracranial processes, mild to moderate cerebral volume loss with chronic white matter ischemic changes. Chest x-ray finds mild chronic interstitial prominence without acute cardiopulmonary processes. Her EKG finds atrial fibrillation with ventricular rate of 85. On laboratory analysis she has white count of 8.4, hemoglobin of 13.2, hematocrit of 40.0 and platelets of 288. Her electrolytes are within normal limits and she has a BUN of 18 and creatinine is 0.77. Her nonfasting glucose is 113. Her liver functions are all within normal range. She has a PT of 29.6 with an INR of 2.6 and PTT of 45. She has lactic acid of 1.6, procalcitonin less than 0.05. She has a total CK low at 28 with a negative troponin at less than 0.012. Urinalysis finds no infection but is concentrated with a specific gravity greater than 1.030. On ER evaluation the patient is oriented to person and place only and demonstrates difficulty word finding. The patient is admitted for altered mental status rule out TIA. Patient History Medical History (Updated 10/29/19 @ 03:49 by IHSAN Carrera) CHF (congestive heart failure) (Chronic) Chronic a-fib (Chronic) Chronic low back pain (Acute) COPD (chronic obstructive pulmonary disease) (Chronic) Degenerative disc disease (Acute) Dementia (Acute) Depression (Inactive) GERD (gastroesophageal reflux disease) (Chronic) Hyperlipidemia (Chronic) Hypertension (Chronic) Hyperthyroidism (Chronic) TIA (transient ischemic attack) (Acute) UTI (urinary tract infection) (Inactive) Surgical History (Updated 10/29/19 @ 03:49 by IHSAN Carrera) History of mitral valve replacement (Acute) Status post appendectomy Status post hysterectomy Family & Social History Social History: Prior Living Arrangements Assisted Living Safety & Behavioral: Feels Safe in Current Yes Environment Been Physically Hurt or No Threatened By a Person Suicidal Ideation Description None Suicide Plan Description No Plan Tobacco & Substance use: Smoking Status Unknown if ever smoked alcohol intake never alcohol intake frequency 0-2 drinks per day Substance Use Type does not use Comment: The patient lives in [facility] in an assisted living setting with her . Smoking: Patient endorses smoking quitting in 1993 before which she smoked approximately 1/2 pack per day since high school. Alcohol: The patient denies consuming alcoholic beverages. Substance use: The patient denies recreational pharmaceuticals herbal or cannabis products. Advanced directives: A POLST form accompanies the patient from [facility] which indicates the patient's wish to be FULL CODE. Her is says a to be her surrogate decision maker. Meds Home Medications and Allergies Home Medications Medication Instructions Recorded Confirmed Type furosemide 80 mg PO QDAY #0 05/14/17 10/29/19 History albuterol sulfate [Ventolin HFA] 2 puff INHALATION Q4H PRN 01/10/18 10/29/19 History calcium carbonate [Tums] 2 tab PO TID PRN 01/10/18 10/29/19 History docusate sodium 200 mg PO DAILY 01/10/18 10/29/19 History fluticasone propionate 1 spray INTRANASAL DAILY 01/10/18 10/29/19 History hydrocodone-acetaminophen 1 tab PO QID PRN MDD 3 gm apap 01/10/18 10/29/19 History lidocaine HCl 1 applic TOPICAL QAM 01/10/18 10/29/19 History methimazole 5 mg PO DAILY 01/10/18 10/29/19 History metoprolol tartrate [Lopressor] See Rx Instructions .ROUTE .COMPLEX 01/10/18 10/29/19 History nystatin 1 applic TOPICAL TID PRN 01/10/18 10/29/19 History omeprazole 40 mg PO DAILY 01/10/18 10/29/19 History potassium chloride 20 meq PO BID 01/10/18 10/29/19 History spironolactone 25 mg PO DAILY 01/10/18 10/29/19 History beclomethasone dipropionate [Qvar 2 puff INHALATION BID 04/11/18 10/29/19 History RediHaler] ondansetron 4 mg PO Q4H PRN 04/11/18 10/29/19 History sennosides [senna] 2 tab PO DAILY 04/11/18 10/29/19 History warfarin 4 mg PO QPM 04/11/18 10/29/19 History Allergies Allergy/AdvReac Type Severity Reaction Status Date / Time aspartame [ASPARTAME] Allergy Intermediate violently Verified 10/28/19 18:54 ill, fever, rashes. codeine [CODEINE] Allergy Intermediate PROJECTILE Verified 10/28/19 18:54 VOMITING latex [LATEX] Allergy Intermediate VERY Verified 10/28/19 18:54 ITCHY RASH morphine [MORPHINE] Allergy Intermediate HALLUCINATI Verified 10/28/19 18:54 ONS. albuterol Allergy Verified 10/28/19 18:54 ipratropium Allergy Verified 10/28/19 18:54 Review of Systems Review of Systems ROS: Yes All systems reviewed with the patient and are negative except as otherwise documented Exam Vital Signs (past 8 hours): - 10/28/19 20:22 10/28/19 20:30 10/28/19 21:00 Temperature Pulse Rate 94 H 90 90 Respiratory Rate 14 12 14 Blood Pressure Blood Pressure [Right Arm] 132/62 129/61 Pulse Oximetry 94 96 95 10/28/19 21:35 10/28/19 22:04 10/28/19 22:30 Temperature Pulse Rate 85 84 82 Respiratory Rate 15 10 L 10 L Blood Pressure Blood Pressure [Right Arm] 141/63 H 135/63 131/59 L Pulse Oximetry 95 98 96 10/28/19 23:00 10/28/19 23:30 10/29/19 00:25 Temperature 97.2 F L Pulse Rate 86 91 H Respiratory Rate 11 L 14 18 Blood Pressure 114/63 Blood Pressure [Right Arm] 128/60 136/63 Pulse Oximetry 90 L 97 95 Oxygen Delivery Method Room Air Oxygen Flow Rate 0 Narrative Exam Narrative: GENERAL APPEARANCE: well developed, obese female with a BMI of 35.3, laying left semi lateral on a stretcher in no acute distress. HEENT: Symmetrical facies, no ptosis, PERRLA, sclera is anicteric and conjunctiva clear, EOMs intact without nystagmus, no sinus tenderness to percussion, no rhinorrhea, mucous membranes are moist and pink without lesions or exudate. NECK/THYROID: neck supple, no JVD, no carotid bruit, no thyromegaly, trachea midline. LYMPH NODES: no cervical or supraclavicular lymphadenopathy. SKIN: [employer], warm and dry, no visible rashes. HEART: regular rate and rhythm, S1-S2, no murmur, no rubs or gallops, 2+ dorsalis pedis pulses, brisk capillary refill, no edema LUNGS: clear to auscultation bilaterally, no coarseness crackles or wheezing, no cough present CHEST: Symmetrical movement, no accessory muscle use, good tidal volume. ABDOMEN: Soft, dull to percussion, no distention, no abdominal tenderness, no guarding or peritoneal signs, no organomegaly, no flank or suprapubic tenderness, active bowel tones. EXTREMITIES: moves all extremities, strength is 5/5 and symmetrical, no deformities or joint effusions. NEUROLOGIC: AAO to person and place, able to stay year and month but not date, difficulty word finding, cranial nerves II-XII grossly intact, no lateralizing symptoms, sensation intact to light touch, hearing grossly normal to speech. PSYCH: cooperative, appropriate with stable behavior Objective Labs Result Diagrams: 10/28/19 17:15 10/28/19 17:15 Labs: Laboratory Results - last 24 hr 03/24/20 03/24/20 03/24/20 17:15 17:15 17:15 WBC 8.4 RBC 4.75 Hgb 13.2 Hct 40.4 MCV 85.0 MCH 27.7 MCHC 32.6 RDW 16.4 H Plt Count 288 Neut % (Auto) 61.0 Lymph % (Auto) 27.8 [place] % (Auto) 8.9 Eos % (Auto) 0.9 L Baso % (Auto) 1.4 Neut # (Auto) 5100 Lymph # (Auto) 2300 [place] # (Auto) 700 Eos # (Auto) 100 Baso # (Auto) 100 PT 29.6 H INR 2.6 H APTT 45 H D Sodium 137 Potassium 4.4 Chloride 102 Carbon Dioxide 29 BUN 18 H Creatinine 0.77 Estimated GFR > 60.0 BUN/Creatinine Ratio 23.4 H Glucose 113 H Lactate Calcium 9.3 Total Bilirubin 0.4 AST 35 ALT 15 Alkaline Phosphatase 95 Ammonia Total Creatine Kinase 28 L CK-MB (CK-2) TNP CK-MB (CK-2) Rel Index TNP Troponin I < 0.012 Total Protein 8.0 Albumin 4.3 Globulin 3.7 Albumin/Globulin Ratio 1.2 Procalcitonin Urine Color Urine Appearance Urine pH Ur Specific [place] Urine Protein Urine Glucose (UA) Urine Ketones Urine Occult Blood Urine Nitrate Urine Bilirubin Urine Urobilinogen Ur Leukocyte Esterase Urine RBC Urine WBC Ur Squamous Epith Cells Amorphous Sediment Urine Bacteria Urine Mucus Ur Culture Indicated? U Opiates 300ng/mL cut Ur Oxycodone Screen Urine Methadone Screen Ur Barbiturates Screen U Tricyclic Antidepress Ur Phencyclidine Scrn Ur Amphetamines Screen U Methamphetamines Scrn Ur MDMA Scrn (Ecstasy) U Benzodiazepines Scrn Urine Cocaine Screen U Marijuana (THC) Screen 10/28/19 10/28/19 10/28/19 17:15 17:15 17:15 WBC RBC Hgb Hct MCV MCH MCHC RDW Plt Count Neut % (Auto) Lymph % (Auto) [place] % (Auto) Eos % (Auto) Baso % (Auto) Neut # (Auto) Lymph # (Auto) [place] # (Auto) Eos # (Auto) Baso # (Auto) PT INR APTT Sodium Potassium Chloride Carbon Dioxide BUN Creatinine Estimated GFR BUN/Creatinine Ratio Glucose Lactate 1.6 Calcium Total Bilirubin AST ALT Alkaline Phosphatase Ammonia < 9 L Total Creatine Kinase CK-MB (CK-2) CK-MB (CK-2) Rel Index Troponin I Total Protein Albumin Globulin Albumin/Globulin Ratio Procalcitonin < 0.05 Urine Color Urine Appearance Urine pH Ur Specific Metz Urine Protein Urine Glucose (UA) Urine Ketones Urine Occult Blood Urine Nitrate Urine Bilirubin Urine Urobilinogen Ur Leukocyte Esterase Urine RBC Urine WBC Ur Squamous Epith Cells Amorphous Sediment Urine Bacteria Urine Mucus Ur Culture Indicated? U Opiates 300ng/mL cut Ur Oxycodone Screen Urine Methadone Screen Ur Barbiturates Screen U Tricyclic Antidepress Ur Phencyclidine Scrn Ur Amphetamines Screen U Methamphetamines Scrn Ur MDMA Scrn (Ecstasy) U Benzodiazepines Scrn Urine Cocaine Screen U Marijuana (THC) Screen 10/28/19 10/28/19 20:13 20:13 WBC RBC Hgb Hct MCV MCH MCHC RDW Plt Count Neut % (Auto) Lymph % (Auto) [place] % (Auto) Eos % (Auto) Baso % (Auto) Neut # (Auto) Lymph # (Auto) [place] # (Auto) Eos # (Auto) Baso # (Auto) PT INR APTT Sodium Potassium Chloride Carbon Dioxide BUN Creatinine Estimated GFR BUN/Creatinine Ratio Glucose Lactate Calcium Total Bilirubin AST ALT Alkaline Phosphatase Ammonia Total Creatine Kinase CK-MB (CK-2) CK-MB (CK-2) Rel Index Troponin I Total Protein Albumin Globulin Albumin/Globulin Ratio Procalcitonin Urine Color Yellow Urine Appearance Clear Urine pH 5.0 Ur Specific Metz >=1.030 H Urine Protein Negative Urine Glucose (UA) Negative Urine Ketones Negative Urine Occult Blood Negative Urine Nitrate Negative Urine Bilirubin Negative Urine Urobilinogen 0.2 Ur Leukocyte Esterase Negative Urine RBC None seen Urine WBC 1-5/hpf Ur Squamous Epith Cells 0-1 /hpf Amorphous Sediment 1+ Urine Bacteria None seen Urine Mucus 1+ H Ur Culture Indicated? Cult not indicated U Opiates 300ng/mL cut Positive H Ur Oxycodone Screen Negative Urine Methadone Screen Negative Ur Barbiturates Screen Negative U Tricyclic Antidepress Negative Ur Phencyclidine Scrn Negative Ur Amphetamines Screen Negative U Methamphetamines Scrn Negative Ur MDMA Scrn (Ecstasy) Negative U Benzodiazepines Scrn Negative Urine Cocaine Screen Negative U Marijuana (THC) Screen Negative Assessment & Plan Assessment & Plan narrative: 1. Probable TIA, acute, present on admission, active. -Patient with onset of symptoms today with drowsiness, confusion and disorientation at her assisted living facility. Upon arrival to the ER the patient was disoriented and unable to state date month or year with difficulty word finding. -Medical record identifies history of TIA without a specific date which is verified by the patient. -A head CT finds no acute intracranial pathology with chronic ischemic white matter changes and mild to moderate cerebral volume loss. - markers are all normal with a white count of 8.4, lactic acid 1.6 and procalcitonin less than 0.05. History current UTIs with urine showing no infection. -ABCD2 score is 4, NIH score is 1. -Patient has artificial mitral valve implanted in 1993, ordered CT angiogram of the head neck. -Ordered echocardiogram. -Patient is already anticoagulated on Coumadin. -Obtain lipid panel. 2. Chronic atrial fibrillation, anticoagulated on Coumadin, present on admission, active. -The patient denies chest pain or palpitations. -Twelve lead EKG identifies atrial fibrillation with ventricular rate of 85 without ectopy or aberrancy or ischemia. -Patient anticoagulated on warfarin 4 mg daily with an INR of 2.6. Will continue current home warfarin dosing. -Will continue home regimen of metoprolol 75 mg in the morning and 50 mg at night. -Patient will be on telemetry. 3. Diastolic heart failure, chronic, stable. -Patient denies shortness of breath cough or wheezing with history of CHF. -Medical record of previous encounter identifies ejection fraction 35-40%, no echocardiogram results are available for review. -No evidence of pulmonary edema on chest x-ray or exam. -Will continue present home regimen of furosemide, spironolactone and metoprolol. -Echocardiograms ordered for evaluation of TIA as noted above. 4. Essential Hypertension, chronic, stable. -Blood pressure is adequately controlled with a pressure on arrival 119/58. -Will continue present home regimen of furosemide, spironolactone and metoprolol. 5. Recurrent UTIs, chronic, stable. -Urinalysis today is unremarkable except for concentrated urine with a specific gravity of greater than 1.030. -Will continue home regimen of methimazole 5 mg daily 6. Gastroesophageal reflux, chronic, stable. -No complaints of heartburn, nausea vomiting. -Will continue home regimen of omeprazole 40 mg daily. 7. COPD, chronic, stable Patient denies shortness of breath cough or wheezing. Continue patient's home regimen of Ventolin and beclomethasone inhalers. VTE prophylaxis: SCDs, anticoagulated on warfarin IV fluid: Saline lock Diet: Heart healthy, low-sodium Code status: FULL CODE The patient is admitted to the hospital for confusion and apparent aphasia in the setting of previous TIA. The patient is admitted as observation with expected length of stay to be less than 2 midnights. Scores GCS Makenna coma scale eye opening: Spontaneous [place] coma scale verbal response: Confused [place] coma scale motor response: Obey commands Makenna coma scale total score: 14 ABCD2 Age >= 60 years: yes Initial BP. Either SBP >= 140 or DBP >= 90.: no Clinical features of the TIA: speech disturbance without weakness Duration of symptoms: >= 60 minutes History of diabetes: no ABCD2 Score: 4 NIHSS Level of Conciousness: Alert, keenly responsive Ask month/age: Answers both questions correctly. Open/close eyes, close hand: Performs both tasks correctly Best gaze horizontal: Normal Visual salcedo: No visual loss Facial palsy: Normal symetrical movement Left arm drift: No drift for full 10 sec Right arm drift: No drift for full 10 sec Left leg drift: No drift for full 5 sec Right leg drift: No drift for full 5 sec Limb ataxia: Absent Sensory on face/arms/legs: Normal, no sensory loss Best language: Mild to moderate, slurs some words Dysarthria: Normal Extinction or inattention: No abnormality Total NIH Stroke scale score: 1 Quality VTE Deep Vein Thrombosis/Pulmonary Embolism Present on Admission: No
--- NOTE | 2019-10-29 04:02 | DI.ECHO.S_ITS ---
[place] +---------+ [facility] +---------+ : : [address] : : : : [id number] : : : : Phone: [phone] Echocardiogram Report + + :Name: EJ ARIAS Study Date: 10/29/2019 Height: 62 in : :[facility] Weight: 193 lb : : Gender: Female BSA: 1.9 m2 : :: 1945 Age: 74 yrs BP: 131/59 mmHg: :Reason For Study: AFIB, TIA : :Ordering Physician: Nathaniel : :Hospitalist Performed By: Sharon Gustafson : :Referring: MAT ZHU : + + Interpretation Summary The left ventricle is not well visualized but systolic function is likely moderately reduced with the ejection fraction grossly estimated to be 35-40% with a mild dyssynchronous contraction pattern, consistent with a conduction abnormality, and moderate global hypokinesis that may be worse in the inferoposterior segments but this area is not well seen yet appears unchanged from the previous study. The left ventricle is mild-moderately dilated. There has been no significant change since the previous study. The right ventricle is not well visualized but grossly appears normal in size with probable normal systolic function. Right ventricular systolic pressure is estimated to be 31 mmHg plus the clinically estimated CVP which cannot be estimated on this exam, and is likely similar to the previous study. The left atrium is severely dilated and is likely slightly larger compared to the previous study. There is a mechanical mitral valve that is not well visualized but appears to be well-seated and grossly appears to open well. The mitral valve mean gradient is 8 mmHg. Mitral regurgitation cannot be assessed because of acoustic shadowing from the mechanical prosthesis. There is mild tricuspid regurgitation that is less prominent compared to the previous study. The aortic valve is moderately calcified with probable mild aortic stenosis that is likely slightly progressive compared to the previous study with a peak aortic velocity of 2.2 m/s and a mean gradient of 10 mmHg. The aortic arch is at the upper limits of normal in size and measures slightly larger compared to the previous study. The patient was in atrial fibrillation with heart rates between 88-91 bpm during the exam which is new compared to the previous study. Procedure: A two-dimensional transthoracic echocardiogram with color flow and Doppler was performed. The study quality was technically difficult. A contrast injection of Definity was performed to improve assessment of LV function. Contrast was injected into an intravenous site in the left arm. Definity contrast administered after patient education and consent. Patient denied any symptoms after the use of Definity. The patient was in atrial fibrillation with heart rates between 88-91 bpm during the exam. This is new compared to the previous study. Left Ventricle: The left ventricle is mild-moderately dilated. Left ventricular wall thickness is mildly increased. The left ventricle is not well visualized. Left ventricular systolic function is moderately reduced. The ejection fraction is estimated to be 35-40%. There is a mild dyssynchronous contraction pattern, consistent with a conduction abnormality. There is moderate global hypokinesis of the left ventricle. That may be worse in the inferoposterior segments but this area is not well seen and appears unchanged from the previous study. Unable to assess diastology due to mitral valve replacement and atrial fibrillation. There has been no significant change since the previous study. Right Ventricle: The right ventricle is not well visualized. The right ventricle grossly appears normal in size with probable normal systolic function. Atria: The left atrium is severely dilated. This is likely slightly larger compared to the previous study. Right atrium not well visualized secondary to technical limitations. There is no Doppler evidence for an interatrial shunt. Mitral Valve: The mitral valve is not well visualized. There is a mechanical mitral valve. The prosthetic mitral valve is well-seated. But grossly appears to open well. The mitral valve mean gradient is 8 mmHg. Unable to assess for mitral regurgitation because of acoustic shadowing from the mechanical prosthesis. Aortic Valve: The aortic valve is moderately calcified. There is moderately reduced leaflet mobility. There is mild aortic stenosis. This is likely slightly progressive compared to the previous study. The peak aortic velocity is 2.2 m/sec. The aortic valve mean gradient is 10 mmHg. No aortic regurgitation is present. Tricuspid Valve: The tricuspid valve is not well visualized. There is mild tricuspid regurgitation. This is less prominent compared to the previous study. Right ventricular systolic pressure is estimated to be 31 mmHg plus the clinically estimated CVP which cannot be estimated on this exam. And is likely similar to the previous study. Pulmonic Valve: The pulmonic valve is not well visualized. There is trace pulmonic regurgitation. Great Vessels: The aortic root is normal size. The ascending aorta is normal in size. The aortic arch is at the upper limits of normal in size. This is slightly larger compared to the previous study. The inferior vena cava was not visualized. Pericardium/ Pleura There is no pericardial effusion. There is no pleural effusion. MMode/2D Measurements & Calculations LVIDd: 5.8 cm LVOT diam: 2.0 cm LVIDs: 4.8 cm Ao root diam: 2.8 cm FS: 17.3 % asc Aorta Diam: 3.1 cm IVSd: 0.89 cm Ao Arch Diam (Prox Trans): 3.0 cm LVPWd: 1.2 cm LV lopez. diameter/BSA (cm/m^2): 3.1 LV sys. diameter/BSA (cm/m^2): 2.5 LA A2 area: 23.6 cm2 LA A4 area: 36.0 cm2 LA length (vol): 7.3 cm LA vol: 98.4 ml LA vol index: 52.3 ml/m2 Doppler Measurements & Calculations Ao V2 max: 224.6 cm/sec LVOT Max Levy: 83.3 cm/sec Ao V2 mean: 146.2 cm/sec LV V1 max P.8 mmHg Ao max P.2 mmHg LV V1 VTI: 15.6 cm Ao mean P.0 mmHg ERENDIRA(I,D): 1.1 cm2 Ao V2 VTI: 44.9 cm ERENDIRA(V,D): 1.1 cm2 sev ratio: 0.35 ERNEDIRA indexed to BSA (cm^2/m^2): 0.56 Med Peak E' Levy: 3.5 cm/sec TR max levy: 278.9 cm/sec Lat Peak E' Levy: 6.3 cm/sec TR max P.1 mmHg MVA(VTI): 1.2 cm2 PA V2 max: 100.9 cm/sec PA V2 mean: 70.6 cm/sec PA mean P.2 mmHg PA pr(Accel): 43.2 mmHg PA Accel Time: 0.07 sec MV V2 mean: 136.1 cm/sec SV(LVOT): 47.4 ml MV mean P.3 mmHg MV V2 VTI: 38.3 cm Reading Physician:INGRID
[2019-10-29 05:37] LABS: INR 2.5 (0.9-1.3); Prothrombin Time 28.7 SECONDS (10.1-12.7)
[2019-10-29 05:41] LABS: BUN Creatinine Ratio 27.1 (6-22); Blood Urea Nitrogen 16 mg/dL (7-17); Calcium 9.3 mg/dL (8.4-10.2); Carbon Dioxide 30 mmol/L (22-32); Chloride 102 mmol/L (98-107); Cholesterol 297 mg/dL (140-199); Estimated Glomerular Filt Rate > 60.0 mL/min (>60); Glucose 103 mg/dL (80-110); HDL Cholesterol 19 mg/dL (40-60); HEMOLYSIS < 15 (0-50); LDL Cholesterol Calculated 234 mg/dL (<100); Magnesium 2.2 mg/dL (1.6-2.3); Sodium 137 mmol/L (137-145); Triglycerides 220 mg/dL (35-150)
[2019-10-29 05:45] VITALS: BP 118/62; PULSE 82; RESP 18; TEMP 36.3; O2SAT 97
[2019-10-29] MEDS: PANTOPRAZOLE 40 MG TABLET PO (07:00)
[2019-10-29 07:34] LABS: Hemoglobin A1C% w Est Avg Glu 5.1 % (4.0-6.0)
[2019-10-29] MEDS: NYSTATIN POWDER 15GM 1 APPLIC TOP (08:21)
[2019-10-29] MEDS: CALCIUM CARBONATE 500 MG TAB PO (08:21)
[2019-10-29] MEDS: DOCUSATE 100 MG CAPSULE 200 MG PO (08:21)
[2019-10-29] MEDS: methIMAzole 5 MG TABLET PO (08:21)
[2019-10-29] MEDS: SENNOSIDES 8.6 MG TABLET 17.2 MG PO (08:22)
[2019-10-29] MEDS: FUROSEMIDE 40 MG TABLET 80 MG PO (08:22)
[2019-10-29] MEDS: SPIRONOLACTONE 25 MG TABLET PO (08:23)
[2019-10-29] MEDS: MAGNESIUM CHLORIDE 64 MG TABLET 128 MG PO (08:23)
[2019-10-29] MEDS: METOPROLOL IR 25 MG TABLET 75 MG PO (08:23)
[2019-10-29 08:30] VITALS: BP 113/67; PULSE 92; RESP 16; TEMP 36.6; O2SAT 95
[2019-10-29 08:43] VITALS: O2SAT 96
[2019-10-29] MEDS: BECLOMETHASONE 40 MCG INH 10.6 GM 2 PUFF INH (08:43)
--- NOTE | 2019-10-29 09:10 | CM.DANOTE ---
Addendum entered by CLARENCE Infante 10/29/19 11:12: ADD: Per ST, completed cog eval and pt scored fairly low of 9 out of 30 with significant dementia. RON called pt's Dtr/DPOA Swati and explained role and updated on pt status and Cog Eval. Dtr confirms that she is still pt's DPOA and pt's spouse still resides with pt at [facility] and that pt's last Cog Eval was a few years ago and that she had scored higher than a 9 but Dtr could not remember the score at that time. Dtr agreeable to return to [facility] today if medically stable and that she cannot provide transport back as she typically would as [facility] is taking extra precautions due to COVID 19 in the [facility]. RON called [facility] and spoke to Tabitha and updated on SLUMS/Cog Eval results and that pt still stable for discharge and she confirms they can accept back and will provide transport back via pt's w/c at 1230 today. RON updated MD, RN, PNEUMATIC SYSTEM CONVEYOR OPERATOR, video game developer and will fax d/c summary, Cog Eval, and signed med rec to [facility] to review. Plan: Patient to d/c back to [facility] today via facility w/c van at 1230. CLARENCE Infante Original Note: Patient is a 74 year old female who was admitted on 10/28/19 for Confusion. Pt has [facility] for insurance and her PCP is Dr. Amna Franco. EMR was reviewed. Per MD, pt with hx of being mostly wheelchair and bedbound at baseline with a hx of UTI's. Pt was ruled out for Stroke and negative for UTI and likely TIA. Pt medically stable to d/c back to Assisted Living after ST eval and recommendations. RON called Anabell at [facility] and confirmed pt is still a long time resident there and RON updated on above and pt likely being ready for d/c back today, which is under 24 hours and no bedside assessment needed. RON faxed requested clinicals to review and waiting for ST eval. Plan: SW to follow for MARILOU review of pt towards likely d/c back today pending ST eval and recommendations. CLARENCE Infante Discharge Planning/Care Management CM Discharge Assessment Start: 10/29/19 09:08 Freq: Status: Active Protocol: Document 03/25/20 09:08 BF (Rec: 10/29/19 09:10 [id number]) Discharge Planning Assessment Assigned Segmental Paving Supervisor SHERON Easley DPOA/Assigned Designee Name Dtr Swati Advance Directives? Yes Advance Directives on File Yes History Provided By Family Member,Medical Record Has Patient been admitted in last 30 No days? Prior Living Arrangements Assisted Living Household Members other Type of transporation used prior to Relies on Others admit Comment [facility] Facility Name Admitted From: [facility] Willing to Return to Facility? Yes Independent with ADL's No Is patient alert and oriented? No Needs Assistance With Bathing,Meal Prep,Toileting, Managing Medications Caregiver for Another No DME Already Rented / Owned Wheelchair Comment Return to Assisted Living Barriers to Discharge No Discharge Plan Assisted Living Facility Transportation Arrangement Facility to provide transport for return Referrals Initiated None needed Review Status In Process Please Provide Date Initial DC 10/29/19 Assessment Was Performed Next Review Type Continued Stay Review
--- NOTE | 2019-10-29 09:36 | OT.IP.TRT ---
Occupational Therapy Treatment Note M3 OT- IP Subjective and Pain Start: 10/29/19 09:34 Freq: Status: Active Protocol: Document 10/29/19 09:34 [email or web address] (Rec: 10/29/19 09:35 PJM [id number]) OT- Subjective Occupational Therapy Visit Type Type Administrative Note Visit Start Time 09:[address] garay has cancelled OT order on this pt, as she appears to be at her baseline level of self care function.
--- NOTE | 2019-10-29 10:04 | PM.DS.1 ---
History of Present Illness History of Present Illness Date Patient Seen: 10/28/19 Chief complaint: Confusion Narrative: Written by Karel CHAMPAGNE: Ms. Vivi Yeh is a 74-year-old female with history significant for atrial fibrillation anticoagulated on Coumadin, coronary artery disease status post CABG and mitral valve replacement in 1993, diastolic heart failure, COPD, recurrent UTIs, TIA, hypertension, hyperlipidemia, degenerative disc disease and dementia who presents to the ER via EMS from [facility] for altered mental status. The patient was sent to the ER following the RN finding the patient to be drowsy with confusion and disorientation. The patient's family is notified who states that the patient has previously presented with the symptoms with urinary tract infection. At baseline the patient is fully oriented and lives with her in the assisted living facility. The patient reports no complaints of headaches or dizziness and no visual changes. She is predominantly bed bound in use a wheelchair for mobilization. She sustained no recent falls and reports no weakness. She states she has always feeling cold and denies fevers. She denies complaints of chest pain or palpitations, shortness of breath has a chronic cough. She denies abdominal pain has no heartburn, nausea or vomiting. She denies complaints he urinary symptoms with no burning urgency or frequency and no hematuria. She reports irregular stooling hearing between constipation and loose stool. Upon arrival to the ER the patient is afebrile with a temperature of 98.2?. Her heart rate is 90 with a BP of 119/58, respirations of 18 saturating 93% on room air. Head CT is obtained which finds no acute intracranial processes, mild to moderate cerebral volume loss with chronic white matter ischemic changes. Chest x-ray finds mild chronic interstitial prominence without acute cardiopulmonary processes. Her EKG finds atrial fibrillation with ventricular rate of 85. On laboratory analysis she has white count of 8.4, hemoglobin of 13.2, hematocrit of 40.0 and platelets of 288. Her electrolytes are within normal limits and she has a BUN of 18 and creatinine is 0.77. Her nonfasting glucose is 113. Her liver functions are all within normal range. She has a PT of 29.6 with an INR of 2.6 and PTT of 45. She has lactic acid of 1.6, procalcitonin less than 0.05. She has a total CK low at 28 with a negative troponin at less than 0.012. Urinalysis finds no infection but is concentrated with a specific gravity greater than 1.030. On ER evaluation the patient is oriented to person and place only and demonstrates difficulty word finding. The patient is admitted for altered mental status rule out TIA. Discharge Providers Provider Date of admission: 10/28/19 22:55 Discharge Date: 10/29/19 Primary care physician: Amna Franco MD Consults: 10/28/19 23:43 Consult to Occupational Therapy Evaluate & Treat Comment: Altered mental status, TIA, dementia evaluation Physician Instructions: Evaluate and treat 10/29/19 01:10 Consult to Dietitian, Adult Routine Comment: Reason For Exam: assessed at high risk 10/29/19 07:14 Consult to Speech Therapy Evaluate & Treat Comment: Physician Instructions: Evaluate and treat Discharge provider: Chasidy Dodge DO Summary Hospital Course Discharge Diagnosis: 1. Acute drowsiness and confusion in setting of dementia, present on admission. Acute confusion resolved. 2. Chronic atrial fibrillation on warfarin, present on admission. Stable. 3. Diastolic heart failure, chronic, present on admission. Stable. 4. Hypertension, chronic, present on admission. Stable. 5. History of recurrent UTIs. 6. Gastroesophageal reflux, chronic, present on admission. Stable. 7. COPD, chronic, present on admission. Stable Hospital Course: Vivi Yeh is a 74-year-old female with a past medical history significant for CAD status post CABG and mitral valve replacement (1993), hypertension, hyperlipidemia, chronic atrial fibrillation on warfarin, diastolic heart failure, COPD, TIA, recurrent UTIs, degenerative disc disease and dementia who presented to the ED via EMS from [facility] for altered mental status. 1. Acute drowsiness and confusion in setting of dementia, present on admission. Acute confusion resolved. -Likely secondary to sleep deprivation in the context of moderate dementia (patient reports she has not been sleeping well at her assisted living facility due to noise) versus possible TIA versus worsening dementia. Patient does not seem significantly confused but rather disoriented due to dementia. -Initial NIH score 1 for expressive aphasia. NIH score now 0. -Initial GCS 14. -No signs or symptoms of infectious etiology including: Afebrile. Normal WBC 8.4, lactic acid 1.6 and procalcitonin < 0.05. Patient has a history of recurrent UTIs with normal urinalysis and no UTI identified. Chest x-ray demonstrated chronic interstitial prominence without acute cardiopulmonary findings. -CTA head and neck did not demonstrate acute CVA with asymmetric proximal internal carotid artery stenosis, right greater than left, estimated at approximately 70% stenosis on the right or greater, and approximately 50% stenosis on the left. -Echocardiogram did not demonstrate any embolic source or interatrial shunt. -Continued to monitor closely on telemetry. No significant ectopy other than chronic atrial fibrillation. -Risk stratified with hemoglobin A1c which was normal at 5.1% and fasting lipid panel which demonstrated poor lipid control including: Total cholesterol 290, triglycerides 220, LDL 234, HDL 19. -Patient is therapeutic on warfarin with INR 2.6. Continue warfarin 4 mg daily in the evening and added rosuvastatin 20 mg daily at bedtime and [place] 3 1000 mg twice daily for stroke prophylaxis and cardiovascular protection. -Ordered speech therapy evaluation and treatment. Speech therapy performed SLUMS which demonstrated moderate to severe dementia with score +9/30. 2. Chronic atrial fibrillation on warfarin, present on admission. Stable. -The patient denies chest pain or palpitations. -EKG demonstrated atrial fibrillation with heart rate of 85 without ectopy, aberrancy or ischemia. -INR therapeutic at 2.6. Continue home warfarin 4 mg daily in the evening. -Continued metoprolol tartrate 75 mg daily in the morning and 50 mg daily in the evening. -Continued to monitor closely on telemetry. 3. Diastolic heart failure, chronic, present on admission. Stable. -Does not represent CHF exacerbation. Patient denies shortness of breath, cough or wheezing. -Medical record of previous encounter identifies ejection fraction 35-40%, no echocardiogram results are available for review. -No evidence of pulmonary edema on chest x-ray or clinical exam. -Continued home furosemide 80 mg daily, metoprolol tartrate 75 mg daily in the morning and 50 mg daily in the evening, spironolactone 25 mg daily. 4. Hypertension, chronic, present on admission. Stable. -Blood pressure is adequately controlled with initial blood pressure 119/58 on admission. -Continued home furosemide 80 mg daily, metoprolol tartrate 75 mg daily in the morning and 50 mg daily in the evening, spironolactone 25 mg daily. 5. History of recurrent UTIs. -Urinalysis unremarkable except for concentrated urine with a specific gravity of greater than 1.030. UTI ruled out. 6. Gastroesophageal reflux, chronic, present on admission. Stable. -No complaints of heartburn, nausea or vomiting. -Continued home omeprazole 40 mg daily. 7. COPD, chronic, present on admission. Stable -Does not represent COPD exacerbation. Patient denies shortness of breath, cough or wheezing. -Continued home Ventolin and beclomethasone inhalers. Exam Vital Signs (past 8 hours): - 10/29/19 05:45 10/29/19 08:30 10/29/19 08:43 Temperature 97.4 F L 97.9 F Pulse Rate 82 92 H Respiratory Rate 18 16 Blood Pressure 118/62 113/67 Pulse Oximetry 97 95 96 Oxygen Delivery Method Room Air Oxygen Flow Rate 0 Narrative Exam Narrative: General: Elderly female lying in bed and in no acute distress, well-developed, well-nourished, somnolent but arousable, moderate to severe dementia with short-term memory recall deficit but otherwise appropriately interactive. HEENT: Normocephalic, atraumatic. External ears without defect. Pupils equal, round, and reactive to light and accommodation. Anicteric sclerae, moist conjunctivae, and no lid lag. Oropharynx free of erythema and cobble stoning with moist mucosa. Neck: Supple with full range of motion. No jugular venous distension. No bruits. No lymphadenopathy or thyromegaly. Cardiovascular: Irregularly irregular without murmurs, rubs, or gallops appreciated Pulmonary: Clear to auscultation bilaterally without crackles, wheezes, or rhonchi. Normal respiratory effort with no use of accessory muscles. Abdomen: Soft, obese, bowel sounds present, nontender, nondistended. No hepatosplenomegaly or masses appreciated. Extremities: No clubbing, cyanosis, or edema. Skin: Normal temperature, turgor, and texture; no rash, ulcers, or subcutaneous nodules appreciated. Neurological: Cranial nerves grossly intact. Generalized weakness but symmetrical muscle strength, tone, and bulk. Reflexes, coordination, and sensory function within normal limits. No obvious expressive aphasia appreciated. Psychiatric: Normal mood and affect. Alert and oriented to person, place, and time. Moderate to severe dementia with short-term memory recall deficit. Objective Labs Result Diagrams: 10/28/19 17:15 10/29/19 05:07 Labs: Laboratory Results - last 24 hr 10/28/19 10/28/19 10/28/19 17:15 17:15 17:15 WBC 8.4 RBC 4.75 Hgb 13.2 Hct 40.4 MCV 85.0 MCH 27.7 MCHC 32.6 RDW 16.4 H Plt Count 288 Neut % (Auto) 61.0 Lymph % (Auto) 27.8 [place] % (Auto) 8.9 Eos % (Auto) 0.9 L Baso % (Auto) 1.4 Neut # (Auto) 5100 Lymph # (Auto) 2300 [place] # (Auto) 700 Eos # (Auto) 100 Baso # (Auto) 100 PT 29.6 H INR 2.6 H APTT 45 H D Sodium 137 Potassium 4.4 Chloride 102 Carbon Dioxide 29 BUN 18 H Creatinine 0.77 Estimated GFR > 60.0 BUN/Creatinine Ratio 23.4 H Glucose 113 H Hemoglobin A1c Lactate Calcium 9.3 Magnesium Total Bilirubin 0.4 AST 35 ALT 15 Alkaline Phosphatase 95 Ammonia Total Creatine Kinase 28 L CK-MB (CK-2) TNP CK-MB (CK-2) Rel Index TNP Troponin I < 0.012 Total Protein 8.0 Albumin 4.3 Globulin 3.7 Albumin/Globulin Ratio 1.2 Triglycerides Cholesterol LDL Cholesterol, Calc HDL Cholesterol Procalcitonin Urine Color Urine Appearance Urine pH Ur Specific [place] Urine Protein Urine Glucose (UA) Urine Ketones Urine Occult Blood Urine Nitrate Urine Bilirubin Urine Urobilinogen Ur Leukocyte Esterase Urine RBC Urine WBC Ur Squamous Epith Cells Amorphous Sediment Urine Bacteria Urine Mucus Ur Culture Indicated? U Opiates 300ng/mL cut Ur Oxycodone Screen Urine Methadone Screen Ur Barbiturates Screen U Tricyclic Antidepress Ur Phencyclidine Scrn Ur Amphetamines Screen U Methamphetamines Scrn Ur MDMA Scrn (Ecstasy) U Benzodiazepines Scrn Urine Cocaine Screen U Marijuana (THC) Screen 10/28/19 10/28/19 10/28/19 17:15 17:15 17:15 WBC RBC Hgb Hct MCV MCH MCHC RDW Plt Count Neut % (Auto) Lymph % (Auto) [place] % (Auto) Eos % (Auto) Baso % (Auto) Neut # (Auto) Lymph # (Auto) [place] # (Auto) Eos # (Auto) Baso # (Auto) PT INR APTT Sodium Potassium Chloride Carbon Dioxide BUN Creatinine Estimated GFR BUN/Creatinine Ratio Glucose Hemoglobin A1c Lactate 1.6 Calcium Magnesium Total Bilirubin AST ALT Alkaline Phosphatase Ammonia < 9 L Total Creatine Kinase CK-MB (CK-2) CK-MB (CK-2) Rel Index Troponin I Total Protein Albumin Globulin Albumin/Globulin Ratio Triglycerides Cholesterol LDL Cholesterol, Calc HDL Cholesterol Procalcitonin < 0.05 Urine Color Urine Appearance Urine pH Ur Specific [place] Urine Protein Urine Glucose (UA) Urine Ketones Urine Occult Blood Urine Nitrate Urine Bilirubin Urine Urobilinogen Ur Leukocyte Esterase Urine RBC Urine WBC Ur Squamous Epith Cells Amorphous Sediment Urine Bacteria Urine Mucus Ur Culture Indicated? U Opiates 300ng/mL cut Ur Oxycodone Screen Urine Methadone Screen Ur Barbiturates Screen U Tricyclic Antidepress Ur Phencyclidine Scrn Ur Amphetamines Screen U Methamphetamines Scrn Ur MDMA Scrn (Ecstasy) U Benzodiazepines Scrn Urine Cocaine Screen U Marijuana (THC) Screen 10/28/19 10/28/19 10/29/19 20:13 20:13 05:07 WBC RBC Hgb Hct MCV MCH MCHC RDW Plt Count Neut % (Auto) Lymph % (Auto) [place] % (Auto) Eos % (Auto) Baso % (Auto) Neut # (Auto) Lymph # (Auto) [place] # (Auto) Eos # (Auto) Baso # (Auto) PT 28.7 H INR 2.5 H APTT Sodium Potassium Chloride Carbon Dioxide BUN Creatinine Estimated GFR BUN/Creatinine Ratio Glucose Hemoglobin A1c Lactate Calcium Magnesium Total Bilirubin AST ALT Alkaline Phosphatase Ammonia Total Creatine Kinase CK-MB (CK-2) CK-MB (CK-2) Rel Index Troponin I Total Protein Albumin Globulin Albumin/Globulin Ratio Triglycerides Cholesterol LDL Cholesterol, Calc HDL Cholesterol Procalcitonin Urine Color Yellow Urine Appearance Clear Urine pH 5.0 Ur Specific [place] >=1.030 H Urine Protein Negative Urine Glucose (UA) Negative Urine Ketones Negative Urine Occult Blood Negative Urine Nitrate Negative Urine Bilirubin Negative Urine Urobilinogen 0.2 Ur Leukocyte Esterase Negative Urine RBC None seen Urine WBC 1-5/hpf Ur Squamous Epith Cells 0-1 /hpf Amorphous Sediment 1+ Urine Bacteria None seen Urine Mucus 1+ H Ur Culture Indicated? Cult not indicated U Opiates 300ng/mL cut Positive H Ur Oxycodone Screen Negative Urine Methadone Screen Negative Ur Barbiturates Screen Negative U Tricyclic Antidepress Negative Ur Phencyclidine Scrn Negative Ur Amphetamines Screen Negative U Methamphetamines Scrn Negative Ur MDMA Scrn (Ecstasy) Negative U Benzodiazepines Scrn Negative Urine Cocaine Screen Negative U Marijuana (THC) Screen Negative 10/29/19 10/29/19 05:07 05:07 WBC RBC Hgb Hct MCV MCH MCHC RDW Plt Count Neut % (Auto) Lymph % (Auto) [place] % (Auto) Eos % (Auto) Baso % (Auto) Neut # (Auto) Lymph # (Auto) [place] # (Auto) Eos # (Auto) Baso # (Auto) PT INR APTT Sodium 137 Potassium 4.0 Chloride 102 Carbon Dioxide 30 BUN 16 Creatinine 0.59 Estimated GFR > 60.0 BUN/Creatinine Ratio 27.1 H Glucose 103 Hemoglobin A1c 5.1 Lactate Calcium 9.3 Magnesium 2.2 Total Bilirubin AST ALT Alkaline Phosphatase Ammonia Total Creatine Kinase CK-MB (CK-2) CK-MB (CK-2) Rel Index Troponin I Total Protein Albumin Globulin Albumin/Globulin Ratio Triglycerides 220 H Cholesterol 297 H LDL Cholesterol, Calc 234 H HDL Cholesterol 19 L Procalcitonin Urine Color Urine Appearance Urine pH Ur Specific [place] Urine Protein Urine Glucose (UA) Urine Ketones Urine Occult Blood Urine Nitrate Urine Bilirubin Urine Urobilinogen Ur Leukocyte Esterase Urine RBC Urine WBC Ur Squamous Epith Cells Amorphous Sediment Urine Bacteria Urine Mucus Ur Culture Indicated? U Opiates 300ng/mL cut Ur Oxycodone Screen Urine Methadone Screen Ur Barbiturates Screen U Tricyclic Antidepress Ur Phencyclidine Scrn Ur Amphetamines Screen U Methamphetamines Scrn Ur MDMA Scrn (Ecstasy) U Benzodiazepines Scrn Urine Cocaine Screen U Marijuana (THC) Screen Discharge Plan Discharge Plan [facility] Facility vehicle Discharge orders & Medications Discharge Orders: Discharge (Order); Ordered 10/29/19 Ordered By: Chasidy Dodge Prescriptions: New rosuvastatin 10 mg Tablet 20 mg PO BEDTIME Qty: 60 RF: 0 omega-3 fatty acids 1,000 mg capsule 1,000 mg PO BID Qty: 60 RF: 0 melatonin 10 mg capsule 10 mg PO BEDTIME PRN (Reason: sleep) Qty: 30 RF: 0 Continued furosemide 80 MG tablet 80 mg PO QDAY Qty: 0 RF: 0 docusate sodium 100 mg Capsule 200 mg PO DAILY RF: 0 omeprazole 40 mg Capsule,Delayed Release(Dr/Ec) 40 mg PO DAILY RF: 0 spironolactone 25 mg Tablet 25 mg PO DAILY RF: 0 calcium carbonate [Tums] 200 mg calcium (500 mg) Tablet,Chewable 2 tab PO TID PRN (Reason: Indigestion) RF: 0 metoprolol tartrate [Lopressor] 50 mg Tablet See Rx Instructions .ROUTE .COMPLEX RF: 0 methimazole 5 mg Tablet 5 mg PO DAILY RF: 0 nystatin 100,000 unit/gram Powder 1 applic TOPICAL TID PRN (Reason: yeast) RF: 0 albuterol sulfate [Ventolin HFA] 90 mcg/actuation Hfa Aerosol Inhaler 2 puff Inhalation Q4H PRN (Reason: Shortness Of Breath Or Wheezing) RF: 0 fluticasone propionate 50 mcg/actuation Kinta,Suspension 1 spray INTRANASAL DAILY RF: 0 lidocaine HCl 4 % Solution 1 applic Topical QAM RF: 0 potassium chloride 20 mEq Tablet Extended Release 20 meq PO BID RF: 0 warfarin 3 mg Tablet 4 mg PO QPM RF: 0 ondansetron 4 mg Tablet,Disintegrating 4 mg PO Q4H PRN (Reason: Nausea) RF: 0 Qvar RediHaler 40 mcg/actuation Hfa Aerosol Breath Activated 2 puff Inhalation BID RF: 0 sennosides [senna] 8.6 mg Tablet 2 tab PO DAILY RF: 0 hydrocodone-acetaminophen 5 MG/325 MG tablet 1 tab PO QID MDD 3 gm apap PRN (Reason: Pain (Scale Score 4-6)) Qty: 10 RF: 0 Follow up/Referrals: Amna Franco MD [Primary Care Provider] - Diet/Activity/Treatments Diet: Low-fat, Low-sodium and Low-cholesterol Discharge Data Primary Care Provider: Amna Franco Attending Provider: Karel Becerril Admit Date/Time: 10/28/19 22:55 Quality VTE Deep Vein Thrombosis/Pulmonary Embolism Present on Admission: No
--- NOTE | 2019-10-29 11:54 | ST.IPIE ---
Visit Care Team Role Provider Type Amna Franco MD Primary Care Provider Physician Specialty: Medical Address: [address], [id number] Email: IHSAN Collier Emergency Provider Advanced Bed Operator Specialty: FP Address: [address] [place] [address], [id number] Email: IHSAN Carrera Admit Provider Physician Attending Provider Specialty: Internal Medicine Address: [address] [place] [address], [id number] Email: [email or web address] Past Medical History (Last Updated 10/29/19 @ 03:49 by IHSAN Carrera) CHF (congestive heart failure) (Chronic Medical) Diastolic heart failure Chronic a-fib (Chronic Medical) Chronic low back pain (Acute Medical) COPD (chronic obstructive pulmonary disease) (Chronic Medical) Degenerative disc disease (Acute Medical) Dementia (Acute Medical) Depression (Inactive Medical) GERD (gastroesophageal reflux disease) (Chronic Medical) Hyperlipidemia (Chronic Medical) Hypertension (Chronic Medical) Hyperthyroidism (Chronic Medical) TIA (transient ischemic attack) (Acute Medical) UTI (urinary tract infection) (Inactive Medical) ST IP 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 The patient's family is notified who states that the patient has previously presented with the symptoms with urinary tract infection. The patient is admitted for altered mental status rule out TIA. CT of head/brain indicated no intracerebral abnormality Educational Status Education Level some college per pt - Formal Assessment Standardized Test SLUMS Administration Complete Raw Score 05/05 - Cognition Orientation Skill Level Severely Impaired Comment did not know the day of the week and stated her age as 54 Attention Skill Level Severely Impaired Comment Pt would need several cues to return to task; easily distracted Divergent Naming Skill Level Severely Impaired Comment 2/6 points possible Auditory Math Skill Level Severely Impaired Comment 0/5 points possible Clock Drawing Skill Level Severely Impaired Comment 0/4 points possible - Memory Immediate Recall Skill Level Mildly Impaired Word Recall Skill Level Severely Impaired Comment 1/5 points possible Story Recall Skill Level Severely Impaired Comment 2/8 points possible - Findings Cognitive/Memory Impressions Pt presented with a SLUMs score of 9/30 which indicated severe dementia. She did not know her age or the day of the week. She was able to remember 1/5 words in a delayed recall task. Her mental math skills were severely impaired for computation as well as number reversal. Her clock drawing was illegible with several extraneous lines, misplaced numbers and one clock hand. Pt scored 1/8 on story recall task. It is unknown if this is a change in pt's behavior or this is her baseline. Recommendations Recommendations ST no indicated at this time Pt is scheduled to be discharged today. Treatment Goals Safety Investigator/Cause Analyst Goals Recommend SNF or memory care placement Total Time Full Evaluation Time 35
--- NOTE | 2019-10-29 12:24 | PC.NURSE ---
PT ORIENTED TO SELF AND HAPPY TO BE RETURNING TO HER HOME ( [facility]) labs wnl- other than her elevated chol/lipids - daughter aware of her transfer and report given to Rohini @ [facility]- awaitning transportaion
[2019-10-31 04:07] LABS: COVID19 Sendout Not Detected (Not Detected)
--- NOTE | 2019-10-31 08:16 | CM.DPNOTE ---
TC from Jeanne at [facility]. Updated her w/DC date and dispo JW
== END 2019-10-29 12:50 ==
LOC: ED 22:38 → AC 22:58
PROVIDERS: Internal Medicine; Admitting Provider Nurse Practitioner Adult Health; Emergency Provider Nurse Practitioner Family; PCP Internal Medicine; Visit Provider Nurse Practitioner Adult Health
DX: R41.0 Disorientation, unspecified (principal); R40.0 Somnolence; R47.1 Dysarthria and anarthria; I48.20 Chronic atrial fibrillation, unspecified; J44.9 Chronic obstructive pulmonary disease, unspecified; K21.9 Gastro-esophageal reflux disease without esophagitis; E78.5 Hyperlipidemia, unspecified; I10 Essential (primary) hypertension; E03.9 Hypothyroidism, unspecified; Z79.01 Long term (current) use of anticoagulants; Z95.1 Presence of aortocoronary bypass graft; I50.32 Chronic diastolic (congestive) heart failure; E66.9 Obesity, unspecified; Z68.35 Body mass index [BMI] 35.0-35.9, adult; Z86.73 Personal history of transient ischemic attack (TIA), and cerebral infarction without residual deficits; Z87.440 Personal history of urinary (tract) infections
CPT/HCPCS: 36415; 36592; 70450; 70496; 70498; 71045; 80048; 80053; 80061; 80305; 81001; 82140; 82550; 83036; 83605; 83735; 84145; 84484; 85025; 85610; 85730; 87040; 87635; 92523; 93005; 93306; 94640; 94760; 96360; 96361; 99284; G0378; Q9957; Q9967

== ENCOUNTER → 2019-11-07 10:45 | Outpatient (ROUT) | payer OTHER, SELFPAY ==
[2019-10-28 23:44] VITALS: BMI 35.3
[2019-11-07 11:01] LABS: INR 2.9 (0.9-1.3); Prothrombin Time 33.2 SECONDS (10.1-12.7)
== END ==
PROVIDERS: PCP Internal Medicine; Visit Provider Nurse Practitioner Family
DX: Z95.2 Presence of prosthetic heart valve (principal)
CPT/HCPCS: 36415; 85610

== ENCOUNTER 2019-11-10 13:20 | Emergency (ER) | payer OTHER, SELFPAY ==
[2019-10-28 23:44] VITALS: BMI 35.3
[2019-11-10] VITALS (7 sets, daily range): BP systolic 126–168; BP diastolic 60–75; PULSE 72–91; RESP 11–24; TEMP 36.6; O2SAT 93–97
--- NOTE | 2019-11-10 13:43 | DI.RAD.S_ITS ---
PROCEDURE: XR CHEST 1V INDICATIONS: flu-like symptoms TECHNIQUE: One view of the chest was acquired. COMPARISON: [facility], CR, XR CHEST 1V, 10/28/2019, 19:02. FINDINGS: Surgical changes and devices: Sternal wires, valve replacement and hilar clips are noted. Lungs and pleura: Lungs are clear. No pleural effusions or pneumothorax. Mild increased vascularity. Mediastinum: Mediastinal contours appear normal. Heart size is enlarged. Bones and chest wall: No suspicious bony lesions. Overlying soft tissues appear unremarkable. IMPRESSION: Mild increased vascularity suggestive of edema. Dictated by: Radha Sanchez M.D. on 11/10/2019 at 13:58 Approved by: Radha Sanchez M.D. on 11/10/2019 at 13:59
[2019-11-10 13:53] LABS: Add Manual Diff / Slide Review NO; Basophils Absolute Auto 100 /uL (0-100); Basophils Percent Auto 0.8 % (0-2); Eosinophils Absolute Auto 100 /uL (0-450); Eosinophils Percent Auto 0.9 % (2-4); Hematocrit 42.4 % (36-46); Hemoglobin 13.9 g/dL (12.0-16.0); Lymphocytes Absolute Auto 1500 /uL (1100-4500); Lymphocytes Percent Auto 19.9 % (25-40); Mean Corpuscular HGB Conc 32.8 % (30-36); Mean Corpuscular Hemoglobin 27.7 PG (26-34); Mean Corpuscular Volume 84.5 fL (80-100); Monocytes Absolute Auto 600 /uL (0-900); Monocytes Percent Auto 8.1 % (3-14); Neutrophils Absolute Auto 5300 /uL (1500-7000); Neutrophils Percent Auto 70.3 % (50-75); Platelet Count 280 X10^3/uL (150-400); Red Blood Cell Count 5.02 X10^6/uL (4.0-5.2); Red Cell Distribution Width 16.3 % (11.6-14.8); White Blood Cell Count 7.5 X10^3/uL (4.5-11.0)
[2019-11-10 13:57] LABS: D Dimer 292 ng/mL (<230)
[2019-11-10 13:58] LABS: Lactate (Lactic Acid) 2.8 mmol/L (0.7-2.1)
[2019-11-10 14:00] LABS: Alanine Aminotransferase 17 IU/L (<35); Albumin 4.6 g/dL (3.5-5.0); Albumin Globulin Ratio 1.2 (1.0-2.8); Alkaline Phosphatase 101 U/L (38-126); Aspartate Aminotransferase 40 IU/L (14-36); BUN Creatinine Ratio 26.6 (6-22); Bilirubin Total 0.7 mg/dL (0.2-1.3); Blood Urea Nitrogen 17 mg/dL (7-17); C-Reactive Protein Quant 0.7 mg/dL (<1.0); Calcium 9.5 mg/dL (8.4-10.2); Carbon Dioxide 28 mmol/L (22-32); Chloride 96 mmol/L (98-107); Creatine Kinase 32 U/L (30-135); Estimated Glomerular Filt Rate > 60.0 mL/min (>60); Globulin 3.9 g/dL (1.7-4.1); Glucose 194 mg/dL (80-110); HEMOLYSIS < 15 (0-50); Lactate Dehydrogenase 856 U/L (313-618); Potassium 3.6 mmol/L (3.4-5.1); Sodium 136 mmol/L (137-145); Total Protein 8.5 g/dL (6.3-8.2)
[2019-11-10 14:10] LABS: NT-proBNP (BNP-Adult 18+) 648 pg/mL (<125); Troponin I < 0.012 ng/mL (0.01-0.034)
--- NOTE | 2019-11-10 14:14 | ED_ITS ---
HPI - SOB/Dyspnea <Rachel Baltazarmer, RETAIL PHARMACIST-BC - Last Filed: 11/10/19 18:02> General Chief Complaint: Shortness of Breath/Dyspnea Stated Complaint: SOB Time Seen by Provider: 11/10/19 13:23 Source: patient and EMS Mode of arrival: EMS Limitations: no limitations History of Present Illness HPI Narrative: The patient is a 74-year-old female former smoker with history of CHF and COPD who presents with a chief complaint of a cough for the past week. She is a resident at [facility]. She has received testing for Covid however her facility wanted to order lab work today, which they were unable to obtain. The patient does complain of fevers, she denies any nausea vomiting or diarrhea. She denies any ear pain or sore throat. She complains of lung pain with taking a deep breath. She denies any palpitations, denies any chest pain or swelling of her legs. Related Data Home Medications Medication Instructions Recorded Confirmed furosemide 80 mg PO QDAY #0 05/14/17 10/29/19 albuterol sulfate [Ventolin HFA] 2 puff INHALATION Q4H PRN 01/10/18 10/29/19 calcium carbonate [Tums] 2 tab PO TID PRN 01/10/18 10/29/19 docusate sodium 200 mg PO DAILY 01/10/18 10/29/19 fluticasone propionate 1 spray INTRANASAL DAILY 01/10/18 10/29/19 lidocaine HCl 1 applic TOPICAL QAM 01/10/18 10/29/19 methimazole 5 mg PO DAILY 01/10/18 10/29/19 metoprolol tartrate [Lopressor] See Rx Instructions .ROUTE .COMPLEX 01/10/18 10/29/19 nystatin 1 applic TOPICAL TID PRN 01/10/18 10/29/19 omeprazole 40 mg PO DAILY 01/10/18 10/29/19 potassium chloride 20 meq PO BID 01/10/18 10/29/19 spironolactone 25 mg PO DAILY 01/10/18 10/29/19 Qvar RediHaler 2 puff INHALATION BID 04/11/18 10/29/19 ondansetron 4 mg PO Q4H PRN 04/11/18 10/29/19 sennosides [senna] 2 tab PO DAILY 04/11/18 10/29/19 warfarin 4 mg PO QPM 04/11/18 10/29/19 Previous Rx's Medication Instructions Recorded hydrocodone-acetaminophen 1 tab PO QID PRN #10 tab MDD 3 gm 10/29/19 apap melatonin 10 mg PO BEDTIME PRN #30 cap 10/29/19 omega-3 fatty acids 1,000 mg PO BID #60 cap 10/29/19 rosuvastatin 20 mg PO BEDTIME #60 tab 10/29/19 Allergies Allergy/AdvReac Type Severity Reaction Status Date / Time aspartame [ASPARTAME] Allergy Intermediate violently Verified 10/28/19 18:54 ill, fever, rashes. codeine [CODEINE] Allergy Intermediate PROJECTILE Verified 10/28/19 18:54 VOMITING latex [LATEX] Allergy Intermediate VERY Verified 10/28/19 18:54 ITCHY RASH morphine [MORPHINE] Allergy Intermediate HALLUCINATI Verified 10/28/19 18:54 ONS. albuterol Allergy Verified 10/28/19 18:54 ipratropium Allergy Verified 10/28/19 18:54 Review of Systems <NINA Schultz - Last Filed: 11/10/19 18:02> Review of Systems Narrative: GENERAL: See HPI HEENT: Denies sinus pain, ear pain, sore throat, difficulty swallowing, dizziness. RESPIRATORY: See HPI CARDIOVASCULAR: Denies chest pain, palpitations, orthopnea, edema, GASTROINTESTINAL: Denies nausea, vomiting, abdominal pain, diarrhea, constipation, melena. : Denies dysuria, frequency, incontinence, hematuria, urinary retention. MUSCULOSKELETAL: denies weakness, joint pain, or bony pain SKIN: Denies rash, skin lesions, or other NEUROLOGIC: Denies weakness, headache, numbness, change in speech, confusion, seizures, incoordination. PSYCHIATRIC: No concerning psychosocial issues. 12 point review of systems is negative except for those stated above Patient History <NINA Schultz - Last Filed: 11/10/19 18:02> Medical History CHF (congestive heart failure) (Chronic) Chronic a-fib (Chronic) Chronic low back pain (Acute) COPD (chronic obstructive pulmonary disease) (Chronic) Degenerative disc disease (Acute) Dementia (Acute) Depression (Inactive) GERD (gastroesophageal reflux disease) (Chronic) Hyperlipidemia (Chronic) Hypertension (Chronic) Hyperthyroidism (Chronic) TIA (transient ischemic attack) (Acute) UTI (urinary tract infection) (Inactive) Surgical History History of mitral valve replacement (Acute) Status post appendectomy Status post hysterectomy Social History household members: other housing: assisted living facility Smoking Status: Unknown if ever smoked alcohol intake: never Smoking Status: Unknown if ever smoked alcohol intake frequency: 0-2 drinks per day Substance Use Type: does not use Exam <NINA Schultz - Last Filed: 11/10/19 18:02> Narrative Exam Narrative: GENERAL: Obese chronically ill-appearing elderly female lying on stretcher HEAD: Atraumatic. Normocephalic. No temporal or scalp tenderness. EYES: Pupils equal round and reactive. Extraocular motions intact. No scleral icterus. No injection or drainage. ENT: Nose without bleeding, purulent drainage or septal hematoma. Throat without erythema, tonsillar hypertrophy or exudate. Uvula midline. Airway patent. NECK: Trachea midline. No JVD or lymphadenopathy. Supple, nontender, no meningeal signs. CARDIOVASCULAR: Irregular rate and regular rhythm RESPIRATORY: Coarse bilaterally to auscultation. Breath sounds equal bilaterally. No wheezes, rales, or rhonchi. No cough. Speaking full sentences. No increased respiratory effort. GASTROINTESTINAL: Abdomen soft, non-tender, nondistended. No hepato- splenomegaly, or palpable masses. No guarding. EXTREMITIES: No clubbing, cyanosis, or edema. No joint tenderness, effusion, or edema noted. BACK: Nontender without deformity or crepitance. No flank tenderness. NEURO: AOx3. SKIN: No rash or erythem on visible skin Initial Vital Signs Initial Vital Signs: Vital Signs Temperature 97.9 F 11/10/19 13:25 Pulse Rate 87 11/10/19 13:25 Respiratory Rate 18 11/10/19 13:25 Blood Pressure 126/60 11/10/19 13:25 Pulse Oximetry 94 11/10/19 13:25 <Rachel Beck DO - Last Filed: 11/10/19 18:31> Initial Vital Signs Initial Vital Signs: Vital Signs Temperature 97.9 F 11/10/19 13:25 Pulse Rate 87 11/10/19 13:25 Respiratory Rate 18 11/10/19 13:25 Blood Pressure 126/60 11/10/19 13:25 Pulse Oximetry 94 11/10/19 13:25 Course <FRANCISCO Schultz-BC - Last Filed: 11/10/19 18:02> Orders Ordered: ED Orders 11/10/19 13:30 C-Reactive Protein Quant Stat Complete Blood Count AUTO DIFF Stat Comprehensive Metabolic Panel Stat D Dimer Stat Ferritin Stat Lactate (Lactic Acid) Stat Lactate Dehydrogenase Stat Magnesium Stat NT-proBNP (BNP-Adult 18+) Stat Troponin & CK Cardiac Panel Stat 11/10/19 13:43 XR chest 1V Stat EKG-12 Lead Stat 11/10/19 14:20 Urinalysis and Microscopic Stat Discontinued Medications Furosemide (Lasix) 20 mg IV NOW ONE Stop: 11/10/19 14:31 Last Admin: 11/10/19 15:24 Dose: 20 mg Documented by: ENRIQUE Vital Signs Vital signs: Vital Signs - 8 hr 11/10/19 13:25 11/10/19 14:30 11/10/19 15:00 Temperature 97.9 F Pulse Rate 87 72 87 Respiratory Rate 18 21 11 L Blood Pressure 126/60 Blood Pressure [Left Arm] 167/75 H 154/68 H Blood Pressure [Right Arm] 167/75 H Pulse Oximetry 94 97 93 11/10/19 15:25 11/10/19 16:00 11/10/19 16:57 Temperature Pulse Rate 90 91 H 91 H Respiratory Rate 16 16 16 Blood Pressure Blood Pressure [Left Arm] 141/71 H 139/64 Blood Pressure [Right Arm] 141/66 H Pulse Oximetry 94 95 95 11/10/19 17:47 Temperature Pulse Rate 91 H Respiratory Rate 16 Blood Pressure Blood Pressure [Left Arm] 168/73 H Blood Pressure [Right Arm] Pulse Oximetry 94 <Rachel Beck DO - Last Filed: 11/10/19 18:31> Orders Ordered: ED Orders 11/10/19 13:30 C-Reactive Protein Quant Stat Complete Blood Count AUTO DIFF Stat Comprehensive Metabolic Panel Stat D Dimer Stat Ferritin Stat Lactate (Lactic Acid) Stat Lactate Dehydrogenase Stat Magnesium Stat NT-proBNP (BNP-Adult 18+) Stat Troponin & CK Cardiac Panel Stat 11/10/19 13:43 XR chest 1V Stat EKG-12 Lead Stat 11/10/19 14:20 Urinalysis and Microscopic Stat Discontinued Medications Furosemide (Lasix) 20 mg IV NOW ONE Stop: 11/10/19 14:31 Last Admin: 11/10/19 15:24 Dose: 20 mg Documented by: ENRIQUE Vital Signs Vital signs: Vital Signs - 8 hr 11/10/19 13:25 11/10/19 14:30 11/10/19 15:00 Temperature 97.9 F Pulse Rate 87 72 87 Respiratory Rate 18 21 11 L Blood Pressure 126/60 Blood Pressure [Left Arm] 167/75 H 154/68 H Blood Pressure [Right Arm] 167/75 H Pulse Oximetry 94 97 93 11/10/19 15:25 11/10/19 16:00 11/10/19 16:57 Temperature Pulse Rate 90 91 H 91 H Respiratory Rate 16 16 16 Blood Pressure Blood Pressure [Left Arm] 141/71 H 139/64 Blood Pressure [Right Arm] 141/66 H Pulse Oximetry 94 95 95 11/10/19 17:47 Temperature Pulse Rate 91 H Respiratory Rate 16 Blood Pressure Blood Pressure [Left Arm] 168/73 H Blood Pressure [Right Arm] Pulse Oximetry 94 MDM - SOB/Dyspnea <FRANCISCO Schultz- - Last Filed: 11/10/19 18:02> Lab Data Result diagrams: 11/10/19 13:30 11/10/19 13:30 Labs: Lab Results 11/10/19 11/10/19 11/10/19 Range/Units 13:30 13:30 13:30 WBC 7.5 (4.5-11.0) X10^3/uL RBC 5.02 (4.0-5.2) X10^6/uL Hgb 13.9 (12.0-16.0) g/dL Hct 42.4 (36-46) % MCV 84.5 (80-100) fL MCH 27.7 (26-34) PG MCHC 32.8 (30-36) % RDW 16.3 H (11.6-14.8) % Plt Count 280 (150-400) X10^3/uL Neut % (Auto) 70.3 (50-75) % Lymph % (Auto) 19.9 L (25-40) % [place] % (Auto) 8.1 (3-14) % Eos % (Auto) 0.9 L (2-4) % Baso % (Auto) 0.8 (0-2) % Neut # (Auto) 5300 (4429-6293) /uL Lymph # (Auto) 1500 (1152-8214) /uL [place] # (Auto) 600 (0-900) /uL Eos # (Auto) 100 (0-450) /uL Baso # (Auto) 100 (0-100) /uL D-Dimer 292 H (<230) ng/mL Sodium 136 L (137-145) mmol/L Potassium 3.6 (3.4-5.1) mmol/L Chloride 96 L (98-107) mmol/L Carbon Dioxide 28 (22-32) mmol/L BUN 17 (7-17) mg/dL Creatinine 0.64 (0.52-1.04) mg/dL Estimated GFR > 60.0 (>60) mL/min BUN/Creatinine Ratio 26.6 H (6-22) Glucose 194 H (80-110) mg/dL Lactate (0.7-2.1) mmol/L Calcium 9.5 (8.4-10.2) mg/dL Magnesium (1.6-2.3) mg/dL Ferritin 10 L (11-264) ng/mL Total Bilirubin 0.7 (0.2-1.3) mg/dL AST 40 H (14-36) IU/L ALT 17 (<35) IU/L Alkaline Phosphatase 101 (38-126) U/L Lactate Dehydrogenase 856 H (313-618) U/L Total Creatine Kinase 32 (30-135) U/L CK-MB (CK-2) TNP CK-MB (CK-2) Rel Index TNP Troponin I < 0.012 (0.01-0.034) ng/mL C-Reactive Protein 0.7 (<1.0) mg/dL NT-Pro-B Natriuret Pep 648 H (<125) pg/mL Total Protein 8.5 H (6.3-8.2) g/dL Albumin 4.6 (3.5-5.0) g/dL Globulin 3.9 (1.7-4.1) g/dL Albumin/Globulin Ratio 1.2 (1.0-2.8) Urine Color Urine Appearance Urine pH (4.5-8.0) Ur Specific [place] (1.000-1.035) Urine Protein (Negative) Urine Glucose (UA) (Negative) g/dL Urine Ketones (NEGATIVE) Urine Occult Blood (Negative) Urine Nitrate (Negative) Urine Bilirubin (NEGATIVE) Urine Urobilinogen (0.2) E.U./dL Ur Leukocyte Esterase (NEGATIVE) Urine RBC (0-5/HPF) Urine WBC (0-5/HPF) Ur Squamous Epith Cells (0-5/HPF) Amorphous Sediment Urine Bacteria (None) Urine Mucus (Negative) Ur Culture Indicated? 11/10/19 11/10/19 11/10/19 Range/Units 13:30 13:30 14:20 WBC (4.5-11.0) X10^3/uL RBC (4.0-5.2) X10^6/uL Hgb (12.0-16.0) g/dL Hct (36-46) % MCV (80-100) fL MCH (26-34) PG MCHC (30-36) % RDW (11.6-14.8) % Plt Count (150-400) X10^3/uL Neut % (Auto) (50-75) % Lymph % (Auto) (25-40) % [place] % (Auto) (3-14) % Eos % (Auto) (2-4) % Baso % (Auto) (0-2) % Neut # (Auto) (2007-2474) /uL Lymph # (Auto) (3115-1763) /uL [place] # (Auto) (0-900) /uL Eos # (Auto) (0-450) /uL Baso # (Auto) (0-100) /uL D-Dimer (<230) ng/mL Sodium (137-145) mmol/L Potassium (3.4-5.1) mmol/L Chloride (98-107) mmol/L Carbon Dioxide (22-32) mmol/L BUN (7-17) mg/dL Creatinine (0.52-1.04) mg/dL Estimated GFR (>60) mL/min BUN/Creatinine Ratio (6-22) Glucose (80-110) mg/dL Lactate 2.8 H (0.7-2.1) mmol/L Calcium (8.4-10.2) mg/dL Magnesium 2.0 (1.6-2.3) mg/dL Ferritin (11-264) ng/mL Total Bilirubin (0.2-1.3) mg/dL AST (14-36) IU/L ALT (<35) IU/L Alkaline Phosphatase (38-126) U/L Lactate Dehydrogenase (313-618) U/L Total Creatine Kinase (30-135) U/L CK-MB (CK-2) CK-MB (CK-2) Rel Index Troponin I (0.01-0.034) ng/mL C-Reactive Protein (<1.0) mg/dL NT-Pro-B Natriuret Pep (<125) pg/mL Total Protein (6.3-8.2) g/dL Albumin (3.5-5.0) g/dL Globulin (1.7-4.1) g/dL Albumin/Globulin Ratio (1.0-2.8) Urine Color Yellow Urine Appearance Clear Urine pH 5.0 (4.5-8.0) Ur Specific [place] 1.025 (1.000-1.035) Urine Protein Negative (Negative) Urine Glucose (UA) Negative (Negative) g/dL Urine Ketones Negative (NEGATIVE) Urine Occult Blood Negative (Negative) Urine Nitrate Negative (Negative) Urine Bilirubin Negative (NEGATIVE) Urine Urobilinogen 0.2 (0.2) E.U./dL Ur Leukocyte Esterase Negative (NEGATIVE) Urine RBC None seen (0-5/HPF) Urine WBC 1-5/hpf (0-5/HPF) Ur Squamous Epith Cells 1-5 /hpf (0-5/HPF) Amorphous Sediment 1+ Urine Bacteria Occasional (0-1) (None) Urine Mucus 1+ H (Negative) Ur Culture Indicated? Cult not indicated 11/10/19 Range/Units 15:50 WBC (4.5-11.0) X10^3/uL RBC (4.0-5.2) X10^6/uL Hgb (12.0-16.0) g/dL Hct (36-46) % MCV (80-100) fL MCH (26-34) PG MCHC (30-36) % RDW (11.6-14.8) % Plt Count (150-400) X10^3/uL Neut % (Auto) (50-75) % Lymph % (Auto) (25-40) % [place] % (Auto) (3-14) % Eos % (Auto) (2-4) % Baso % (Auto) (0-2) % Neut # (Auto) (0826-3389) /uL Lymph # (Auto) (4614-5861) /uL [place] # (Auto) (0-900) /uL Eos # (Auto) (0-450) /uL Baso # (Auto) (0-100) /uL D-Dimer (<230) ng/mL Sodium (137-145) mmol/L Potassium (3.4-5.1) mmol/L Chloride (98-107) mmol/L Carbon Dioxide (22-32) mmol/L BUN (7-17) mg/dL Creatinine (0.52-1.04) mg/dL Estimated GFR (>60) mL/min BUN/Creatinine Ratio (6-22) Glucose (80-110) mg/dL Lactate 1.4 (0.7-2.1) mmol/L Calcium (8.4-10.2) mg/dL Magnesium (1.6-2.3) mg/dL Ferritin (11-264) ng/mL Total Bilirubin (0.2-1.3) mg/dL AST (14-36) IU/L ALT (<35) IU/L Alkaline Phosphatase (38-126) U/L Lactate Dehydrogenase (313-618) U/L Total Creatine Kinase (30-135) U/L CK-MB (CK-2) CK-MB (CK-2) Rel Index Troponin I (0.01-0.034) ng/mL C-Reactive Protein (<1.0) mg/dL NT-Pro-B Natriuret Pep (<125) pg/mL Total Protein (6.3-8.2) g/dL Albumin (3.5-5.0) g/dL Globulin (1.7-4.1) g/dL Albumin/Globulin Ratio (1.0-2.8) Urine Color Urine Appearance Urine pH (4.5-8.0) Ur Specific [place] (1.000-1.035) Urine Protein (Negative) Urine Glucose (UA) (Negative) g/dL Urine Ketones (NEGATIVE) Urine Occult Blood (Negative) Urine Nitrate (Negative) Urine Bilirubin (NEGATIVE) Urine Urobilinogen (0.2) E.U./dL Ur Leukocyte Esterase (NEGATIVE) Urine RBC (0-5/HPF) Urine WBC (0-5/HPF) Ur Squamous Epith Cells (0-5/HPF) Amorphous Sediment Urine Bacteria (None) Urine Mucus (Negative) Ur Culture Indicated? Imaging Data Chest x-ray: Radiologist's Impression: [address] [place] [id number] XRay Report Signed Patient: Vivi Yeh GMR#: [id number] : 6Acct:[id number] Age/Sex: 74 / FDate of Service: 11/10/19 Loc: ED Accession Number: [id number] Procedure: XR chest 1V Ordering Provider: Rachel Sweet PROCEDURE: XR CHEST 1V INDICATIONS: flu-like symptoms TECHNIQUE: One view of the chest was acquired. COMPARISON: [facility], XR CHEST 1V, 10/28/2019, 19:02. FINDINGS: Surgical changes and devices: Sternal wires, valve replacement and hilar clips are noted. Lungs and pleura: Lungs are clear. No pleural effusions or pneumothorax. Mild increased vascularity. Mediastinum: Mediastinal contours appear normal. Heart size is enlarged. Bones and chest wall: No suspicious bony lesions. Overlying soft tissues appear unremarkable. IMPRESSION: Mild increased vascularity suggestive of edema. Dictated by: Radha Sanchez M.D. on 11/10/2019 at 13:58 Approved by: Radha Sanchez M.D. on 11/10/2019 at 13:59 [facility] Narrative Medical decision making narrative: The patient is a 74-year-old female who presents with a chief complaint of slight fevers cough and shortness of breath. EKG has no acute findings, troponin is negative, chest x-ray suggestive of edema and BNP is slightly elevated. She felt much improved after dose of Lasix. Her initial lactate was 2.8, but to her repeat was 1.4. I am slightly suspicious of ocasio virus with this patient given her symptoms, elevated LDH, low lymphocytes however [facility] and should result this evening. I had spoke with Dr. Franco and we agree that the patient is safe to transport back to her [facility] facility does not need admission at this point time. Patient is very happy to hear this news. I called and spoke with patient's daughter regarding this and she was also happy. Patient has no questions or concerns upon discharge. <Rachel Beck, DO - Last Filed: 11/10/19 18:31> Lab Data Attestation: I reviewed the patient's lab results. Labs: Lab Results 11/10/19 11/10/19 11/10/19 Range/Units 13:30 13:30 13:30 WBC 7.5 (4.5-11.0) X10^3/uL RBC 5.02 (4.0-5.2) X10^6/uL Hgb 13.9 (12.0-16.0) g/dL Hct 42.4 (36-46) % MCV 84.5 (80-100) fL MCH 27.7 (26-34) PG MCHC 32.8 (30-36) % RDW 16.3 H (11.6-14.8) % Plt Count 280 (150-400) X10^3/uL Neut % (Auto) 70.3 (50-75) % Lymph % (Auto) 19.9 L (25-40) % [place] % (Auto) 8.1 (3-14) % Eos % (Auto) 0.9 L (2-4) % Baso % (Auto) 0.8 (0-2) % Neut # (Auto) 5300 (5582-8124) /uL Lymph # (Auto) 1500 (0801-4351) /uL [place] # (Auto) 600 (0-900) /uL Eos # (Auto) 100 (0-450) /uL Baso # (Auto) 100 (0-100) /uL D-Dimer 292 H (<230) ng/mL Sodium 136 L (137-145) mmol/L Potassium 3.6 (3.4-5.1) mmol/L Chloride 96 L (98-107) mmol/L Carbon Dioxide 28 (22-32) mmol/L BUN 17 (7-17) mg/dL Creatinine 0.64 (0.52-1.04) mg/dL Estimated GFR > 60.0 (>60) mL/min BUN/Creatinine Ratio 26.6 H (6-22) Glucose 194 H (80-110) mg/dL Lactate (0.7-2.1) mmol/L Calcium 9.5 (8.4-10.2) mg/dL Magnesium (1.6-2.3) mg/dL Ferritin 10 L (11-264) ng/mL Total Bilirubin 0.7 (0.2-1.3) mg/dL AST 40 H (14-36) IU/L ALT 17 (<35) IU/L Alkaline Phosphatase 101 (38-126) U/L Lactate Dehydrogenase 856 H (313-618) U/L Total Creatine Kinase 32 (30-135) U/L CK-MB (CK-2) TNP CK-MB (CK-2) Rel Index TNP Troponin I < 0.012 (0.01-0.034) ng/mL C-Reactive Protein 0.7 (<1.0) mg/dL NT-Pro-B Natriuret Pep 648 H (<125) pg/mL Total Protein 8.5 H (6.3-8.2) g/dL Albumin 4.6 (3.5-5.0) g/dL Globulin 3.9 (1.7-4.1) g/dL Albumin/Globulin Ratio 1.2 (1.0-2.8) Urine Color Urine Appearance Urine pH (4.5-8.0) Ur Specific [place] (1.000-1.035) Urine Protein (Negative) Urine Glucose (UA) (Negative) g/dL Urine Ketones (NEGATIVE) Urine Occult Blood (Negative) Urine Nitrate (Negative) Urine Bilirubin (NEGATIVE) Urine Urobilinogen (0.2) E.U./dL Ur Leukocyte Esterase (NEGATIVE) Urine RBC (0-5/HPF) Urine WBC (0-5/HPF) Ur Squamous Epith Cells (0-5/HPF) Amorphous Sediment Urine Bacteria (None) Urine Mucus (Negative) Ur Culture Indicated? 11/10/19 11/10/19 11/10/19 Range/Units 13:30 13:30 14:20 WBC (4.5-11.0) X10^3/uL RBC (4.0-5.2) X10^6/uL Hgb (12.0-16.0) g/dL Hct (36-46) % MCV (80-100) fL MCH (26-34) PG MCHC (30-36) % RDW (11.6-14.8) % Plt Count (150-400) X10^3/uL Neut % (Auto) (50-75) % Lymph % (Auto) (25-40) % [place] % (Auto) (3-14) % Eos % (Auto) (2-4) % Baso % (Auto) (0-2) % Neut # (Auto) (7508-2300) /uL Lymph # (Auto) (5169-9057) /uL [place] # (Auto) (0-900) /uL Eos # (Auto) (0-450) /uL Baso # (Auto) (0-100) /uL D-Dimer (<230) ng/mL Sodium (137-145) mmol/L Potassium (3.4-5.1) mmol/L Chloride (98-107) mmol/L Carbon Dioxide (22-32) mmol/L BUN (7-17) mg/dL Creatinine (0.52-1.04) mg/dL Estimated GFR (>60) mL/min BUN/Creatinine Ratio (6-22) Glucose (80-110) mg/dL Lactate 2.8 H (0.7-2.1) mmol/L Calcium (8.4-10.2) mg/dL Magnesium 2.0 (1.6-2.3) mg/dL Ferritin (11-264) ng/mL Total Bilirubin (0.2-1.3) mg/dL AST (14-36) IU/L ALT (<35) IU/L Alkaline Phosphatase (38-126) U/L Lactate Dehydrogenase (313-618) U/L Total Creatine Kinase (30-135) U/L CK-MB (CK-2) CK-MB (CK-2) Rel Index Troponin I (0.01-0.034) ng/mL C-Reactive Protein (<1.0) mg/dL NT-Pro-B Natriuret Pep (<125) pg/mL Total Protein (6.3-8.2) g/dL Albumin (3.5-5.0) g/dL Globulin (1.7-4.1) g/dL Albumin/Globulin Ratio (1.0-2.8) Urine Color Yellow Urine Appearance Clear Urine pH 5.0 (4.5-8.0) Ur Specific [place] 1.025 (1.000-1.035) Urine Protein Negative (Negative) Urine Glucose (UA) Negative (Negative) g/dL Urine Ketones Negative (NEGATIVE) Urine Occult Blood Negative (Negative) Urine Nitrate Negative (Negative) Urine Bilirubin Negative (NEGATIVE) Urine Urobilinogen 0.2 (0.2) E.U./dL Ur Leukocyte Esterase Negative (NEGATIVE) Urine RBC None seen (0-5/HPF) Urine WBC 1-5/hpf (0-5/HPF) Ur Squamous Epith Cells 1-5 /hpf (0-5/HPF) Amorphous Sediment 1+ Urine Bacteria Occasional (0-1) (None) Urine Mucus 1+ H (Negative) Ur Culture Indicated? Cult not indicated 11/10/19 Range/Units 15:50 WBC (4.5-11.0) X10^3/uL RBC (4.0-5.2) X10^6/uL Hgb (12.0-16.0) g/dL Hct (36-46) % MCV (80-100) fL MCH (26-34) PG MCHC (30-36) % RDW (11.6-14.8) % Plt Count (150-400) X10^3/uL Neut % (Auto) (50-75) % Lymph % (Auto) (25-40) % [place] % (Auto) (3-14) % Eos % (Auto) (2-4) % Baso % (Auto) (0-2) % Neut # (Auto) (3408-8133) /uL Lymph # (Auto) (9665-8011) /uL [place] # (Auto) (0-900) /uL Eos # (Auto) (0-450) /uL Baso # (Auto) (0-100) /uL D-Dimer (<230) ng/mL Sodium (137-145) mmol/L Potassium (3.4-5.1) mmol/L Chloride (98-107) mmol/L Carbon Dioxide (22-32) mmol/L BUN (7-17) mg/dL Creatinine (0.52-1.04) mg/dL Estimated GFR (>60) mL/min BUN/Creatinine Ratio (6-22) Glucose (80-110) mg/dL Lactate 1.4 (0.7-2.1) mmol/L Calcium (8.4-10.2) mg/dL Magnesium (1.6-2.3) mg/dL Ferritin (11-264) ng/mL Total Bilirubin (0.2-1.3) mg/dL AST (14-36) IU/L ALT (<35) IU/L Alkaline Phosphatase (38-126) U/L Lactate Dehydrogenase (313-618) U/L Total Creatine Kinase (30-135) U/L CK-MB (CK-2) CK-MB (CK-2) Rel Index Troponin I (0.01-0.034) ng/mL C-Reactive Protein (<1.0) mg/dL NT-Pro-B Natriuret Pep (<125) pg/mL Total Protein (6.3-8.2) g/dL Albumin (3.5-5.0) g/dL Globulin (1.7-4.1) g/dL Albumin/Globulin Ratio (1.0-2.8) Urine Color Urine Appearance Urine pH (4.5-8.0) Ur Specific [place] (1.000-1.035) Urine Protein (Negative) Urine Glucose (UA) (Negative) g/dL Urine Ketones (NEGATIVE) Urine Occult Blood (Negative) Urine Nitrate (Negative) Urine Bilirubin (NEGATIVE) Urine Urobilinogen (0.2) E.U./dL Ur Leukocyte Esterase (NEGATIVE) Urine RBC (0-5/HPF) Urine WBC (0-5/HPF) Ur Squamous Epith Cells (0-5/HPF) Amorphous Sediment Urine Bacteria (None) Urine Mucus (Negative) Ur Culture Indicated? ECG Data Attestation: I personally reviewed and interpreted this ECG as follows: Prior ECG tracings: available for review Interpretation: Sinus rhythm with occasional PVC, rate 87 PA 196 QRS of 127 QTC 451. Patient has. EKGs from 10/28/2019 which appears similar she does have some ST depression V5 6 which appears similar to prior. No new ST elevation appreciated. [facility] Narrative Medical decision making narrative: Case was discussed and myself. Patient has some changes consistent with CHF but other labs are supportive of a possible C ovid diagnosis. Patient was swabbed and is pending as well as for influenza. This was related to myself by Dr. Franco. Patient's lactate improved. She was diuresed in the department. Her O2 is been appropriate. She has not been any distress otherwise and plan to return to her facility at this time with plan for strict return precautions. Discharge Plan Departure Patient Disposition: Assisted Living Clinical Impression: Breath shortness, Elevated brain natriuretic peptide (BNP) level Discharge Date/Time: 11/10/19 17:59 Instructions: DI for Shortness of Breath, How to Manage Shortness of Breath Activity Restrictions/Additional Instructions: Thank you for trusting us with your care today I spoke with regarding her care we think it is appropriate that you do not come into the hospital today We gave you some medicine to help you get rid of extra fluid which seemed to help her symptoms Your ocasio virus testing [facility] And the meantime please self isolate cover your cough, wash her hands etcetera Prescriptions: No Action furosemide 80 MG tablet 80 mg PO QDAY Qty: 0 RF: 0 docusate sodium 100 mg Capsule 200 mg PO DAILY RF: 0 omeprazole 40 mg Capsule,Delayed Release(Dr/Ec) 40 mg PO DAILY RF: 0 spironolactone 25 mg Tablet 25 mg PO DAILY RF: 0 calcium carbonate [Tums] 200 mg calcium (500 mg) Tablet,Chewable 2 tab PO TID PRN (Reason: Indigestion) RF: 0 metoprolol tartrate [Lopressor] 50 mg Tablet See Rx Instructions .ROUTE .COMPLEX RF: 0 methimazole 5 mg Tablet 5 mg PO DAILY RF: 0 nystatin 100,000 unit/gram Powder 1 applic TOPICAL TID PRN (Reason: yeast) RF: 0 albuterol sulfate [Ventolin HFA] 90 mcg/actuation Hfa Aerosol Inhaler 2 puff Inhalation Q4H PRN (Reason: Shortness Of Breath Or Wheezing) RF: 0 fluticasone propionate 50 mcg/actuation [place],Suspension 1 spray INTRANASAL DAILY RF: 0 lidocaine HCl 4 % Solution 1 applic Topical QAM RF: 0 potassium chloride 20 mEq Tablet Extended Release 20 meq PO BID RF: 0 warfarin 3 mg Tablet 4 mg PO QPM RF: 0 ondansetron 4 mg Tablet,Disintegrating 4 mg PO Q4H PRN (Reason: Nausea) RF: 0 Qvar RediHaler 40 mcg/actuation Hfa Aerosol Breath Activated 2 puff Inhalation BID RF: 0 sennosides [senna] 8.6 mg Tablet 2 tab PO DAILY RF: 0 rosuvastatin 10 mg Tablet 20 mg PO BEDTIME Qty: 60 RF: 0 omega-3 fatty acids 1,000 mg capsule 1,000 mg PO BID Qty: 60 RF: 0 melatonin 10 mg capsule 10 mg PO BEDTIME PRN (Reason: sleep) Qty: 30 RF: 0 hydrocodone-acetaminophen 5 MG/325 MG tablet 1 tab PO QID MDD 3 gm apap PRN (Reason: Pain (Scale Score 4-6)) Qty: 10 RF: 0 Referrals: Amna Franco MD [Primary Care Provider] -
[2019-11-10 14:32] LABS: Ferritin 10 ng/mL (11-264)
[2019-11-10 14:58] LABS: RBC Urine None Seen (0-5/HPF)
[2019-11-10 14:59] LABS: Appearance Urine UA CLEAR; Bilirubin Urine UA NEGATIVE (NEGATIVE); Color Urine UA YELLOW; Glucose Urine UA NEGATIVE (Negative); Ketones Urine UA NEGATIVE (NEGATIVE); Leukocyte Esterase Urine UA NEGATIVE (NEGATIVE); Nitrite Urine UA NEGATIVE (Negative); Occult Blood Urine UA NEGATIVE (Negative); Protein Urine UA NEGATIVE (Negative); Specific Gravity Urine UA 1.025 (1.000-1.035); Urobilinogen Urine UA 0.2 E.U./dL (0.2)
[2019-11-10 15:05] LABS: Amorphous Sediment Urine 1+; Bacteria Urine Occasional (0-1); Squamous Epithelial Cell Urine 1-5 /HPF (0-5/HPF); WBC Urine 1-5/HPF (0-5/HPF)
[2019-11-10 15:06] LABS: Culture Indicated Urine Cult Not Indicated; Mucus Urine 1+ (Negative)
[2019-11-10] MEDS: FUROSEMIDE 20 MG/2 ML VIAL IV (15:24)
--- NOTE | 2019-11-10 15:31 | PC.NURSE ---
I spoke with the patient's daughter Swati on the phone and gave her an update per request form patient.
[2019-11-10 15:47] LABS: Reflexed Lactate in 2 Hours Y
[2019-11-10 16:10] LABS: Lactate 2HR (Lactic Acid Rflx) 1.4 mmol/L (0.7-2.1)
== END 2019-11-10 17:59 ==
PROVIDERS: Emergency Provider Nurse Practitioner Family; PCP Internal Medicine
DX: R06.02 Shortness of breath (principal); R79.89 Other specified abnormal findings of blood chemistry; R50.9 Fever, unspecified; I50.9 Heart failure, unspecified; J44.9 Chronic obstructive pulmonary disease, unspecified
CPT/HCPCS: 36415; 51701; 71045; 80053; 81001; 82550; 82728; 83605; 83615; 83735; 83880; 84484; 85025; 85379; 86140; 93005; 96374; 99285; J1940

== ENCOUNTER → 2019-11-21 07:14 | Outpatient (ROUT) | payer OTHER, SELFPAY ==
[2019-10-28 23:44] VITALS: BMI 35.3
[2019-11-21 08:30] LABS: Prothrombin Time 57.3 SECONDS (10.1-12.7)
== END ==
PROVIDERS: PCP Internal Medicine; Visit Provider Nurse Practitioner Family
DX: Z51.81 Encounter for therapeutic drug level monitoring (principal); Z95.2 Presence of prosthetic heart valve
CPT/HCPCS: 36415; 85610

== ENCOUNTER → 2019-11-24 07:16 | Outpatient (ROUT) | payer OTHER, SELFPAY ==
[2019-10-28 23:44] VITALS: BMI 35.3
[2019-11-24 07:51] LABS: INR 2.4 (0.9-1.3); Prothrombin Time 27.2 SECONDS (10.1-12.7)
== END ==
PROVIDERS: PCP Internal Medicine; Visit Provider Registered Nurse
DX: Z95.2 Presence of prosthetic heart valve (principal)
CPT/HCPCS: 36415; 85610

== ENCOUNTER → 2019-11-28 07:26 | Outpatient (ROUT) | payer OTHER, SELFPAY ==
[2019-10-28 23:44] VITALS: BMI 35.3
[2019-11-28 08:33] LABS: INR 2.6 (0.9-1.3); Prothrombin Time 30.1 SECONDS (10.1-12.7)
== END ==
PROVIDERS: PCP Internal Medicine; Visit Provider Internal Medicine
DX: Z92.29 Personal history of other drug therapy (principal)
CPT/HCPCS: 36415; 85610

== ENCOUNTER → 2019-12-03 07:00 | Outpatient (ROUT) | payer OTHER, SELFPAY ==
[2019-10-28 23:44] VITALS: BMI 35.3
[2019-12-03 08:18] LABS: Add Manual Diff / Slide Review NO; Basophils Absolute Auto 100 /uL (0-100); Basophils Percent Auto 0.8 % (0-2); Eosinophils Absolute Auto 100 /uL (0-450); Eosinophils Percent Auto 1.7 % (2-4); Hematocrit 38.3 % (36-46); Hemoglobin 12.7 g/dL (12.0-16.0); Lymphocytes Absolute Auto 1800 /uL (1100-4500); Lymphocytes Percent Auto 26.8 % (25-40); Mean Corpuscular HGB Conc 33.3 % (30-36); Mean Corpuscular Hemoglobin 28.1 PG (26-34); Mean Corpuscular Volume 84.3 fL (80-100); Monocytes Absolute Auto 700 /uL (0-900); Monocytes Percent Auto 10.5 % (3-14); Neutrophils Absolute Auto 4000 /uL (1500-7000); Neutrophils Percent Auto 60.2 % (50-75); Platelet Count 227 X10^3/uL (150-400); Red Blood Cell Count 4.54 X10^6/uL (4.0-5.2); Red Cell Distribution Width 16.9 % (11.6-14.8); White Blood Cell Count 6.6 X10^3/uL (4.5-11.0)
[2019-12-03 08:33] LABS: Alanine Aminotransferase 13 IU/L (<35); Albumin Globulin Ratio 1.1 (1.0-2.8); Alkaline Phosphatase 73 U/L (38-126); Aspartate Aminotransferase 36 IU/L (14-36); BUN Creatinine Ratio 34.1 (6-22); Bilirubin Total 0.5 mg/dL (0.2-1.3); Blood Urea Nitrogen 15 mg/dL (7-17); Calcium 9.2 mg/dL (8.4-10.2); Carbon Dioxide 30 mmol/L (22-32); Chloride 102 mmol/L (98-107); Estimated Glomerular Filt Rate > 60.0 mL/min (>60); Globulin 3.5 g/dL (1.7-4.1); Glucose 88 mg/dL (80-110); HEMOLYSIS 26 (0-50); Potassium 4.2 mmol/L (3.4-5.1); Sodium 139 mmol/L (137-145); Total Protein 7.5 g/dL (6.3-8.2)
[2019-12-03 08:40] LABS: NT-proBNP (BNP-Adult 18+) 743 pg/mL (<125)
== END ==
PROVIDERS: PCP Internal Medicine; Visit Provider Nurse Practitioner Family
DX: R05 Cough (principal); I50.9 Heart failure, unspecified
CPT/HCPCS: 36415; 80053; 83880; 85025

== ENCOUNTER → 2019-12-10 07:16 | Outpatient (ROUT) | payer OTHER, SELFPAY ==
[2019-10-28 23:44] VITALS: BMI 35.3
[2019-12-10 08:57] LABS: INR 2.3 (0.9-1.3); Prothrombin Time 26.7 SECONDS (10.1-12.7)
== END ==
PROVIDERS: PCP Internal Medicine; Visit Provider Nurse Practitioner Family
DX: Z95.2 Presence of prosthetic heart valve (principal)
CPT/HCPCS: 36415; 85610

== ENCOUNTER → 2019-12-12 08:13 | Outpatient (ROUT) | payer OTHER, SELFPAY ==
[2019-10-28 23:44] VITALS: BMI 35.3
[2019-12-12 08:32] LABS: BUN Creatinine Ratio 29.8 (6-22); Blood Urea Nitrogen 17 mg/dL (7-17); Calcium 9.6 mg/dL (8.4-10.2); Carbon Dioxide 34 mmol/L (22-32); Chloride 102 mmol/L (98-107); Estimated Glomerular Filt Rate > 60.0 mL/min (>60); Glucose 95 mg/dL (80-110); HEMOLYSIS < 15 (0-50); Potassium 4.2 mmol/L (3.4-5.1); Sodium 140 mmol/L (137-145)
== END ==
PROVIDERS: PCP Internal Medicine; Visit Provider Nurse Practitioner Family
DX: Z79.899 Other long term (current) drug therapy (principal)
CPT/HCPCS: 36415; 80048

== ENCOUNTER → 2019-12-24 07:40 | Outpatient (ROUT) | payer OTHER, SELFPAY ==
[2019-10-28 23:44] VITALS: BMI 35.3
[2019-12-24 08:26] LABS: INR 3.6 (0.9-1.3); Prothrombin Time 41.6 SECONDS (10.1-12.7)
== END ==
PROVIDERS: PCP Internal Medicine; Visit Provider Nurse Practitioner Family
DX: Z95.2 Presence of prosthetic heart valve (principal)
CPT/HCPCS: 36415; 85610

== ENCOUNTER → 2019-12-31 07:50 | Outpatient (ROUT) | payer OTHER, SELFPAY ==
[2019-10-28 23:44] VITALS: BMI 35.3
[2019-12-31 08:28] LABS: Prothrombin Time 54.1 SECONDS (10.1-12.7)
[2019-12-31 09:13] LABS: INR 4.7 (0.9-1.3)
== END ==
PROVIDERS: PCP Internal Medicine; Visit Provider Nurse Practitioner Family
DX: I48.91 Unspecified atrial fibrillation (principal)
CPT/HCPCS: 36415; 85610

== ENCOUNTER → 2020-01-02 07:29 | Outpatient (ROUT) | payer OTHER, SELFPAY ==
[2019-10-28 23:44] VITALS: BMI 35.3
[2020-01-02 08:05] LABS: INR 2.3 (0.9-1.3); Prothrombin Time 25.9 SECONDS (10.1-12.7)
== END ==
PROVIDERS: PCP Internal Medicine; Visit Provider Nurse Practitioner Family
DX: I48.91 Unspecified atrial fibrillation (principal)
CPT/HCPCS: 36415; 85610

== ENCOUNTER → 2020-01-09 07:12 | Outpatient (ROUT) | payer OTHER, SELFPAY ==
[2019-10-28 23:44] VITALS: BMI 35.3
[2020-01-09 08:17] LABS: INR 2.6 (0.9-1.3); Prothrombin Time 29.9 SECONDS (10.1-12.7)
[2020-01-09 08:23] LABS: BUN Creatinine Ratio 28.3 (6-22); Blood Urea Nitrogen 15 mg/dL (7-17); Calcium 9.2 mg/dL (8.4-10.2); Carbon Dioxide 30 mmol/L (22-32); Chloride 104 mmol/L (98-107); Estimated Glomerular Filt Rate > 60.0 mL/min (>60); Glucose 94 mg/dL (80-110); HEMOLYSIS < 15 (0-50); Potassium 4.1 mmol/L (3.4-5.1); Sodium 139 mmol/L (137-145)
== END ==
PROVIDERS: PCP Internal Medicine; Visit Provider Nurse Practitioner Family
DX: Z95.2 Presence of prosthetic heart valve (principal)
CPT/HCPCS: 36415; 80048; 85610

== ENCOUNTER → 2020-01-23 07:23 | Outpatient (ROUT) | payer OTHER, SELFPAY ==
[2019-10-28 23:44] VITALS: BMI 35.3
[2020-01-23 08:27] LABS: INR 2.7 (0.9-1.3); Prothrombin Time 31.4 SECONDS (10.1-12.7)
[2020-01-23 08:29] LABS: Add Manual Diff / Slide Review NO; Basophils Absolute Auto 100 /uL (0-100); Basophils Percent Auto 0.8 % (0-2); Eosinophils Absolute Auto 100 /uL (0-450); Eosinophils Percent Auto 1.7 % (2-4); Hematocrit 35.8 % (36-46); Lymphocytes Absolute Auto 2000 /uL (1100-4500); Lymphocytes Percent Auto 28.5 % (25-40); Mean Corpuscular HGB Conc 33.5 % (30-36); Mean Corpuscular Hemoglobin 28.1 PG (26-34); Mean Corpuscular Volume 83.9 fL (80-100); Monocytes Absolute Auto 600 /uL (0-900); Monocytes Percent Auto 8.9 % (3-14); Neutrophils Absolute Auto 4100 /uL (1500-7000); Neutrophils Percent Auto 60.1 % (50-75); Platelet Count 251 X10^3/uL (150-400); Red Blood Cell Count 4.27 X10^6/uL (4.0-5.2); Red Cell Distribution Width 17.4 % (11.6-14.8); White Blood Cell Count 6.8 X10^3/uL (4.5-11.0)
[2020-01-23 08:34] LABS: BUN Creatinine Ratio 24.4 (6-22); Blood Urea Nitrogen 10 mg/dL (7-17); Calcium 9.2 mg/dL (8.4-10.2); Carbon Dioxide 30 mmol/L (22-32); Chloride 102 mmol/L (98-107); Cholesterol 156 mg/dL (140-199); Estimated Glomerular Filt Rate > 60.0 mL/min (>60); Glucose 85 mg/dL (80-110); HDL Cholesterol 23 mg/dL (40-60); HEMOLYSIS < 15 (0-50); LDL Cholesterol Calculated 101 mg/dL (<100); Sodium 138 mmol/L (137-145); Triglycerides 161 mg/dL (35-150)
== END ==
PROVIDERS: PCP Internal Medicine; Visit Provider Nurse Practitioner Family
DX: I48.91 Unspecified atrial fibrillation (principal)
CPT/HCPCS: 36415; 80048; 80061; 85025; 85610

== ENCOUNTER → 2020-01-27 14:41 | Outpatient (ROUT) | payer OTHER, SELFPAY ==
[2019-10-28 23:44] VITALS: BMI 35.3
[2020-01-27 14:42] LABS: Bacteria Urine None Seen
[2020-01-27 15:05] LABS: Appearance Urine UA CLEAR; Bilirubin Urine UA NEGATIVE (NEGATIVE); Color Urine UA YELLOW; Glucose Urine UA NEGATIVE (Negative); Ketones Urine UA NEGATIVE (NEGATIVE); Leukocyte Esterase Urine UA NEGATIVE (NEGATIVE); Nitrite Urine UA NEGATIVE (Negative); Occult Blood Urine UA NEGATIVE (Negative); Protein Urine UA NEGATIVE (Negative); Specific Gravity Urine UA 1.015 (1.000-1.035); Urobilinogen Urine UA 0.2 E.U./dL (0.2)
[2020-01-27 15:18] LABS: RBC Urine 0-1/HPF (0-5/HPF); WBC Urine 0-1/HPF (0-5/HPF)
== END ==
PROVIDERS: PCP Internal Medicine; Visit Provider Nurse Practitioner Family
DX: R30.0 Dysuria (principal); R10.9 Unspecified abdominal pain
CPT/HCPCS: 81001; 87086

== ENCOUNTER → 2020-02-20 08:46 | Outpatient (ROUT) | payer OTHER, SELFPAY ==
[2019-10-28 23:44] VITALS: BMI 35.3
[2020-02-20 09:04] LABS: Prothrombin Time 22.9 SECONDS (10.1-12.7)
== END ==
PROVIDERS: PCP Internal Medicine; Visit Provider Nurse Practitioner Family
DX: I48.91 Unspecified atrial fibrillation (principal)
CPT/HCPCS: 36415; 85610

== ENCOUNTER → 2020-02-27 06:58 | Outpatient (ROUT) | payer OTHER, SELFPAY ==
[2019-10-28 23:44] VITALS: BMI 35.3
[2020-02-27 08:30] LABS: INR 2.5 (0.9-1.3); Prothrombin Time 28.7 SECONDS (10.1-12.7)
== END ==
PROVIDERS: PCP Internal Medicine; Visit Provider Nurse Practitioner Family
DX: I48.91 Unspecified atrial fibrillation (principal); Z95.2 Presence of prosthetic heart valve
CPT/HCPCS: 36415; 85610

== ENCOUNTER → 2020-03-15 07:18 | Outpatient (ROUT) | payer OTHER, SELFPAY ==
[2019-10-28 23:44] VITALS: BMI 35.3
[2020-03-15 07:43] LABS: INR 3.2 (0.9-1.3); Prothrombin Time 36.6 SECONDS (10.1-12.7)
== END ==
PROVIDERS: PCP Internal Medicine; Visit Provider Registered Nurse
DX: I48.91 Unspecified atrial fibrillation (principal); Z95.2 Presence of prosthetic heart valve
CPT/HCPCS: 36415; 85610

== ENCOUNTER → 2020-03-19 08:52 | Outpatient (ROUT) | payer OTHER, SELFPAY ==
[2019-10-28 23:44] VITALS: BMI 35.3
[2020-03-19 09:10] LABS: INR 3.9 (0.9-1.3); Prothrombin Time 44.9 SECONDS (10.1-12.7)
== END ==
PROVIDERS: PCP Internal Medicine; Visit Provider Internal Medicine
DX: Z51.81 Encounter for therapeutic drug level monitoring (principal)
CPT/HCPCS: 85610

== ENCOUNTER → 2020-03-31 07:21 | Outpatient (ROUT) | payer OTHER, SELFPAY ==
[2019-10-28 23:44] VITALS: BMI 35.3
[2020-03-31 08:39] LABS: INR 1.8 (0.9-1.3)
== END ==
PROVIDERS: PCP Internal Medicine; Visit Provider Nurse Practitioner Family
DX: Z79.899 Other long term (current) drug therapy (principal)
CPT/HCPCS: 36415; 85610

== ENCOUNTER → 2020-04-07 07:15 | Outpatient (ROUT) | payer OTHER, SELFPAY ==
[2019-10-28 23:44] VITALS: BMI 35.3
[2020-04-07 08:43] LABS: INR 2.8 (0.9-1.3); Prothrombin Time 31.5 SECONDS (10.1-12.7)
== END ==
PROVIDERS: PCP Internal Medicine; Visit Provider Nurse Practitioner Family
DX: Z95.2 Presence of prosthetic heart valve (principal)
CPT/HCPCS: 36415; 85610

== ENCOUNTER → 2020-04-23 08:12 | Outpatient (ROUT) | payer OTHER, SELFPAY ==
[2019-10-28 23:44] VITALS: BMI 35.3
[2020-04-23 09:01] LABS: INR 2.6 (0.9-1.3); Prothrombin Time 29.1 SECONDS (10.1-12.7)
== END ==
PROVIDERS: PCP Internal Medicine; Visit Provider Nurse Practitioner Family
DX: I48.91 Unspecified atrial fibrillation (principal)
CPT/HCPCS: 36415; 85610

== ENCOUNTER → 2020-05-10 07:13 | Outpatient (ROUT) | payer OTHER, SELFPAY ==
[2019-10-28 23:44] VITALS: BMI 35.3
[2020-05-10 07:35] LABS: INR 3.5 (0.9-1.3); Prothrombin Time 40.1 SECONDS (10.1-12.7)
== END ==
PROVIDERS: PCP Internal Medicine; Visit Provider Nurse Practitioner Family
DX: Z95.2 Presence of prosthetic heart valve (principal); I48.91 Unspecified atrial fibrillation
CPT/HCPCS: 36415; 85610

== ENCOUNTER → 2020-05-17 07:15 | Outpatient (ROUT) | payer OTHER, SELFPAY ==
[2019-10-28 23:44] VITALS: BMI 35.3
[2020-05-17 08:15] LABS: INR 2.6 (0.9-1.3)
== END ==
PROVIDERS: PCP Internal Medicine; Visit Provider Internal Medicine
DX: I48.91 Unspecified atrial fibrillation (principal); Z95.2 Presence of prosthetic heart valve
CPT/HCPCS: 36415; 85610

== ENCOUNTER → 2020-05-31 07:10 | Outpatient (ROUT) | payer OTHER, SELFPAY ==
[2019-10-28 23:44] VITALS: BMI 35.3
[2020-05-31 08:04] LABS: INR 2.2 (0.9-1.3); Prothrombin Time 24.7 SECONDS (10.1-12.7)
== END ==
PROVIDERS: PCP Internal Medicine; Visit Provider Internal Medicine
DX: Z79.899 Other long term (current) drug therapy (principal)
CPT/HCPCS: 36415; 85610

== ENCOUNTER 2020-06-19 10:05 | Emergency (ER) | payer OTHER, MEDICAID, SELFPAY ==
[2019-10-28 23:44] VITALS: BMI 35.3
[2020-06-19] VITALS (9 sets, daily range): BP systolic 129–153; BP diastolic 63–111; PULSE 92–97; RESP 16–36; TEMP 36.8; O2SAT 92–98
--- NOTE | 2020-06-19 10:14 | ED.ABDPAIN ---
HPI - Abdominal Pain General Chief Complaint: Skin/Abscess/Foreign Body Stated Complaint: Stomach pain Time Seen by Provider: 06/19/20 10:08 Source: patient and EMS Mode of arrival: EMS Limitations: no limitations History of Present Illness HPI narrative: Patient is 74 [place] [facility] [place] heart valve, CHF, COPD, dementia presenting with abdominal pain. She states that she was eating breakfast this morning when she swallowed an apricot it and then her stomach started hurting. She has no nausea or vomiting. She occasionally has some pain chest. She denies any shortness of breath or fever. This morning when she woke up she was feeling well. She has had as she swallowed it she tried to catch it but it did scratch her throat. MD complaint: abdominal pain Onset (ago): minute(s) Pain Consistency: constant Location: epigastric Related Data Home Medications Medication Instructions Recorded Confirmed furosemide 80 mg PO QDAY #0 05/14/17 10/29/19 albuterol sulfate [Ventolin HFA] 2 puff INHALATION Q4H PRN 01/10/18 10/29/19 calcium carbonate [Tums] 2 tab PO TID PRN 01/10/18 10/29/19 docusate sodium 200 mg PO DAILY 01/10/18 10/29/19 fluticasone propionate 1 spray INTRANASAL DAILY 01/10/18 10/29/19 lidocaine HCl 1 applic TOPICAL QAM 01/10/18 10/29/19 methimazole 5 mg PO DAILY 01/10/18 10/29/19 metoprolol tartrate [Lopressor] See Rx Instructions .ROUTE .COMPLEX 01/10/18 10/29/19 nystatin 1 applic TOPICAL TID PRN 01/10/18 10/29/19 omeprazole 40 mg PO DAILY 01/10/18 10/29/19 potassium chloride 20 meq PO BID 01/10/18 10/29/19 spironolactone 25 mg PO DAILY 01/10/18 10/29/19 Qvar RediHaler 2 puff INHALATION BID 04/11/18 10/29/19 ondansetron 4 mg PO Q4H PRN 04/11/18 10/29/19 sennosides [senna] 2 tab PO DAILY 04/11/18 10/29/19 warfarin 4 mg PO QPM 04/11/18 10/29/19 Previous Rx's Medication Instructions Recorded hydrocodone-acetaminophen 1 tab PO QID PRN #10 tab MDD 3 gm 10/29/19 apap melatonin 10 mg PO BEDTIME PRN #30 cap 10/29/19 omega-3 fatty acids 1,000 mg PO BID #60 cap 10/29/19 rosuvastatin 20 mg PO BEDTIME #60 tab 10/29/19 Allergies Allergy/AdvReac Type Severity Reaction Status Date / Time aspartame [ASPARTAME] Allergy Intermediate violently Verified 10/28/19 18:54 ill, fever, rashes. codeine [CODEINE] Allergy Intermediate PROJECTILE Verified 06/19/20 10:21 VOMITING latex [LATEX] Allergy Intermediate VERY Verified 06/19/20 10:21 ITCHY RASH morphine [MORPHINE] Allergy Intermediate HALLUCINATI Verified 06/19/20 10:21 ONS. albuterol Allergy Verified 06/19/20 10:21 ipratropium Allergy Verified 06/19/20 10:21 Review of Systems Review of Systems ROS Unobtainable: All systems reviewed & are unremarkable except as noted in HPI and below Constitutional Constitutional: Denies chills, Denies fever(s), Denies lethargy and Denies weakness Eyes Eyes: Denies change in vision, Denies eye discharge, Denies irritation and Denies loss of vision Cardiovascular Cardiovascular: Reports chest pain, Denies dyspnea and Denies dyspnea on exertion Respiratory Respiratory: Denies cough, Denies dyspnea, Denies dyspnea on exertion and Denies wheezing Gastrointestinal Gastrointestinal: Reports as per HPI Musculoskeletal Musculoskeletal: Denies back pain and Denies myalgias Integumentary/Breasts Skin/Breast: Denies pruritus, Denies erythema, Denies rash and Denies wounds Neurologic Neurologic: Denies loss of vision and Denies weakness Allergic/Immunologic Allergic/Immunologic: Denies wheezing Patient History Medical History CHF (congestive heart failure) (Chronic) Chronic a-fib (Chronic) Chronic low back pain (Acute) COPD (chronic obstructive pulmonary disease) (Chronic) Degenerative disc disease (Acute) Dementia (Acute) Depression (Inactive) GERD (gastroesophageal reflux disease) (Chronic) Hyperlipidemia (Chronic) Hypertension (Chronic) Hyperthyroidism (Chronic) TIA (transient ischemic attack) (Acute) UTI (urinary tract infection) (Inactive) Surgical History History of mitral valve replacement (Acute) Status post appendectomy Status post hysterectomy Social History household members: other housing: assisted living facility Smoking Status: Unknown if ever smoked alcohol intake: never Smoking Status: Unknown if ever smoked alcohol intake frequency: 0-2 drinks per day Substance Use Type: does not use Exam Initial Vital Signs Initial Vital Signs: Vital Signs Pulse Rate 97 H 06/19/20 10:10 Pulse Oximetry 93 06/19/20 10:10 GENERAL: Pleasant alert well-appearing elderly female and in no acute distress. HEENT: Head atraumatic,EOMI, pupils reactive, face symmetric, moist mucous membranes CARDIOVASCULAR: Regular rate and rhythm without murmurs, rubs or gallops. RESPIRATORY: Breath sounds equal bilaterally, no wheezes rales or rhonchi. ABDOMEN: Soft, minimal epigastric pain no guarding or rebound no right upper quadrant pain EXTREMITIES: Normal range of motion, no clubbing or edema. Neurovascularly intact NEUROLOGICAL: Alert and oriented x4.Normal gait and speech. Cranial nerves II through XII grossly intact. SKIN: Warm, dry, no laceration, no petechiae, no rashes or lesions. Course Orders Ordered: ED Orders 06/19/20 09:40 Complete Blood Count AUTO DIFF Stat Comprehensive Metabolic Panel Stat Lipase Stat Troponin & CK Cardiac Panel Stat 06/19/20 10:14 EKG-12 Lead Stat Vital Signs Vital signs: Vital Signs - 8 hr 06/19/20 10:10 06/19/20 10:11 06/19/20 10:16 Temperature 98.2 F Pulse Rate 97 H 97 H 92 H Respiratory Rate 18 Blood Pressure 139/111 H 139/111 H Pulse Oximetry 93 92 98 06/19/20 10:30 06/19/20 10:31 06/19/20 11:00 Temperature Pulse Rate 93 H 96 H 95 H Respiratory Rate 20 16 Blood Pressure 129/93 H Pulse Oximetry 94 94 94 06/19/20 11:01 06/19/20 11:30 06/19/20 11:31 Temperature Pulse Rate 95 H 96 H 96 H Respiratory Rate 17 19 36 H Blood Pressure 153/67 H 146/63 H Pulse Oximetry 94 93 94 MDM - Abdominal Pain Lab Data Attestation: I reviewed the patient's lab results. Result diagrams: 06/19/20 09:40 06/19/20 09:40 Labs: Lab Results 06/19/20 06/19/20 Range/Units 09:40 09:40 WBC 6.9 (4.5-11.0) X10^3/uL RBC 4.68 (4.0-5.2) X10^6/uL Hgb 12.5 (12.0-16.0) g/dL Hct 39.2 (36-46) % MCV 83.7 (80-100) fL MCH 26.8 (26-34) PG MCHC 32.0 (30-36) % RDW 17.9 H (11.6-14.8) % Plt Count 226 (150-400) X10^3/uL Neut % (Auto) 64.7 (50-75) % Lymph % (Auto) 21.2 L (25-40) % [place] % (Auto) 12.3 (3-14) % Eos % (Auto) 0.8 L (2-4) % Baso % (Auto) 1.0 (0-2) % Neut # (Auto) 4500 (0991-1301) /uL Lymph # (Auto) 1500 (3239-6723) /uL [place] # (Auto) 900 (0-900) /uL Eos # (Auto) 100 (0-450) /uL Baso # (Auto) 100 (0-100) /uL Sodium 138 (137-145) mmol/L Potassium 4.2 (3.4-5.1) mmol/L Chloride 107 (98-107) mmol/L Carbon Dioxide 28 (22-32) mmol/L BUN 10 (7-17) mg/dL Creatinine 0.44 L (0.52-1.04) mg/dL Estimated GFR > 60.0 (>60) mL/min BUN/Creatinine Ratio 22.7 H (6-22) Glucose 112 H (80-110) mg/dL Calcium 9.1 (8.4-10.2) mg/dL Total Bilirubin 0.6 (0.2-1.3) mg/dL AST 36 (14-36) IU/L ALT 15 (<35) IU/L Alkaline Phosphatase 75 (38-126) U/L Total Creatine Kinase 32 (30-135) U/L CK-MB (CK-2) TNP CK-MB (CK-2) Rel Index TNP Troponin I < 0.012 (0.01-0.034) ng/mL Total Protein 7.2 (6.3-8.2) g/dL Albumin 3.9 (3.5-5.0) g/dL Globulin 3.3 (1.7-4.1) g/dL Albumin/Globulin Ratio 1.2 (1.0-2.8) Lipase 153 (23-300) U/L ECG Data Attestation: I personally reviewed and interpreted this ECG as follows: Prior ECG tracings: available for review Interpretation: Sinus rhythm rate 97 p.r. interval 114 QRS 112 QTC 4 5 artifact is in noted partial left bundle PVCs noted MDM Narrative Medical decision making narrative: Patient overall has no real chest pain she is feeling much better blood work is reassuring. Discharge Plan Departure Patient Disposition: Home Clinical Impression: Abdominal pain Qualifiers: Abdominal location: epigastric Qualified Code(s): R10.13 - Epigastric pain Discharge Date/Time: 06/19/20 12:48 Instructions: DI for Abdominal Pain-Adult Activity Restrictions/Additional Instructions: *You have been diagnosed with abdominal pain *What to do: At this time her blood work is overall reassuring. Her pain is likely from swallowing the apricot pit, please be more careful *Continue to take medications as directed *Follow up with your primary care provider in 2-3 days *Return to ER if you should have increasing pain, chest pain [or] any new, worsening or concerning symptoms Prescriptions: No Action furosemide 80 MG tablet 80 mg PO QDAY Qty: 0 RF: 0 docusate sodium 100 mg Capsule 200 mg PO DAILY RF: 0 omeprazole 40 mg Capsule,Delayed Release(Dr/Ec) 40 mg PO DAILY RF: 0 spironolactone 25 mg Tablet 25 mg PO DAILY RF: 0 calcium carbonate [Tums] 200 mg calcium (500 mg) Tablet,Chewable 2 tab PO TID PRN (Reason: Indigestion) RF: 0 metoprolol tartrate [Lopressor] 50 mg Tablet See Rx Instructions .ROUTE .COMPLEX RF: 0 methimazole 5 mg Tablet 5 mg PO DAILY RF: 0 nystatin 100,000 unit/gram Powder 1 applic TOPICAL TID PRN (Reason: yeast) RF: 0 albuterol sulfate [Ventolin HFA] 90 mcg/actuation Hfa Aerosol Inhaler 2 puff Inhalation Q4H PRN (Reason: Shortness Of Breath Or Wheezing) RF: 0 fluticasone propionate 50 mcg/actuation [place],Suspension 1 spray INTRANASAL DAILY RF: 0 lidocaine HCl 4 % Solution 1 applic Topical QAM RF: 0 potassium chloride 20 mEq Tablet Extended Release 20 meq PO BID RF: 0 warfarin 3 mg Tablet 4 mg PO QPM RF: 0 ondansetron 4 mg Tablet,Disintegrating 4 mg PO Q4H PRN (Reason: Nausea) RF: 0 Qvar RediHaler 40 mcg/actuation Hfa Aerosol Breath Activated 2 puff Inhalation BID RF: 0 sennosides [senna] 8.6 mg Tablet 2 tab PO DAILY RF: 0 rosuvastatin 10 mg Tablet 20 mg PO BEDTIME Qty: 60 RF: 0 omega-3 fatty acids 1,000 mg capsule 1,000 mg PO BID Qty: 60 RF: 0 melatonin 10 mg capsule 10 mg PO BEDTIME PRN (Reason: sleep) Qty: 30 RF: 0 hydrocodone-acetaminophen 5 MG/325 MG tablet 1 tab PO QID MDD 3 gm apap PRN (Reason: Pain (Scale Score 4-6)) Qty: 10 RF: 0 Referrals: Amna Franco MD [Primary Care Provider] -
[2020-06-19 10:49] LABS: Add Manual Diff / Slide Review NO; Basophils Absolute Auto 100 /uL (0-100); Eosinophils Absolute Auto 100 /uL (0-450); Eosinophils Percent Auto 0.8 % (2-4); Hematocrit 39.2 % (36-46); Hemoglobin 12.5 g/dL (12.0-16.0); Lymphocytes Absolute Auto 1500 /uL (1100-4500); Lymphocytes Percent Auto 21.2 % (25-40); Mean Corpuscular Hemoglobin 26.8 PG (26-34); Mean Corpuscular Volume 83.7 fL (80-100); Monocytes Absolute Auto 900 /uL (0-900); Monocytes Percent Auto 12.3 % (3-14); Neutrophils Absolute Auto 4500 /uL (1500-7000); Neutrophils Percent Auto 64.7 % (50-75); Platelet Count 226 X10^3/uL (150-400); Red Blood Cell Count 4.68 X10^6/uL (4.0-5.2); Red Cell Distribution Width 17.9 % (11.6-14.8); White Blood Cell Count 6.9 X10^3/uL (4.5-11.0)
[2020-06-19 11:07] LABS: Alanine Aminotransferase 15 IU/L (<35); Albumin 3.9 g/dL (3.5-5.0); Albumin Globulin Ratio 1.2 (1.0-2.8); Alkaline Phosphatase 75 U/L (38-126); Aspartate Aminotransferase 36 IU/L (14-36); BUN Creatinine Ratio 22.7 (6-22); Bilirubin Total 0.6 mg/dL (0.2-1.3); Blood Urea Nitrogen 10 mg/dL (7-17); Calcium 9.1 mg/dL (8.4-10.2); Carbon Dioxide 28 mmol/L (22-32); Chloride 107 mmol/L (98-107); Creatine Kinase 32 U/L (30-135); Estimated Glomerular Filt Rate > 60.0 mL/min (>60); Globulin 3.3 g/dL (1.7-4.1); Glucose 112 mg/dL (80-110); HEMOLYSIS 18 (0-50); Lipase 153 U/L (23-300); Potassium 4.2 mmol/L (3.4-5.1); Sodium 138 mmol/L (137-145); Total Protein 7.2 g/dL (6.3-8.2)
[2020-06-19 11:17] LABS: Troponin I < 0.012 ng/mL (0.01-0.034)
== END 2020-06-19 12:48 | disposition home or self-care (01) ==
PROVIDERS: Emergency Provider Emergency Medicine; PCP Internal Medicine
DX: R10.13 Epigastric pain (principal)
CPT/HCPCS: 36415; 80053; 82550; 83690; 84484; 85025; 93005; 99283; 99284

== ENCOUNTER → 2020-06-21 14:23 | Outpatient (CLI) | payer OTHER, SELFPAY ==
[2019-10-28 23:44] VITALS: BMI 35.3
[2020-06-21 15:32] LABS: INR 2.9 (0.9-1.3); Prothrombin Time 32.4 SECONDS (10.1-12.7)
== END ==
PROVIDERS: PCP Internal Medicine; Referring Provider Internal Medicine; Visit Provider Nurse Practitioner Family
DX: Z79.899 Other long term (current) drug therapy (principal)
CPT/HCPCS: 36415; 85610

== ENCOUNTER → 2020-07-19 06:53 | Outpatient (ROUT) | payer OTHER, SELFPAY ==
[2019-10-28 23:44] VITALS: BMI 35.3
[2020-07-19 07:10] LABS: BUN Creatinine Ratio 29.3 (6-22); Blood Urea Nitrogen 12 mg/dL (7-17); Calcium 8.6 mg/dL (8.4-10.2); Carbon Dioxide 29 mmol/L (22-32); Chloride 108 mmol/L (98-107); Estimated Glomerular Filt Rate > 60.0 mL/min (>60); Glucose 89 mg/dL (80-110); HEMOLYSIS < 15 (0-50); Potassium 4.1 mmol/L (3.4-5.1); Sodium 141 mmol/L (137-145)
[2020-07-19 07:18] LABS: Add Manual Diff / Slide Review NO; Basophils Absolute Auto 0 /uL (0-100); Basophils Percent Auto 0.6 % (0-2); Eosinophils Absolute Auto 100 /uL (0-450); Eosinophils Percent Auto 2.2 % (2-4); Hematocrit 38.8 % (36-46); Hemoglobin 12.3 g/dL (12.0-16.0); Lymphocytes Absolute Auto 1700 /uL (1100-4500); Lymphocytes Percent Auto 38.4 % (25-40); Mean Corpuscular HGB Conc 31.7 % (30-36); Mean Corpuscular Hemoglobin 26.9 PG (26-34); Mean Corpuscular Volume 84.8 fL (80-100); Monocytes Absolute Auto 500 /uL (0-900); Monocytes Percent Auto 11.1 % (3-14); Neutrophils Absolute Auto 2100 /uL (1500-7000); Neutrophils Percent Auto 47.7 % (50-75); Platelet Count 181 X10^3/uL (150-400); Red Blood Cell Count 4.58 X10^6/uL (4.0-5.2); Red Cell Distribution Width 18.1 % (11.6-14.8); White Blood Cell Count 4.4 X10^3/uL (4.5-11.0)
[2020-07-19 07:39] LABS: Thyroid Stimulating Hormone 0.989 uIU/mL (0.47-4.68)
== END ==
PROVIDERS: PCP Internal Medicine; Visit Provider Internal Medicine
DX: E06.2 Chronic thyroiditis with transient thyrotoxicosis (principal); I48.11 Longstanding persistent atrial fibrillation
CPT/HCPCS: 36415; 80048; 84443; 85025

== ENCOUNTER → 2020-07-21 06:40 | Outpatient (ROUT) | payer OTHER, SELFPAY ==
[2019-10-28 23:44] VITALS: BMI 35.3
[2020-07-21 10:08] LABS: INR 2.9 (0.9-1.3)
== END ==
PROVIDERS: PCP Internal Medicine; Visit Provider Nurse Practitioner Family
DX: I48.91 Unspecified atrial fibrillation (principal)
CPT/HCPCS: 36415; 85610

== ENCOUNTER → 2020-08-04 08:41 | Outpatient (ROUT) | payer OTHER, MEDICAID, SELFPAY ==
[2019-10-28 23:44] VITALS: BMI 35.3
[2020-08-04 09:21] LABS: Prothrombin Time 44.8 SECONDS (10.1-12.7)
== END ==
PROVIDERS: Visit Provider Nurse Practitioner Family
DX: I48.91 Unspecified atrial fibrillation (principal); Z95.2 Presence of prosthetic heart valve
CPT/HCPCS: 36415; 85610

== ENCOUNTER → 2020-08-11 08:35 | Outpatient (ROUT) | payer OTHER, MEDICAID, SELFPAY ==
[2019-10-28 23:44] VITALS: BMI 35.3
[2020-08-11 09:13] LABS: Add Manual Diff / Slide Review NO; Basophils Absolute Auto 100 /uL (0-100); Basophils Percent Auto 0.9 % (0-2); Eosinophils Absolute Auto 100 /uL (0-450); Eosinophils Percent Auto 1.4 % (2-4); Hematocrit 38.2 % (36-46); Hemoglobin 12.4 g/dL (12.0-16.0); Lymphocytes Absolute Auto 1900 /uL (1100-4500); Lymphocytes Percent Auto 27.8 % (25-40); Mean Corpuscular HGB Conc 32.4 % (30-36); Mean Corpuscular Hemoglobin 27.1 PG (26-34); Mean Corpuscular Volume 83.6 fL (80-100); Monocytes Absolute Auto 700 /uL (0-900); Monocytes Percent Auto 10.7 % (3-14); Neutrophils Absolute Auto 4000 /uL (1500-7000); Neutrophils Percent Auto 59.2 % (50-75); Platelet Count 193 X10^3/uL (150-400); Red Blood Cell Count 4.57 X10^6/uL (4.0-5.2); Red Cell Distribution Width 17.8 % (11.6-14.8); White Blood Cell Count 6.8 X10^3/uL (4.5-11.0)
[2020-08-11 09:20] LABS: INR 2.6 (0.9-1.3); Prothrombin Time 29.7 SECONDS (10.1-12.7)
[2020-08-11 09:24] LABS: Alanine Aminotransferase 10 IU/L (<35); Albumin 3.5 g/dL (3.5-5.0); Albumin Globulin Ratio 1.1 (1.0-2.8); Alkaline Phosphatase 78 U/L (38-126); Aspartate Aminotransferase 32 IU/L (14-36); BUN Creatinine Ratio 20.8 (6-22); Bilirubin Total 0.4 mg/dL (0.2-1.3); Blood Urea Nitrogen 10 mg/dL (7-17); Calcium 8.9 mg/dL (8.4-10.2); Carbon Dioxide 32 mmol/L (22-32); Chloride 101 mmol/L (98-107); Estimated Glomerular Filt Rate > 60.0 mL/min (>60); Globulin 3.2 g/dL (1.7-4.1); Glucose 79 mg/dL (80-110); HEMOLYSIS < 15 (0-50); Potassium 4.1 mmol/L (3.4-5.1); Sodium 135 mmol/L (137-145); Total Protein 6.7 g/dL (6.3-8.2)
[2020-08-11 09:32] LABS: NT-proBNP (BNP-Adult 18+) 1160 pg/mL (<125)
== END ==
PROVIDERS: Visit Provider Nurse Practitioner Family
DX: R11.0 Nausea (principal); I50.9 Heart failure, unspecified; Z20.822 Contact with and (suspected) exposure to COVID-19
CPT/HCPCS: 36415; 80053; 83880; 85025; 85610

== ENCOUNTER → 2020-08-25 07:39 | Outpatient (ROUT) | payer OTHER, MEDICAID, SELFPAY ==
[2019-10-28 23:44] VITALS: BMI 35.3
[2020-08-25 08:01] LABS: INR 1.7 (0.9-1.3); Prothrombin Time 20.1 SECONDS (10.1-12.7)
== END ==
PROVIDERS: Visit Provider Nurse Practitioner Family
DX: Z79.01 Long term (current) use of anticoagulants (principal)
CPT/HCPCS: 36415; 85610

== ENCOUNTER → 2020-09-01 07:52 | Outpatient (ROUT) | payer OTHER, MEDICAID, SELFPAY ==
[2019-10-28 23:44] VITALS: BMI 35.3
[2020-09-01 08:28] LABS: INR 2.1 (0.9-1.3); Prothrombin Time 23.7 SECONDS (10.1-12.7)
== END ==
PROVIDERS: Visit Provider Nurse Practitioner Family
DX: Z95.2 Presence of prosthetic heart valve (principal)
CPT/HCPCS: 36415; 85610

== ENCOUNTER → 2020-09-13 13:04 | Outpatient (CLI) | payer OTHER, MEDICAID, SELFPAY ==
[2019-10-28 23:44] VITALS: BMI 35.3
[2020-09-13 15:24] LABS: INR 1.5 (0.9-1.3); Prothrombin Time 16.9 SECONDS (10.1-12.7)
== END ==
PROVIDERS: Referring Provider Internal Medicine; Visit Provider Internal Medicine
DX: Z51.81 Encounter for therapeutic drug level monitoring (principal)
CPT/HCPCS: 36415; 85610

== ENCOUNTER → 2020-09-22 07:29 | Outpatient (ROUT) | payer OTHER, MEDICAID, SELFPAY ==
[2019-10-28 23:44] VITALS: BMI 35.3
[2020-09-22 09:32] LABS: INR 2.2 (0.9-1.3); Prothrombin Time 24.8 SECONDS (10.1-12.7)
== END ==
PROVIDERS: Visit Provider Internal Medicine
DX: Z79.899 Other long term (current) drug therapy (principal)
CPT/HCPCS: 36415; 85610

== ENCOUNTER → 2020-09-23 19:04 | Outpatient (ROUT) | payer OTHER, MEDICAID, SELFPAY ==
[2019-10-28 23:44] VITALS: BMI 35.3
[2020-09-23 19:09] LABS: Appearance Urine UA CLOUDY; Bilirubin Urine UA NEGATIVE (NEGATIVE); Color Urine UA YELLOW; Glucose Urine UA NEGATIVE (Negative); Ketones Urine UA TRACE (NEGATIVE); Leukocyte Esterase Urine UA 2+ (NEGATIVE); Nitrite Urine UA POSITIVE (Negative); Occult Blood Urine UA 2+ (Negative); Protein Urine UA TRACE (Negative); Specific Gravity Urine UA >=1.030 (1.000-1.035); Urobilinogen Urine UA 0.2 E.U./dL (0.2)
[2020-09-23 19:16] LABS: Amorphous Sediment Urine 1+; Bacteria Urine Many (>30); Mucus Urine 1+ (Negative); RBC Urine 5-10/HPF (0-5/HPF); Squamous Epithelial Cell Urine 0-1 /HPF (0-5/HPF); WBC Urine 30-100/HPF (0-5/HPF)
== END ==
PROVIDERS: Visit Provider Nurse Practitioner Family
DX: Z13.9 Encounter for screening, unspecified (principal)
CPT/HCPCS: 81001; 87077; 87086; 87186

== ENCOUNTER → 2020-10-06 07:22 | Outpatient (ROUT) | payer OTHER, MEDICAID, SELFPAY ==
[2019-10-28 23:44] VITALS: BMI 35.3
[2020-10-06 08:28] LABS: INR 3.2 (0.9-1.3); Prothrombin Time 36.3 SECONDS (10.1-12.7)
== END ==
PROVIDERS: Visit Provider Nurse Practitioner Family
DX: Z51.81 Encounter for therapeutic drug level monitoring (principal)
CPT/HCPCS: 36415; 85610

== ENCOUNTER → 2020-10-20 08:03 | Outpatient (ROUT) | payer OTHER, MEDICAID, SELFPAY ==
[2019-10-28 23:44] VITALS: BMI 35.3
[2020-10-20 08:44] LABS: INR 2.7 (0.9-1.3); Prothrombin Time 30.7 SECONDS (10.1-12.7)
== END ==
PROVIDERS: Visit Provider Nurse Practitioner Family
DX: Z92.29 Personal history of other drug therapy (principal)
CPT/HCPCS: 36415; 85610

== ENCOUNTER → 2020-11-17 07:54 | Outpatient (ROUT) | payer OTHER, MEDICAID, SELFPAY ==
[2019-10-28 23:44] VITALS: BMI 35.3
[2020-11-17 08:49] LABS: INR 2.2 (0.9-1.3); Prothrombin Time 24.8 SECONDS (10.1-12.7)
== END ==
PROVIDERS: Visit Provider Nurse Practitioner Family
DX: Z92.29 Personal history of other drug therapy (principal)
CPT/HCPCS: 36415; 85610

== ENCOUNTER → 2020-11-24 07:32 | Outpatient (ROUT) | payer OTHER, MEDICAID, SELFPAY ==
[2019-10-28 23:44] VITALS: BMI 35.3
[2020-11-24 08:54] LABS: INR 3.1 (0.9-1.3); Prothrombin Time 35.1 SECONDS (10.1-12.7)
== END ==
PROVIDERS: Visit Provider Nurse Practitioner Family
DX: Z51.81 Encounter for therapeutic drug level monitoring (principal)
CPT/HCPCS: 36415; 85610

== ENCOUNTER → 2020-12-08 09:08 | Outpatient (ROUT) | payer OTHER, MEDICAID, SELFPAY ==
[2019-10-28 23:44] VITALS: BMI 35.3
[2020-12-08 10:11] LABS: INR 3.3 (0.9-1.3); Prothrombin Time 38.3 SECONDS (10.1-12.7)
== END ==
PROVIDERS: Visit Provider Nurse Practitioner Family
DX: Z51.81 Encounter for therapeutic drug level monitoring (principal)
CPT/HCPCS: 36415; 85610

== ENCOUNTER → 2020-12-15 07:54 | Outpatient (ROUT) | payer OTHER, MEDICAID, SELFPAY ==
[2019-10-28 23:44] VITALS: BMI 35.3
[2020-12-15 08:52] LABS: INR 1.7 (0.9-1.3); Prothrombin Time 19.9 SECONDS (10.1-12.7)
== END ==
PROVIDERS: Visit Provider Internal Medicine
DX: I48.91 Unspecified atrial fibrillation (principal)
CPT/HCPCS: 36415; 85610

== ENCOUNTER → 2020-12-22 08:02 | Outpatient (ROUT) | payer OTHER, MEDICAID, SELFPAY ==
[2019-10-28 23:44] VITALS: BMI 35.3
[2020-12-22 08:35] LABS: INR 1.9 (0.9-1.3); Prothrombin Time 21.2 SECONDS (10.1-12.7)
== END ==
PROVIDERS: Visit Provider Nurse Practitioner Family
DX: I48.91 Unspecified atrial fibrillation (principal)
CPT/HCPCS: 36415; 85610

== ENCOUNTER → 2020-12-29 07:39 | Outpatient (ROUT) | payer OTHER, MEDICAID, SELFPAY ==
[2019-10-28 23:44] VITALS: BMI 35.3
[2020-12-29 08:37] LABS: INR 2.5 (0.9-1.3); Prothrombin Time 29.4 SECONDS (10.1-12.7)
== END ==
PROVIDERS: Visit Provider Nurse Practitioner Family
DX: Z92.29 Personal history of other drug therapy (principal)
CPT/HCPCS: 36415; 85610

== ENCOUNTER → 2021-01-12 07:43 | Outpatient (ROUT) | payer OTHER, MEDICAID, SELFPAY ==
[2019-10-28 23:44] VITALS: BMI 35.3
[2021-01-12 08:13] LABS: INR 2.5 (0.9-1.3)
== END ==
PROVIDERS: Visit Provider Nurse Practitioner Family
DX: Z92.29 Personal history of other drug therapy (principal)
CPT/HCPCS: 36415; 85610

== ENCOUNTER → 2021-02-09 07:55 | Outpatient (ROUT) | payer OTHER, MEDICAID, SELFPAY ==
[2019-10-28 23:44] VITALS: BMI 35.3
[2021-02-09 08:46] LABS: INR 4.5 (0.9-1.3); Prothrombin Time 52.7 SECONDS (10.1-12.7)
== END ==
PROVIDERS: Visit Provider Internal Medicine
DX: Z79.899 Other long term (current) drug therapy (principal)
CPT/HCPCS: 36415; 85610

== ENCOUNTER → 2021-02-16 08:07 | Outpatient (ROUT) | payer OTHER, MEDICAID, SELFPAY ==
[2019-10-28 23:44] VITALS: BMI 35.3
[2021-02-16 08:44] LABS: INR 3.2 (0.9-1.3); Prothrombin Time 36.4 SECONDS (10.1-12.7)
== END ==
PROVIDERS: Visit Provider Nurse Practitioner Family
DX: Z95.2 Presence of prosthetic heart valve (principal)
CPT/HCPCS: 36415; 85610

== ENCOUNTER → 2021-03-02 07:53 | Outpatient (ROUT) | payer OTHER, MEDICAID, SELFPAY ==
[2019-10-28 23:44] VITALS: BMI 35.3
[2021-03-02 09:28] LABS: INR 3.7 (0.9-1.3); Prothrombin Time 42.3 SECONDS (10.1-12.7)
== END ==
PROVIDERS: Visit Provider Nurse Practitioner Family
DX: I48.91 Unspecified atrial fibrillation (principal); Z79.01 Long term (current) use of anticoagulants
CPT/HCPCS: 36415; 85610

== ENCOUNTER → 2021-03-09 07:53 | Outpatient (ROUT) | payer OTHER, MEDICAID, SELFPAY ==
[2019-10-28 23:44] VITALS: BMI 35.3
[2021-03-09 08:42] LABS: Prothrombin Time 22.7 SECONDS (10.1-12.7)
== END ==
PROVIDERS: Visit Provider Nurse Practitioner Family
DX: Z95.2 Presence of prosthetic heart valve (principal)
CPT/HCPCS: 36415; 85610

== ENCOUNTER → 2021-03-16 08:35 | Outpatient (ROUT) | payer OTHER, MEDICAID, SELFPAY ==
[2019-10-28 23:44] VITALS: BMI 35.3
[2021-03-16 09:50] LABS: INR 1.8 (0.9-1.3); Prothrombin Time 19.9 SECONDS (10.1-12.7)
== END ==
PROVIDERS: Visit Provider Nurse Practitioner Family
DX: Z95.2 Presence of prosthetic heart valve (principal)
CPT/HCPCS: 36415; 85610

== ENCOUNTER → 2021-03-23 08:25 | Outpatient (ROUT) | payer OTHER, MEDICAID, SELFPAY ==
[2019-10-28 23:44] VITALS: BMI 35.3
[2021-03-23 09:16] LABS: INR 2.3 (0.9-1.3); Prothrombin Time 26.5 SECONDS (10.1-12.7)
== END ==
PROVIDERS: Visit Provider Nurse Practitioner Family
DX: Z95.2 Presence of prosthetic heart valve (principal)
CPT/HCPCS: 36415; 85610

== ENCOUNTER → 2021-04-06 07:29 | Outpatient (ROUT) | payer OTHER, MEDICAID, SELFPAY ==
[2019-10-28 23:44] VITALS: BMI 35.3
[2021-04-06 08:33] LABS: INR 1.8 (0.9-1.3); Prothrombin Time 20.4 SECONDS (10.1-12.7)
== END ==
PROVIDERS: Visit Provider Nurse Practitioner Family
DX: Z95.2 Presence of prosthetic heart valve (principal)
CPT/HCPCS: 36415; 85610

== ENCOUNTER → 2021-05-04 07:28 | Outpatient (ROUT) | payer OTHER, MEDICAID, SELFPAY ==
[2019-10-28 23:44] VITALS: BMI 35.3
[2021-05-04 08:19] LABS: INR 2.1 (0.9-1.3); Prothrombin Time 24.1 SECONDS (10.1-12.7)
== END ==
PROVIDERS: Visit Provider Nurse Practitioner Family
DX: Z95.2 Presence of prosthetic heart valve (principal)
CPT/HCPCS: 36415; 85610

== ENCOUNTER → 2021-06-01 08:29 | Outpatient (ROUT) | payer OTHER, MEDICAID, SELFPAY ==
[2019-10-28 23:44] VITALS: BMI 35.3
[2021-06-01 10:18] LABS: Prothrombin Time 71.5 SECONDS (10.1-12.7)
[2021-06-01 10:51] LABS: INR 6.1 (0.9-1.3)
== END ==
PROVIDERS: Visit Provider Internal Medicine
DX: Z95.2 Presence of prosthetic heart valve (principal)
CPT/HCPCS: 36415; 85610

== ENCOUNTER → 2021-06-03 12:06 | Outpatient (CLI) | payer OTHER, MEDICAID, SELFPAY ==
[2019-10-28 23:44] VITALS: BMI 35.3
[2021-06-03 12:44] LABS: INR 3.8 (0.9-1.3); Prothrombin Time 44.4 SECONDS (10.1-12.7)
== END ==
PROVIDERS: Referring Provider Nurse Practitioner Family; Visit Provider Nurse Practitioner Family
DX: Z95.2 Presence of prosthetic heart valve (principal)
CPT/HCPCS: 36415; 85610

== ENCOUNTER → 2021-06-08 11:59 | Outpatient (CLI) | payer OTHER, MEDICAID, SELFPAY ==
[2019-10-28 23:44] VITALS: BMI 35.3
[2021-06-08 13:08] LABS: INR 1.5 (0.9-1.3)
== END ==
PROVIDERS: Referring Provider Nurse Practitioner Family; Visit Provider Nurse Practitioner Family
DX: Z95.2 Presence of prosthetic heart valve (principal)
CPT/HCPCS: 36415; 85610

== ENCOUNTER → 2021-06-15 12:54 | Outpatient (CLI) | payer OTHER, MEDICAID, SELFPAY ==
[2019-10-28 23:44] VITALS: BMI 35.3
== END ==
PROVIDERS: Referring Provider Registered Nurse; Visit Provider Registered Nurse
DX: Z95.2 Presence of prosthetic heart valve (principal)
CPT/HCPCS: 36415; 85610

== ENCOUNTER → 2021-06-29 15:42 | Outpatient (ROUT) | payer OTHER, MEDICAID, SELFPAY ==
[2019-10-28 23:44] VITALS: BMI 35.3
[2021-06-29 16:04] LABS: INR 4.4 (0.9-1.3)
== END ==
PROVIDERS: Visit Provider Internal Medicine
DX: T82.01XA Breakdown (mechanical) of heart valve prosthesis, initial encounter (principal)
CPT/HCPCS: 36415; 85610

== ENCOUNTER → 2021-07-06 08:39 | Outpatient (ROUT) | payer OTHER, MEDICAID, SELFPAY ==
[2019-10-28 23:44] VITALS: BMI 35.3
[2021-07-06 10:16] LABS: INR 2.7 (0.9-1.3); Prothrombin Time 31.9 SECONDS (10.1-12.7)
[2021-07-06 10:18] LABS: Add Manual Diff / Slide Review NO; Basophils Absolute Auto 100 /uL (0-100); Basophils Percent Auto 0.8 % (0-2); Eosinophils Absolute Auto 100 /uL (0-450); Eosinophils Percent Auto 1.1 % (2-4); Hematocrit 41.4 % (36-46); Hemoglobin 13.8 g/dL (12.0-16.0); Lymphocytes Absolute Auto 1500 /uL (1100-4500); Lymphocytes Percent Auto 21.4 % (25-40); Mean Corpuscular HGB Conc 33.5 % (30-36); Mean Corpuscular Hemoglobin 29.5 PG (26-34); Mean Corpuscular Volume 88.2 fL (80-100); Monocytes Absolute Auto 800 /uL (0-900); Monocytes Percent Auto 10.8 % (3-14); Neutrophils Absolute Auto 4800 /uL (1500-7000); Neutrophils Percent Auto 65.9 % (50-75); Platelet Count 228 X10^3/uL (150-400); Red Cell Distribution Width 15.9 % (11.6-14.8); White Blood Cell Count 7.2 X10^3/uL (4.5-11.0)
[2021-07-06 10:26] LABS: Alanine Aminotransferase 11 IU/L (<35); Albumin 4.2 g/dL (3.5-5.0); Albumin Globulin Ratio 1.3 (1.0-2.8); Alkaline Phosphatase 72 U/L (38-126); Aspartate Aminotransferase 45 IU/L (14-36); BUN Creatinine Ratio 17.6 (6-22); Bilirubin Total 0.7 mg/dL (0.2-1.3); Blood Urea Nitrogen 13 mg/dL (7-17); Calcium 9.3 mg/dL (8.4-10.2); Carbon Dioxide 28 mmol/L (22-32); Chloride 97 mmol/L (98-107); Estimated Glomerular Filt Rate > 60.0 mL/min (>60); Globulin 3.3 g/dL (1.7-4.1); Glucose 80 mg/dL (80-110); HEMOLYSIS < 15 (0-50); Potassium 3.8 mmol/L (3.4-5.1); Sodium 134 mmol/L (137-145); Total Protein 7.5 g/dL (6.3-8.2)
[2021-07-06 10:55] LABS: Thyroid Stimulating Hormone 2.26 uIU/mL (0.47-4.68)
== END ==
PROVIDERS: Visit Provider Nurse Practitioner Family
DX: R11.0 Nausea (principal); E05.00 Thyrotoxicosis with diffuse goiter without thyrotoxic crisis or storm; Z95.2 Presence of prosthetic heart valve
CPT/HCPCS: 36415; 80053; 84443; 85025; 85610

== ENCOUNTER → 2021-07-08 12:12 | Outpatient (ROUT) | payer OTHER, MEDICAID, SELFPAY ==
[2019-10-28 23:44] VITALS: BMI 35.3
[2021-07-08 12:25] LABS: Appearance Urine UA SL CLOUDY; Bilirubin Urine UA NEGATIVE (NEGATIVE); Color Urine UA YELLOW; Glucose Urine UA NEGATIVE (Negative); Ketones Urine UA NEGATIVE (NEGATIVE); Leukocyte Esterase Urine UA NEGATIVE (NEGATIVE); Nitrite Urine UA NEGATIVE (Negative); Occult Blood Urine UA TRACE-INTACT (Negative); Protein Urine UA 1+ (Negative); Urobilinogen Urine UA 0.2 E.U./dL (0.2)
[2021-07-08 12:36] LABS: Amorphous Sediment Urine 3+; Bacteria Urine Few (2-10); Granular Casts Urine 1-5/LPF; RBC Urine 1-5/HPF (0-5/HPF); Squamous Epithelial Cell Urine None Seen (0-5/HPF); WBC Urine 5-10/HPF (0-5/HPF)
[2021-07-08 12:37] LABS: Culture Indicated Urine Specimen Cultured; Mucus Urine 3+ (Negative)
== END ==
PROVIDERS: Visit Provider Nurse Practitioner Family
DX: R11.0 Nausea (principal)
CPT/HCPCS: 81001; 87086

== ENCOUNTER → 2021-07-13 08:06 | Outpatient (ROUT) | payer OTHER, MEDICAID, SELFPAY ==
[2019-10-28 23:44] VITALS: BMI 35.3
[2021-07-13 08:41] LABS: Add Manual Diff / Slide Review NO; Basophils Absolute Auto 100 /uL (0-100); Basophils Percent Auto 0.7 % (0-2); Eosinophils Absolute Auto 100 /uL (0-450); Eosinophils Percent Auto 1.2 % (2-4); Hematocrit 41.2 % (36-46); Hemoglobin 13.9 g/dL (12.0-16.0); Lymphocytes Absolute Auto 1700 /uL (1100-4500); Lymphocytes Percent Auto 24.4 % (25-40); Mean Corpuscular HGB Conc 33.8 % (30-36); Mean Corpuscular Hemoglobin 29.7 PG (26-34); Mean Corpuscular Volume 87.8 fL (80-100); Monocytes Absolute Auto 900 /uL (0-900); Monocytes Percent Auto 11.9 % (3-14); Neutrophils Absolute Auto 4400 /uL (1500-7000); Neutrophils Percent Auto 61.8 % (50-75); Platelet Count 252 X10^3/uL (150-400); Red Blood Cell Count 4.69 X10^6/uL (4.0-5.2); White Blood Cell Count 7.2 X10^3/uL (4.5-11.0)
[2021-07-13 08:47] LABS: INR 3.2 (0.9-1.3); Prothrombin Time 36.8 SECONDS (10.1-12.7)
[2021-07-13 08:57] LABS: Alanine Aminotransferase 10 IU/L (<35); Albumin 4.1 g/dL (3.5-5.0); Albumin Globulin Ratio 1.3 (1.0-2.8); Alkaline Phosphatase 75 U/L (38-126); Amylase 56 U/L (30-110); Aspartate Aminotransferase 42 IU/L (14-36); BUN Creatinine Ratio 19.7 (6-22); Bilirubin Total 0.8 mg/dL (0.2-1.3); Blood Urea Nitrogen 13 mg/dL (7-17); Calcium 9.4 mg/dL (8.4-10.2); Carbon Dioxide 28 mmol/L (22-32); Chloride 98 mmol/L (98-107); Estimated Glomerular Filt Rate > 60.0 mL/min (>60); Globulin 3.1 g/dL (1.7-4.1); Glucose 90 mg/dL (80-110); HEMOLYSIS < 15 (0-50); Lipase 131 U/L (23-300); Potassium 3.4 mmol/L (3.4-5.1); Sodium 135 mmol/L (137-145); Total Protein 7.2 g/dL (6.3-8.2)
== END ==
PROVIDERS: Visit Provider Nurse Practitioner Family
DX: Z96.9 Presence of functional implant, unspecified (principal)
CPT/HCPCS: 36415; 80053; 82150; 83690; 85025; 85610

== ENCOUNTER → 2021-07-20 07:42 | Outpatient (ROUT) | payer OTHER, MEDICAID, SELFPAY ==
[2019-10-28 23:44] VITALS: BMI 35.3
[2021-07-20 08:51] LABS: INR 3.7 (0.9-1.3); Prothrombin Time 42.9 SECONDS (10.1-12.7)
[2021-07-20 09:28] LABS: Carcinoembryonic Antigen 3.1 ng/mL (0.1-3.0)
[2021-07-20 09:30] LABS: Thyroid Stimulating Hormone 0.875 uIU/mL (0.47-4.68)
== END ==
PROVIDERS: Visit Provider Internal Medicine
DX: Z95.2 Presence of prosthetic heart valve (principal)
CPT/HCPCS: 36415; 82378; 84443; 85610

== ENCOUNTER → 2021-07-27 08:27 | Outpatient (ROUT) | payer OTHER, MEDICAID, SELFPAY ==
[2019-10-28 23:44] VITALS: BMI 35.3
[2021-07-27 09:20] LABS: Prothrombin Time 35.4 SECONDS (10.1-12.7)
== END ==
PROVIDERS: Visit Provider Internal Medicine
DX: Z95.818 Presence of other cardiac implants and grafts (principal)
CPT/HCPCS: 36415; 85610

== ENCOUNTER 2021-08-03 16:04 | Inpatient (IN) | payer OTHER, MEDICAID, SELFPAY ==
[2019-10-28 23:44] VITALS: BMI 35.3
[2021-08-03] VITALS (21 sets, daily range): BP systolic 123–185; BP diastolic 63–95; PULSE 81–168; RESP 13–32; TEMP 36.3–37.7; O2SAT 91–97; BMI 29.2
--- NOTE | 2021-08-03 16:12 | DI.RAD.S_ITS ---
PROCEDURE: XR CHEST 1V INDICATIONS: chest pain TECHNIQUE: One view of the chest was acquired. COMPARISON: [facility], CR, XR CHEST 1V, 11/10/2019, 13:46. FINDINGS: Surgical changes and devices: Sternal wires and hilar clips are present. Lungs and pleura: Lungs are clear. No pleural effusions or pneumothorax. Mediastinum: Mediastinal contours appear normal. Heart size is enlarged. Bones and chest wall: No suspicious bony lesions. Overlying soft tissues appear unremarkable. IMPRESSION: No acute pulmonary process. Dictated by: Radha Sanchez M.D. on 08/03/2021 at 16:40 Approved by: Radha Sanchez M.D. on 08/03/2021 at 16:40
--- NOTE | 2021-08-03 16:43 | PC.NURSE ---
daughter reports that the patient has a wound on her butt, 4x4, and a rash under her left arm.
[2021-08-03 16:48] LABS: COVID19 -Nasal RAPID Negative (Negative)
[2021-08-03 16:59] LABS: Add Manual Diff / Slide Review NO; Basophils Absolute Auto 100 /uL (0-100); Basophils Percent Auto 0.7 % (0-2); Eosinophils Absolute Auto 0 /uL (0-450); Eosinophils Percent Auto 0.4 % (2-4); Hematocrit 41.9 % (36-46); Hemoglobin 13.9 g/dL (12.0-16.0); Lymphocytes Absolute Auto 1500 /uL (1100-4500); Lymphocytes Percent Auto 19.6 % (25-40); Mean Corpuscular HGB Conc 33.2 % (30-36); Mean Corpuscular Hemoglobin 29.6 PG (26-34); Mean Corpuscular Volume 89.1 fL (80-100); Monocytes Absolute Auto 800 /uL (0-900); Monocytes Percent Auto 10.4 % (3-14); Neutrophils Absolute Auto 5100 /uL (1500-7000); Neutrophils Percent Auto 68.9 % (50-75); Platelet Count 268 X10^3/uL (150-400); Red Blood Cell Count 4.71 X10^6/uL (4.0-5.2); Red Cell Distribution Width 16.2 % (11.6-14.8); White Blood Cell Count 7.5 X10^3/uL (4.5-11.0)
[2021-08-03 17:14] LABS: Alanine Aminotransferase 14 IU/L (<35); Albumin 3.8 g/dL (3.5-5.0); Albumin Globulin Ratio 1.1 (1.0-2.8); Alkaline Phosphatase 65 U/L (38-126); Aspartate Aminotransferase 54 IU/L (14-36); BUN Creatinine Ratio 35.1 (6-22); Bilirubin Total 1.2 mg/dL (0.2-1.3); Blood Urea Nitrogen 13 mg/dL (7-17); Calcium 8.8 mg/dL (8.4-10.2); Carbon Dioxide 32 mmol/L (22-32); Chloride 98 mmol/L (98-107); Creatine Kinase 56 U/L (30-135); Estimated Glomerular Filt Rate > 60.0 mL/min (>60); Globulin 3.5 g/dL (1.7-4.1); Glucose 94 mg/dL (80-110); Lipase 122 U/L (23-300); Magnesium 2.1 mg/dL (1.6-2.3); Sodium 131 mmol/L (137-145); Total Protein 7.3 g/dL (6.3-8.2)
[2021-08-03 17:17] LABS: HEMOLYSIS 96 (0-50)
[2021-08-03 17:18] LABS: Potassium 3.8 mmol/L (3.4-5.1)
[2021-08-03 17:25] LABS: Troponin I 0.028 ng/mL (0.01-0.034)
--- NOTE | 2021-08-03 17:35 | ED_ITS ---
HPI - Chest Pain <Kinga Mccormick MD - Last Filed: 08/04/21 07:12> General Chief Complaint: Chest Pain Stated Complaint: Chest Pain Time Seen by Provider: 08/03/21 17:34 History of Present Illness HPI narrative: 75-year-old woman with coronary artery disease, with a mechanical valve on Coumadin, congestive heart failure, paroxysmal atrial fibrillation, dementia currently living at [facility] presents with a fever to 102, and chest pain for 24 hours with atrial fibrillation appreciated. She does not describe significant cough. She has been having chills she is now profusely diaphoretic as her fever is coming down, she has not been eating or drinking much, she is bedbound. She initially denies abdominal pain but with palpation she notes that she is tender. Denies flank pain. She has no lower extremity edema. Cognitive status seems to be at her baseline according to her daughter. Related Data Home Medications Medication Instructions Recorded Confirmed furosemide 80 mg tablet 80 mg PO QDAY #0 05/14/17 10/29/19 albuterol sulfate 90 mcg/actuation 2 puff INHALATION Q4H PRN 01/10/18 08/04/21 aerosol inhaler (Ventolin HFA) calcium carbonate 200 mg calcium 2 tab PO TID PRN 01/10/18 08/04/21 (500 mg) chewable tablet (Tums) docusate sodium 100 mg capsule 200 mg PO DAILY 01/10/18 08/04/21 fluticasone propionate 50 1 spray INTRANASAL DAILY 01/10/18 08/04/21 mcg/actuation nasal spray,suspension lidocaine HCl 4 % laryngotracheal 1 applic TOPICAL QAM PRN 01/10/18 08/04/21 solution methimazole 5 mg tablet 5 mg PO DAILY 01/10/18 08/04/21 metoprolol tartrate 50 mg tablet 01/10/18 10/29/19 (Lopressor) nystatin 100,000 unit/gram topical 1 applic TOPICAL TID PRN 01/10/18 10/29/19 powder omeprazole 40 mg capsule,delayed 40 mg PO DAILY 01/10/18 08/04/21 release potassium chloride 20 mEq 20 meq PO BID 01/10/18 10/29/19 tablet,extended release spironolactone 25 mg tablet 25 mg PO DAILY 01/10/18 10/29/19 beclomethasone dipropionate 40 2 puff INHALATION BID 04/11/18 08/04/21 mcg/actuation HFA breath activated aerosol (Qvar RediHaler) ondansetron 4 mg disintegrating 4 mg PO Q4H PRN 04/11/18 08/04/21 tablet sennosides 8.6 mg tablet (senna) 2 tab PO DAILY 04/11/18 08/04/21 warfarin 3 mg tablet 4 mg PO QPM 04/11/18 10/29/19 Previous Rx's Medication Instructions Recorded hydrocodone 5 mg-acetaminophen 325 1 tab PO QID PRN #10 tab MDD 3 gm 10/29/19 mg tablet apap melatonin 10 mg capsule 10 mg PO BEDTIME PRN #30 cap 10/29/19 omega-3 fatty acids 1,000 mg 1,000 mg PO BID #60 cap 10/29/19 capsule rosuvastatin 10 mg tablet 20 mg PO BEDTIME #60 tab 10/29/19 Allergies Allergy/AdvReac Type Severity Reaction Status Date / Time aspartame [ASPARTAME] Allergy Intermediate violently Verified 10/28/19 18:54 ill, fever, rashes. codeine [CODEINE] Allergy Intermediate PROJECTILE Verified 06/19/20 10:21 VOMITING latex [LATEX] Allergy Intermediate VERY Verified 06/19/20 10:21 ITCHY RASH morphine [MORPHINE] Allergy Intermediate HALLUCINATI Verified 06/19/20 10:21 ONS. albuterol Allergy Verified 06/19/20 10:21 ipratropium Allergy Verified 06/19/20 10:21 Review of Systems <Kinga Mccormick MD - Last Filed: 08/04/21 07:12> Review of Systems Narrative: Complete review is challenging given her cognitive deficits and memory issues ROS Unobtainable: Unobtainable due to mental condition Patient History <Kinga Mccormick MD - Last Filed: 08/04/21 07:12> Medical History (Updated 08/04/21 @ 00:12 by Miguelangel Garcia MD) CHF (congestive heart failure) Chronic a-fib Chronic low back pain COPD (chronic obstructive pulmonary disease) Degenerative disc disease Dementia Depression GERD (gastroesophageal reflux disease) Hyperlipidemia Hypertension Hyperthyroidism TIA (transient ischemic attack) UTI (urinary tract infection) Surgical History (Updated 08/04/21 @ 00:09 by Miguelangel Garcia MD) History of mitral valve replacement Status post appendectomy Status post hysterectomy Social History household members: spouse and other housing: assisted living facility Smoking Status: Unknown if ever smoked alcohol intake: never Smoking Status: Unknown if ever smoked alcohol intake frequency: 0-2 drinks per day Substance Use Type: does not use Exam <Kinga Mccormick MD - Last Filed: 08/04/21 07:12> Narrative Exam Narrative: General: Chronically ill-appearing woman, diaphoretic, appears acutely ill, HEENT: Dry mucous membranes, normal sclera with reactive pupils, Neck: No JVD, supple Respiratory: Lungs are clear to auscultation, no wheezing no rales no rhonchi. Full and symmetrical air movement Cardiac: Mechanical click from her valve replacement, irregular and rapid, no appreciated murmurs Abdomen: Soft, diffusely tender without rebound or guarding, hypoactive bowel tones, no flank pain Skin: Pale and diaphoretic, pressure ulcer developing over the sacrum without significant discharge, fairly superficial does not appear to be significantly cellulitic however there is erythema over the entire buttock with significant stool overall of the skin and into the vagina. Very cloudy smelly urine strongly suggestive of UTI collected. Neurologic: Globally weak, muscle contractures at the shoulders keep arms that bedside and the hip the leg externally rotated and slightly flexed comfort while extended Extremities: No trauma, for overall perfusion, no edema Psych: Cooperative, baseline dementia, slowed responses Initial Vital Signs Initial Vital Signs: Vital Signs Pulse Rate 102 H 08/03/21 16:08 Pulse Oximetry 95 08/03/21 16:08 <Marcell Steve DO - Last Filed: 08/04/21 04:26> Initial Vital Signs Initial Vital Signs: Vital Signs Pulse Rate 102 H 08/03/21 16:08 Pulse Oximetry 95 08/03/21 16:08 Course <Kinga Mccormick MD - Last Filed: 08/04/21 07:12> Orders Ordered: Atorvastatin Calcium (Atorvastatin 20 Mg Tablet) 40 mg PO BEDTIME AGUSTIN Docusate Sodium (Docusate 100 Mg Capsule) 200 mg PO DAILY AGUSTIN Diltiazem HCl 125 mg/ Dextrose 125 mls @ 5 mls/hr IV TITRATE AGUSTIN; Protocol Last Titration: 08/03/21 23:40 Dose: 0 mg/hr, 0 mls/hr Documented by: Titration: 08/03/21 21:34 Dose: 5 mg/hr, 5 mls/hr Documented by: Admin: 08/03/21 18:51 Dose: 5 mg/hr, 5 mls/hr Documented by: IRMA Ceftriaxone Sodium 1,000 mg/ (Sodium Chloride) 100 mls @ 200 mls/hr IV Q24H [facility] Last Infusion: 08/04/21 00:37 Dose: 0 mls/hr Documented by: Admin: 08/03/21 22:38 Dose: 200 mls/hr Documented by: ANGIE Melatonin (Melatonin 3 Mg Tablet) 9 mg PO BEDTIME [facility] Last Admin: 08/03/21 22:39 Dose: 9 mg Documented by: ANGIE Metoprolol Tartrate (Metoprolol Ir 50 Mg Tablet) 75 mg PO BID [facility] Last Admin: 08/03/21 22:39 Dose: 75 mg Documented by: ANGIE Naloxone HCl (Naloxone 0.4 Mg/Ml Vial) 0.2 mg IV Q2MIN PRN PRN Reason: Opiate Reversal Nystatin (Nystatin Powder 15gm) 1 applic TOP TID PRN PRN Reason: Rash Ondansetron HCl (Ondansetron 4 Mg Odt) 4 mg PO Q4H PRN PRN Reason: Nausea Pantoprazole Sodium (Pantoprazole Dr 40 Mg Tablet) 40 mg PO 0700 [facility] Sennosides (Sennosides 8.6 Mg Tablet) 17.2 mg PO DAILY [facility] Sodium Chloride (Sodium Chloride 0.9% Flush) 10 ml IV PRN PRN PRN Reason: Flush Sodium Chloride (Sodium Chloride 0.9% Flush) 10 ml IV BID [facility] Discontinued Medications Diltiazem HCl (Diltiazem 5 Mg/Ml Sdv) 20 mg IV NOW ONE Stop: 08/03/21 17:36 Last Admin: 08/03/21 17:47 Dose: 20 mg Documented by: IRMA Sodium Chloride (Normal Saline 0.9%) 1,000 mls @ 1,000 mls/hr IV BOLUS ONE Stop: 08/03/21 18:42 Last Infusion: 08/03/21 20:16 Dose: 0 mls/hr Documented by: Infusion: 08/03/21 18:45 Dose: 1,000 mls/hr Documented by: Infusion: 08/03/21 17:55 Dose: 0 mls/hr Documented by: Admin: 08/03/21 17:48 Dose: 1,000 mls/hr Documented by: IRMA Piperacillin Sod/Tazobactam (Sod 4.5 gm/ Sodium Chloride) 100 mls @ 200 mls/hr IV NOW ONE Stop: 08/03/21 18:46 Last Infusion: 08/03/21 19:41 Dose: 0 mls/hr Documented by: Admin: 08/03/21 18:52 Dose: 200 mls/hr Documented by: IRMA Vital Signs Vital signs: Vital Signs - 8 hr 08/03/21 20:30 Temperature 99.1 F Pulse Rate 94 H Respiratory Rate 21 Pulse Oximetry 94 <Marcell Steve DO - Last Filed: 08/04/21 04:26> Course Course Narrative: Patient received in sign-out from Dr. Mccormick. I performed an independent hist ory and physical exam. Patient still on Cardizem drip for rapid AFib. Chest pain continues to be resolved. His CT of abdomen pelvis showed no significant findings to suggest severe intra-abdominal pathology, there is some inflammation of the bladder to suggest perhaps the etiology of her infection is a urinary source. She has been treated with broad-spectrum antibiotics, pain well controlled, no significant work of breathing. Need for admission understood by family, questions answered to their apparent satisfaction Orders Ordered: Atorvastatin Calcium (Atorvastatin 20 Mg Tablet) 40 mg PO BEDTIME AGUSTIN Docusate Sodium (Docusate 100 Mg Capsule) 200 mg PO DAILY AGUSTIN Diltiazem HCl 125 mg/ Dextrose 125 mls @ 5 mls/hr IV TITRATE AGUSTIN; Protocol Last Titration: 08/03/21 23:40 Dose: 0 mg/hr, 0 mls/hr Documented by: Titration: 08/03/21 21:34 Dose: 5 mg/hr, 5 mls/hr Documented by: Admin: 08/03/21 18:51 Dose: 5 mg/hr, 5 mls/hr Documented by: IRMA Ceftriaxone Sodium 1,000 mg/ (Sodium Chloride) 100 mls @ 200 mls/hr IV Q24H AGUSTIN Last Infusion: 08/04/21 00:37 Dose: 0 mls/hr Documented by: Admin: 08/03/21 22:38 Dose: 200 mls/hr Documented by: ANGIE Melatonin (Melatonin 3 Mg Tablet) 9 mg PO BEDTIME [facility] Last Admin: 08/03/21 22:39 Dose: 9 mg Documented by: ANGIE Metoprolol Tartrate (Metoprolol Ir 50 Mg Tablet) 75 mg PO BID [facility] Last Admin: 08/03/21 22:39 Dose: 75 mg Documented by: ANGIE Naloxone HCl (Naloxone 0.4 Mg/Ml Vial) 0.2 mg IV Q2MIN PRN PRN Reason: Opiate Reversal Nystatin (Nystatin Powder 15gm) 1 applic TOP TID PRN PRN Reason: Rash Ondansetron HCl (Ondansetron 4 Mg Odt) 4 mg PO Q4H PRN PRN Reason: Nausea Pantoprazole Sodium (Pantoprazole Dr 40 Mg Tablet) 40 mg PO 0700 [facility] Sennosides (Sennosides 8.6 Mg Tablet) 17.2 mg PO DAILY [facility] Sodium Chloride (Sodium Chloride 0.9% Flush) 10 ml IV PRN PRN PRN Reason: Flush Sodium Chloride (Sodium Chloride 0.9% Flush) 10 ml IV BID [facility] Discontinued Medications Diltiazem HCl (Diltiazem 5 Mg/Ml Sdv) 20 mg IV NOW ONE Stop: 08/03/21 17:36 Last Admin: 08/03/21 17:47 Dose: 20 mg Documented by: IRMA Sodium Chloride (Normal Saline 0.9%) 1,000 mls @ 1,000 mls/hr IV BOLUS ONE Stop: 08/03/21 18:42 Last Infusion: 08/03/21 20:16 Dose: 0 mls/hr Documented by: Infusion: 08/03/21 18:45 Dose: 1,000 mls/hr Documented by: Infusion: 08/03/21 17:55 Dose: 0 mls/hr Documented by: Admin: 08/03/21 17:48 Dose: 1,000 mls/hr Documented by: IRMA Piperacillin Sod/Tazobactam (Sod 4.5 gm/ Sodium Chloride) 100 mls @ 200 mls/hr IV NOW ONE Stop: 08/03/21 18:46 Last Infusion: 08/03/21 19:41 Dose: 0 mls/hr Documented by: Admin: 08/03/21 18:52 Dose: 200 mls/hr Documented by: IRMA Vital Signs Vital signs: Vital Signs - 8 hr 08/03/21 20:30 Temperature 99.1 F Pulse Rate 94 H Respiratory Rate 21 Pulse Oximetry 94 MDM - Chest Pain <Kinga L MD Anny - Last Filed: 08/04/21 07:12> Lab Data Result diagrams: 08/04/21 04:47 08/04/21 04:47 Labs: Lab Results 08/03/21 08/03/21 08/03/21 Range/Units 16:00 16:00 16:00 WBC 7.5 (4.5-11.0) X10^3/uL RBC 4.71 (4.0-5.2) X10^6/uL Hgb 13.9 (12.0-16.0) g/dL Hct 41.9 (36-46) % MCV 89.1 (80-100) fL MCH 29.6 (26-34) PG MCHC 33.2 (30-36) % RDW 16.2 H (11.6-14.8) % Plt Count 268 (150-400) X10^3/uL Neut % (Auto) 68.9 (50-75) % Lymph % (Auto) 19.6 L (25-40) % Day % (Auto) 10.4 (3-14) % Eos % (Auto) 0.4 L (2-4) % Baso % (Auto) 0.7 (0-2) % Neut # (Auto) 5100 (8471-9759) /uL Lymph # (Auto) 1500 (9359-2552) /uL Day # (Auto) 800 (0-900) /uL Eos # (Auto) 0 (0-450) /uL Baso # (Auto) 100 (0-100) /uL PT (10.1-12.7) SECONDS INR (0.9-1.3) Sodium 131 L (137-145) mmol/L Potassium 3.8 (3.4-5.1) mmol/L Chloride 98 (98-107) mmol/L Carbon Dioxide 32 (22-32) mmol/L BUN 13 (7-17) mg/dL Creatinine 0.37 L (0.52-1.04) mg/dL Estimated GFR > 60.0 (>60) mL/min BUN/Creatinine Ratio 35.1 H (6-22) Glucose 94 (80-110) mg/dL Lactate (0.7-2.1) mmol/L Calcium 8.8 (8.4-10.2) mg/dL Magnesium 2.1 (1.6-2.3) mg/dL Total Bilirubin 1.2 (0.2-1.3) mg/dL AST 54 H (14-36) IU/L ALT 14 (<35) IU/L Alkaline Phosphatase 65 (38-126) U/L Total Creatine Kinase 56 (30-135) U/L CK-MB (CK-2) TNP CK-MB (CK-2) Rel Index TNP Troponin I 0.028 (0.01-0.034) ng/mL NT-Pro-B Natriuret Pep 2480 H (<450) pg/mL Total Protein 7.3 (6.3-8.2) g/dL Albumin 3.8 (3.5-5.0) g/dL Globulin 3.5 (1.7-4.1) g/dL Albumin/Globulin Ratio 1.1 (1.0-2.8) Lipase 122 (23-300) U/L TSH (0.47-4.68) uIU/mL Urine Color Urine Appearance Urine pH (4.5-8.0) Ur Specific King (1.000-1.035) Urine Protein (Negative) Urine Glucose (UA) (Negative) g/dL Urine Ketones (NEGATIVE) Urine Occult Blood (Negative) Urine Nitrate (Negative) Urine Bilirubin (NEGATIVE) Ur Bilirubin Confirm (Negative) Urine Urobilinogen (0.2) E.U./dL Ur Leukocyte Esterase (NEGATIVE) Urine RBC (0-5/HPF) Urine WBC (0-5/HPF) Ur Squamous Epith Cells (0-5/HPF) Ur Transition Epith Cell (0-5/HPF) Urine Bacteria (None) Ur Culture Indicated? Chlamy pneumoniae PCR (Not Detect) Adenovirus (PCR) (Not Detect) B. pertussis DNA (PCR) (Not Detecte) B.parapertussis DNA PCR (Not Detecte) Coronavirus OC43 (PCR) (Not Detect) Coronavirus HKU1 (PCR) (Not Detect) Coronavirus 229E (PCR) (Not Detect) SARS-CoV-2 (PCR) (Negative) Coronavirus NL63 (PCR) (Not Detect) Human Metapneumovir PCR (Not Detect) Influenza Type A (PCR) (Not Detect) Influenza Type B (PCR) (Not Detect) M. pneumoniae (PCR) (Not Detect) Parainfluenza 1 (PCR) (Not Detect) Parainfluenza 2 (PCR) (Not Detect) Parainfluenza 3 (PCR) (Not Detect) Parainfluenza 4 (PCR) (Not Detect) RSV (PCR) (Not Detect) Entero/Rhino (PCR) (Not Detect) 08/03/21 08/03/21 08/03/21 Range/Units 16:00 16:09 17:41 WBC (4.5-11.0) X10^3/uL RBC (4.0-5.2) X10^6/uL Hgb (12.0-16.0) g/dL Hct (36-46) % MCV (80-100) fL MCH (26-34) PG MCHC (30-36) % RDW (11.6-14.8) % Plt Count (150-400) X10^3/uL Neut % (Auto) (50-75) % Lymph % (Auto) (25-40) % Day % (Auto) (3-14) % Eos % (Auto) (2-4) % Baso % (Auto) (0-2) % Neut # (Auto) (7533-4530) /uL Lymph # (Auto) (4573-8798) /uL Day # (Auto) (0-900) /uL Eos # (Auto) (0-450) /uL Baso # (Auto) (0-100) /uL PT 62.0 H D (10.1-12.7) SECONDS INR 5.2 H* (0.9-1.3) Sodium (137-145) mmol/L Potassium (3.4-5.1) mmol/L Chloride (98-107) mmol/L Carbon Dioxide (22-32) mmol/L BUN (7-17) mg/dL Creatinine (0.52-1.04) mg/dL Estimated GFR (>60) mL/min BUN/Creatinine Ratio (6-22) Glucose (80-110) mg/dL Lactate (0.7-2.1) mmol/L Calcium (8.4-10.2) mg/dL Magnesium (1.6-2.3) mg/dL Total Bilirubin (0.2-1.3) mg/dL AST (14-36) IU/L ALT (<35) IU/L Alkaline Phosphatase (38-126) U/L Total Creatine Kinase (30-135) U/L CK-MB (CK-2) CK-MB (CK-2) Rel Index Troponin I (0.01-0.034) ng/mL NT-Pro-B Natriuret Pep (<450) pg/mL Total Protein (6.3-8.2) g/dL Albumin (3.5-5.0) g/dL Globulin (1.7-4.1) g/dL Albumin/Globulin Ratio (1.0-2.8) Lipase (23-300) U/L TSH 1.38 (0.47-4.68) uIU/mL Urine Color Urine Appearance Urine pH (4.5-8.0) Ur Specific King (1.000-1.035) Urine Protein (Negative) Urine Glucose (UA) (Negative) g/dL Urine Ketones (NEGATIVE) Urine Occult Blood (Negative) Urine Nitrate (Negative) Urine Bilirubin (NEGATIVE) Ur Bilirubin Confirm (Negative) Urine Urobilinogen (0.2) E.U./dL Ur Leukocyte Esterase (NEGATIVE) Urine RBC (0-5/HPF) Urine WBC (0-5/HPF) Ur Squamous Epith Cells (0-5/HPF) Ur Transition Epith Cell (0-5/HPF) Urine Bacteria (None) Ur Culture Indicated? Chlamy pneumoniae PCR (Not Detect) Adenovirus (PCR) (Not Detect) B. pertussis DNA (PCR) (Not Detecte) B.parapertussis DNA PCR (Not Detecte) Coronavirus OC43 (PCR) (Not Detect) Coronavirus HKU1 (PCR) (Not Detect) Coronavirus 229E (PCR) (Not Detect) SARS-CoV-2 (PCR) Negative (Negative) Coronavirus NL63 (PCR) (Not Detect) Human Metapneumovir PCR (Not Detect) Influenza Type A (PCR) (Not Detect) Influenza Type B (PCR) (Not Detect) M. pneumoniae (PCR) (Not Detect) Parainfluenza 1 (PCR) (Not Detect) Parainfluenza 2 (PCR) (Not Detect) Parainfluenza 3 (PCR) (Not Detect) Parainfluenza 4 (PCR) (Not Detect) RSV (PCR) (Not Detect) Entero/Rhino (PCR) (Not Detect) 08/03/21 08/03/21 08/03/21 Range/Units 17:41 17:45 18:41 WBC (4.5-11.0) X10^3/uL RBC (4.0-5.2) X10^6/uL Hgb (12.0-16.0) g/dL Hct (36-46) % MCV (80-100) fL MCH (26-34) PG MCHC (30-36) % RDW (11.6-14.8) % Plt Count (150-400) X10^3/uL Neut % (Auto) (50-75) % Lymph % (Auto) (25-40) % Day % (Auto) (3-14) % Eos % (Auto) (2-4) % Baso % (Auto) (0-2) % Neut # (Auto) (4508-3565) /uL Lymph # (Auto) (6036-5260) /uL Day # (Auto) (0-900) /uL Eos # (Auto) (0-450) /uL Baso # (Auto) (0-100) /uL PT (10.1-12.7) SECONDS INR (0.9-1.3) Sodium (137-145) mmol/L Potassium (3.4-5.1) mmol/L Chloride (98-107) mmol/L Carbon Dioxide (22-32) mmol/L BUN (7-17) mg/dL Creatinine (0.52-1.04) mg/dL Estimated GFR (>60) mL/min BUN/Creatinine Ratio (6-22) Glucose (80-110) mg/dL Lactate 1.6 (0.7-2.1) mmol/L Calcium (8.4-10.2) mg/dL Magnesium (1.6-2.3) mg/dL Total Bilirubin (0.2-1.3) mg/dL AST (14-36) IU/L ALT (<35) IU/L Alkaline Phosphatase (38-126) U/L Total Creatine Kinase (30-135) U/L CK-MB (CK-2) CK-MB (CK-2) Rel Index Troponin I (0.01-0.034) ng/mL NT-Pro-B Natriuret Pep (<450) pg/mL Total Protein (6.3-8.2) g/dL Albumin (3.5-5.0) g/dL Globulin (1.7-4.1) g/dL Albumin/Globulin Ratio (1.0-2.8) Lipase (23-300) U/L TSH (0.47-4.68) uIU/mL Urine Color Yellow Urine Appearance Sl cloudy Urine pH 5.0 (4.5-8.0) Ur Specific King 1.020 (1.000-1.035) Urine Protein 2+ H (Negative) Urine Glucose (UA) Negative (Negative) g/dL Urine Ketones Negative (NEGATIVE) Urine Occult Blood 3+ H (Negative) Urine Nitrate Negative (Negative) Urine Bilirubin 1+ H (NEGATIVE) Ur Bilirubin Confirm Negative (Negative) Urine Urobilinogen 0.2 (0.2) E.U./dL Ur Leukocyte Esterase 2+ H (NEGATIVE) Urine RBC None seen (0-5/HPF) Urine WBC >100/hpf H (0-5/HPF) Ur Squamous Epith Cells 5-10 /hpf H (0-5/HPF) Ur Transition Epith Cell 1-5/hpf (0-5/HPF) Urine Bacteria Many (>30) H (None) Ur Culture Indicated? Cult not indicated Chlamy pneumoniae PCR Not detected (Not Detect) Adenovirus (PCR) Not detected (Not Detect) B. pertussis DNA (PCR) Not detected (Not Detecte) B.parapertussis DNA PCR Not detected (Not Detecte) Coronavirus OC43 (PCR) Not detected (Not Detect) Coronavirus HKU1 (PCR) Not detected (Not Detect) Coronavirus 229E (PCR) Not detected (Not Detect) SARS-CoV-2 (PCR) Not detected (Negative) Coronavirus NL63 (PCR) Not detected (Not Detect) Human Metapneumovir PCR Not detected (Not Detect) Influenza Type A (PCR) Not detected (Not Detect) Influenza Type B (PCR) Not detected (Not Detect) M. pneumoniae (PCR) Not detected (Not Detect) Parainfluenza 1 (PCR) Not detected (Not Detect) Parainfluenza 2 (PCR) Not detected (Not Detect) Parainfluenza 3 (PCR) Not detected (Not Detect) Parainfluenza 4 (PCR) Not detected (Not Detect) RSV (PCR) Not detected (Not Detect) Entero/Rhino (PCR) Not detected (Not Detect) Imaging Data Chest x-ray: Radiologist's Impression: FINDINGS:? ? Surgical changes and devices:? Sternal wires and hilar clips are present. ? Lungs and pleura:? Lungs are clear.? No pleural effusions or pneumothorax.? ? Mediastinum:? Mediastinal contours appear normal.? Heart size is enlarged. ? Bones and chest wall:? No suspicious bony lesions.? Overlying soft tissues appear unremarkable.? ? IMPRESSION:? No acute pulmonary process. ? ? Dictated by: Radha Sanchez M.D. on 08/03/2021 at 16:40 ? ? ECG Data Interpretation: Very poor baseline Likely atrial fibrillation with a rate of 107 and PVCs Lateral mild ST T wave changes MDM Narrative Medical decision making narrative: 75-year-old woman with 24 hours of chest pain with atrial fibrillation with intermittently rapid ventricular response. As high is 180 with 20 mg of IV diltiazem given with excellent response. Currently on a diltiazem drip. Initial troponin is unremarkable and chest x-ray does not suggest significant cardiomegaly or significant fluid overload consistent with congestive heart failure. There does appear to be some mild blunting of left costophrenic angle. She does have the minor pressure ulcer over the sacrum however this does not seem significant enough to cause the profuse diaphoresis in fevers to 102. Does not seem to be a pneumonia. Urine will be obtained via catheterization. With the abdominal pain will also go ahead and obtain a CT scan of the abdomen looking for additional source of infection. In the meantime her atrial fibrillation with rapid ventricular response is treated with diltiazem and responding nicely. She is not hypotensive. Will give her a L of fluid but be cautious with fluid replacement given her congestive heart failure history and large volume diaphoretic doses baseline. Will begin Zosyn as an antibiotic to cover urine pulmonary and GI until have a more significant source to explain her fevers and infectious etiology. I suspect that the atrial fibrillation is a consequence of the fever in the illness. 6:48 urine does look significantly infected and may be source of her fever. Zosyn is started. There is some skin breakdown but the pressure ulcer does not look like the source of infection. CT scan is currently pending. Rate is better controlled on diltiazem drip. INR is elevated at 5 point no however there is no signs of active bleeding. Care is turned over to Dr. Steve at change of shift <Marcell Steve, - Last Filed: 08/04/21 04:26> Lab Data Labs: Lab Results 08/03/21 08/03/21 08/03/21 Range/Units 16:00 16:00 16:00 WBC 7.5 (4.5-11.0) X10^3/uL RBC 4.71 (4.0-5.2) X10^6/uL Hgb 13.9 (12.0-16.0) g/dL Hct 41.9 (36-46) % MCV 89.1 (80-100) fL MCH 29.6 (26-34) PG MCHC 33.2 (30-36) % RDW 16.2 H (11.6-14.8) % Plt Count 268 (150-400) X10^3/uL Neut % (Auto) 68.9 (50-75) % Lymph % (Auto) 19.6 L (25-40) % Day % (Auto) 10.4 (3-14) % Eos % (Auto) 0.4 L (2-4) % Baso % (Auto) 0.7 (0-2) % Neut # (Auto) 5100 (2431-8648) /uL Lymph # (Auto) 1500 (8699-2835) /uL Day # (Auto) 800 (0-900) /uL Eos # (Auto) 0 (0-450) /uL Baso # (Auto) 100 (0-100) /uL PT (10.1-12.7) SECONDS INR (0.9-1.3) Sodium 131 L (137-145) mmol/L Potassium 3.8 (3.4-5.1) mmol/L Chloride 98 (98-107) mmol/L Carbon Dioxide 32 (22-32) mmol/L BUN 13 (7-17) mg/dL Creatinine 0.37 L (0.52-1.04) mg/dL Estimated GFR > 60.0 (>60) mL/min BUN/Creatinine Ratio 35.1 H (6-22) Glucose 94 (80-110) mg/dL Lactate (0.7-2.1) mmol/L Calcium 8.8 (8.4-10.2) mg/dL Magnesium 2.1 (1.6-2.3) mg/dL Total Bilirubin 1.2 (0.2-1.3) mg/dL AST 54 H (14-36) IU/L ALT 14 (<35) IU/L Alkaline Phosphatase 65 (38-126) U/L Total Creatine Kinase 56 (30-135) U/L CK-MB (CK-2) TNP CK-MB (CK-2) Rel Index TNP Troponin I 0.028 (0.01-0.034) ng/mL NT-Pro-B Natriuret Pep 2480 H (<450) pg/mL Total Protein 7.3 (6.3-8.2) g/dL Albumin 3.8 (3.5-5.0) g/dL Globulin 3.5 (1.7-4.1) g/dL Albumin/Globulin Ratio 1.1 (1.0-2.8) Lipase 122 (23-300) U/L TSH (0.47-4.68) uIU/mL Urine Color Urine Appearance Urine pH (4.5-8.0) Ur Specific King (1.000-1.035) Urine Protein (Negative) Urine Glucose (UA) (Negative) g/dL Urine Ketones (NEGATIVE) Urine Occult Blood (Negative) Urine Nitrate (Negative) Urine Bilirubin (NEGATIVE) Ur Bilirubin Confirm (Negative) Urine Urobilinogen (0.2) E.U./dL Ur Leukocyte Esterase (NEGATIVE) Urine RBC (0-5/HPF) Urine WBC (0-5/HPF) Ur Squamous Epith Cells (0-5/HPF) Ur Transition Epith Cell (0-5/HPF) Urine Bacteria (None) Ur Culture Indicated? Chlamy pneumoniae PCR (Not Detect) Adenovirus (PCR) (Not Detect) B. pertussis DNA (PCR) (Not Detecte) B.parapertussis DNA PCR (Not Detecte) Coronavirus OC43 (PCR) (Not Detect) Coronavirus HKU1 (PCR) (Not Detect) Coronavirus 229E (PCR) (Not Detect) SARS-CoV-2 (PCR) (Negative) Coronavirus NL63 (PCR) (Not Detect) Human Metapneumovir PCR (Not Detect) Influenza Type A (PCR) (Not Detect) Influenza Type B (PCR) (Not Detect) M. pneumoniae (PCR) (Not Detect) Parainfluenza 1 (PCR) (Not Detect) Parainfluenza 2 (PCR) (Not Detect) Parainfluenza 3 (PCR) (Not Detect) Parainfluenza 4 (PCR) (Not Detect) RSV (PCR) (Not Detect) Entero/Rhino (PCR) (Not Detect) 08/03/21 08/03/21 08/03/21 Range/Units 16:00 16:09 17:41 WBC (4.5-11.0) X10^3/uL RBC (4.0-5.2) X10^6/uL Hgb (12.0-16.0) g/dL Hct (36-46) % MCV (80-100) fL MCH (26-34) PG MCHC (30-36) % RDW (11.6-14.8) % Plt Count (150-400) X10^3/uL Neut % (Auto) (50-75) % Lymph % (Auto) (25-40) % Day % (Auto) (3-14) % Eos % (Auto) (2-4) % Baso % (Auto) (0-2) % Neut # (Auto) (0201-8887) /uL Lymph # (Auto) (4197-1627) /uL Day # (Auto) (0-900) /uL Eos # (Auto) (0-450) /uL Baso # (Auto) (0-100) /uL PT 62.0 H D (10.1-12.7) SECONDS INR 5.2 H* (0.9-1.3) Sodium (137-145) mmol/L Potassium (3.4-5.1) mmol/L Chloride (98-107) mmol/L Carbon Dioxide (22-32) mmol/L BUN (7-17) mg/dL Creatinine (0.52-1.04) mg/dL Estimated GFR (>60) mL/min BUN/Creatinine Ratio (6-22) Glucose (80-110) mg/dL Lactate (0.7-2.1) mmol/L Calcium (8.4-10.2) mg/dL Magnesium (1.6-2.3) mg/dL Total Bilirubin (0.2-1.3) mg/dL AST (14-36) IU/L ALT (<35) IU/L Alkaline Phosphatase (38-126) U/L Total Creatine Kinase (30-135) U/L CK-MB (CK-2) CK-MB (CK-2) Rel Index Troponin I (0.01-0.034) ng/mL NT-Pro-B Natriuret Pep (<450) pg/mL Total Protein (6.3-8.2) g/dL Albumin (3.5-5.0) g/dL Globulin (1.7-4.1) g/dL Albumin/Globulin Ratio (1.0-2.8) Lipase (23-300) U/L TSH 1.38 (0.47-4.68) uIU/mL Urine Color Urine Appearance Urine pH (4.5-8.0) Ur Specific King (1.000-1.035) Urine Protein (Negative) Urine Glucose (UA) (Negative) g/dL Urine Ketones (NEGATIVE) Urine Occult Blood (Negative) Urine Nitrate (Negative) Urine Bilirubin (NEGATIVE) Ur Bilirubin Confirm (Negative) Urine Urobilinogen (0.2) E.U./dL Ur Leukocyte Esterase (NEGATIVE) Urine RBC (0-5/HPF) Urine WBC (0-5/HPF) Ur Squamous Epith Cells (0-5/HPF) Ur Transition Epith Cell (0-5/HPF) Urine Bacteria (None) Ur Culture Indicated? Chlamy pneumoniae PCR (Not Detect) Adenovirus (PCR) (Not Detect) B. pertussis DNA (PCR) (Not Detecte) B.parapertussis DNA PCR (Not Detecte) Coronavirus OC43 (PCR) (Not Detect) Coronavirus HKU1 (PCR) (Not Detect) Coronavirus 229E (PCR) (Not Detect) SARS-CoV-2 (PCR) Negative (Negative) Coronavirus NL63 (PCR) (Not Detect) Human Metapneumovir PCR (Not Detect) Influenza Type A (PCR) (Not Detect) Influenza Type B (PCR) (Not Detect) M. pneumoniae (PCR) (Not Detect) Parainfluenza 1 (PCR) (Not Detect) Parainfluenza 2 (PCR) (Not Detect) Parainfluenza 3 (PCR) (Not Detect) Parainfluenza 4 (PCR) (Not Detect) RSV (PCR) (Not Detect) Entero/Rhino (PCR) (Not Detect) 08/03/21 08/03/21 08/03/21 Range/Units 17:41 17:45 18:41 WBC (4.5-11.0) X10^3/uL RBC (4.0-5.2) X10^6/uL Hgb (12.0-16.0) g/dL Hct (36-46) % MCV (80-100) fL MCH (26-34) PG MCHC (30-36) % RDW (11.6-14.8) % Plt Count (150-400) X10^3/uL Neut % (Auto) (50-75) % Lymph % (Auto) (25-40) % Day % (Auto) (3-14) % Eos % (Auto) (2-4) % Baso % (Auto) (0-2) % Neut # (Auto) (2753-6555) /uL Lymph # (Auto) (3100-7820) /uL Day # (Auto) (0-900) /uL Eos # (Auto) (0-450) /uL Baso # (Auto) (0-100) /uL PT (10.1-12.7) SECONDS INR (0.9-1.3) Sodium (137-145) mmol/L Potassium (3.4-5.1) mmol/L Chloride (98-107) mmol/L Carbon Dioxide (22-32) mmol/L BUN (7-17) mg/dL Creatinine (0.52-1.04) mg/dL Estimated GFR (>60) mL/min BUN/Creatinine Ratio (6-22) Glucose (80-110) mg/dL Lactate 1.6 (0.7-2.1) mmol/L Calcium (8.4-10.2) mg/dL Magnesium (1.6-2.3) mg/dL Total Bilirubin (0.2-1.3) mg/dL AST (14-36) IU/L ALT (<35) IU/L Alkaline Phosphatase (38-126) U/L Total Creatine Kinase (30-135) U/L CK-MB (CK-2) CK-MB (CK-2) Rel Index Troponin I (0.01-0.034) ng/mL NT-Pro-B Natriuret Pep (<450) pg/mL Total Protein (6.3-8.2) g/dL Albumin (3.5-5.0) g/dL Globulin (1.7-4.1) g/dL Albumin/Globulin Ratio (1.0-2.8) Lipase (23-300) U/L TSH (0.47-4.68) uIU/mL Urine Color Yellow Urine Appearance Sl cloudy Urine pH 5.0 (4.5-8.0) Ur Specific King 1.020 (1.000-1.035) Urine Protein 2+ H (Negative) Urine Glucose (UA) Negative (Negative) g/dL Urine Ketones Negative (NEGATIVE) Urine Occult Blood 3+ H (Negative) Urine Nitrate Negative (Negative) Urine Bilirubin 1+ H (NEGATIVE) Ur Bilirubin Confirm Negative (Negative) Urine Urobilinogen 0.2 (0.2) E.U./dL Ur Leukocyte Esterase 2+ H (NEGATIVE) Urine RBC None seen (0-5/HPF) Urine WBC >100/hpf H (0-5/HPF) Ur Squamous Epith Cells 5-10 /hpf H (0-5/HPF) Ur Transition Epith Cell 1-5/hpf (0-5/HPF) Urine Bacteria Many (>30) H (None) Ur Culture Indicated? Cult not indicated Chlamy pneumoniae PCR Not detected (Not Detect) Adenovirus (PCR) Not detected (Not Detect) B. pertussis DNA (PCR) Not detected (Not Detecte) B.parapertussis DNA PCR Not detected (Not Detecte) Coronavirus OC43 (PCR) Not detected (Not Detect) Coronavirus HKU1 (PCR) Not detected (Not Detect) Coronavirus 229E (PCR) Not detected (Not Detect) SARS-CoV-2 (PCR) Not detected (Negative) Coronavirus NL63 (PCR) Not detected (Not Detect) Human Metapneumovir PCR Not detected (Not Detect) Influenza Type A (PCR) Not detected (Not Detect) Influenza Type B (PCR) Not detected (Not Detect) M. pneumoniae (PCR) Not detected (Not Detect) Parainfluenza 1 (PCR) Not detected (Not Detect) Parainfluenza 2 (PCR) Not detected (Not Detect) Parainfluenza 3 (PCR) Not detected (Not Detect) Parainfluenza 4 (PCR) Not detected (Not Detect) RSV (PCR) Not detected (Not Detect) Entero/Rhino (PCR) Not detected (Not Detect) MDM Narrative Medical decision making narrative: 75-year-old woman with 24 hours of chest pain with atrial fibrillation with intermittently rapid ventricular response. As high is 180 with 20 mg of IV diltiazem given with excellent response. Currently on a diltiazem drip. Initial troponin is unremarkable and chest x-ray does not suggest significant cardiomegaly or significant fluid overload consistent with congestive heart failure. There does appear to be some mild blunting of left costophrenic angle. She does have the minor pressure ulcer over the sacrum however this does not seem significant enough to cause the profuse diaphoresis in fevers to 102. Does not seem to be a pneumonia. Urine will be obtained via catheterization. With the abdominal pain will also go ahead and obtain a CT scan of the abdomen looking for additional source of infection. In the meantime her atrial fibrillation with rapid ventricular response is treated with diltiazem and responding nicely. She is not hypotensive. Will give her a L of fluid but be cautious with fluid replacement given her congestive heart failure history and large volume diaphoretic doses baseline. Will begin Zosyn as an antibiotic to cover urine pulmonary and GI until have a more significant source to explain her fevers and infectious etiology. I suspect that the atrial fibrillation is a consequence of the fever in the illness. 6:48 urine does look significantly infected and may be source of her fever. Zosyn is started. There is some skin breakdown but the pressure ulcer does not look like the source of infection. CT scan is currently pending. Rate is better controlled on diltiazem drip. INR is elevated at 5 point no however there is no signs of active bleeding. Care is turned over to Dr. Steve at change of shift Discharge Plan Departure Patient Disposition: Admitted As Inpatient Clinical Impression: Atrial fibrillation with RVR, SIRS (systemic inflammatory response syndrome), Acute UTI, Pressure ulcer Admit Date/Time: 08/03/21 20:33 Admit Provider: Carolyn Ohara
--- NOTE | 2021-08-03 17:44 | DI.CT.S_ITS ---
PROCEDURE: CT ABDOMEN PELVIS W CON INDICATIONS: fever, abdominal pain TECHNIQUE: After the administration of intravenous contrast, axial sections acquired from the lung bases to the pubic symphysis. Coronal and sagittal reformats were performed. For radiation dose reduction, the following was used: automated exposure control, adjustment of mA and/or kV according to patient size. COMPARISON: None. FINDINGS: Image quality: Excellent. Lung bases: No pleural effusion or acute airspace opacity demonstrated. Heart: Median sternotomy changes. Coronary atherosclerosis. No cardiomegaly or pericardial effusion. ABDOMEN: Liver: No focal hepatic mass. Mild hepatic steatosis. Gallbladder: Hydropic gallbladder. There are 4 small calcified gallstones layering dependently. No gallbladder wall thickening or pericholecystic inflammatory change. Biliary ducts: Mild intrahepatic biliary ductal dilatation. Normal caliber common duct. Pancreas: No acute finding. Spleen: Normal size and appearance. Adrenal Glands: No nodule or mass. Kidneys and Ureters: Symmetric mild perinephric fat stranding, similar to prior studies. No hydroureteronephrosis. Stomach and Bowel: No abnormally dilated or thickened loop of bowel. No pericolonic or mesenteric inflammatory changes. Peritoneum: No free fluid or free air. Ventral Wall: No ventral abdominal wall hernia. Abdominal Nodes: No threshold enlarged intra-abdominal or retroperitoneal lymph node. Vessels: Aorta and inferior vena cava are normal in size. PELVIS: Pelvic Organs: Unremarkable. Bladder: Circumferential urinary bladder wall thickening with subjective mucosal hyperenhancement. Pelvic Nodes: No threshold enlarged pelvic or inguinal lymph node. The Miscellaneous: No hernias are seen. Bones: Unremarkable. IMPRESSION: Circumferential urinary bladder wall thickening. This could represent cystitis. Correlate with urinalysis. Cholelithiasis without findings of cholecystitis. Dictated by: David Mckinney M.D. on 08/03/2021 at 18:37 Approved by: David Mckinney M.D. on 08/03/2021 at 18:41
[2021-08-03] MEDS: dilTIAZem 5 MG/ML SDV 20 MG IV (17:47)
[2021-08-03] MEDS: SODIUM CHLORIDE 0.9% 1,000 ML 1000 ML IV (17:48)
--- NOTE | 2021-08-03 18:06 | PC.NURSE ---
1745 pt noted to have HR increase to 168-175, diaphoretic. h/o afib but happens intermittently, Dr Mccormick at bedside. pt given 20mg cardizem IVP and temp rechecked-- 98.9 oral. Pt was reported to have fever at [facility]. 2nd IV placed, cultures x 2 drawn, resp panel swabbed and sent. pt rec'ing abd CT. fluids infusing, cadena cath placed for accurate I&O's. Pt is a bedbound [facility] patient at her care center.
[2021-08-03 18:25] LABS: Lactate (Lactic Acid) 1.6 mmol/L (0.7-2.1)
--- NOTE | 2021-08-03 18:45 | PC.NURSE ---
Temp sensing 16F cadena cath placed. temp 98.4 core. Pt turned and coccyx excoriated with pus exudate and half of an old bandage from [facility] still in place. Removed and cleansed and covered with an allevyn dressing.
[2021-08-03 18:48] LABS: INR 5.2 (0.9-1.3)
[2021-08-03 18:49] LABS: Appearance Urine UA SL CLOUDY; Bilirubin Urine UA 1+ (NEGATIVE); Color Urine UA YELLOW; Glucose Urine UA NEGATIVE (Negative); Ketones Urine UA NEGATIVE (NEGATIVE); Leukocyte Esterase Urine UA 2+ (NEGATIVE); Nitrite Urine UA NEGATIVE (Negative); Occult Blood Urine UA 3+ (Negative); Protein Urine UA 2+ (Negative); Urobilinogen Urine UA 0.2 E.U./dL (0.2)
[2021-08-03] MEDS: dilTIAZem 125 MG in DEXTROSE 5 % IN WATER 100 ML IV (18:51)
[2021-08-03] MEDS: PIPERACILLIN/TAZO 4.5 GM in SODIUM CHLORIDE 0.9% 100 ML 200 ML IV (18:52)
[2021-08-03 19:02] LABS: Adenovirus Not Detected (Not Detect); B. parapertussis Not Detected (Not Detecte); Bordetella pertussis Not Detected (Not Detecte); Chlamydophila pneumoniae Not Detected (Not Detect); Coronavirus 229E Not Detected (Not Detect); Coronavirus HKU1 Not Detected (Not Detect); Coronavirus NL 63 Not Detected (Not Detect); Coronavirus OC43 Not Detected (Not Detect); Human Metapneumovirus Not Detected (Not Detect); Human Rhinovirus/Enterovirus Not Detected (Not Detect); Influenza A Not Detected (Not Detect); Influenza B Not Detected (Not Detect); Mycoplasma pneumoniae Not Detected (Not Detect); Parainfluenza Virus 1 Not Detected (Not Detect); Parainfluenza Virus 2 Not Detected (Not Detect); Parainfluenza Virus 3 Not Detected (Not Detect); Parainfluenza Virus 4 Not Detected (Not Detect); Respiratory Syncytial Virus Not Detected (Not Detect); SARS- CoV-2 Not Detected (Not Detecte)
[2021-08-03 19:07] LABS: Bacteria Urine Many (>30); Culture Indicated Urine Cult Not Indicated; Ictotest Urine Negative (Negative); RBC Urine None Seen (0-5/HPF); Squamous Epithelial Cell Urine 5-10 /HPF (0-5/HPF); Transitional Epi Cells Urine 1-5/HPF (0-5/HPF); WBC Urine >100/HPF (0-5/HPF)
[2021-08-03 21:50] LABS: TSH w/ Reflex to FT4 1.38 uIU/mL (0.47-4.68)
[2021-08-03 21:51] LABS: NT-proBNP (BNP-Adult 18+) 2480 pg/mL (<450)
--- NOTE | 2021-08-03 22:27 | P.HP_ITS ---
History of Present Illness History of Present Illness Date Patient Seen: 08/03/21 Time Patient Seen: 22:00 Chief complaint: Chest Pain Narrative: Ms. Vivi Yeh is a 77-year-old female with history significant for atrial fibrillation anticoagulated on Coumadin, coronary artery disease status post CABG and mitral mechanical valve replacement in 1993, diastolic heart failure most recent EF of 35-40% in October of 2019, COPD, recurrent UTIs, TIA, hypertension, hyperlipidemia, degenerative disc disease and dementia who presents to the ER via EMS from [facility] for lethargy, general weakness and a fever.? The patient's daughter, Swati Moise stated she she was told by the facility that the patient had not eaten since yesterday, was very lethargic and decided to notify EMS when she developed a fever. She stated that the patient has previously presented with the symptoms with urinary tract infection.? At baseline the patient is fully oriented and lives with her in independent side of the assisted living facility.? Per her daughter, she is predominantly bed bound and the facility used to assist her in mobilizing but does not now.?The patient denies headaches. dizziness or visual changes. Daugher states she had a pattern of falling a couple of years ago, but not recently.? She states she has always feeling cold and denies fevers.? She complained of chest pain and a sensation of someone dancing on my chest but denies shortness of breath has a chronic cough.? She denies abdominal pain, heartburn, nausea or vomiting but did endorse not having much of an appetite or being thirsty.? She denies complaints urinary symptoms with no burning, urgency or frequency and no hematuria.? Daughter stated she had foot drop due to not walking in several years. Daughter reported the facility to APS social work due to concerns for hygiene with the patient appearing to not have been changed in 2 days, having soiled clothing and a worsening sacral ulcer. She stated there was a flesh colored dressing, likely a duoderm and that she she saw red spots around her chest. She states they plan to place the patient's in the memory care unit because he has Parkinson's and falls frequently which will result in him being from his . She also stated they are closing the upper floor due to staffing and has concerns about the care both her mother and father are receiving. In the ED, she was found to be in atrial fibrillation and arrived to the floor on a diltiazem drip running at 5 mg/hour. She was also found to have significant bacteria in her urine and administered IV zosyn and bolused w/NS. CT of the abdomen noted bladder wall thickening, cholelithiasis without cholecystitis. Patient's T-max was 99.9? and is currently 97.3, blood pressure 123/83, heart rate 81, respiratory rate 28, oxygen saturation of 95% on room air she weighs 72.5 kg the BMI of 35.3. CBC is largely unremarkable, her INR is 5.2 which is supratherapeutic, sodium 131, creatinine 0.37, GFR is within normal limits, AST is 54, proBNP is 24 80, and TSH is within normal limits. UA was positive for urine wbc's bacteria and leukocytes, viral PCR panel was negative including COVID-19. Patient History Medical History CHF (congestive heart failure) Chronic a-fib Chronic low back pain COPD (chronic obstructive pulmonary disease) Degenerative disc disease Dementia Depression GERD (gastroesophageal reflux disease) Hyperlipidemia Hypertension Hyperthyroidism TIA (transient ischemic attack) UTI (urinary tract infection) Surgical History History of mitral valve replacement Status post appendectomy Status post hysterectomy Family & Social History Social History: household members other Safety & Behavioral: Feels Safe in Current Yes Environment Been Physically Hurt or No Threatened By a Person Tobacco & Substance use: Smoking Status Unknown if ever smoked alcohol intake never alcohol intake frequency 0-2 drinks per day Substance Use Type does not use Meds Home Medications and Allergies Home Medications Medication Instructions Recorded Confirmed Type furosemide 80 mg tablet 80 mg PO QDAY #0 05/14/17 10/29/19 History albuterol sulfate 90 mcg/actuation 2 puff INHALATION Q4H PRN 01/10/18 10/29/19 History aerosol inhaler (Ventolin HFA) calcium carbonate 200 mg calcium 2 tab PO TID PRN 01/10/18 10/29/19 History (500 mg) chewable tablet (Tums) docusate sodium 100 mg capsule 200 mg PO DAILY 01/10/18 10/29/19 History fluticasone propionate 50 1 spray INTRANASAL DAILY 01/10/18 10/29/19 History mcg/actuation nasal spray,suspension lidocaine HCl 4 % laryngotracheal 1 applic TOPICAL QAM 01/10/18 10/29/19 History solution methimazole 5 mg tablet 5 mg PO DAILY 01/10/18 10/29/19 History metoprolol tartrate 50 mg tablet See Rx Instructions .ROUTE .COMPLEX 01/10/18 10/29/19 History (Lopressor) nystatin 100,000 unit/gram topical 1 applic TOPICAL TID PRN 01/10/18 10/29/19 History powder omeprazole 40 mg capsule,delayed 40 mg PO DAILY 01/10/18 10/29/19 History release potassium chloride 20 mEq 20 meq PO BID 01/10/18 10/29/19 History tablet,extended release spironolactone 25 mg tablet 25 mg PO DAILY 01/10/18 10/29/19 History beclomethasone dipropionate 40 2 puff INHALATION BID 04/11/18 10/29/19 History mcg/actuation HFA breath activated aerosol (Qvar RediHaler) ondansetron 4 mg disintegrating 4 mg PO Q4H PRN 04/11/18 10/29/19 History tablet sennosides 8.6 mg tablet (senna) 2 tab PO DAILY 04/11/18 10/29/19 History warfarin 3 mg tablet 4 mg PO QPM 04/11/18 10/29/19 History hydrocodone 5 mg-acetaminophen 325 1 tab PO QID PRN #10 tab MDD 3 gm 10/29/19 Rx mg tablet apap melatonin 10 mg capsule 10 mg PO BEDTIME PRN #30 cap 10/29/19 Rx omega-3 fatty acids 1,000 mg 1,000 mg PO BID #60 cap 10/29/19 Rx capsule rosuvastatin 10 mg tablet 20 mg PO BEDTIME #60 tab 10/29/19 Rx Allergies Allergy/AdvReac Type Severity Reaction Status Date / Time aspartame [ASPARTAME] Allergy Intermediate violently Verified 10/28/19 18:54 ill, fever, rashes. codeine [CODEINE] Allergy Intermediate PROJECTILE Verified 06/19/20 10:21 VOMITING latex [LATEX] Allergy Intermediate VERY Verified 06/19/20 10:21 ITCHY RASH morphine [MORPHINE] Allergy Intermediate HALLUCINATI Verified 06/19/20 10:21 ONS. albuterol Allergy Verified 06/19/20 10:21 ipratropium Allergy Verified 06/19/20 10:21 Review of Systems Review of Systems ROS: Yes All systems reviewed with the patient and are negative except as otherwise documented Exam Vital Signs (past 8 hours): - 08/03/21 16:08 08/03/21 16:13 08/03/21 16:30 Temperature 99.9 F H Pulse Rate 102 H 104 H 100 H Respiratory Rate 16 19 Blood Pressure 136/87 Pulse Oximetry 95 94 94 08/03/21 17:00 08/03/21 17:30 08/03/21 17:38 Temperature Pulse Rate 127 H 162 H 130 H Respiratory Rate 26 H 23 26 H Blood Pressure 185/95 H Pulse Oximetry 94 95 92 08/03/21 17:40 08/03/21 17:45 08/03/21 17:46 Temperature Pulse Rate 115 H 102 H 101 H Respiratory Rate 26 H 22 24 Blood Pressure 145/63 H 171/81 H Pulse Oximetry 94 93 93 08/03/21 17:47 08/03/21 17:51 08/03/21 18:00 Temperature 98.9 F Pulse Rate 168 H 98 H Respiratory Rate 19 Blood Pressure 171/81 H 165/72 H Pulse Oximetry 92 08/03/21 18:17 08/03/21 18:30 08/03/21 18:45 Temperature 98.4 F Pulse Rate 91 H 91 H 93 H Respiratory Rate 13 32 H 22 Blood Pressure Pulse Oximetry 94 91 91 08/03/21 19:00 08/03/21 19:30 08/03/21 20:00 Temperature 99.1 F 99.0 F 99.0 F Pulse Rate 93 H 92 H 91 H Respiratory Rate 23 15 21 Blood Pressure 162/84 H Pulse Oximetry 94 97 95 08/03/21 20:30 08/03/21 21:00 Temperature 99.1 F 99.1 F Pulse Rate 94 H 92 H Respiratory Rate 21 18 Blood Pressure 156/82 H Pulse Oximetry 94 95 Oxygen Delivery Method Room Air Narrative Exam Narrative: Gen: Alert, oriented, ill appearing 75 y.o. female, appears weak HEENT: normocephalic, atraumatic, conjunctiva clear, sclera non-icteric, oral mucosa dry Neck: supple, full ROM, no JVD, trachea is midline Resp: Lungs CTA, non-labored breathing CV: irregularly irregular, no murmur or rubs Abd: soft, non-tender, normoactive BTs Skin: poor skin turgor of the lower extremities, has a butterfly shaped stage 2- 3 sacral ulcer approximateltly 5-6 cm wide, yeast like deposits under right breast Neuro: Alert and oriented X 3 w/no focal deficits. Speech clear and coherent. Extremities: has bilateral foot drop, moves upper extremities, is not ambulatory, negative Aniket?s sign Psyche: normal mood and affect. Objective Labs Result Diagrams: 08/03/21 16:00 08/03/21 16:00 Labs: Laboratory Results - last 24 hr 08/03/21 08/03/21 08/03/21 16:00 16:00 16:00 WBC 7.5 RBC 4.71 Hgb 13.9 Hct 41.9 MCV 89.1 MCH 29.6 MCHC 33.2 RDW 16.2 H Plt Count 268 Neut % (Auto) 68.9 Lymph % (Auto) 19.6 L [place] % (Auto) 10.4 Eos % (Auto) 0.4 L Baso % (Auto) 0.7 Neut # (Auto) 5100 Lymph # (Auto) 1500 [place] # (Auto) 800 Eos # (Auto) 0 Baso # (Auto) 100 PT INR Sodium 131 L Potassium 3.8 Chloride 98 Carbon Dioxide 32 BUN 13 Creatinine 0.37 L Estimated GFR > 60.0 BUN/Creatinine Ratio 35.1 H Glucose 94 Lactate Calcium 8.8 Magnesium 2.1 Total Bilirubin 1.2 AST 54 H ALT 14 Alkaline Phosphatase 65 Total Creatine Kinase 56 CK-MB (CK-2) TNP CK-MB (CK-2) Rel Index TNP Troponin I 0.028 NT-Pro-B Natriuret Pep 2480 H Total Protein 7.3 Albumin 3.8 Globulin 3.5 Albumin/Globulin Ratio 1.1 Lipase 122 TSH Urine Color Urine Appearance Urine pH Ur Specific [place] Urine Protein Urine Glucose (UA) Urine Ketones Urine Occult Blood Urine Nitrate Urine Bilirubin Ur Bilirubin Confirm Urine Urobilinogen Ur Leukocyte Esterase Urine RBC Urine WBC Ur Squamous Epith Cells Ur Transition Epith Cell Urine Bacteria Ur Culture Indicated? Chlamy pneumoniae PCR Adenovirus (PCR) B. pertussis DNA (PCR) B.parapertussis DNA PCR Coronavirus OC43 (PCR) Coronavirus HKU1 (PCR) Coronavirus 229E (PCR) SARS-CoV-2 (PCR) Coronavirus NL63 (PCR) Human Metapneumovir PCR Influenza Type A (PCR) Influenza Type B (PCR) M. pneumoniae (PCR) Parainfluenza 1 (PCR) Parainfluenza 2 (PCR) Parainfluenza 3 (PCR) Parainfluenza 4 (PCR) RSV (PCR) Entero/Rhino (PCR) 08/03/21 08/03/21 08/03/21 16:00 16:09 17:41 WBC RBC Hgb Hct MCV MCH MCHC RDW Plt Count Neut % (Auto) Lymph % (Auto) [place] % (Auto) Eos % (Auto) Baso % (Auto) Neut # (Auto) Lymph # (Auto) [place] # (Auto) Eos # (Auto) Baso # (Auto) PT 62.0 H D INR 5.2 H* Sodium Potassium Chloride Carbon Dioxide BUN Creatinine Estimated GFR BUN/Creatinine Ratio Glucose Lactate Calcium Magnesium Total Bilirubin AST ALT Alkaline Phosphatase Total Creatine Kinase CK-MB (CK-2) CK-MB (CK-2) Rel Index Troponin I NT-Pro-B Natriuret Pep Total Protein Albumin Globulin Albumin/Globulin Ratio Lipase TSH 1.38 Urine Color Urine Appearance Urine pH Ur Specific [place] Urine Protein Urine Glucose (UA) Urine Ketones Urine Occult Blood Urine Nitrate Urine Bilirubin Ur Bilirubin Confirm Urine Urobilinogen Ur Leukocyte Esterase Urine RBC Urine WBC Ur Squamous Epith Cells Ur Transition Epith Cell Urine Bacteria Ur Culture Indicated? Chlamy pneumoniae PCR Adenovirus (PCR) B. pertussis DNA (PCR) B.parapertussis DNA PCR Coronavirus OC43 (PCR) Coronavirus HKU1 (PCR) Coronavirus 229E (PCR) SARS-CoV-2 (PCR) Negative Coronavirus NL63 (PCR) Human Metapneumovir PCR Influenza Type A (PCR) Influenza Type B (PCR) M. pneumoniae (PCR) Parainfluenza 1 (PCR) Parainfluenza 2 (PCR) Parainfluenza 3 (PCR) Parainfluenza 4 (PCR) RSV (PCR) Entero/Rhino (PCR) 08/03/21 08/03/21 08/03/21 17:41 17:45 18:41 WBC RBC Hgb Hct MCV MCH MCHC RDW Plt Count Neut % (Auto) Lymph % (Auto) [place] % (Auto) Eos % (Auto) Baso % (Auto) Neut # (Auto) Lymph # (Auto) [place] # (Auto) Eos # (Auto) Baso # (Auto) PT INR Sodium Potassium Chloride Carbon Dioxide BUN Creatinine Estimated GFR BUN/Creatinine Ratio Glucose Lactate 1.6 Calcium Magnesium Total Bilirubin AST ALT Alkaline Phosphatase Total Creatine Kinase CK-MB (CK-2) CK-MB (CK-2) Rel Index Troponin I NT-Pro-B Natriuret Pep Total Protein Albumin Globulin Albumin/Globulin Ratio Lipase TSH Urine Color Yellow Urine Appearance Sl cloudy Urine pH 5.0 Ur Specific [place] 1.020 Urine Protein 2+ H Urine Glucose (UA) Negative Urine Ketones Negative Urine Occult Blood 3+ H Urine Nitrate Negative Urine Bilirubin 1+ H Ur Bilirubin Confirm Negative Urine Urobilinogen 0.2 Ur Leukocyte Esterase 2+ H Urine RBC None seen Urine WBC >100/hpf H Ur Squamous Epith Cells 5-10 /hpf H Ur Transition Epith Cell 1-5/hpf Urine Bacteria Many (>30) H Ur Culture Indicated? Cult not indicated Chlamy pneumoniae PCR Not detected Adenovirus (PCR) Not detected B. pertussis DNA (PCR) Not detected B.parapertussis DNA PCR Not detected Coronavirus OC43 (PCR) Not detected Coronavirus HKU1 (PCR) Not detected Coronavirus 229E (PCR) Not detected SARS-CoV-2 (PCR) Not detected Coronavirus NL63 (PCR) Not detected Human Metapneumovir PCR Not detected Influenza Type A (PCR) Not detected Influenza Type B (PCR) Not detected M. pneumoniae (PCR) Not detected Parainfluenza 1 (PCR) Not detected Parainfluenza 2 (PCR) Not detected Parainfluenza 3 (PCR) Not detected Parainfluenza 4 (PCR) Not detected RSV (PCR) Not detected Entero/Rhino (PCR) Not detected Assessment & Plan Assessment & Plan narrative: Vivi Yeh is admitted for further management of atrial fibrillation w/RVR in the setting of SIRS related to a probable urinary tract infection. 1. Atrial fibrillation w/RVR, acute and present on admission * Admit to the ICU * Patient arrived to the floor on a diltiazem drip running at 5 mg/hour, titrate up per protocol * Limited echo ordered for the next day * She is rate controlled on oral metoprolol tartrate, last RX shows she takes 75 mg in the am and 50 mg at bedtime 2. Suspected urinary tract infection, acute and present on admission * UA possibly indicative of contaminant was was noted as dark and odoriferous * She received one dose of IV zosyn, will initiate ceftriaxone for 08/04 3. Sacral ulcer, unknown if infected, present on admission * wound culture is pending 4. Supratherapeutic INR of 5.2, acute and present on admission * Holding warfarin tonight, resume when therapeutic 5. Chronic diastolic CHF, likely acute on chronic exacerbation * ProBNP is 2480 * Fluids will be stopped except medications * Consider administering IV lasix in the am if she appears to be volume overloaded * See #1 6. Mild hyponatremia, slightly lower than her baseline * she is on a 1200 ml fluid restriction * 2 gram sodium diet 7. Generalized weakness and debility, appears to be chronic * PT consult for mobilization and strengthening 8. Care neglect concern * STRAP STITCHER consult ordered. VTE Prophylaxis: Wells risk score 1.5 [X] Bilateral SCDs Patient is currently anticoagulated on warfarin which is currently being held until she falls into the therapeutic range. Patient is admitted to the inpatient ICU service due to the severity of disease, risks of further disease progression and this stay is expected to exceed 2 midnights. FEN: IV fluids: saline lock, diet: low sodium, heart healthy, labs: CBC, C/BMP, liver enzymes, Mag, PT/INR Consultants Intercept ICU care and involvement in the patient?s care is appreciated. Dispo: unknown at this time Code status: DNR with limited interventions as discussed with the patient who identifies her daughter Swati as her surrogate and POA. [X] I have utilized all available immediate resources to obtain, update, or review of the patient's current medications COVID-19 COVID-19 status: Negative Result date/Date tested (Pos, Neg/Pending): 08/03/21 Scores CHADS-VASc Congestive heart failure: yes Hypertension: no Age 75 years or older: yes Diabetes mellitus: no Stroke, TIA, or TE: yes Vascular disease: yes Age 65 to 74 years: no Sex category (female): Female CHADS-VASc Score: 7 Wells' Criteria for PE Clinical signs and symptoms of DVT: No PE is #1 Dx or equally likely: No Heart rate > 100: No Immobilization at least 3 days or surg in previous 4 weeks: Yes History of PE or DVT: No Hemoptysis: No Malignancy w/Treatment within 6 months or palliative: No Wells' PE Score total: 1.5 Quality VTE Deep Vein Thrombosis/Pulmonary Embolism Present on Admission: No MIPS - Admit I confirm the patient?s Advance Care Plan is present, Code status is documented, Surrogate decision maker is in patient?s record [If Yes, STOP here]: Yes MIPS - DC The patient has current or prior documentation of left ventricular ejection f raction (LVEF) less than 40%, or moderate or severely depressed left ventricular systolic function.: Yes A. The patient was prescribed or already taking an Angiotensin-Converting Enzyme (NEFTALY) Inhibitor, or Angiotensin Receptor Arsen (ARB).: No B. The patient was prescribed or already taking a beta-arsen. [If Yes to Both A & B, STOP here]: Yes Patient not prescribed/taking NEFTALY or ARB, no reason given.: Yes
[2021-08-03] MEDS: cefTRIAXone 1,000 MG in SODIUM CHLORIDE 0.9% 100 ML 200 ML IV (22:38)
[2021-08-03] MEDS: MELATONIN 3 MG TABLET 9 MG PO (22:39)
[2021-08-03] MEDS: METOPROLOL IR 50 MG TABLET 75 MG PO (22:39)
--- NOTE | 2021-08-04 | PM.CN.EICU ---
History of Present Illness Consult details Date Patient Seen: 08/03/21 Chief complaint: Chest Pain :: This patient was seen via real time interactive two-way audiovisual telecommunication upon ICU arrival on 08/03/2021. Narrative: 75 y.o. female who was sent from her SNF for a fever. She has a history of frequent UTIs. She also was in rapid atrial fibrillation. Urinalysis and urine microscopy are consistent with a recurrent UTI. She was also started on a diltiazem infusion which was at 5 mg/hr when I saw her earlier this shift. PMHx is notable for HFpEF, CABG/MVR in 1993, chronic warfarin anticoagulation, COPD, HTN, and dementia. Her admission INR was also supratherapeutic at 5.2. [facility] Medical History (Updated 08/04/21 @ 00:12 by Miguelangel Garcia MD) CHF (congestive heart failure) Chronic a-fib Chronic low back pain COPD (chronic obstructive pulmonary disease) Degenerative disc disease Dementia Depression GERD (gastroesophageal reflux disease) Hyperlipidemia Hypertension Hyperthyroidism TIA (transient ischemic attack) UTI (urinary tract infection) Surgical History (Updated 08/04/21 @ 00:09 by Miguelangel Garcia MD) History of mitral valve replacement Status post appendectomy Status post hysterectomy Social History household members: other housing: assisted living facility Smoking Status: Unknown if ever smoked alcohol intake: never Current Medications Current Medications Medications: Home Medications furosemide 80 mg tablet 80 mg PO QDAY #0 05/14/17 [History Confirmed 10/29/19] albuterol sulfate 90 mcg/actuation aerosol inhaler (Ventolin HFA) 2 puff INHALATION Q4H PRN 01/10/18 [History Confirmed 10/29/19] calcium carbonate 200 mg calcium (500 mg) chewable tablet (Tums) 2 tab PO TID PRN 01/10/18 [History Confirmed 10/29/19] docusate sodium 100 mg capsule 200 mg PO DAILY 01/10/18 [History Confirmed 10/29/19] fluticasone propionate 50 mcg/actuation nasal spray,suspension 1 spray INTRANASAL DAILY 01/10/18 [History Confirmed 10/29/19] lidocaine HCl 4 % laryngotracheal solution 1 applic TOPICAL QAM 01/10/18 [History Confirmed 10/29/19] methimazole 5 mg tablet 5 mg PO DAILY 01/10/18 [History Confirmed 10/29/19] metoprolol tartrate 50 mg tablet (Lopressor) See Rx Instructions .ROUTE .COMPLEX 01/10/18 [History Confirmed 10/29/19] nystatin 100,000 unit/gram topical powder 1 applic TOPICAL TID PRN 01/10/18 [History Confirmed 10/29/19] omeprazole 40 mg capsule,delayed release 40 mg PO DAILY 01/10/18 [History Confirmed 10/29/19] potassium chloride 20 mEq tablet,extended release 20 meq PO BID 01/10/18 [History Confirmed 10/29/19] spironolactone 25 mg tablet 25 mg PO DAILY 01/10/18 [History Confirmed 10/29/19] beclomethasone dipropionate 40 mcg/actuation HFA breath activated aerosol (Qvar RediHaler) 2 puff INHALATION BID 04/11/18 [History Confirmed 10/29/19] ondansetron 4 mg disintegrating tablet 4 mg PO Q4H PRN 04/11/18 [History Confirmed 10/29/19] sennosides 8.6 mg tablet (senna) 2 tab PO DAILY 04/11/18 [History Confirmed 10/29/19] warfarin 3 mg tablet 4 mg PO QPM 04/11/18 [History Confirmed 10/29/19] hydrocodone 5 mg-acetaminophen 325 mg tablet 1 tab PO QID PRN #10 tab MDD 3 gm apap 10/29/19 [Rx] melatonin 10 mg capsule 10 mg PO BEDTIME PRN #30 cap 10/29/19 [Rx] omega-3 fatty acids 1,000 mg capsule 1,000 mg PO BID #60 cap 10/29/19 [Rx] rosuvastatin 10 mg tablet 20 mg PO BEDTIME #60 tab 10/29/19 [Rx] Visit Medications (administered) Generic Name Dose Route Start Last Admin Trade Name Freq PRN Reason Stop Dose Admin Diltiazem HCl 125 mg/ Dextrose 125 mls @ 5 mls/hr 08/03/21 17:35 08/03/21 21:34 IV 5 mg/hr TITRATE AGUSTIN 5 mls/hr Titration Protocol 5 MG/HR Ceftriaxone Sodium 1,000 mg/ 100 mls @ 200 mls/hr 08/03/21 21:00 08/03/21 22:38 Sodium Chloride IV 200 mls/hr Q24H AGUSTIN Administration Melatonin 9 mg 08/03/21 21:00 08/03/21 22:39 Melatonin 3 Mg Tablet PO 9 mg BEDTIME AGUSTIN Administration Metoprolol Tartrate 75 mg 08/03/21 21:00 08/03/21 22:39 Metoprolol Ir 50 Mg Tablet PO 75 mg BID AGUSTIN Administration Review of Systems Review of Systems Narrative: not able to perform because of dementia Exam Vital Signs (past 8 hours): - 08/03/21 16:08 08/03/21 16:13 08/03/21 16:30 Temperature 99.9 F H Pulse Rate 102 H 104 H 100 H Respiratory Rate 16 19 Blood Pressure 136/87 Pulse Oximetry 95 94 94 08/03/21 17:00 08/03/21 17:30 08/03/21 17:38 Temperature Pulse Rate 127 H 162 H 130 H Respiratory Rate 26 H 23 26 H Blood Pressure 185/95 H Pulse Oximetry 94 95 92 08/03/21 17:40 08/03/21 17:45 08/03/21 17:46 Temperature Pulse Rate 115 H 102 H 101 H Respiratory Rate 26 H 22 24 Blood Pressure 145/63 H 171/81 H Pulse Oximetry 94 93 93 08/03/21 17:47 08/03/21 17:51 08/03/21 18:00 Temperature 98.9 F Pulse Rate 168 H 98 H Respiratory Rate 19 Blood Pressure 171/81 H 165/72 H Pulse Oximetry 92 08/03/21 18:17 08/03/21 18:30 08/03/21 18:45 Temperature 98.4 F Pulse Rate 91 H 91 H 93 H Respiratory Rate 13 32 H 22 Blood Pressure Pulse Oximetry 94 91 91 08/03/21 19:00 08/03/21 19:30 08/03/21 20:00 Temperature 99.1 F 99.0 F 99.0 F Pulse Rate 93 H 92 H 91 H Respiratory Rate 23 15 21 Blood Pressure 162/84 H Pulse Oximetry 94 97 95 08/03/21 20:30 08/03/21 21:00 08/03/21 21:15 Temperature 99.1 F 99.1 F 97.3 F L Pulse Rate 94 H 92 H 81 Respiratory Rate 21 18 28 H Blood Pressure 156/82 H 123/83 Pulse Oximetry 94 95 95 Oxygen Delivery Method Room Air Oxygen Flow Rate 0 Const General: other (elderly, alert, obese female in no acute distress) Resp Effort & Inspection: normal respiratory effort Cardio Rate: regular rate Rhythm: abnormal rhythm (AF in 90s on monitor) Objective Labs Result Diagrams: 08/03/21 16:00 08/03/21 16:00 Labs: Laboratory Results - last 24 hr 08/03/21 08/03/21 08/03/21 16:00 16:00 16:00 WBC 7.5 RBC 4.71 Hgb 13.9 Hct 41.9 MCV 89.1 MCH 29.6 MCHC 33.2 RDW 16.2 H Plt Count 268 Neut % (Auto) 68.9 Lymph % (Auto) 19.6 L Waller % (Auto) 10.4 Eos % (Auto) 0.4 L Baso % (Auto) 0.7 Neut # (Auto) 5100 Lymph # (Auto) 1500 Waller # (Auto) 800 Eos # (Auto) 0 Baso # (Auto) 100 PT INR Sodium 131 L Potassium 3.8 Chloride 98 Carbon Dioxide 32 BUN 13 Creatinine 0.37 L Estimated GFR > 60.0 BUN/Creatinine Ratio 35.1 H Glucose 94 Lactate Calcium 8.8 Magnesium 2.1 Total Bilirubin 1.2 AST 54 H ALT 14 Alkaline Phosphatase 65 Total Creatine Kinase 56 CK-MB (CK-2) TNP CK-MB (CK-2) Rel Index TNP Troponin I 0.028 NT-Pro-B Natriuret Pep 2480 H Total Protein 7.3 Albumin 3.8 Globulin 3.5 Albumin/Globulin Ratio 1.1 Lipase 122 TSH Urine Color Urine Appearance Urine pH Ur Specific [place] Urine Protein Urine Glucose (UA) Urine Ketones Urine Occult Blood Urine Nitrate Urine Bilirubin Ur Bilirubin Confirm Urine Urobilinogen Ur Leukocyte Esterase Urine RBC Urine WBC Ur Squamous Epith Cells Ur Transition Epith Cell Urine Bacteria Ur Culture Indicated? Nasal Screen MRSA (PCR) Chlamy pneumoniae PCR Adenovirus (PCR) B. pertussis DNA (PCR) B.parapertussis DNA PCR Coronavirus OC43 (PCR) Coronavirus HKU1 (PCR) Coronavirus 229E (PCR) SARS-CoV-2 (PCR) Coronavirus NL63 (PCR) Human Metapneumovir PCR Influenza Type A (PCR) Influenza Type B (PCR) M. pneumoniae (PCR) Parainfluenza 1 (PCR) Parainfluenza 2 (PCR) Parainfluenza 3 (PCR) Parainfluenza 4 (PCR) RSV (PCR) Entero/Rhino (PCR) 08/03/21 08/03/21 08/03/21 16:00 16:09 17:41 WBC RBC Hgb Hct MCV MCH MCHC RDW Plt Count Neut % (Auto) Lymph % (Auto) Waller % (Auto) Eos % (Auto) Baso % (Auto) Neut # (Auto) Lymph # (Auto) Waller # (Auto) Eos # (Auto) Baso # (Auto) PT 62.0 H D INR 5.2 H* Sodium Potassium Chloride Carbon Dioxide BUN Creatinine Estimated GFR BUN/Creatinine Ratio Glucose Lactate Calcium Magnesium Total Bilirubin AST ALT Alkaline Phosphatase Total Creatine Kinase CK-MB (CK-2) CK-MB (CK-2) Rel Index Troponin I NT-Pro-B Natriuret Pep Total Protein Albumin Globulin Albumin/Globulin Ratio Lipase TSH 1.38 Urine Color Urine Appearance Urine pH Ur Specific [place] Urine Protein Urine Glucose (UA) Urine Ketones Urine Occult Blood Urine Nitrate Urine Bilirubin Ur Bilirubin Confirm Urine Urobilinogen Ur Leukocyte Esterase Urine RBC Urine WBC Ur Squamous Epith Cells Ur Transition Epith Cell Urine Bacteria Ur Culture Indicated? Nasal Screen MRSA (PCR) Chlamy pneumoniae PCR Adenovirus (PCR) B. pertussis DNA (PCR) B.parapertussis DNA PCR Coronavirus OC43 (PCR) Coronavirus HKU1 (PCR) Coronavirus 229E (PCR) SARS-CoV-2 (PCR) Negative Coronavirus NL63 (PCR) Human Metapneumovir PCR Influenza Type A (PCR) Influenza Type B (PCR) M. pneumoniae (PCR) Parainfluenza 1 (PCR) Parainfluenza 2 (PCR) Parainfluenza 3 (PCR) Parainfluenza 4 (PCR) RSV (PCR) Entero/Rhino (PCR) 08/03/21 08/03/21 08/03/21 17:41 17:45 18:41 WBC RBC Hgb Hct MCV MCH MCHC RDW Plt Count Neut % (Auto) Lymph % (Auto) Waller % (Auto) Eos % (Auto) Baso % (Auto) Neut # (Auto) Lymph # (Auto) Waller # (Auto) Eos # (Auto) Baso # (Auto) PT INR Sodium Potassium Chloride Carbon Dioxide BUN Creatinine Estimated GFR BUN/Creatinine Ratio Glucose Lactate 1.6 Calcium Magnesium Total Bilirubin AST ALT Alkaline Phosphatase Total Creatine Kinase CK-MB (CK-2) CK-MB (CK-2) Rel Index Troponin I NT-Pro-B Natriuret Pep Total Protein Albumin Globulin Albumin/Globulin Ratio Lipase TSH Urine Color Yellow Urine Appearance Sl cloudy Urine pH 5.0 Ur Specific [place] 1.020 Urine Protein 2+ H Urine Glucose (UA) Negative Urine Ketones Negative Urine Occult Blood 3+ H Urine Nitrate Negative Urine Bilirubin 1+ H Ur Bilirubin Confirm Negative Urine Urobilinogen 0.2 Ur Leukocyte Esterase 2+ H Urine RBC None seen Urine WBC >100/hpf H Ur Squamous Epith Cells 5-10 /hpf H Ur Transition Epith Cell 1-5/hpf Urine Bacteria Many (>30) H Ur Culture Indicated? Cult not indicated Nasal Screen MRSA (PCR) Chlamy pneumoniae PCR Not detected Adenovirus (PCR) Not detected B. pertussis DNA (PCR) Not detected B.parapertussis DNA PCR Not detected Coronavirus OC43 (PCR) Not detected Coronavirus HKU1 (PCR) Not detected Coronavirus 229E (PCR) Not detected SARS-CoV-2 (PCR) Not detected Coronavirus NL63 (PCR) Not detected Human Metapneumovir PCR Not detected Influenza Type A (PCR) Not detected Influenza Type B (PCR) Not detected M. pneumoniae (PCR) Not detected Parainfluenza 1 (PCR) Not detected Parainfluenza 2 (PCR) Not detected Parainfluenza 3 (PCR) Not detected Parainfluenza 4 (PCR) Not detected RSV (PCR) Not detected Entero/Rhino (PCR) Not detected 08/03/21 21:30 WBC RBC Hgb Hct MCV MCH MCHC RDW Plt Count Neut % (Auto) Lymph % (Auto) Waller % (Auto) Eos % (Auto) Baso % (Auto) Neut # (Auto) Lymph # (Auto) Waller # (Auto) Eos # (Auto) Baso # (Auto) PT INR Sodium Potassium Chloride Carbon Dioxide BUN Creatinine Estimated GFR BUN/Creatinine Ratio Glucose Lactate Calcium Magnesium Total Bilirubin AST ALT Alkaline Phosphatase Total Creatine Kinase CK-MB (CK-2) CK-MB (CK-2) Rel Index Troponin I NT-Pro-B Natriuret Pep Total Protein Albumin Globulin Albumin/Globulin Ratio Lipase TSH Urine Color Urine Appearance Urine pH Ur Specific [place] Urine Protein Urine Glucose (UA) Urine Ketones Urine Occult Blood Urine Nitrate Urine Bilirubin Ur Bilirubin Confirm Urine Urobilinogen Ur Leukocyte Esterase Urine RBC Urine WBC Ur Squamous Epith Cells Ur Transition Epith Cell Urine Bacteria Ur Culture Indicated? Nasal Screen MRSA (PCR) Negative for mrsa Chlamy pneumoniae PCR Adenovirus (PCR) B. pertussis DNA (PCR) B.parapertussis DNA PCR Coronavirus OC43 (PCR) Coronavirus HKU1 (PCR) Coronavirus 229E (PCR) SARS-CoV-2 (PCR) Coronavirus NL63 (PCR) Human Metapneumovir PCR Influenza Type A (PCR) Influenza Type B (PCR) M. pneumoniae (PCR) Parainfluenza 1 (PCR) Parainfluenza 2 (PCR) Parainfluenza 3 (PCR) Parainfluenza 4 (PCR) RSV (PCR) Entero/Rhino (PCR) Assessment & Plan Assessment and plan (1) Acute UTI: Status: Acute Plan: -Continue Zosyn pending culture data (2) CHF (congestive heart failure): Problem details: Diastolic heart failure Status: Chronic Plan: Doubt exacerbation despite elevated BNP; patient is on RA and AF is probably due to UTI -Would continue chronic outpatient meds and aim for even fluid balance (3) Pressure ulcer: Problem details: Present on admission according to RONALD Ohara's note Status: Acute Plan: -As per bedside team (4) Atrial fibrillation with RVR: Status: Acute Plan: -Continue diltiazem infusion -Agree with resumption of oral metoprolol (5) COPD (chronic obstructive pulmonary disease): Status: Acute Plan: -Continue outpatient medications; no evidence of exacerbation (6) Warfarin-induced coagulopathy: Status: Acute Plan: -Warfarin on hold (7) H/O mitral valve replacement with mechanical valve: Status: Acute Plan: -see problem #6
--- NOTE | 2021-08-04 | DI.ECHO.S_ITS ---
[facility] [facility]---------+ [facility] +---------+ : : [address] : : : : [id number] : : : : Phone: [phone] Echocardiogram Report + + :Name: EJ ARIAS Study Date: 08/04/2021 Height: 62 in : :[facility] ReadingLocation: Weight: 159 lb : : Gender: Female BSA: 1.7 m2 : :: 1945 Age: 75 yrs BP: 136/64 mmHg: :Reason For Study: ATRIAL FIBRILLATION : :Ordering Physician: Clotilde MENDEZformed By: Sharon Gustafson : :Referring: RADHA MENDEZ : + + Interpretation Summary 1) Normal left ventricular size with moderately reduced systolic function (EF 35-40%). 2) The right ventricle grossly appears normal in size with probable normal systolic function. 3) Mechanical mitral valve present (not well seen) that appears well seated and has mild inflow gradient (4mmHg), which would be expected for this kind of valve. 4) There is moderate aortic stenosis (valve area 1.1cm2, mean gradient 14mmHg, severity ratio 0.29). 5) There is mild to moderate aortic regurgitation. 6) Compared to the Echo done 10/29/2019, no significant change. Procedure: A two-dimensional transthoracic echocardiogram with color flow and Doppler was performed. The study quality was technically difficult. Comparison is made with the echocardiogram of 10/29/2019. A contrast injection of Definity was performed to improve assessment of LV function. The patient was in atrial fibrillation with heart rates between 61-75 bpm during the exam. Left Ventricle: The left ventricle is normal in size. There is normal left ventricular wall thickness. Proximal septal thickening is noted. The ejection fraction is estimated to be 35-40%. Left ventricular systolic function is moderately reduced. Diastolic function could not be accurately assessed due to unobtainable data. Right Ventricle: The right ventricle is not well visualized. The right ventricle grossly appears normal in size with probable normal systolic function. Atria: The left atrium is severely dilated. The right atrium is moderate to severely dilated. There is no Doppler evidence for an interatrial shunt. Mitral Valve: There is a mechanical mitral valve. The mitral valve mean gradient is 4 mmHg. There is trace mitral regurgitation. Aortic Valve: The aortic valve is moderately calcified. The peak aortic velocity is 2.4 m/sec. The aortic valve mean gradient is 14 mmHg. The calculated aortic valve area is 1.1 cm2. There is moderate aortic stenosis. There is mild to moderate aortic regurgitation. Tricuspid Valve: The tricuspid valve is not well visualized. There is mild tricuspid regurgitation. The right ventricular systolic pressure is estimated to be at least 27 mmHg based on an estimated right atrial pressure of 8 mm Hg. Pulmonic Valve: The pulmonic valve is not well seen, but is grossly normal. There is mild pulmonic regurgitation. Great Vessels: The aortic root is normal size. The dimensions of the ascending aorta are normal. The IVC is of normal diameter and collapses less than 50% with a sniff. This suggests a right atrial pressure of 8 mm Hg. Pericardium/ Pleura There is no pericardial effusion. There is no pleural effusion. MMode/2D Measurements & Calculations LVIDd: 5.4 cm LVOT diam: 2.2 cm LVIDs: 5.2 cm Ao root diam: 2.7 cm FS: 3.3 % asc Aorta Diam: 3.0 cm IVSd: 1.3 cm Ao Arch Diam (Prox Trans): 2.7 cm LVPWd: 1.0 cm LV lopez. diameter/BSA (cm/m^2): 3.1 LV sys. diameter/BSA (cm/m^2): 3.0 LA A2 area: 29.3 cm2 RA long axis: 6.4 cm LA A4 area: 26.9 cm2 RA area: 24.6 cm2 LA length (vol): 6.3 cm RA vol: 80.4 ml LA vol: 105.4 ml RA : 46.4 ml/m2 LA vol index: 60.8 ml/m2 IVC diam: 2.0 cm Doppler Measurements & Calculations Ao V2 max: 235.9 cm/sec LVOT Max Levy: 67.1 cm/sec Ao V2 mean: 164.4 cm/sec LV V1 max P.8 mmHg Ao max P.2 mmHg LV V1 VTI: 14.4 cm Ao mean P.8 mmHg ERENDIRA(I,D): 1.1 cm2 Ao V2 VTI: 50.2 cm ERENDIRA(V,D): 1.1 cm2 sev ratio: 0.29 ERENDIRA indexed to BSA (cm^2/m^2): 0.64 MVA(VTI): 1.7 cm2 TR max levy: 220.0 cm/sec TR max P.4 mmHg PA V2 max: 85.2 cm/sec PA V2 mean: 59.6 cm/sec PA mean P.6 mmHg PA pr(Accel): 50.7 mmHg MV V2 mean: 84.1 cm/sec SV(LVOT): 55.7 ml MV mean P.9 mmHg MV V2 VTI: 32.4 cm Reading Physician:01:53 PM
[2021-08-04 00:57] VITALS: BP 128/58; PULSE 64; RESP 19; TEMP 36.1; O2SAT 90
--- NOTE | 2021-08-04 01:34 | PC.NURSE ---
Addendum entered by Emely Willson R.N. 08/04/21 01:42: 2340-HR bradycardic 50s, remains A-fib, diltiazem gtt stopped, continue to monitor. Original Note: Admit Note-Patient brought to ICU room 228 at 2115, oriented to person and situation but not place or date, hx memory loss, is calm and cooperative. A-fib 80s-110, diltiazem gtt at 5mg/hr, core temp from Rodriguez catheter 99.3, BP stable, see trends, SpO2 >92% on RA, denies chest pain, palpitations, or dyspnea. Pressure injury on coccyx cleansed with saline, picture obtained, Allevyn replaced, STORAGE ARCHITECT observed. Tele Intensivists contacted. Rocephin given, took PO metoprolol and melatonin as ordered.
[2021-08-04 04:30] VITALS: BP 111/55; PULSE 73; RESP 19; TEMP 37.2; O2SAT 92
[2021-08-04 05:19] LABS: Add Manual Diff / Slide Review NO; Basophils Absolute Auto 0 /uL (0-100); Basophils Percent Auto 0.7 % (0-2); Eosinophils Absolute Auto 100 /uL (0-450); Eosinophils Percent Auto 0.9 % (2-4); Hematocrit 37.4 % (36-46); Hemoglobin 12.3 g/dL (12.0-16.0); Lymphocytes Absolute Auto 1200 /uL (1100-4500); Lymphocytes Percent Auto 19.5 % (25-40); Mean Corpuscular HGB Conc 32.8 % (30-36); Mean Corpuscular Hemoglobin 29.4 PG (26-34); Mean Corpuscular Volume 89.5 fL (80-100); Monocytes Absolute Auto 700 /uL (0-900); Monocytes Percent Auto 10.6 % (3-14); Neutrophils Absolute Auto 4300 /uL (1500-7000); Neutrophils Percent Auto 68.3 % (50-75); Platelet Count 230 X10^3/uL (150-400); Red Blood Cell Count 4.19 X10^6/uL (4.0-5.2); Red Cell Distribution Width 16.4 % (11.6-14.8); White Blood Cell Count 6.4 X10^3/uL (4.5-11.0)
[2021-08-04 05:27] LABS: Alanine Aminotransferase 10 IU/L (<35); Alkaline Phosphatase 57 U/L (38-126); Aspartate Aminotransferase 40 IU/L (14-36); Bilirubin Total 0.7 mg/dL (0.2-1.3); Bilirubin Unconjugated 0.5 mg/dL (0.0-1.1); Globulin 3.1 g/dL (1.7-4.1); HEMOLYSIS < 15 (0-50); Magnesium 2.1 mg/dL (1.6-2.3); Total Protein 6.1 g/dL (6.3-8.2)
[2021-08-04 05:29] LABS: BUN Creatinine Ratio 24.5 (6-22); Blood Urea Nitrogen 12 mg/dL (7-17); Calcium 8.3 mg/dL (8.4-10.2); Carbon Dioxide 29 mmol/L (22-32); Chloride 102 mmol/L (98-107); Estimated Glomerular Filt Rate > 60.0 mL/min (>60); Glucose 79 mg/dL (80-110); HEMOLYSIS < 15 (0-50); Sodium 135 mmol/L (137-145)
[2021-08-04 08:24] LABS: Prothrombin Time 63.3 SECONDS (10.1-12.7)
[2021-08-04 08:26] LABS: INR 5.8 (0.9-1.3)
[2021-08-04 08:37] VITALS: BP 112/56; PULSE 55; RESP 18; TEMP 37; O2SAT 93
[2021-08-04] MEDS: SENNOSIDES 8.6 MG TABLET 17.2 MG PO (09:05)
[2021-08-04] MEDS: PANTOPRAZOLE DR 40 MG TABLET PO (09:05)
[2021-08-04] MEDS: METOPROLOL IR 50 MG TABLET 75 MG PO (09:05)
[2021-08-04] MEDS: DOCUSATE 100 MG CAPSULE 200 MG PO (09:05)
[2021-08-04] MEDS: POTASSIUM CHLORIDE 20 MEQ TAB 40 MEQ PO (09:09)
[2021-08-04] MEDS: SODIUM CHLORIDE 0.9% FLUSH 10 ML IV (09:10)
--- NOTE | 2021-08-04 11:13 | PT-IP ANOTE ---
Physical therapy order received. Chart notes indicate pt lives at [facility] and uses a ismael lift at baseline. She was discussed at rounds and decision made to discharge physical therapy order.
[2021-08-04 12:15] VITALS: BP 149/82; PULSE 82; RESP 30; TEMP 37.8; O2SAT 94
[2021-08-04 12:25] LABS: COVID19 -Nasal RAPID Negative (Negative)
[2021-08-04] MEDS: HYDROCODONE/ACET 5/325 TABLET 1 TAB PO (14:47)
--- NOTE | 2021-08-04 14:51 | CM.IDA ---
Initial DCP Assessment Note Pt is a 75 yo female, resident at [facility] in [place], arrives to the ED w/fever and h/o frequent UTIs, dementia, w/rapid afib, (EF 35-40%) w/ sacral ulcer, admitted observation for IV abx/IVF, diltiazem infusion PCP: Not Listed Payer: [facility] Reviewed chart, pt discussed in multidisciplinary rounds this morning. According to Dr Velazco, patient is medically stable for DC today. Placed call to LORENE Maldonado at [facility]; updated w/ DC order, Dr Velazco has completed and signed patient's med list, COVID test has been updated and new prescriptions have been printed and signed per [facility]'s request. This DCP delayed today d/t reports from collateral contacts expressing concern for patient's safety at [facility]: Dtr Swati P# [phone], states she has not been allowed to see her mom and patient has not been properly bathed, turned and brief has not been changed consistently since staff at [facility] has diminished and now w/ no cleaning staff at [facility]. Dtr placed call to the Complaint Resolution Unit/[facility] (Residential Care Services) P# [phone] to report concerns This LICENSED OCCUPATIONAL THERAPY ASSISTANT placed call to [facility] Clinical Research Manager Hiren Armstrong P# [phone]. Hiren explained that there had not been a report made through [facility], there was an investigation pending through [facility]/ [facility] (facility) Spoke w/Clare Haywood, [facility]/mt state [facility] cell P# [phone] who reports that things are bad at [facility] based on her investigation. Explained to Clare that allegations will not hold a medical DC of this patient back to her home residence and requested she have her Clinical Research Manager, Clare states that is Do Shay contact this LICENSED OCCUPATIONAL THERAPY ASSISTANT and/or administrators Never heard from [facility] insecticide supervisor Do Shay re: this patient In addition discussed patient's DC w/ [facility] SWer Maria Del Carmen Das P# [phone] who expressed concern about patient's DC back to [facility] and reiterated concerns stated by family; open sacral ulcer, no proper hygiene, not enough staff, patient hasn't been turned and changed properly. Maria Del Carmen asks that patient's DC be held; Maria Del Carmen has reported multiple complaints to [facility] re: [facility] Explained to Maria Del Carmen that patient is medically ready for DC today and there is a DC order. House Chelsi Edwards and CNO Jessica Stanford consulted and agree with Dr Velazco that patient is medically stable for DC home back to her [facility] w/no reason to hold DC at this time. Updated LORENE Maldonado and her collection administrator Abilio at [facility] that patient ready for p/u This LICENSED OCCUPATIONAL THERAPY ASSISTANT completed online report to [facility]. Online Incident Report Confirmation Number: [id number] summarizing concerns from family and patient's HCS SWer Plan: DC back home to [facility] today, via w/c, collection administrator Abilio to transport. Patient and dtr Swati aware and agreeable. Observation status=patient/family unable to appeal DC at this time CLARENCE Patel Discharge Planning/Care Management CM Discharge Assessment Start: 08/04/21 14:48 Freq: Status: Active Protocol: Document 08/04/21 14:48 RACHEL (Rec: 08/04/21 14:51 RACHEL [id number]) Discharge Planning Assessment Assigned Standards Analyst CLARENCE Tovar DPOA/Assigned Designee Name Swati Moise dtr Contact Information [phone] Advance Directives? Yes Advance Directives on File Yes History Provided By Family Member,Medical Record Prior Living Arrangements Assisted Living Household Members spouse,other Type of transportation used prior to Relies on Others admit Facility Name Admitted From: [facility] Willing to Return to Facility? Yes Independent with ADL's No Is patient alert and oriented? No: memory loss Needs Assistance With Bathing,Eating,Grooming,Meal Prep,Toileting,Managing Medications,Home Chores / Shopping Barriers to Discharge No Comment Awaiting p/u Discharge Plan Assisted Living Facility Transportation Arrangement Facility to provide transport for return Referrals Initiated None needed
--- NOTE | 2021-08-04 16:03 | PC.NURSE ---
Day shift note: Pt downgraded to Floor care during rounds, ready to go back to her current facility ([facility]). It was noted that 3 of the patients 4 rings where causing pts fingers to become purple and swollen. This nurse and 2 other nurses attempted to use string, and lubricant to remove the rings, with patient's daughters permission we cut off all 3 rings with the ring cutter borrowed from ED. All 4 rings removed were given to daughter for safe keeping. Pt taken via wheelchair back to [facility], all belongings taken by daughter to [facility]. No further patient contact at this time.
--- NOTE | 2021-08-04 19:01 | P.DS_ITS ---
History of Present Illness History of Present Illness Date Patient Seen: 08/04/21 Time Patient Seen: 08:00 Chief complaint: Chest Pain Narrative: Per Carolyn Ohara: Ms. Vivi Yeh is a 77-year-old female with history significant for atrial fibrillation anticoagulated on Coumadin, coronary artery disease status post CABG and mitral mechanical valve replacement in 1993, diastolic heart failure most recent EF of 35-40% in October of 2019, COPD, recurrent UTIs, TIA, hypertension, hyperlipidemia, degenerative disc disease and dementia who presents to the ER via EMS from [facility] for lethargy, general weakness and a fever.? The patient's daughter, Swati Moise stated she she was told by the facility that the patient had not eaten since yesterday, was very lethargic and decided to notify EMS when she developed a fever. She stated that the patient has previously presented with the symptoms with urinary tract infection.? At baseline the patient is fully oriented and lives with her in independent side of the assisted living facility.? Per her daughter, she is predominantly bed bound and the facility used to assist her in mobilizing but does not now.?The patient denies headaches. dizziness or visual changes. Daugher states she had a pattern of falling a couple of years ago, but not recently.? She states she has always feeling cold and denies fevers.? She complained of chest pain and a sensation of someone dancing on my chest but denies shortness of breath has a chronic cough.? She denies abdominal pain, heartburn, nausea or vomiting but did endorse not having much of an appetite or being thirsty.? She denies complaints urinary symptoms with no burning, urgency or frequency and no hematuria.? Daughter stated she had foot drop due to not walking in several years. Daughter reported the facility to APS social work due to concerns for hygiene with the patient appearing to not have been changed in 2 days, having soiled clothing and a worsening sacral ulcer. She stated there was a flesh colored dressing, likely a duoderm and that she she saw red spots around her chest. She states they plan to place the patient's in the memory care unit because he has Parkinson's and falls frequently which will result in him being from his . She also stated they are closing the upper floor due to staffing and has concerns about the care both her mother and father are receiving. In the ED, she was found to be in atrial fibrillation and arrived to the floor on a diltiazem drip running at 5 mg/hour. She was also found to have significant bacteria in her urine and administered IV zosyn and bolused w/NS. CT of the abdomen noted bladder wall thickening, cholelithiasis without cholecystitis.? Patient's T-max was 99.9? and is currently 97.3, blood pressure 123/83, heart rate 81, respiratory rate 28, oxygen saturation of 95% on room air she weighs 72.5 kg the BMI of 35.3.? CBC is largely unremarkable, her INR is 5.2 which is supratherapeutic, sodium 131, creatinine 0.37, GFR is within normal limits, AST is 54, proBNP is 24 80, and TSH is within normal limits.? UA was positive for urine wbc's bacteria and leukocytes, viral PCR panel was negative including COVID-19. Discharge Providers Provider Date of admission: 08/03/21 20:33 Discharge Date: 08/04/21 Consults: 08/03/21 20:41 Consult to Tele-oceanographic meteorologist Routine Comment: Consulting Provider: [facility]or[facility] [employer] Reason for consultation: [employer] services Has provider been notified: Yes 08/04/21 Consult to NUCLEAR EQUIPMENT SALES ENGINEER - [employer] Routine Comment: Daughter concerned about care for [place] NUCLEAR EQUIPMENT SALES ENGINEER Consult: [facility] Need 08/04/21 08:00 Consult to Physical Therapy Evaluate & Treat Comment: Debility, mobilization, strenghening, foot drop Physician Instructions: Evaluate and Treat Discharge provider: Doe Velazco MD Summary Hospital Course Discharge Diagnosis: 1. Afib with RVR 2. UTI 3. Sacral ulcer with mild cellulitis 4. Supratherapeutic INR 5. Chronic sytolic CHF 6. Mild hyponatremia Hospital Course: Ms. Yeh was admitted with afib with RVR, she was on an dilt drip, but quickly was able to come off the dilt drip. She was placed on oral metoprolol and her rate remained controlled. She had a positive UA and was given IV antibiotics. She had a stage 2 sacral ulcer with probable mild cellulitis. She was ordered for antibiotics for this as well. She will have two more days of antibiotics for her UTI, and five more days of antibiotics for her cellulitis. For her afib she was controlled on 75mg of metoprolol. She will be discharged on this BID. She was found to have an EF of 35-40%. She was in the hospital found to have borderline low blood pressure reading. She was therefore not started on neftaly- inhibitor. She should be evaluated to start on low dose lisinopril if her blood pressure can tolerate this. On discharge she was feeling back to baseline, and able to be discharged to her facility. Social work was assisting family with concern about patient's care at her facility. In addition she had an elevated INR. Her Coumadin should be held for two more days, and her INR checked on 08/06. And at that time consideration should be done to restart her coumadin. Discharge time: 45 minutes Exam Vital Signs (past 8 hours): - 08/04/21 12:15 Temperature 100.0 F H Pulse Rate 82 Respiratory Rate 30 H Blood Pressure 149/82 H Pulse Oximetry 94 Oxygen Delivery Method Room Air Oxygen Flow Rate 0 Narrative Exam Narrative: Gen: no acute distress HEENT: normocephalic, atraumatic, conjunctiva clear, sclera non-icteric, oral mucosa dry Resp: Lungs clear bilaterally, no wheezes, rhonchi, rales CV: irregularly irregular, no murmur or rubs Abd: soft, non-tender Skin: stage 2 sacral ulcer with erythema Neuro: alert, awake, no focal deficits Psych: normal mood and affect. Objective Labs Result Diagrams: 08/04/21 04:47 08/04/21 04:47 Labs: Laboratory Results - last 24 hr 08/03/21 08/03/21 08/03/21 16:00 16:00 17:45 WBC RBC Hgb Hct MCV MCH MCHC RDW Plt Count Neut % (Auto) Lymph % (Auto) [place] % (Auto) Eos % (Auto) Baso % (Auto) Neut # (Auto) Lymph # (Auto) [place] # (Auto) Eos # (Auto) Baso # (Auto) PT INR Sodium Potassium Chloride Carbon Dioxide BUN Creatinine Estimated GFR BUN/Creatinine Ratio Glucose Calcium Magnesium Total Bilirubin Conjugated Bilirubin Unconjugated Bilirubin AST ALT Alkaline Phosphatase NT-Pro-B Natriuret Pep 2480 H Total Protein Albumin Globulin Albumin/Globulin Ratio TSH 1.38 Ur Bilirubin Confirm Urine RBC Urine WBC Ur Squamous Epith Cells Ur Transition Epith Cell Urine Bacteria Ur Culture Indicated? Nasal Screen MRSA (PCR) Chlamy pneumoniae PCR Not detected Adenovirus (PCR) Not detected B. pertussis DNA (PCR) Not detected B.parapertussis DNA PCR Not detected Coronavirus OC43 (PCR) Not detected Coronavirus HKU1 (PCR) Not detected Coronavirus 229E (PCR) Not detected SARS-CoV-2 (PCR) Not detected Coronavirus NL63 (PCR) Not detected Human Metapneumovir PCR Not detected Influenza Type A (PCR) Not detected Influenza Type B (PCR) Not detected M. pneumoniae (PCR) Not detected Parainfluenza 1 (PCR) Not detected Parainfluenza 2 (PCR) Not detected Parainfluenza 3 (PCR) Not detected Parainfluenza 4 (PCR) Not detected RSV (PCR) Not detected Entero/Rhino (PCR) Not detected 08/03/21 08/03/21 08/04/21 18:41 21:30 04:47 WBC RBC Hgb Hct MCV MCH MCHC RDW Plt Count Neut % (Auto) Lymph % (Auto) [place] % (Auto) Eos % (Auto) Baso % (Auto) Neut # (Auto) Lymph # (Auto) [place] # (Auto) Eos # (Auto) Baso # (Auto) PT INR Sodium Potassium Chloride Carbon Dioxide BUN Creatinine Estimated GFR BUN/Creatinine Ratio Glucose Calcium Magnesium 2.1 Total Bilirubin Conjugated Bilirubin Unconjugated Bilirubin AST ALT Alkaline Phosphatase NT-Pro-B Natriuret Pep Total Protein Albumin Globulin Albumin/Globulin Ratio TSH Ur Bilirubin Confirm Negative Urine RBC None seen Urine WBC >100/hpf H Ur Squamous Epith Cells 5-10 /hpf H Ur Transition Epith Cell 1-5/hpf Urine Bacteria Many (>30) H Ur Culture Indicated? Cult not indicated Nasal Screen MRSA (PCR) Negative for mrsa Chlamy pneumoniae PCR Adenovirus (PCR) B. pertussis DNA (PCR) B.parapertussis DNA PCR Coronavirus OC43 (PCR) Coronavirus HKU1 (PCR) Coronavirus 229E (PCR) SARS-CoV-2 (PCR) Coronavirus NL63 (PCR) Human Metapneumovir PCR Influenza Type A (PCR) Influenza Type B (PCR) M. pneumoniae (PCR) Parainfluenza 1 (PCR) Parainfluenza 2 (PCR) Parainfluenza 3 (PCR) Parainfluenza 4 (PCR) RSV (PCR) Entero/Rhino (PCR) 08/04/21 08/04/21 08/04/21 04:47 04:47 04:47 WBC 6.4 RBC 4.19 Hgb 12.3 Hct 37.4 MCV 89.5 MCH 29.4 MCHC 32.8 RDW 16.4 H Plt Count 230 Neut % (Auto) 68.3 Lymph % (Auto) 19.5 L [place] % (Auto) 10.6 Eos % (Auto) 0.9 L Baso % (Auto) 0.7 Neut # (Auto) 4300 Lymph # (Auto) 1200 [place] # (Auto) 700 Eos # (Auto) 100 Baso # (Auto) 0 PT INR Sodium 135 L Potassium 3.0 L Chloride 102 Carbon Dioxide 29 BUN 12 Creatinine 0.49 L Estimated GFR > 60.0 BUN/Creatinine Ratio 24.5 H Glucose 79 L Calcium 8.3 L Magnesium Total Bilirubin 0.7 Conjugated Bilirubin 0.0 Unconjugated Bilirubin 0.5 AST 40 H ALT 10 Alkaline Phosphatase 57 NT-Pro-B Natriuret Pep Total Protein 6.1 L Albumin 3.0 L Globulin 3.1 Albumin/Globulin Ratio 1.0 TSH Ur Bilirubin Confirm Urine RBC Urine WBC Ur Squamous Epith Cells Ur Transition Epith Cell Urine Bacteria Ur Culture Indicated? Nasal Screen MRSA (PCR) Chlamy pneumoniae PCR Adenovirus (PCR) B. pertussis DNA (PCR) B.parapertussis DNA PCR Coronavirus OC43 (PCR) Coronavirus HKU1 (PCR) Coronavirus 229E (PCR) SARS-CoV-2 (PCR) Coronavirus NL63 (PCR) Human Metapneumovir PCR Influenza Type A (PCR) Influenza Type B (PCR) M. pneumoniae (PCR) Parainfluenza 1 (PCR) Parainfluenza 2 (PCR) Parainfluenza 3 (PCR) Parainfluenza 4 (PCR) RSV (PCR) Entero/Rhino (PCR) 08/04/21 08/04/21 07:56 11:50 WBC RBC Hgb Hct MCV MCH MCHC RDW Plt Count Neut % (Auto) Lymph % (Auto) [place] % (Auto) Eos % (Auto) Baso % (Auto) Neut # (Auto) Lymph # (Auto) [place] # (Auto) Eos # (Auto) Baso # (Auto) PT 63.3 H INR 5.8 H* Sodium Potassium Chloride Carbon Dioxide BUN Creatinine Estimated GFR BUN/Creatinine Ratio Glucose Calcium Magnesium Total Bilirubin Conjugated Bilirubin Unconjugated Bilirubin AST ALT Alkaline Phosphatase NT-Pro-B Natriuret Pep Total Protein Albumin Globulin Albumin/Globulin Ratio TSH Ur Bilirubin Confirm Urine RBC Urine WBC Ur Squamous Epith Cells Ur Transition Epith Cell Urine Bacteria Ur Culture Indicated? Nasal Screen MRSA (PCR) Chlamy pneumoniae PCR Adenovirus (PCR) B. pertussis DNA (PCR) B.parapertussis DNA PCR Coronavirus OC43 (PCR) Coronavirus HKU1 (PCR) Coronavirus 229E (PCR) SARS-CoV-2 (PCR) Negative Coronavirus NL63 (PCR) Human Metapneumovir PCR Influenza Type A (PCR) Influenza Type B (PCR) M. pneumoniae (PCR) Parainfluenza 1 (PCR) Parainfluenza 2 (PCR) Parainfluenza 3 (PCR) Parainfluenza 4 (PCR) RSV (PCR) Entero/Rhino (PCR) [facility] Medical History (Updated 08/04/21 @ 00:12 by Miguelangel Garcia MD) CHF (congestive heart failure) Chronic a-fib Chronic low back pain COPD (chronic obstructive pulmonary disease) Degenerative disc disease Dementia Depression GERD (gastroesophageal reflux disease) Hyperlipidemia Hypertension Hyperthyroidism TIA (transient ischemic attack) UTI (urinary tract infection) Surgical History (Updated 08/04/21 @ 00:09 by Miguelangel Garcia MD) History of mitral valve replacement Status post appendectomy Status post hysterectomy Social History household members: spouse and other housing: assisted living facility Smoking Status: Unknown if ever smoked alcohol intake: never Discharge Plan Discharge Plan Patient Disposition: SNF Provider Discharge Comment: Ms. Yeh came in to the hospital for rapid heart rate, she improved quickly with medication. Her metoprolol dose was increased. She was found to have a UTI and cellulitis. She is given antibiotics for this. For her UTI she needs two more days of antibiotics, for her skin infection 5 more days. Her INR was 5.8 at discharge. She had no bleeding. She should have her coumadin held and check her INR again on 08/06 and restart her coumadin once her INR is no longer super therapeutic. Discharge orders & Medications Prescriptions: New metoprolol tartrate 75 mg tablet 75 mg PO BID Qty: 20 0RF cephalexin 500 mg tablet 500 mg PO QID Qty: 20 0RF levofloxacin 500 mg tablet 500 mg PO DAILY Qty: 2 0RF Continued furosemide 80 MG tablet 40 mg PO BID Qty: 0 0RF docusate sodium 100 mg Capsule 200 mg PO DAILY 0RF omeprazole 40 mg Capsule,Delayed Release(Dr/Ec) 40 mg PO DAILY 0RF calcium carbonate [Tums] 200 mg calcium (500 mg) Tablet,Chewable 2 tab PO TID PRN (Reason: Indigestion) 0RF methimazole 5 mg Tablet 5 mg PO DAILY 0RF nystatin 100,000 unit/gram Powder 1 applic TOPICAL BID 0RF albuterol sulfate [Ventolin HFA] 90 mcg/actuation Hfa Aerosol Inhaler 2 puff Inhalation Q4H PRN (Reason: Shortness Of Breath Or Wheezing) 0RF fluticasone propionate 50 mcg/actuation Shannon,Suspension 1 spray INTRANASAL DAILY 0RF lidocaine HCl 4 % Solution 1 applic Topical QAM PRN (Reason: Pain, Mild) 0RF Label Comments: to affected area. wash off 12 hours later potassium chloride 20 mEq Tablet Extended Release 20 meq PO DAILY 0RF ondansetron 4 mg Tablet,Disintegrating 4 mg PO Q4H PRN (Reason: Nausea) 0RF Qvar RediHaler 40 mcg/actuation Hfa Aerosol Breath Activated 2 puff Inhalation BID 0RF sennosides [senna] 8.6 mg Tablet 2 tab PO DAILY 0RF Label Comments: hold for loose stools rosuvastatin 10 mg Tablet 20 mg PO BEDTIME Qty: 60 0RF melatonin 10 mg capsule 10 mg PO BEDTIME PRN (Reason: sleep) Qty: 30 0RF hydrocodone-acetaminophen 5 MG/325 MG tablet 1 tab PO QID MDD 3 gm apap PRN (Reason: Pain (Scale Score 4-6)) Qty: 10 0RF Rx Instructions: QID PRN Discontinued metoprolol tartrate [Lopressor] 50 mg Tablet 25 mg PO BID 0RF warfarin 3 mg Tablet 2.5 mg PO QPM 0RF Discharge Health Status Multidrug resistant organism: No MDRO Diet/Activity/Treatments Diet: Diet as Tolerated, Regular and Low-sodium Quality VTE Deep Vein Thrombosis/Pulmonary Embolism Present on Admission: No MIPS - DC The patient has current or prior documentation of left ventricular ejection fraction (LVEF) less than 40%, or moderate or severely depressed left ventricular systolic function.: Yes A. The patient was prescribed or already taking an Angiotensin-Converting Enzyme (NEFTALY) Inhibitor, or Angiotensin Receptor Arsen (ARB).: No B. The patient was prescribed or already taking a beta-arsen. [If Yes to Both A & B, STOP here]: Yes Patient not prescribed/taking NEFTALY or ARB for medical/patient/system reason(s) including (ex: allergy, intolerance, contraindication).: hypotension
== END 2021-08-04 04:00 | DRG 309 ==
LOC: ED 20:02 → AC 20:34 → ICU 21:10
PROVIDERS: Emergency Medicine; Internal Medicine; Admitting Provider Nurse Practitioner Family; Emergency Provider Emergency Medicine; Referring Provider Emergency Medicine; Visit Provider Nurse Practitioner Family
DX: I48.91 Unspecified atrial fibrillation (principal); N39.0 Urinary tract infection, site not specified; E87.1 Hypo-osmolality and hyponatremia; L03.312 Cellulitis of back [any part except buttock and flank]; I50.22 Chronic systolic (congestive) heart failure; I11.0 Hypertensive heart disease with heart failure; J44.9 Chronic obstructive pulmonary disease, unspecified; L89.102 Pressure ulcer of unspecified part of back, stage 2; R79.1 Abnormal coagulation profile; E05.90 Thyrotoxicosis, unspecified without thyrotoxic crisis or storm; I25.10 Atherosclerotic heart disease of native coronary artery without angina pectoris; E78.5 Hyperlipidemia, unspecified; Z20.822 Contact with and (suspected) exposure to COVID-19; Z79.01 Long term (current) use of anticoagulants; Z95.1 Presence of aortocoronary bypass graft; Z95.2 Presence of prosthetic heart valve
CPT/HCPCS: 36415; 71045; 74177; 80048; 80053; 80076; 81001; 82550; 83605; 83690; 83735; 83880; 84443; 84484; 85025; 85610; 87040; 87633; 87635; 87797; 93005; 93306; 96365; 96366; 96367; 96368; 96375; 99285; C9803; J0696; J2543; Q9957; Q9967

== ENCOUNTER → 2021-10-25 10:28 | Outpatient (ROUT) | payer OTHER, MEDICAID, SELFPAY ==
[2021-08-03 22:00] VITALS: BMI 29.2
[2021-10-25 10:42] LABS: INR 1.6 (0.9-1.3); Prothrombin Time 17.9 SECONDS (10.1-12.7)
== END ==
PROVIDERS: Visit Provider Internal Medicine
DX: I48.91 Unspecified atrial fibrillation (principal); Z79.01 Long term (current) use of anticoagulants
CPT/HCPCS: 85610

== ENCOUNTER 2022-01-16 07:32 | Observation (INO) | payer OTHER, MEDICAID, SELFPAY ==
[2021-08-03 22:00] VITALS: BMI 29.2
[2022-01-16] VITALS (20 sets, daily range): BP systolic 95–159; BP diastolic 51–111; PULSE 79–163; RESP 20–34; TEMP 35.9–36.9; O2SAT 72–100; BMI 28.6; BMI 27.1
--- NOTE | 2022-01-16 07:33 | DI.RAD.S_ITS ---
PROCEDURE: XR CHEST 1V INDICATIONS: chest pain TECHNIQUE: One view of the chest was acquired. . Consolidation FINDINGS: Surgical changes and devices: Status post CABG procedure. Lungs and pleura: Small left-sided pleural fluid collection. Mediastinum: Noted in the left lung base. Mediastinal contours appear normal. Heart size is normal. Bones and chest wall: No suspicious bony lesions. Overlying soft tissues appear unremarkable. IMPRESSION: Left basilar consolidation with small left-sided pleural fluid collection concerning for pneumonia with parapneumonic effusion. Dictated by: Rox Alvarado MD, PhD on 01/16/2022 at 8:05 Approved by: Rox Alvarado MD, PhD on 01/16/2022 at 8:05
--- NOTE | 2022-01-16 07:40 | ED_ITS ---
HPI - Arrhythmia/Palpitations General Chief Complaint: Arrhythmia/Palpitations Stated Complaint: Afib Time Seen by Provider: 01/16/22 07:40 Source: patient and EMS Mode of arrival: EMS Limitations: no limitations History of Present Illness HPI narrative: This is a 76-year-old female comes emergency department with complaint elevated heart rate patient's surface started overnight, she has felt short of breath and had on and off chest pain overnight. EMS on room heart rate of 190 irregular gave her 7 mg of diltiazem in improved to the 120 range. Patient is anticoagulated on warfarin. She has a history of mechanical heart valve, thyrotoxicosis, AFib, CAD, COPD, CHF, dementia and major depressive disorder. Patient states her symptoms started in the last day she has felt feverish, she was afebrile with EMS. She is describes some nasal congestion. She denies any nausea or vomiting. She denies any diarrhea constipation. She denies any new swelling in her extremities. Related Data Home Medications Medication Instructions Recorded Confirmed furosemide 80 mg tablet 40 mg PO DAILY ##0 05/14/17 01/16/22 albuterol sulfate 90 mcg/actuation 2 puff inhalation Q4H PRN 01/10/18 01/16/22 aerosol inhaler (Ventolin HFA) Shortness Of Breath Or Wheezing docusate sodium 100 mg capsule 200 mg PO BID 01/10/18 01/16/22 fluticasone propionate 50 1 spray intranasal DAILY 01/10/18 01/16/22 mcg/actuation nasal spray,suspension methimazole 5 mg tablet 5 mg PO DAILY 01/10/18 01/16/22 nystatin 100,000 unit/gram topical 1 applic topical BID 01/10/18 01/16/22 powder omeprazole 40 mg capsule,delayed 40 mg PO DAILY 01/10/18 01/16/22 release potassium chloride 20 mEq 20 meq PO DAILY 01/10/18 01/16/22 tablet,extended release beclomethasone dipropionate 40 2 puff inhalation BID 04/11/18 01/16/22 mcg/actuation HFA breath activated aerosol (Qvar RediHaler) sennosides 8.6 mg tablet (senna) 2 tab PO DAILY 04/11/18 01/16/22 acetaminophen 500 mg tablet 1,000 mg PO Q6H PRN Pain, Moderate 01/16/22 01/16/22 magnesium hydroxide 400 mg/5 mL 60 ml PO BEDTIME PRN Constipation 01/16/22 01/16/22 oral suspension (Milk of Magnesia) polyethylene glycol 3350 17 gram 17 g PO DAILY 01/16/22 01/16/22 oral powder packet (Miralax) warfarin 5 mg tablet 5 mg PO DAILY 01/16/22 01/16/22 Previous Rx's Medication Instructions Recorded hydrocodone 5 mg-acetaminophen 325 1 tab PO QID PRN Pain (Scale Score 10/29/19 mg tablet 4-6) #10 tabs rosuvastatin 10 mg tablet 20 mg PO BEDTIME #60 tabs 10/29/19 metoprolol tartrate 75 mg tablet 75 mg PO BID #20 tabs 08/04/21 Allergies Allergy/AdvReac Type Severity Reaction Status Date / Time aspartame [ASPARTAME] Allergy Intermediate violently Verified 10/28/19 18:54 ill, fever, rashes. codeine [CODEINE] Allergy Intermediate PROJECTILE Verified 06/19/20 10:21 VOMITING latex [LATEX] Allergy Intermediate VERY Verified 06/19/20 10:21 ITCHY RASH morphine [MORPHINE] Allergy Intermediate HALLUCINATI Verified 06/19/20 10:21 ONS. albuterol Allergy Verified 06/19/20 10:21 ipratropium Allergy Verified 06/19/20 10:21 Review of Systems Review of Systems ROS Unobtainable: All systems reviewed & are unremarkable except as noted in HPI and below Patient History Medical History CHF (congestive heart failure) Chronic a-fib Chronic low back pain COPD (chronic obstructive pulmonary disease) Degenerative disc disease Dementia Depression GERD (gastroesophageal reflux disease) Hyperlipidemia Hypertension Hyperthyroidism TIA (transient ischemic attack) UTI (urinary tract infection) Surgical History History of mitral valve replacement Status post appendectomy Status post hysterectomy Social History household members: other housing: assisted living facility Smoking Status: Former smoker alcohol intake: never Smoking Status: Unknown if ever smoked alcohol intake frequency: 0-2 drinks per day Substance Use Type: does not use Exam Narrative Exam Narrative: GENERAL: Alert and oriented, please female in moderate distress. HEENT: Head normocephalic, atraumatic, EOMI, pupils reactive, face symmetric, moist mucous membranes NECK: Supple, full range of motion CARDIOVASCULAR: Irregularly irregular rate, tachycardic rhythm without murmurs, rubs or gallops. Positive JVD. No swelling bilateral extremity. RESPIRATORY: Breath sounds decreased bilaterally, no wheezes rales or rhonchi. Positive for tachypnea. ABDOMEN: Soft, nontender. Normoactive bowel sounds all 4 quadrants. No guarding or rebound, rigidity, no mass : No CVA tenderness EXTREMITIES: Normal range of motion, no clubbing or edema. Neurovascularly intact NEUROLOGICAL: Cranial nerves II through XII grossly intact. Moving all extremities SKIN: Warm, dry, no petechiae, no rashes or lesions. Initial Vital Signs Initial Vital Signs: Vital Signs Pulse Rate 89 01/16/22 07:44 Pulse Oximetry 92 01/16/22 07:44 Course Orders Ordered: Acetaminophen (Acetaminophen 325 Mg Tablet) 975 mg PO Q8HR PRN PRN Reason: Fever/Mild Pain (1-3) Hydrocodone Bitart/Acetaminophen (Hydrocodone/Acet 5/325 Tablet) 1 tab PO QID PRN PRN Reason: Pain (Scale Score 4-6) Atorvastatin Calcium (Atorvastatin 20 Mg Tablet) 40 mg PO BEDTIME AGUSTIN Budesonide (Budesonide 0.5 Mg/2 Ml Neb) 0.5 mg INH RTBID AGUSTIN Docusate Sodium (Docusate 100 Mg Capsule) 200 mg PO BID AGUSTIN Furosemide (Furosemide 100 Mg/10 Ml Vial) 60 mg IV 0800,1600 AGUSTIN Last Admin: 01/16/22 16:16 Dose: 60 mg Documented By: HEAVEN DILTIAZEM (Diltiazem 125 Mg/125 Ml-D5w) 125 mg in 125 mls @ 5 mls/hr IV TITRATE AGUSTIN; Protocol Last Titration: 01/16/22 11:35 Dose: 0 mg/hr, 0 mls/hr Documented By: Titration: 01/16/22 11:29 Dose: 5 mg/hr, 5 mls/hr Documented By: Admin: 01/16/22 08:16 Dose: 5 mg/hr, 5 mls/hr Documented By: ES Methimazole (Methimazole 5 Mg Tablet) 5 mg PO DAILY AGUSTIN Metoprolol Tartrate (Metoprolol Ir 25 Mg Tablet) 75 mg PO BID [facility] Naloxone HCl (Naloxone 0.4 Mg/Ml Vial) 0.2 mg IV Q2MIN PRN PRN Reason: Opiate Reversal Ondansetron HCl (Ondansetron 4 Mg Odt) 4 mg PO Q8HR PRN PRN Reason: Nausea And Vomiting Potassium Chloride (Potassium Chloride 20 Meq Tab) 20 meq PO DAILY [facility] Sennosides (Sennosides 8.6 Mg Tablet) 17.2 mg PO DAILY [facility] Warfarin Sodium (Warfarin 5 Mg Tablet) 5 mg PO DAILY [facility] Discontinued Medications Aspirin (Aspirin 81 Mg Chew Tab) 324 mg PO NOW ONE Stop: 01/16/22 10:26 Last Admin: 01/16/22 10:38 Dose: 324 mg Documented By: CTS Furosemide (Furosemide 40 Mg/4 Ml Vial) 40 mg IV NOW ONE Stop: 01/16/22 09:01 Last Admin: 01/16/22 09:27 Dose: 40 mg Documented By: CTS Metoprolol Tartrate (Metoprolol Ir 25 Mg Tablet) 75 mg PO NOW ONE Stop: 01/16/22 08:25 Last Admin: 01/16/22 09:27 Dose: 75 mg Documented By: CTS Reevaluation(s) Reevaluation #1: Patient is feeling improved especially after heart rate is now more consistently in the 80s. Time: 10:27 Consultations Consultation #1: Dr. Sheldon, is familiar with the patient. He states patient has typically in AFib he would like her to be diuresed. No additional anticoagulation at this time she should be 2 and half to 3-1/2. Trend out troponins but no heparin drip, patient's feels is more likely related to her heart failure and recommend diuresis. He states that she is medical management only at this time she is not really a candidate for any other interventions based on her cardiac disease. Dr. 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 Time: 10:43 Consultation #2: Dr. Sanchez, accepts discussed recommendations from Cardiology. Observation but will go to ICU she is on a diltiazem drip. Time: 10:47 Vital Signs Vital signs: Vital Signs - 8 hr 01/16/22 07:47 01/16/22 07:44 01/16/22 08:00 Temperature 98.4 F Pulse Rate 135 H 89 Respiratory Rate 34 H Blood Pressure 159/94 H 154/111 H Pulse Oximetry 92 92 Oxygen Delivery Method Room Air 01/16/22 08:00 01/16/22 08:30 01/16/22 08:30 Temperature Pulse Rate 163 H 122 H Respiratory Rate 30 H 29 H Blood Pressure 147/77 H Pulse Oximetry 91 96 Oxygen Delivery Method 01/16/22 09:00 01/16/22 09:00 01/16/22 09:30 Temperature Pulse Rate 119 H Respiratory Rate 29 H Blood Pressure 141/79 H 117/72 Pulse Oximetry 96 Oxygen Delivery Method 01/16/22 09:30 Temperature Pulse Rate 115 H Respiratory Rate 28 H Blood Pressure Pulse Oximetry Oxygen Delivery Method MDM - Arrhythmia/Palpitations Lab Data Result diagrams: 01/16/22 07:45 01/16/22 07:45 Labs: Lab Results 01/16/22 01/16/22 01/16/22 Range/Units 07:43 07:43 07:43 WBC (4.5-11.0) X10^3/uL RBC (4.0-5.2) X10^6/uL Hgb (12.0-16.0) g/dL Hct (36-46) % MCV (80-100) fL MCH (26-34) PG MCHC (30-36) % RDW (11.6-14.8) % Plt Count (150-400) X10^3/uL Neut % (Auto) (50-75) % Lymph % (Auto) (25-40) % [place] % (Auto) (3-14) % Eos % (Auto) (2-4) % Baso % (Auto) (0-2) % Neut # (Auto) (2039-6677) /uL Lymph # (Auto) (5008-8930) /uL [place] # (Auto) (0-900) /uL Eos # (Auto) (0-450) /uL Baso # (Auto) (0-100) /uL PT 23.6 H (10.1-12.7) SECONDS INR 2.1 H (0.9-1.3) Sodium (137-145) mmol/L Potassium (3.4-5.1) mmol/L Chloride (98-107) mmol/L Carbon Dioxide (22-32) mmol/L BUN (7-17) mg/dL Creatinine (0.52-1.04) mg/dL Estimated GFR (>60) mL/min BUN/Creatinine Ratio (6-22) Glucose (80-110) mg/dL Calcium (8.4-10.2) mg/dL Magnesium (1.6-2.3) mg/dL Total Bilirubin (0.2-1.3) mg/dL AST (14-36) IU/L ALT (<35) IU/L Alkaline Phosphatase (38-126) U/L Total Creatine Kinase (30-135) U/L CK-MB (CK-2) CK-MB (CK-2) Rel Index Troponin I (0.01-0.034) ng/mL NT-Pro-B Natriuret Pep 2540 H (<450) pg/mL Total Protein (6.3-8.2) g/dL Albumin (3.5-5.0) g/dL Globulin (1.7-4.1) g/dL Albumin/Globulin Ratio (1.0-2.8) Lipase (23-300) U/L TSH (0.47-4.68) uIU/mL SARS-CoV-2 (PCR) Negative (Negative) 01/16/22 01/16/22 01/16/22 Range/Units 07:43 07:45 07:45 WBC 7.0 (4.5-11.0) X10^3/uL RBC 4.73 (4.0-5.2) X10^6/uL Hgb 12.0 (12.0-16.0) g/dL Hct 37.7 (36-46) % MCV 79.8 L (80-100) fL MCH 25.4 L (26-34) PG MCHC 31.9 (30-36) % RDW 17.3 H (11.6-14.8) % Plt Count 259 (150-400) X10^3/uL Neut % (Auto) 75.0 (50-75) % Lymph % (Auto) 15.0 L (25-40) % [place] % (Auto) 8.7 (3-14) % Eos % (Auto) 0.6 L (2-4) % Baso % (Auto) 0.7 (0-2) % Neut # (Auto) 5300 (5750-3639) /uL Lymph # (Auto) 1000 L (4586-5331) /uL [place] # (Auto) 600 (0-900) /uL Eos # (Auto) 0 (0-450) /uL Baso # (Auto) 0 (0-100) /uL PT (10.1-12.7) SECONDS INR (0.9-1.3) Sodium 140 (137-145) mmol/L Potassium 3.9 (3.4-5.1) mmol/L Chloride 110 H (98-107) mmol/L Carbon Dioxide 23 (22-32) mmol/L BUN 13 (7-17) mg/dL Creatinine 0.56 (0.52-1.04) mg/dL Estimated GFR > 60 (>60) mL/min BUN/Creatinine Ratio 23.2 H (6-22) Glucose 137 H (80-110) mg/dL Calcium 8.9 (8.4-10.2) mg/dL Magnesium 2.1 (1.6-2.3) mg/dL Total Bilirubin 1.1 (0.2-1.3) mg/dL AST 39 H (14-36) IU/L ALT 16 (<35) IU/L Alkaline Phosphatase 100 (38-126) U/L Total Creatine Kinase 60 (30-135) U/L CK-MB (CK-2) TNP CK-MB (CK-2) Rel Index TNP Troponin I 0.062 H (0.01-0.034) ng/mL NT-Pro-B Natriuret Pep (<450) pg/mL Total Protein 8.2 (6.3-8.2) g/dL Albumin 4.2 (3.5-5.0) g/dL Globulin 4.0 (1.7-4.1) g/dL Albumin/Globulin Ratio 1.1 (1.0-2.8) Lipase 77 (23-300) U/L TSH 1.77 (0.47-4.68) uIU/mL SARS-CoV-2 (PCR) (Negative) 01/16/22 Range/Units 09:51 WBC (4.5-11.0) X10^3/uL RBC (4.0-5.2) X10^6/uL Hgb (12.0-16.0) g/dL Hct (36-46) % MCV (80-100) fL MCH (26-34) PG MCHC (30-36) % RDW (11.6-14.8) % Plt Count (150-400) X10^3/uL Neut % (Auto) (50-75) % Lymph % (Auto) (25-40) % [place] % (Auto) (3-14) % Eos % (Auto) (2-4) % Baso % (Auto) (0-2) % Neut # (Auto) (1197-1857) /uL Lymph # (Auto) (1352-2566) /uL [place] # (Auto) (0-900) /uL Eos # (Auto) (0-450) /uL Baso # (Auto) (0-100) /uL PT (10.1-12.7) SECONDS INR (0.9-1.3) Sodium (137-145) mmol/L Potassium (3.4-5.1) mmol/L Chloride (98-107) mmol/L Carbon Dioxide (22-32) mmol/L BUN (7-17) mg/dL Creatinine (0.52-1.04) mg/dL Estimated GFR (>60) mL/min BUN/Creatinine Ratio (6-22) Glucose (80-110) mg/dL Calcium (8.4-10.2) mg/dL Magnesium (1.6-2.3) mg/dL Total Bilirubin (0.2-1.3) mg/dL AST (14-36) IU/L ALT (<35) IU/L Alkaline Phosphatase (38-126) U/L Total Creatine Kinase (30-135) U/L CK-MB (CK-2) CK-MB (CK-2) Rel Index Troponin I 0.121 H* (0.01-0.034) ng/mL NT-Pro-B Natriuret Pep (<450) pg/mL Total Protein (6.3-8.2) g/dL Albumin (3.5-5.0) g/dL Globulin (1.7-4.1) g/dL Albumin/Globulin Ratio (1.0-2.8) Lipase (23-300) U/L TSH (0.47-4.68) uIU/mL SARS-CoV-2 (PCR) (Negative) Imaging Data Chest x-ray: Radiologist's Impresson: [address] [address] XRay Report Signed Patient: Vivi Yeh MR#: [id number] : 1945 Acct:[id number] Age/Sex: 76 / F Date of Service: 01/16/22 Loc: ED Accession Number: [id number] ?? Procedure: XR chest 1V Ordering Provider: Rachel Beck D.O. PROCEDURE:? XR CHEST 1V ? INDICATIONS:? chest pain ? TECHNIQUE:? One view of the chest was acquired.? ? .? Consolidation ? FINDINGS:? ? Surgical changes and devices:? Status post CABG procedure. ? Lungs and pleura:? Small left-sided pleural fluid collection.? ? Mediastinum:? Noted in the left lung base.? Mediastinal contours appear normal.? Heart size is normal.? ? Bones and chest wall:? No suspicious bony lesions.? Overlying soft tissues appear unremarkable.? ? IMPRESSION:? Left basilar consolidation with small left-sided pleural fluid collection concerning for pneumonia with parapneumonic effusion. ? ? Dictated by: Rox Alvarado MD, PhD on 01/16/2022 at 8:05 ? ? Approved by: Rox Alvarado MD, PhD on 01/16/2022 at 8:05?? ECG Data Attestation: I personally reviewed and interpreted this ECG as follows: Interpretation: Rate of 131 QRS of 112 QTC of 510. Atrial fibrillation with an irregularly irregular rate. Patient EKG appears similar to 08/03/2021 T-waves in V2 V3 slightly more peaked but no new acute elevation appreciated. EKG shows accelerated junctional rhythm, incomplete left bundle, nonspecific ST changes but appears similar to prior from 08/03/2021 with a rate of 91 QRS of 112 and QTC of 44. Q-waves in lead 3. Patient had RSR, no acute ST elevation noted. Patient does have some depression lateral lead but is seen on her old EKGs as well. No significant dynamic changes appreciated from 1st to 2nd EKG. MDM Narrative Medical decision making narrative: This is a 76-year-old female who presents with shortness of breath, difficulty breathing in AFib RVR with a rate of 190s in the field had small dose of diltiazem IV which slowed her considerably to 08/26/2029 range and here in the department likely vagal the little and has decreased to 110 occasionally to 80s. She is anticoagulated on warfarin, she has had some nasal congestion and cough that she describes occasional chest pain and shortness of breath. COVID swab, cardiac labs, chest x-ray were obtained. Troponin is indeterminate, her warfarin was subtherapeutic in September and October making her not a good candidate for cardioversion. She has had improvement in her rate although it th en palpated again into the 130s and she was started on diltiazem drip. We do not have IV push diltiazem available. She was given her home at a.m. dose of metoprolol unclear if she had already had that today but her blood pressure appears able to handle it. She does appear to have CHF changes with elevation in her BNP, pleural effusion. She also has a history of thyrotoxicosis and is on methimazole so TSH T4 was included as well. Patient's troponin was indeterminate trending upwards this may be demand ischemia, patient was given aspirin, Cardiology consultation with plan for admission they recommend diuresis, no heparin patient is on Coumadin but does need to have her INR closer to 2.5-3.5, she is medical management only and rate control as needed. Spoke with hospitalist who accepts currently for observation but to ICU for diltiazem drip. On recheck patient is feeling much better this time heart rate in the 80s more consistently. Discharge Plan Departure Patient Disposition: Admitted as Observation Clinical Impression: Atrial fibrillation with RVR, CHF (congestive heart failure), Pleural effusion Admit Date/Time: 01/16/22 10:48 Admit Provider: Karel Sanchez
[2022-01-16 07:50] LABS: Add Manual Diff / Slide Review NO; Basophils Absolute Auto 0 /uL (0-100); Basophils Percent Auto 0.7 % (0-2); Eosinophils Absolute Auto 0 /uL (0-450); Eosinophils Percent Auto 0.6 % (2-4); Hematocrit 37.7 % (36-46); Lymphocytes Absolute Auto 1000 /uL (1100-4500); Mean Corpuscular HGB Conc 31.9 % (30-36); Mean Corpuscular Hemoglobin 25.4 PG (26-34); Mean Corpuscular Volume 79.8 fL (80-100); Monocytes Absolute Auto 600 /uL (0-900); Monocytes Percent Auto 8.7 % (3-14); Neutrophils Absolute Auto 5300 /uL (1500-7000); Platelet Count 259 X10^3/uL (150-400); Red Blood Cell Count 4.73 X10^6/uL (4.0-5.2); Red Cell Distribution Width 17.3 % (11.6-14.8)
[2022-01-16 08:08] LABS: Alanine Aminotransferase 16 IU/L (<35); Albumin 4.2 g/dL (3.5-5.0); Albumin Globulin Ratio 1.1 (1.0-2.8); Alkaline Phosphatase 100 U/L (38-126); Aspartate Aminotransferase 39 IU/L (14-36); BUN Creatinine Ratio 23.2 (6-22); Bilirubin Total 1.1 mg/dL (0.2-1.3); Blood Urea Nitrogen 13 mg/dL (7-17); Calcium 8.9 mg/dL (8.4-10.2); Carbon Dioxide 23 mmol/L (22-32); Chloride 110 mmol/L (98-107); Creatine Kinase 60 U/L (30-135); Estimated Glomerular Filt Rate > 60 mL/min (>60); Glucose 137 mg/dL (80-110); HEMOLYSIS < 15 (0-50); Lipase 77 U/L (23-300); Magnesium 2.1 mg/dL (1.6-2.3); Sodium 140 mmol/L (137-145); Total Protein 8.2 g/dL (6.3-8.2)
[2022-01-16 08:10] LABS: COVID19 -Nasal RAPID Negative (Negative)
[2022-01-16 08:13] LABS: NT-proBNP (BNP-Adult 18+) 2540 pg/mL (<450)
[2022-01-16] MEDS: DILTIAZEM 125 MG/125 ML PIGGYBACK IV (08:16)
[2022-01-16 08:19] LABS: Troponin I 0.062 ng/mL (0.01-0.034)
[2022-01-16 08:21] LABS: Potassium 3.9 mmol/L (3.4-5.1)
[2022-01-16 09:08] LABS: INR 2.1 (0.9-1.3); Prothrombin Time 23.6 SECONDS (10.1-12.7)
[2022-01-16] MEDS: METOPROLOL IR 25 MG TABLET 75 MG PO ×2 (09:27→20:33)
[2022-01-16] MEDS: FUROSEMIDE 40 MG/4 ML VIAL IV (09:27)
[2022-01-16 09:45] LABS: TSH w/ Reflex to FT4 1.77 uIU/mL (0.47-4.68)
--- NOTE | 2022-01-16 10:03 | PC.NURSE ---
report rec'd from LORENE lovett. pt resting in bed with daughter at side. requiring 2L O2 via NC. continues on diltiazem gtt at 5mg/hr. Remains in afib at 92 with occasional PVC's. appears mildly dyspneic however speaking in full sentences. given lasix and purewick in place. RT in room to repeat EKG. lab at bedside to draw repeat troponin. denies pain at this time. NAD>
[2022-01-16 10:25] LABS: Troponin I 0.121 ng/mL (0.01-0.034)
[2022-01-16] MEDS: ASPIRIN 81 MG CHEW TAB 324 MG PO (10:38)
--- NOTE | 2022-01-16 13:24 | P.HP_ITS ---
History of Present Illness History of Present Illness Date Patient Seen: 01/16/22 Time Patient Seen: 13:25 Chief complaint: Afib Narrative: Ms. Vivi Yeh is a 77-year-old female with history significant for atrial fibrillation anticoagulated on Coumadin, coronary artery disease status post CABG and mitral mechanical valve replacement in 1993, systolic heart failure most recent EF of 35-40% in 2020 , COPD, recurrent UTIs, TIA, hypertension, hyperlipidemia, degenerative disc disease and dementia who presents to the ER via EMS from her living facility with a fast heart rate, shortness of breath, and chest pain. She currently complains of mild chest pain, but when she points to her pain it is more reliably in her abdominal area. She denies any nausea or vomiting. She does feel mildly short of breath. She is an inconsistent narrator with her dementia. In the emergency room she had an irregular heart rate with a rate of 190, she received diltiazem with EMS that did show improvement in her rate. Further doses of IV diltiazem were unable to be given so she was started on a diltiazem infusion. The ER provider consulted with cardiology who recom mended medical management at this time. In the emergency room her heart rate improved with diltiazem infusion as well as I home dose of her metoprolol. Her troponin continued to rise up 2.1 to 1, ca rdiology did not recommend heparin infusion given her Coumadin, though her INR does need to be a bit more elevated given her valve with a goal between 2.5 and 3.5. Cardiology further recommended diuresis. Upon arrival to the hospital floor she was hypoxic with an O2 saturation in the mid 80s on room air, improved to 94% on 2 L. Patient History Medical History CHF (congestive heart failure) Chronic a-fib Chronic low back pain COPD (chronic obstructive pulmonary disease) Degenerative disc disease Dementia Depression GERD (gastroesophageal reflux disease) Hyperlipidemia Hypertension Hyperthyroidism TIA (transient ischemic attack) UTI (urinary tract infection) Surgical History History of mitral valve replacement Status post appendectomy Status post hysterectomy Family & Social History Social History: household members other Prior Living Arrangements Skilled Nurse Facility Safety & Behavioral: Feels Safe in Current Yes Environment Been Physically Hurt or No Threatened By a Person Tobacco & Substance use: Smoking Status Former smoker alcohol intake never alcohol intake frequency holiday/special occasion Substance Use Type does not use Meds Home Medications and Allergies Home Medications Medication Instructions Recorded Confirmed Type furosemide 80 mg tablet 40 mg PO DAILY ##0 05/14/17 01/16/22 History albuterol sulfate 90 mcg/actuation 2 puff inhalation Q4H PRN 01/10/18 01/16/22 History aerosol inhaler (Ventolin HFA) Shortness Of Breath Or Wheezing docusate sodium 100 mg capsule 200 mg PO BID 01/10/18 01/16/22 History fluticasone propionate 50 1 spray intranasal DAILY 01/10/18 01/16/22 History mcg/actuation nasal spray,suspension methimazole 5 mg tablet 5 mg PO DAILY 01/10/18 01/16/22 History nystatin 100,000 unit/gram topical 1 applic topical BID 01/10/18 01/16/22 History powder omeprazole 40 mg capsule,delayed 40 mg PO DAILY 01/10/18 01/16/22 History release potassium chloride 20 mEq 20 meq PO DAILY 01/10/18 01/16/22 History tablet,extended release beclomethasone dipropionate 40 2 puff inhalation BID 04/11/18 01/16/22 History mcg/actuation HFA breath activated aerosol (Qvar RediHaler) sennosides 8.6 mg tablet (senna) 2 tab PO DAILY 04/11/18 01/16/22 History hydrocodone 5 mg-acetaminophen 325 1 tab PO QID PRN Pain (Scale Score 10/29/19 01/16/22 Rx mg tablet 4-6) #10 tabs rosuvastatin 10 mg tablet 20 mg PO BEDTIME #60 tabs 10/29/19 01/16/22 Rx metoprolol tartrate 75 mg tablet 75 mg PO BID #20 tabs 08/04/21 01/16/22 Rx acetaminophen 500 mg tablet 1,000 mg PO Q6H PRN Pain, Moderate 01/16/22 01/16/22 History magnesium hydroxide 400 mg/5 mL 60 ml PO BEDTIME PRN Constipation 01/16/22 01/16/22 History oral suspension (Milk of Magnesia) polyethylene glycol 3350 17 gram 17 g PO DAILY 01/16/22 01/16/22 History oral powder packet (Miralax) warfarin 5 mg tablet 5 mg PO DAILY 01/16/22 01/16/22 History Allergies Allergy/AdvReac Type Severity Reaction Status Date / Time aspartame [ASPARTAME] Allergy Intermediate violently Verified 10/28/19 18:54 ill, fever, rashes. codeine [CODEINE] Allergy Intermediate PROJECTILE Verified 06/19/20 10:21 VOMITING latex [LATEX] Allergy Intermediate VERY Verified 06/19/20 10:21 ITCHY RASH morphine [MORPHINE] Allergy Intermediate HALLUCINATI Verified 06/19/20 10:21 ONS. albuterol Allergy Verified 06/19/20 10:21 ipratropium Allergy Verified 06/19/20 10:21 Review of Systems Review of Systems Narrative: All other systems reviewed with the patient and are negative unless otherwise stated. Iit is noted that this is probably unreliable given her dementia. Exam Vital Signs (past 8 hours): - 01/16/22 07:47 01/16/22 07:44 01/16/22 08:00 Temperature 98.4 F Pulse Rate 135 H 89 Respiratory Rate 34 H Blood Pressure 159/94 H 154/111 H Pulse Oximetry 92 92 Oxygen Delivery Method Room Air Oxygen Flow Rate 01/16/22 08:00 01/16/22 08:30 01/16/22 08:30 Temperature Pulse Rate 163 H 122 H Respiratory Rate 30 H 29 H Blood Pressure 147/77 H Pulse Oximetry 91 96 Oxygen Delivery Method Oxygen Flow Rate 01/16/22 09:00 01/16/22 09:00 01/16/22 09:30 Temperature Pulse Rate 119 H Respiratory Rate 29 H Blood Pressure 141/79 H 117/72 Pulse Oximetry 96 Oxygen Delivery Method Oxygen Flow Rate 01/16/22 09:30 01/16/22 10:00 01/16/22 10:00 Temperature Pulse Rate 115 H 92 H Respiratory Rate 28 H 28 H Blood Pressure 133/63 Pulse Oximetry 100 Oxygen Delivery Method Oxygen Flow Rate 01/16/22 10:30 01/16/22 10:30 01/16/22 11:00 Temperature Pulse Rate 90 88 Respiratory Rate 30 H 31 H Blood Pressure 127/62 Pulse Oximetry 99 98 Oxygen Delivery Method Oxygen Flow Rate 01/16/22 11:01 01/16/22 11:01 01/16/22 11:56 Temperature Pulse Rate 88 79 Respiratory Rate 31 H 29 H Blood Pressure 128/68 95/51 L Pulse Oximetry 97 94 Oxygen Delivery Method Oxygen Flow Rate 2 Oxygen Delivery Method Room Air Oxygen Flow Rate 2 Narrative Exam Narrative: General:? Patient is well developed and well nourished, in no distress at this time. HEENT:? Normocephalic, atraumatic, extraocular muscles intact, oral pharynx is clear and mucous membranes are moist. Neck: supple and symmetric, trachea is midline, no cervical adenopathy. Negative for JVD Chest:? Normal AP diameter and contour without kyphoscoliosis, no tachypnea, equal chest rise bilaterally. Lungs:? Mild bibasilar rales, no wheezing. Cardio:?RRR no m/r/g. Abdomen: S NT ND. No CVA tenderness. Musculoskeletal:? Muscle strength and tone are equal within normal limits, no deformity. Extremities: No edema or joint effusions. No cyanosis or clubbing. Skin:? Pale,? Warm to touch,dry and intact without rashes, ulcerations or petechiae.? Neuro:? Alert and orientated to name only,? sensation to touch intact in all extremities, no gross deficits noted of cranial nerves. Psych:? Patient has a well-kept appearance, calm and cooperative. Objective ECG Impression: afib with RVR, no evidence of ischemia. as interpreted by me. Labs Result Diagrams: 01/16/22 07:45 01/16/22 07:45 Labs: Laboratory Results - last 24 hr 01/16/22 01/16/22 01/16/22 07:43 07:43 07:43 WBC RBC Hgb Hct MCV MCH MCHC RDW Plt Count Neut % (Auto) Lymph % (Auto) [place] % (Auto) Eos % (Auto) Baso % (Auto) Neut # (Auto) Lymph # (Auto) [place] # (Auto) Eos # (Auto) Baso # (Auto) PT 23.6 H INR 2.1 H Sodium Potassium Chloride Carbon Dioxide BUN Creatinine Estimated GFR BUN/Creatinine Ratio Glucose Calcium Magnesium Total Bilirubin AST ALT Alkaline Phosphatase Total Creatine Kinase CK-MB (CK-2) CK-MB (CK-2) Rel Index Troponin I NT-Pro-B Natriuret Pep 2540 H Total Protein Albumin Globulin Albumin/Globulin Ratio Lipase TSH SARS-CoV-2 (PCR) Negative 01/16/22 01/16/22 01/16/22 07:43 07:45 07:45 WBC 7.0 RBC 4.73 Hgb 12.0 Hct 37.7 MCV 79.8 L MCH 25.4 L MCHC 31.9 RDW 17.3 H Plt Count 259 Neut % (Auto) 75.0 Lymph % (Auto) 15.0 L [place] % (Auto) 8.7 Eos % (Auto) 0.6 L Baso % (Auto) 0.7 Neut # (Auto) 5300 Lymph # (Auto) 1000 L [place] # (Auto) 600 Eos # (Auto) 0 Baso # (Auto) 0 PT INR Sodium 140 Potassium 3.9 Chloride 110 H Carbon Dioxide 23 BUN 13 Creatinine 0.56 Estimated GFR > 60 BUN/Creatinine Ratio 23.2 H Glucose 137 H Calcium 8.9 Magnesium 2.1 Total Bilirubin 1.1 AST 39 H ALT 16 Alkaline Phosphatase 100 Total Creatine Kinase 60 CK-MB (CK-2) TNP CK-MB (CK-2) Rel Index TNP Troponin I 0.062 H NT-Pro-B Natriuret Pep Total Protein 8.2 Albumin 4.2 Globulin 4.0 Albumin/Globulin Ratio 1.1 Lipase 77 TSH 1.77 SARS-CoV-2 (PCR) 01/16/22 09:51 WBC RBC Hgb Hct MCV MCH MCHC RDW Plt Count Neut % (Auto) Lymph % (Auto) [place] % (Auto) Eos % (Auto) Baso % (Auto) Neut # (Auto) Lymph # (Auto) [place] # (Auto) Eos # (Auto) Baso # (Auto) PT INR Sodium Potassium Chloride Carbon Dioxide BUN Creatinine Estimated GFR BUN/Creatinine Ratio Glucose Calcium Magnesium Total Bilirubin AST ALT Alkaline Phosphatase Total Creatine Kinase CK-MB (CK-2) CK-MB (CK-2) Rel Index Troponin I 0.121 H* NT-Pro-B Natriuret Pep Total Protein Albumin Globulin Albumin/Globulin Ratio Lipase TSH SARS-CoV-2 (PCR) Assessment & Plan Assessment & Plan narrative: 1. Acute respiratory failure with hypoxia - secondary to CHF exacerbation, no fever, elevated WBC to suggest pneumonia. Likely exacerbated by rapid afib with rates in the 190s per EMS. - COVID negative - continue diuresis with 60 mg IV BID for now. - follow I&O, daily weights. - possible ACS, continue to trend troponin. Medical management per cardiology consulted in the ER. 2. Acute on chronic systolic heart failure - continue diuresis as noted above. - limited TTE for repeat EF and evidence of new wall motion abnormalities ordered. 3. Myocardial injury, possible ACS - continue to trend troponin until downtrending. Value 0.121 currently. Suspect in setting of demand from CHF, rapid afib. 4. Paroxysmal atrial fibrillation with rapid ventricular response - improved with oral metorpolol, will continue. IV diltiazem infusion shut off on arrival to unit. Will continue to monitor. - ideally will increase metoprolol rather than diltiazem given low EF of around 35%. - will repeat limited echo. 5. CAD with history of CABG, mitral valve replacement on chronic anticoagulation - continue home medications and coumadin, goal INR 2.5-3.5 6. COPD without exacerbation - replace Qvar with formulary pulmicort - RT eval and treat - patient allergic to albuterol. 7. Hypertension, chronic - continue beta rene and diuretic as noteda milton. 8. Hyperlipidemia, chronic - continue statin 9. Dementia, chronic possibly with an acute encephalopathy secondary to problems 1 through 4 - unknown baseline, possibly more confused than normal given above but will nee d additional history. - continue treatments as noted above. Code: DNR, surrogate decision maker is her daughter DVT: On coumadin Dispo: observation in ICU I have utilized all available immediate resources to obtain, update, or review the patient's current medications. Time Spent With Patient Critical Care time: I spent a total of [] minutes of critical care time on this patient's care today; this time is exclusive of procedural time. Quality VTE Deep Vein Thrombosis/Pulmonary Embolism Present on Admission: No MIPS - Admit I confirm the patient?s Advance Care Plan is present, Code status is documented, Surrogate decision maker is in patient?s record [If Yes, STOP here]: Yes
--- NOTE | 2022-01-16 13:25 | PC.RNWOUND ---
Patient resting in bed, turns to left side with max assist. There is a 4x3 cm area of nonblanchable redness to the right upper gluteus, consistent with a Stage 1 pressure injury. This wound is irregularly shaped with intact skin. Allevyn is applied for protection, with skin prep under the edges for enhanced adherence of dressing edges. Patient is tilted to right with 30 degree tilt, says, that feels better.
--- NOTE | 2022-01-16 13:50 | DI.ECHO.S_ITS ---
[facility]---------+ [facility] +---------+ : : [address] : : : : [phone] : : : : Phone: [phone] Echocardiogram Report + + :Name: EJ ARIAS Study Date: 01/17/2022 Height: 65 in : :[facility] ReadingLocation: Weight: 163 lb : : Gender: Female BSA: 1.8 m2 : :: 1945 Age: 76 yrs BP: 124/55 mmHg: :Reason For Study: CONGESTIVE HEART FAILURE EXACERBATION, : :SHORTNESS OF BREATH, AFIB RVR : :Ordering Physician: KEVIN, : :MAT WALDEN Performed By: Sharon Gustafson : :Referring: MAT BROWN : + + Interpretation Summary 1) Normal left ventricular size with severely reduced systolic function (EF 20-25%). 2) Grossly, right ventricle with mildly enlarged with moderately reduced function. 3) There is severe biatrial enlargement. 4) There is a mechanical mitral valve (not well seen) that appears well seated and has mild inflow gradient (5.6mmHg). There is trace mitral regurgitation. 5) There is moderate to severe low gradient aortic stenosis (valve area 0.8cm2, mean gradient 8mm Hg, severity ratio 0.26). 6) The right ventricular systolic pressure is estimated to be at least 55 mmHg based on an estimated right atrial pressure of 15 mm Hg. 7) There is mild aortic regurgitation. 8) Compared to the Echo done 08/04/2021, LVEF has decreased from moderately reduced to severely reduced on this study and aortic stenosis has progressed from moderate to moderate-severe on this study. Procedure: A two-dimensional transthoracic echocardiogram with color flow and Doppler was performed. The study quality was technically difficult. A contrast injection of Definity was performed to improve assessment of LV function. Comparison is made with the echocardiogram of 08/04/2021. The patient had occasional PVCs during the exam. The heart rate ranged between 88- 102 bpm during the study. Left Ventricle: The left ventricle is normal in size and wall thickness. The ejection fraction is estimated to be 20-25%. There is severe global hypokinesis of the left ventricle. Diastolic function could not be accurately assessed due to confounding valvular disease. Right Ventricle: The right ventricle is not well visualized. Grossly, right ventricle with mildly enlarged with moderately reduced function. Atria: There is severe biatrial enlargement. There is no Doppler evidence for an interatrial shunt. Mitral Valve: There is a mechanical mitral valve. The mitral valve mean gradient is 5.59 mmHg. There is trace mitral regurgitation. Aortic Valve: The aortic valve is moderately calcified. There is moderate to severe aortic stenosis. The peak aortic velocity is 2.3 m/sec. The aortic valve mean gradient is 8 mmHg. There is mild aortic regurgitation. Tricuspid Valve: The tricuspid valve is not well visualized, but is grossly normal. There is mild tricuspid regurgitation. The right ventricular systolic pressure is estimated to be at least 55 mmHg based on an estimated right atrial pressure of 15 mm Hg. Pulmonic Valve: The pulmonic valve leaflets are thin and pliable; valve motion is normal. There is mild pulmonic regurgitation. Great Vessels: The aortic root is normal size. The dimensions of the ascending aorta are normal. The IVC is dilated (diameter is greater than 2.1 cm) and it collapses less than 50% with a sniff. This suggests a high right atrial pressure of 15 mm Hg. Pericardium/ Pleura There is no pericardial effusion. MMode/2D Measurements & Calculations LVIDd: 5.0 cm LVOT diam: 2.0 cm LVIDs: 4.5 cm asc Aorta Diam: 3.0 cm FS: 9.9 % Ao Arch Diam (Prox Trans): 2.9 cm IVSd: 0.82 cm LVPWd: 1.0 cm LV lopez. diameter/BSA (cm/m^2): 2.8 LV sys. diameter/BSA (cm/m^2): 2.5 LA A2 area: 28.3 cm2 RA long axis: 6.4 cm LA A4 area: 29.2 cm2 RA area: 32.1 cm2 LA length (vol): 6.3 cm RA vol: 137.8 ml LA vol: 111.8 ml RA : 76.0 ml/m2 LA vol index: 61.6 ml/m2 IVC diam: 2.9 cm TAPSE: 1.3 cm Doppler Measurements & Calculations Ao V2 max: 226.4 cm/sec LVOT Max Levy: 55.3 cm/sec Ao V2 mean: 155.0 cm/sec LV V1 max P.2 mmHg Ao max P.8 mmHg LV V1 VTI: 10.5 cm Ao mean P.1 mmHg ERENDIRA(I,D): 0.82 cm2 Ao V2 VTI: 40.7 cm ERENDIRA(V,D): 0.77 cm2 sev ratio: 0.26 ERENDIRA indexed to BSA (cm^2/m^2): 0.45 Med Peak E' Levy: 3.7 cm/sec TR max levy: 315.8 cm/sec Lat Peak E' Levy: 7.0 cm/sec TR max P.9 mmHg MVA(VTI): 1.1 cm2 PA V2 max: 79.9 cm/sec PA V2 mean: 53.1 cm/sec PA mean P.3 mmHg PA pr(Accel): 34.5 mmHg MV V2 mean: 102.2 cm/sec SV(LVOT): 33.2 ml MV mean P.6 mmHg MV V2 VTI: 30.6 cm Reading Physician:10:07 AM
[2022-01-16] MEDS: FUROSEMIDE 100 MG/10 ML VIAL 60 MG IV (16:16)
[2022-01-16 17:39] LABS: Troponin I 0.265 ng/mL (0.01-0.034)
--- NOTE | 2022-01-16 18:03 | PC.NURSE ---
Admit Note Pt arrived to room 228 via stretcher, transferred to bed via slider board. Pt requires 2 person assist to turn. Alert and oriented to self only, can follow directions but is forgetful. Afib CVR in the 80s on arrival, dilt gtt off at that time. On 2 L NC with SpO2 94-96%, decreased to 86% when on RA. Lungs decreased bilaterally with some intermittent wheezing post activity. Stage 1 pressure injury to right buttocks assessed by animal geneticist (see her note), also has blanchable area of erythema to left hip. Pure wick external collection device in place and functioning well. Bed alarm on. Glasses in place and dentures, no other belongings with patient. Oriented to room and to call light/bed/tv controls. Call light within reach.
[2022-01-16] MEDS: BUDESONIDE 0.5 MG/2 ML NEB INH (20:22)
[2022-01-16] MEDS: DOCUSATE 100 MG CAPSULE 200 MG PO (20:33)
[2022-01-16] MEDS: ATORVASTATIN 20 MG TABLET 40 MG PO (20:33)
[2022-01-16 23:37] LABS: Troponin I 0.198 ng/mL (0.01-0.034)
[2022-01-17 01:00] VITALS: BP 135/62; PULSE 85; RESP 18; TEMP 36.1; O2SAT 97
[2022-01-17 05:00] VITALS: BP 124/55; PULSE 89; RESP 19; TEMP 36.3; O2SAT 96
[2022-01-17 05:30] LABS: Add Manual Diff / Slide Review NO; Basophils Absolute Auto 0 /uL (0-100); Basophils Percent Auto 0.6 % (0-2); Eosinophils Absolute Auto 100 /uL (0-450); Eosinophils Percent Auto 1.6 % (2-4); Hematocrit 35.2 % (36-46); Hemoglobin 11.4 g/dL (12.0-16.0); Lymphocytes Absolute Auto 1100 /uL (1100-4500); Lymphocytes Percent Auto 18.8 % (25-40); Mean Corpuscular HGB Conc 32.3 % (30-36); Mean Corpuscular Hemoglobin 25.6 PG (26-34); Mean Corpuscular Volume 79.4 fL (80-100); Monocytes Absolute Auto 600 /uL (0-900); Monocytes Percent Auto 10.2 % (3-14); Neutrophils Absolute Auto 4100 /uL (1500-7000); Neutrophils Percent Auto 68.8 % (50-75); Platelet Count 250 X10^3/uL (150-400); Red Blood Cell Count 4.44 X10^6/uL (4.0-5.2); Red Cell Distribution Width 17.5 % (11.6-14.8); White Blood Cell Count 5.9 X10^3/uL (4.5-11.0)
--- NOTE | 2022-01-17 05:35 | PC.NURSE ---
Shift note: Patient was drowsy but arousable, oriented to self, obeys commands, delayed response. Denies any pain/discomfort. Vital signs are stable and within acceptable limits. Heart rhythm remains afib with HR 80s. Turned patient every 2hrs. Pericare was done, purewick replaced with adequate urine output. Will continue to monitor.
[2022-01-17 05:40] LABS: BUN Creatinine Ratio 31.5 (6-22); Blood Urea Nitrogen 17 mg/dL (7-17); Calcium 8.5 mg/dL (8.4-10.2); Carbon Dioxide 32 mmol/L (22-32); Chloride 104 mmol/L (98-107); Estimated Glomerular Filt Rate > 60 mL/min (>60); Glucose 98 mg/dL (80-110); HEMOLYSIS < 15 (0-50); Magnesium 2.1 mg/dL (1.6-2.3); Potassium 3.5 mmol/L (3.4-5.1); Sodium 141 mmol/L (137-145)
[2022-01-17] MEDS: FUROSEMIDE 100 MG/10 ML VIAL 60 MG IV (08:30)
[2022-01-17] MEDS: DOCUSATE 100 MG CAPSULE 200 MG PO (08:33)
[2022-01-17] MEDS: METOPROLOL IR 25 MG TABLET 75 MG PO (08:33)
[2022-01-17] MEDS: SENNOSIDES 8.6 MG TABLET 17.2 MG PO (08:33)
[2022-01-17] MEDS: POTASSIUM CHLORIDE 20 MEQ TAB PO (08:33)
[2022-01-17] MEDS: WARFARIN 5 MG TABLET PO (08:34)
[2022-01-17] MEDS: methIMAzole 5 MG TABLET PO (08:34)
[2022-01-17 09:00] VITALS: BP 116/58; PULSE 90; RESP 28; TEMP 36.8; O2SAT 96
[2022-01-17] MEDS: BUDESONIDE 0.5 MG/2 ML NEB INH (09:21)
[2022-01-17 09:23] VITALS: PULSE 88; RESP 18; O2SAT 98
[2022-01-17 10:00] LABS: Prothrombin Time 22.4 SECONDS (10.1-12.7)
--- NOTE | 2022-01-17 10:14 | CM.DANOTE ---
SHERON Note: Payor: [place] PCP: Amna Franco MD Pt is a 76 y.o. F who was admitted for observation for her Afib. Pt has a history of afib with anticoagulation on Coumadin, coronary artery disease status post CABG and mitral mechanical valve replacement in 94. Pt has an extensive history of COPD, dementia, depression, Hyperlipidemia, hypertension, and hyperthyroidism. Pt arrived in the emergency room via EMS. Pt currently lives at [facility]. Pt arrived at in the ICU and echo was ordered. Pt was on O2 but is currently off and on RA. DCP spoke with [facility] RN to inquire about pt baseline. Per RN, pt is a total assist with ADL's and is a ismael lift. Pt can feed herself once the meal is prepped and placed in front of her. RN states that pt is forgetful at times but is a [facility] resident. Pts POA is her daughter Swati. Once pt is medically stable for discharge, she is able to return back to [facility]. DCP spoke with Mercedez at [facility] and they are able to accept her back today around 1:00pm. D/c summary, signed med list, and rx's need to be faxed. DCP to do that. P: Per , pt is medically stable for discharge today. Pt to discharge home to [facility] via [facility] transport this afternoon. Joanna Villa RN/SHERON Discharge Planning/Care Management CM Discharge Assessment Start: 01/17/22 09:23 Freq: Status: Active Protocol: Document 01/17/22 09:23 [email or web address] (Rec: 01/17/22 09:26 [id number]) Discharge Planning Assessment Assigned Chief School Finance Officer Joanna Villa RN/SHERON Advance Directives? Yes Advance Directives on File Yes History Provided By Medical Record Prior Living Arrangements Skilled Nurse Facility Comment [facility] Household Members other Type of transporation used prior to Relies on Others admit Facility Name Admitted From: [facility] Willing to Return to Facility? Yes Independent with ADL's No: Total assist per RN @ [facility] Is patient alert and oriented? Yes: A&O x 1 Needs Assistance With Bathing,Eating,Grooming Comment Pt can feed herself once meal is set up for her. ADL's needs total assist Caregiver for Another No Comment Awaiting p/u Discharge Plan Assisted Living Facility Transportation Arrangement Facility to provide transport for return Referrals Initiated None needed Review Status In Process Please Provide Date Initial DC 01/17/22 Assessment Was Performed Next Review Type Continued Stay Review
--- NOTE | 2022-01-17 10:27 | P.DS_ITS ---
History of Present Illness History of Present Illness Date Patient Seen: 01/17/22 Chief complaint: Afib Narrative: Ms. Vivi Yeh is a 77-year-old female with history significant for atrial fibrillation anticoagulated on Coumadin, coronary artery disease status post CABG and mitral mechanical valve replacement in 1993, systolic heart failure most recent EF of 35-40% in 2020 , COPD, recurrent UTIs, TIA, hypertension, hyperlipidemia, degenerative disc disease and dementia who presents to the ER via EMS from her living facility with a fast heart rate, shortness of breath, and chest pain. She currently complains of mild chest pain, but when she points to her pain it is more reliably in her abdominal area. She denies any nausea or vomiting. She does feel mildly short of breath. She is an inconsistent narrator with her dementia. In the emergency room she had an irregular heart rate with a rate of 190, she received diltiazem with EMS that did show improvement in her rate. Further doses of IV diltiazem were unable to be given so she was started on a diltiazem infusion. The ER provider consulted with cardiology who recommended medical management at this time. In the emergency room her heart rate improved with diltiazem infusion as well as I home dose of her metoprolol. Her troponin continued to rise up 2.1 to 1, cardiology did not recommend heparin infusion given her Coumadin, though her INR does need to be a bit more elevated given her valve with a goal between 2.5 and 3.5. Cardiology further recommended diuresis. Upon arrival to the hospital floor she was hypoxic with an O2 saturation in the mid 80s on room air, improved to 94% on 2 L. Discharge Providers Provider Date of admission: 01/16/22 10:48 Discharge Date: 01/17/22 Primary care physician: Amna Franco MD Consults: 01/16/22 12:03 Consult to Inpatient Wound Care Nurse Routine Comment: Reason for consultation: limited mobility, erythema to left buttock/hip Has provider been notified: No 01/16/22 12:34 Consult to Dietitian, Adult Routine Comment: Reason For Exam: assessed at high risk on admit 01/16/22 13:36 Consult to Respiratory Therapy Evaluate & Treat Comment: Physician Instructions: Evaluate and treat Discharge provider: Karel Sanchez DO Summary Hospital Course Discharge Diagnosis: Please see hospital course by problem list noted below Hospital Course: 1. Acute respiratory failure with hypoxia, resolved ?- secondary to CHF exacerbation. no fever, nor elevated WBC to suggest pneumonia. Likely exacerbated by rapid afib with rates in the 190s per EMS. ?- COVID negative ?- continued diuresis with 60 mg IV BID during her admission. She is no longer on supplemental oxygen and denies shortness of breath. ?- increase home furosemide to 40 mg BID for at least one week, would re-assess at that time for possible reduction back to 40 mg depending on weight trend. 2. Acute on chronic systolic heart failure ?- continued diuresis as noted above. ?- TTE showed a reduction in her EF to 25-30% from 35-40% a couple of years ago. Her aortic stenosis also worsened in severity. - would recommend outpatient follow up with cardiology for further medication adjustments if desired. - consider palliative care consultation 3. Myocardial injury, possible ACS ?- continue to trend troponin until downtrending. Value peaked around 0.2 and then downtrended. Suspect in setting of demand from CHF, rapid afib. 4. Paroxysmal atrial fibrillation with rapid ventricular response ?- improved with oral metorpolol, will continue. IV diltiazem infusion shut off on arrival to unit. Will continue to monitor. ?- ideally will increase metoprolol rather than diltiazem given low EF of around 35%. ?- will repeat limited echo. 5. CAD with history of CABG, mitral valve replacement on chronic anticoagulation ?- continue home medications and coumadin, goal INR 2.5-3.5. - Patient is subtherapeutic on coumadin. INR today 2.0. Recommend increasing from 5 mg daily to 7.5 mg ,, with 5 mg , , , Galindo. Recommend outpatient follow up for continued coumadin adjustments. 6. COPD without exacerbation ?- replaced Qvar with formulary pulmicort while here. ?- RT eval and treat appreciated. ?- patient allergic to albuterol. - no changes recommended at discharge. 7. Hypertension, chronic ?- continue beta rene and diuretic as noted above. 8. Hyperlipidemia, chronic ?- continue statin 9. Dementia, chronic with an acute metabolic encephalopathy secondary to problems 1 through 4 - patient with probable mild encephalopathy based on evaluation today compared to admission. Exam Vital Signs (past 8 hours): - 01/17/22 05:00 01/17/22 09:23 Temperature 97.4 F L Pulse Rate 89 88 Respiratory Rate 19 18 Blood Pressure 124/55 L Pulse Oximetry 96 98 Oxygen Delivery Method Room Air Oxygen Flow Rate 2 Oxygen Delivery Method Room Air Oxygen Flow Rate 2 Narrative Exam Narrative: General:? Patient is well developed and well nourished, in no distress at this time. HEENT:? Normocephalic, atraumatic, extraocular muscles intact, oral pharynx is clear and mucous membranes are moist. Neck: supple and symmetric, trachea is midline, no cervical adenopathy. Negative for JVD Chest:? Normal AP diameter and contour without kyphoscoliosis, no tachypnea, equal chest rise bilaterally. Lungs:? Mild bibasilar rales, no wheezing. Cardio:?RRR no m/r/g. Abdomen: S NT ND. Musculoskeletal:? Muscle strength and tone are equal within normal limits, no deformity. Extremities: No edema or joint effusions. No cyanosis or clubbing. Skin:? Pale,? Warm to touch,dry and intact without rashes, ulcerations or petechiae.? Neuro:? Alert and orientated to name and hospital,? sensation to touch intact in all extremities, no gross deficits noted of cranial nerves. Psych:? Patient has a well-kept appearance, calm and cooperative. Objective Labs Result Diagrams: 01/17/22 04:46 01/17/22 04:46 Labs: Laboratory Results - last 24 hr 01/16/22 01/16/22 01/16/22 12:28 16:34 22:57 WBC RBC Hgb Hct MCV MCH MCHC RDW Plt Count Neut % (Auto) Lymph % (Auto) [place] % (Auto) Eos % (Auto) Baso % (Auto) Neut # (Auto) Lymph # (Auto) [place] # (Auto) Eos # (Auto) Baso # (Auto) PT INR Sodium Potassium Chloride Carbon Dioxide BUN Creatinine Estimated GFR BUN/Creatinine Ratio Glucose Calcium Magnesium Troponin I 0.265 H* 0.198 H* Nasal Screen MRSA (PCR) Negative for mrsa 01/17/22 01/17/22 01/17/22 04:46 04:46 09:37 WBC 5.9 RBC 4.44 Hgb 11.4 L Hct 35.2 L MCV 79.4 L MCH 25.6 L MCHC 32.3 RDW 17.5 H Plt Count 250 Neut % (Auto) 68.8 Lymph % (Auto) 18.8 L [place] % (Auto) 10.2 Eos % (Auto) 1.6 L Baso % (Auto) 0.6 Neut # (Auto) 4100 Lymph # (Auto) 1100 [place] # (Auto) 600 Eos # (Auto) 100 Baso # (Auto) 0 PT 22.4 H INR 2.0 H Sodium 141 Potassium 3.5 Chloride 104 Carbon Dioxide 32 BUN 17 Creatinine 0.54 Estimated GFR > 60 BUN/Creatinine Ratio 31.5 H Glucose 98 Calcium 8.5 Magnesium 2.1 Troponin I Nasal Screen MRSA (PCR) [facility] Medical History CHF (congestive heart failure) Chronic a-fib Chronic low back pain COPD (chronic obstructive pulmonary disease) Degenerative disc disease Dementia Depression GERD (gastroesophageal reflux disease) Hyperlipidemia Hypertension Hyperthyroidism TIA (transient ischemic attack) UTI (urinary tract infection) Surgical History History of mitral valve replacement Status post appendectomy Status post hysterectomy Social History household members: other housing: assisted living facility Smoking Status: Former smoker alcohol intake: never Discharge Plan Discharge Plan Patient Disposition: SNF Provider Discharge Comment: Please see discharge summary I certify the postop hospital alf care is medically necessary on a continuing basis for any conditions for which he/ she received care during this hospitalization.: Yes The receiving facility has agreed to accept transfer and provide medical treatment.: Yes Discharge orders & Medications Prescriptions: New furosemide 40 mg tablet 40 mg PO BID 7 Days Qty: 14 0RF warfarin 5 mg tablet See Rx Instructions .ROUTE .COMPLEX Qty: 60 0RF Rx Instructions: 7.5 mg (1.5 tabs) PO Q ,,. 5 mg (1 tab) Q ,,,Galindo Continued docusate sodium 100 mg Capsule 200 mg PO BID omeprazole 40 mg Capsule,Delayed Release(Dr/Ec) 40 mg PO DAILY methimazole 5 mg Tablet 5 mg PO DAILY nystatin 100,000 unit/gram Powder 1 applic TOPICAL BID albuterol sulfate [Ventolin HFA] 90 mcg/actuation Hfa Aerosol Inhaler 2 puff Inhalation Q4H PRN (Reason: Shortness Of Breath Or Wheezing) fluticasone propionate 50 mcg/actuation [place],Suspension 1 spray INTRANASAL DAILY potassium chloride 20 mEq Tablet Extended Release 20 meq PO DAILY Qvar RediHaler 40 mcg/actuation Hfa Aerosol Breath Activated 2 puff Inhalation BID sennosides [senna] 8.6 mg Tablet 2 tab PO DAILY Label Comments: hold for loose stools rosuvastatin 10 mg Tablet 20 mg PO BEDTIME Qty: 60 0RF hydrocodone-acetaminophen 5 MG/325 MG tablet 1 tab PO QID MDD 3 gm apap PRN (Reason: Pain (Scale Score 4-6)) Qty: 10 0RF Rx Instructions: QID PRN metoprolol tartrate 75 mg tablet 75 mg PO BID Qty: 20 0RF polyethylene glycol 3350 [Miralax] 17 gram Powder In Packet 17 g PO DAILY acetaminophen 500 mg Tablet 1,000 mg PO Q6H PRN (Reason: Pain, Moderate) magnesium hydroxide [Milk of Magnesia] 400 mg/5 mL Suspension 60 ml PO BEDTIME PRN (Reason: Constipation) Discontinued furosemide 80 MG tablet 40 mg PO DAILY Qty: 0 warfarin 5 mg Tablet 5 mg PO DAILY Follow up/Referrals: Amna Franco MD [Primary Care Provider] - Discharge Health Status Precautions: [place] Diet/Activity/Treatments Diet: Diet as Tolerated Liquid consistency: Normal/Thin Food texture: Regular Activity: As tolerated, warfarin diet [facility] Reason for rehabilitation: Other Discharge Data Primary Care Provider: Amna Franco Attending Provider: Karel Sanchez VTE Deep Vein Thrombosis/Pulmonary Embolism Present on Admission: No
[2022-01-17 13:00] VITALS: BP 102/52; PULSE 90; RESP 24; TEMP 36.7; O2SAT 96
--- NOTE | 2022-01-17 14:33 | PC.NURSE ---
Addendum entered by Jona Gaines R.N. 01/17/22 16:00: Patient picked up by transport from facility with all her belongings. Original Note: Report given to Lynn at [facility] ([phone]). Paperwork packet ready and waiting for tow picker.
== END 2022-01-17 15:45 ==
LOC: ED 10:48 → AC 10:50 → ICU 11:08
PROVIDERS: Admitting Provider Internal Medicine; Emergency Provider Emergency Medicine; PCP Internal Medicine; Referring Provider Emergency Medicine; Visit Provider Internal Medicine
DX: J96.01 Acute respiratory failure with hypoxia (principal); Z79.01 Long term (current) use of anticoagulants; I11.0 Hypertensive heart disease with heart failure; I50.23 Acute on chronic systolic (congestive) heart failure; Z95.1 Presence of aortocoronary bypass graft; F03.90 Unspecified dementia, unspecified severity, without behavioral disturbance, psychotic disturbance, mood disturbance, and anxiety; E78.5 Hyperlipidemia, unspecified; J44.9 Chronic obstructive pulmonary disease, unspecified; I25.10 Atherosclerotic heart disease of native coronary artery without angina pectoris; I48.0 Paroxysmal atrial fibrillation; R77.8 Other specified abnormalities of plasma proteins; Z66 Do not resuscitate; I35.0 Nonrheumatic aortic (valve) stenosis; Z20.822 Contact with and (suspected) exposure to COVID-19
CPT/HCPCS: 36415; 71045; 80048; 80053; 82550; 83690; 83735; 83880; 84443; 84484; 85025; 85610; 87635; 87797; 93005; 93010; 93306; 94640; 96365; 96366; 96375; 96376; 99284; C9803; G0378; J1940; Q9957

== ENCOUNTER → 2022-01-24 16:20 | Outpatient (ROUT) | payer OTHER, MEDICAID, SELFPAY ==
[2022-01-16 12:29] VITALS: BMI 27.1
[2022-01-24 16:36] LABS: Add Manual Diff / Slide Review NO; Basophils Absolute Auto 100 /uL (0-100); Basophils Percent Auto 0.8 % (0-2); Eosinophils Absolute Auto 0 /uL (0-450); Eosinophils Percent Auto 0.8 % (2-4); Hematocrit 34.6 % (36-46); Lymphocytes Absolute Auto 900 /uL (1100-4500); Lymphocytes Percent Auto 14.5 % (25-40); Mean Corpuscular HGB Conc 31.8 % (30-36); Mean Corpuscular Hemoglobin 25.2 PG (26-34); Mean Corpuscular Volume 79.1 fL (80-100); Monocytes Absolute Auto 600 /uL (0-900); Monocytes Percent Auto 9.6 % (3-14); Neutrophils Absolute Auto 4600 /uL (1500-7000); Neutrophils Percent Auto 74.3 % (50-75); Platelet Count 262 X10^3/uL (150-400); Red Blood Cell Count 4.37 X10^6/uL (4.0-5.2); Red Cell Distribution Width 17.1 % (11.6-14.8); White Blood Cell Count 6.2 X10^3/uL (4.5-11.0)
[2022-01-24 16:40] LABS: Blood Urea Nitrogen 15 mg/dL (7-17); Calcium 8.5 mg/dL (8.4-10.2); Carbon Dioxide 30 mmol/L (22-32); Chloride 104 mmol/L (98-107); Estimated Glomerular Filt Rate > 60 mL/min (>60); Glucose 104 mg/dL (80-110); HEMOLYSIS 28 (0-50); Sodium 140 mmol/L (137-145)
[2022-01-24 17:45] LABS: NT-proBNP (BNP-Adult 18+) 2240 pg/mL (<450)
== END ==
PROVIDERS: PCP Internal Medicine; Visit Provider Registered Nurse
DX: I50.22 Chronic systolic (congestive) heart failure (principal); J44.9 Chronic obstructive pulmonary disease, unspecified; E05.90 Thyrotoxicosis, unspecified without thyrotoxic crisis or storm
CPT/HCPCS: 80048; 83880; 85025

== ENCOUNTER 2022-01-31 18:52 | Observation (INO) | payer OTHER, MEDICAID, SELFPAY ==
[2022-01-16 12:29] VITALS: BMI 27.1
[2022-01-31] VITALS (13 sets, daily range): BP systolic 114–147; BP diastolic 56–70; PULSE 86–89; RESP 17–29; TEMP 36.9; O2SAT 91–94; BMI 27.4
--- NOTE | 2022-01-31 18:56 | DI.RAD.S_ITS ---
PROCEDURE: XR CHEST 1V INDICATIONS: SOB TECHNIQUE: One view of the chest was acquired. COMPARISON: [facility], CR, XR CHEST 1V, 08/03/2021, 16:26. [facility], CR, XR CHEST 1V, 11/10/2019, 13:46. [facility], CR, XR CHEST 1V, 01/16/2022, 7:37. FINDINGS: Surgical changes and devices: Status post CABG procedure. Aortic valve prosthesis is stable. Lungs and pleura: Small to moderate left-sided pleural fluid collection increased in size. Consolidation in the left lung base is increased in size. Mediastinum: Mediastinal contours appear normal. Heart is enlarged. Bones and chest wall: No suspicious bony lesions. Overlying soft tissues appear unremarkable. IMPRESSION: Left basilar consolidation increased in size which could represent atelectasis, aspiration or pneumonia. Small to moderate-sized left-sided pleural fluid collection is increased in size. Dictated by: Rox Alvarado MD, PhD on 01/31/2022 at 19:21 Approved by: Rox Alvaraod MD, PhD on 01/31/2022 at 19:22
--- NOTE | 2022-01-31 18:57 | ED.SOB ---
HPI - SOB/Dyspnea General Chief Complaint: Shortness of Breath/Dyspnea Stated Complaint: low O2 sat Time Seen by Provider: 01/31/22 18:55 History of Present Illness HPI Narrative: 76F former smoker with history of atrial fibrillation with RVR, CHF and frequent visits for pulmonary edema, pleural effusion, mitral valve replacement, anticoagulation presents by EMS for evaluation of an episode of shortness of breath earlier today. The patient is in a memory care long-term care facility and contributes little to nothing to the history. Daughter (ANAHI) with at the bedside with patient and noticed her increased work of breathing. She normally does not require supplemental oxygen but after being on a few L by nasal cannula for a few hours her symptoms improved and saturations improved to the mid 90s. On her arrival she has no complaint. There has been no reported change in medications, fever or chills. She has had no injuries or trauma. Related Data Home Medications Medication Instructions Recorded Confirmed albuterol sulfate 90 mcg/actuation 2 puff inhalation Q4H PRN 01/10/18 01/16/22 aerosol inhaler (Ventolin HFA) Shortness Of Breath Or Wheezing docusate sodium 100 mg capsule 200 mg PO BID 01/10/18 01/16/22 fluticasone propionate 50 1 spray intranasal DAILY 01/10/18 02/01/22 mcg/actuation nasal spray,suspension methimazole 5 mg tablet 5 mg PO DAILY 01/10/18 01/16/22 nystatin 100,000 unit/gram topical 1 applic topical BID 01/10/18 01/16/22 powder omeprazole 40 mg capsule,delayed 40 mg PO DAILY 01/10/18 01/16/22 release potassium chloride 20 mEq 20 meq PO DAILY 01/10/18 01/16/22 tablet,extended release beclomethasone dipropionate 40 2 puff inhalation BID 04/11/18 01/16/22 mcg/actuation HFA breath activated aerosol (Qvar RediHaler) sennosides 8.6 mg tablet (senna) 2 tab PO DAILY 04/11/18 01/16/22 acetaminophen 500 mg tablet 1,000 mg PO Q6H PRN Pain, Moderate 01/16/22 01/16/22 magnesium hydroxide 400 mg/5 mL 60 ml PO BEDTIME PRN Constipation 01/16/22 01/16/22 oral suspension (Milk of Magnesia) polyethylene glycol 3350 17 gram 17 g PO DAILY 01/16/22 01/16/22 oral powder packet (Miralax) Previous Rx's Medication Instructions Recorded hydrocodone 5 mg-acetaminophen 325 1 tab PO QID PRN Pain (Scale Score 10/29/19 mg tablet 4-6) #10 tabs rosuvastatin 10 mg tablet 20 mg PO BEDTIME #60 tabs 10/29/19 metoprolol tartrate 75 mg tablet 75 mg PO BID #20 tabs 08/04/21 warfarin 5 mg tablet See Rx Instructions .Route 01/17/22 .COMPLEX #60 tabs Allergies Allergy/AdvReac Type Severity Reaction Status Date / Time aspartame [ASPARTAME] Allergy Intermediate violently Verified 01/31/22 18:57 ill, fever, rashes. codeine [CODEINE] Allergy Intermediate PROJECTILE Verified 01/31/22 18:57 VOMITING latex [LATEX] Allergy Intermediate VERY Verified 01/31/22 18:57 ITCHY RASH morphine [MORPHINE] Allergy Intermediate HALLUCINATI Verified 01/31/22 18:57 ONS. albuterol Allergy Verified 01/31/22 18:57 ipratropium Allergy Verified 01/31/22 18:57 Review of Systems Review of Systems Narrative: GENERAL: See HPI HEENT: Denies sinus pain, ear pain, sore throat, difficulty swallowing, dizziness. RESPIRATORY: See HPI CARDIOVASCULAR: See HPI GASTROINTESTINAL: Denies nausea, vomiting, abdominal pain, diarrhea, constipation, melena. : Denies dysuria, frequency, incontinence, hematuria, urinary retention. MUSCULOSKELETAL: denies weakness, joint pain, or bony pain SKIN: Denies rash, skin lesions, or other NEUROLOGIC: Denies weakness, headache, numbness, change in speech, confusion, seizures, incoordination. PSYCHIATRIC: No concerning psychosocial issues. 12 point review of systems is negative except for those stated above Patient History Medical History CHF (congestive heart failure) Chronic a-fib Chronic low back pain COPD (chronic obstructive pulmonary disease) Degenerative disc disease Dementia Depression GERD (gastroesophageal reflux disease) Hyperlipidemia Hypertension Hyperthyroidism TIA (transient ischemic attack) UTI (urinary tract infection) Surgical History History of mitral valve replacement Status post appendectomy Status post hysterectomy Social History household members: other housing: assisted living facility Smoking Status: Former smoker alcohol intake: never Smoking Status: Former smoker alcohol intake frequency: holidays/special occasions only Substance Use Type: does not use Exam Narrative Exam Narrative: GENERAL: [76] year old patient appears stated age. Pleasantly confused, in no obvious respiratory distress HEAD: Atraumatic. Normocephalic. EYES: Pupils equal round and reactive. Extraocular motions intact. No scleral icterus. No injection or drainage. ENT: Nose without bleeding, purulent drainage. Throat without erythema, tonsillar hypertrophy or exudate. Airway patent. NECK: Trachea midline. Non tender CARDIOVASCULAR: Regular rate and rhythm without murmurs, gallops, or rubs. RESPIRATORY: Decreased breath sounds bilaterally with prolonged expiratory phase no obvious rales or rhonchi, decreased sounds in left base GASTROINTESTINAL: Abdomen soft, non-tender, nondistended. EXTREMITIES: No edema or joint tenderness. BACK: Nontender without deformity or crepitance. No flank tenderness. NEURO: Cranial nerves 2-12 grossly intact SKIN: No rash or erythema of visible areas Initial Vital Signs Initial Vital Signs: Vital Signs Temperature 98.5 F 01/31/22 18:53 Pulse Rate 89 01/31/22 18:53 Respiratory Rate 17 01/31/22 18:53 Blood Pressure 114/58 L 01/31/22 18:53 Pulse Oximetry 94 01/31/22 18:53 Oxygen Delivery Method 01/31/22 18:53 Course Orders Ordered: ED Orders 01/31/22 18:56 XR chest 1V Stat EKG-12 Lead Stat 01/31/22 19:10 Complete Blood Count AUTO DIFF Stat Comprehensive Metabolic Panel Stat Lipase Stat NT-proBNP (BNP-Adult 18+) Stat Procalcitonin Stat Troponin & CK Cardiac Panel Stat 01/31/22 19:40 COVID19 -Nasal RAPID/Pre-Proc Stat 01/31/22 20:15 CT chest w con Stat 01/31/22 21:23 Troponin & CK Cardiac Panel Stat 02/01/22 00:14 Prothrombin Time INR Stat 02/01/22 05:00 Basic Metabolic Panel Routine Complete Blood Count AUTO DIFF Routine Magnesium Routine Acetaminophen (Acetaminophen 325 Mg Tablet) 650 mg PO Q6HR PRN PRN Reason: Fever/Mild Pain (1-3) Furosemide (Furosemide 40 Mg/4 Ml Vial) 40 mg IV Q12HR AGUSTIN Naloxone HCl (Naloxone 0.4 Mg/Ml Vial) 0.2 mg IV Q2MIN PRN PRN Reason: Opiate Reversal Ondansetron HCl (Ondansetron 4 Mg/2 Ml Inj) 4 mg IV Q8HR PRN PRN Reason: Nausea And Vomiting Discontinued Medications Furosemide (Furosemide 40 Mg/4 Ml Vial) 40 mg IV NOW ONE Stop: 01/31/22 20:13 Last Admin: 01/31/22 20:34 Dose: 40 mg Documented By: LINDSAY Ceftriaxone Sodium 1,000 mg/ (Sodium Chloride) 100 mls @ 200 mls/hr IV NOW ONE Stop: 01/31/22 20:16 Last Infusion: 01/31/22 21:08 Dose: 0 mls/hr Documented By: Admin: 01/31/22 20:34 Dose: 200 mls/hr Documented By: LINDSAY Vital Signs Vital signs: Vital Signs - 8 hr 01/31/22 18:53 01/31/22 19:02 01/31/22 19:30 Temperature 98.5 F Pulse Rate 89 89 Respiratory Rate 17 Blood Pressure 114/58 L 134/60 Pulse Oximetry 94 93 Oxygen Delivery Method Room Air 01/31/22 19:30 01/31/22 20:00 01/31/22 20:00 Temperature Pulse Rate 89 88 Respiratory Rate 22 Blood Pressure 147/64 H Pulse Oximetry 92 92 Oxygen Delivery Method Room Air 01/31/22 20:33 01/31/22 20:36 01/31/22 20:36 Temperature Pulse Rate 86 86 Respiratory Rate 25 H Blood Pressure 121/56 L Pulse Oximetry 91 Oxygen Delivery Method 01/31/22 21:00 01/31/22 21:01 01/31/22 21:01 Temperature Pulse Rate 86 86 Respiratory Rate 28 H 26 H Blood Pressure 145/67 H Pulse Oximetry 91 92 Oxygen Delivery Method 01/31/22 21:30 01/31/22 21:30 01/31/22 22:00 Temperature Pulse Rate 86 Respiratory Rate 29 H Blood Pressure 117/56 L 126/60 Pulse Oximetry 92 Oxygen Delivery Method Room Air 01/31/22 22:00 01/31/22 22:30 01/31/22 22:30 Temperature Pulse Rate 87 87 Respiratory Rate 25 H 27 H Blood Pressure 135/70 Pulse Oximetry 92 92 Oxygen Delivery Method Room Air 01/31/22 23:00 01/31/22 23:00 01/31/22 23:30 Temperature Pulse Rate 87 Respiratory Rate 27 H Blood Pressure 133/60 135/60 Pulse Oximetry 91 Oxygen Delivery Method 01/31/22 23:30 02/01/22 00:00 02/01/22 00:00 Temperature Pulse Rate 87 87 Respiratory Rate 23 26 H Blood Pressure 132/61 Pulse Oximetry 92 93 Oxygen Delivery Method Room Air Room Air MDM - SOB/Dyspnea Lab Data Result diagrams: 01/31/22 19:10 01/31/22 19:10 Labs: Lab Results 01/31/22 01/31/22 01/31/22 Range/Units 19:10 19:10 19:10 WBC 7.1 (4.5-11.0) X10^3/uL RBC 4.54 (4.0-5.2) X10^6/uL Hgb 11.4 L (12.0-16.0) g/dL Hct 35.5 L (36-46) % MCV 78.1 L (80-100) fL MCH 25.1 L (26-34) PG MCHC 32.1 (30-36) % RDW 17.7 H (11.6-14.8) % Plt Count 252 (150-400) X10^3/uL Neut % (Auto) 69.8 (50-75) % Lymph % (Auto) 18.8 L (25-40) % [place] % (Auto) 9.1 (3-14) % Eos % (Auto) 1.3 L (2-4) % Baso % (Auto) 1.0 (0-2) % Neut # (Auto) 5000 (4983-6956) /uL Lymph # (Auto) 1300 (7840-8405) /uL [place] # (Auto) 700 (0-900) /uL Eos # (Auto) 100 (0-450) /uL Baso # (Auto) 100 (0-100) /uL PT (10.1-12.7) SECONDS INR (0.9-1.3) Sodium 138 (137-145) mmol/L Potassium 3.7 (3.4-5.1) mmol/L Chloride 104 (98-107) mmol/L Carbon Dioxide 28 (22-32) mmol/L BUN 14 (7-17) mg/dL Creatinine 0.51 L (0.52-1.04) mg/dL Estimated GFR > 60 (>60) mL/min BUN/Creatinine Ratio 27.5 H (6-22) Glucose 95 (80-110) mg/dL Calcium 8.3 L (8.4-10.2) mg/dL Total Bilirubin 0.8 (0.2-1.3) mg/dL AST 39 H (14-36) IU/L ALT 14 (<35) IU/L Alkaline Phosphatase 93 (38-126) U/L Total Creatine Kinase 46 (30-135) U/L CK-MB (CK-2) TNP CK-MB (CK-2) Rel Index TNP Troponin I 0.089 H (0.01-0.034) ng/mL NT-Pro-B Natriuret Pep 2340 H (<450) pg/mL Total Protein 7.8 (6.3-8.2) g/dL Albumin 4.0 (3.5-5.0) g/dL Globulin 3.8 (1.7-4.1) g/dL Albumin/Globulin Ratio 1.1 (1.0-2.8) Lipase 526 H (23-300) U/L Procalcitonin 0.06 (<0.5) ng/mL SARS-CoV-2 (PCR) (Negative) 01/31/22 01/31/22 01/31/22 Range/Units 19:10 19:40 21:23 WBC (4.5-11.0) X10^3/uL RBC (4.0-5.2) X10^6/uL Hgb (12.0-16.0) g/dL Hct (36-46) % MCV (80-100) fL MCH (26-34) PG MCHC (30-36) % RDW (11.6-14.8) % Plt Count (150-400) X10^3/uL Neut % (Auto) (50-75) % Lymph % (Auto) (25-40) % [place] % (Auto) (3-14) % Eos % (Auto) (2-4) % Baso % (Auto) (0-2) % Neut # (Auto) (8045-9290) /uL Lymph # (Auto) (6605-0122) /uL [place] # (Auto) (0-900) /uL Eos # (Auto) (0-450) /uL Baso # (Auto) (0-100) /uL PT 22.3 H (10.1-12.7) SECONDS INR 2.0 H (0.9-1.3) Sodium (137-145) mmol/L Potassium (3.4-5.1) mmol/L Chloride (98-107) mmol/L Carbon Dioxide (22-32) mmol/L BUN (7-17) mg/dL Creatinine (0.52-1.04) mg/dL Estimated GFR (>60) mL/min BUN/Creatinine Ratio (6-22) Glucose (80-110) mg/dL Calcium (8.4-10.2) mg/dL Total Bilirubin (0.2-1.3) mg/dL AST (14-36) IU/L ALT (<35) IU/L Alkaline Phosphatase (38-126) U/L Total Creatine Kinase 48 (30-135) U/L CK-MB (CK-2) TNP CK-MB (CK-2) Rel Index TNP Troponin I 0.098 H (0.01-0.034) ng/mL NT-Pro-B Natriuret Pep (<450) pg/mL Total Protein (6.3-8.2) g/dL Albumin (3.5-5.0) g/dL Globulin (1.7-4.1) g/dL Albumin/Globulin Ratio (1.0-2.8) Lipase (23-300) U/L Procalcitonin (<0.5) ng/mL SARS-CoV-2 (PCR) Negative (Negative) Discharge Plan Departure Patient Disposition: Admitted as Observation Clinical Impression: CHF (congestive heart failure), Pleural effusion, Acute dyspnea Admit Date/Time: 02/01/22 00:56 Admit Provider: Doe Velazco
[2022-01-31 19:19] LABS: Add Manual Diff / Slide Review NO; Basophils Absolute Auto 100 /uL (0-100); Eosinophils Absolute Auto 100 /uL (0-450); Eosinophils Percent Auto 1.3 % (2-4); Hematocrit 35.5 % (36-46); Hemoglobin 11.4 g/dL (12.0-16.0); Lymphocytes Absolute Auto 1300 /uL (1100-4500); Lymphocytes Percent Auto 18.8 % (25-40); Mean Corpuscular HGB Conc 32.1 % (30-36); Mean Corpuscular Hemoglobin 25.1 PG (26-34); Mean Corpuscular Volume 78.1 fL (80-100); Monocytes Absolute Auto 700 /uL (0-900); Monocytes Percent Auto 9.1 % (3-14); Neutrophils Absolute Auto 5000 /uL (1500-7000); Neutrophils Percent Auto 69.8 % (50-75); Platelet Count 252 X10^3/uL (150-400); Red Blood Cell Count 4.54 X10^6/uL (4.0-5.2); Red Cell Distribution Width 17.7 % (11.6-14.8); White Blood Cell Count 7.1 X10^3/uL (4.5-11.0)
[2022-01-31 19:32] LABS: Alanine Aminotransferase 14 IU/L (<35); Albumin Globulin Ratio 1.1 (1.0-2.8); Alkaline Phosphatase 93 U/L (38-126); Aspartate Aminotransferase 39 IU/L (14-36); BUN Creatinine Ratio 27.5 (6-22); Bilirubin Total 0.8 mg/dL (0.2-1.3); Blood Urea Nitrogen 14 mg/dL (7-17); Calcium 8.3 mg/dL (8.4-10.2); Carbon Dioxide 28 mmol/L (22-32); Chloride 104 mmol/L (98-107); Creatine Kinase 46 U/L (30-135); Estimated Glomerular Filt Rate > 60 mL/min (>60); Globulin 3.8 g/dL (1.7-4.1); Glucose 95 mg/dL (80-110); HEMOLYSIS < 15 (0-50); Lipase 526 U/L (23-300); Potassium 3.7 mmol/L (3.4-5.1); Sodium 138 mmol/L (137-145); Total Protein 7.8 g/dL (6.3-8.2)
[2022-01-31 19:44] LABS: NT-proBNP (BNP-Adult 18+) 2340 pg/mL (<450); Troponin I 0.089 ng/mL (0.01-0.034)
[2022-01-31 19:49] LABS: Procalcitonin 0.06 ng/mL (<0.5)
[2022-01-31 20:09] LABS: COVID19 -Nasal RAPID Negative (Negative)
--- NOTE | 2022-01-31 20:15 | DI.CT.S_ITS ---
PROCEDURE: CT CHEST W CON INDICATIONS: SOB, increasing L pleural effusion TECHNIQUE: After the administration of intravenous contrast, 5 mm thick sections acquired from the pulmonary apices to the posterior costophrenic angles. 1 mm axial lung, 5 mm thick coronal and sagittal reformats and 7 mm axial MIP were acquired. For radiation dose reduction, the following was used: automated exposure control, adjustment of mA and/or kV according to patient size. COMPARISON: [facility], CT, CT ANGIO CHEST PE PROTOCOL, 02/21/2018, 15:50. [facility], CR, XR CHEST 1V, 01/31/2022, 19:02. FINDINGS: Image quality: There is mild motion artifact. Lungs and pleura: Bilateral pleural effusions are present, moderate on the left and small on the right, with associated compressive atelectasis. There are dense calcifications within the atelectatic right lower lobe which are nonspecific and may reflect sequelae of a chronic process. The trachea and central airways are patent. Mediastinum: Heart size is enlarged. No pericardial effusion. Postsurgical changes are demonstrated consistent with prior CABG. There is a prosthetic mitral valve. No mediastinal or hilar adenopathy by size criteria. Thoracic aorta and central pulmonary arteries are normal in size. Esophagus is normal in caliber. There is a small hiatal hernia. Bones and chest wall: No suspicious bony lesions. No vertebral body compression fractures. No axillary or supraclavicular adenopathy by size criteria. The visualized thyroid demonstrates diffuse small scattered bilateral hypoattenuating nodules measuring up to 0.4 cm. Abdomen: Visualized upper abdomen appears unremarkable. IMPRESSION: 1. Bilateral pleural effusions, moderate on the left and small on the right. 2. Associated compressive atelectasis demonstrated bilaterally. Superimposed pneumonia in the left lower lobe cannot be excluded. Dictated by: Jonathan Burleson M.D. on 01/31/2022 at 21:39 Approved by: Jonathan Burleson M.D. on 01/31/2022 at 21:44
[2022-01-31] MEDS: FUROSEMIDE 40 MG/4 ML VIAL IV (20:34)
[2022-01-31] MEDS: cefTRIAXone 1,000 MG in SODIUM CHLORIDE 0.9% 100 ML 200 MG IV (20:34)
[2022-01-31 21:51] LABS: Creatine Kinase 48 U/L (30-135)
[2022-01-31 22:03] LABS: Troponin I 0.098 ng/mL (0.01-0.034)
[2022-02-01] VITALS (7 sets, daily range): BP systolic 109–132; BP diastolic 45–61; PULSE 71–89; RESP 16–26; TEMP 36.3–36.9; O2SAT 92–95; BMI 27.3
[2022-02-01 00:27] LABS: Prothrombin Time 22.3 SECONDS (10.1-12.7)
--- NOTE | 2022-02-01 00:51 | PM.HP.1 ---
History of Present Illness History of Present Illness Date Patient Seen: 02/01/22 Time Patient Seen: 00:30 Chief complaint: low O2 sat Narrative: Ms. Yeh is a 77W with PMH afib, CAD s/p CABG, s/p mechanical MVR, CHFrEF, CVA, HTN, HL, pAfib dementia who presents with shortness of breath. She has known EF of 20-25% with moderate to severe stenosis noted last admission. She is demented and can not provide history, but daughter is at bedside who provides history. The patient has decreased appetite over the past few days. Otherwise she was feeling normally until today when she developed increased worsening of her breathing and shortness of breath. She was noted to be hypoxemic in the 80s and placed on oxygen at her facility. She did not have fevers, chills. No chest pain. She has a nonproductive cough. In the ED workup was done, vitals notable for sats in 90s no oxygen. Labs notable for WBC 7.1, hgb 11.4, plts 252. BUN 14, creatinine 0.51. Trop 0.089->0.098, BNP 2340. Procal 0.06. COVID negative. Chest xray showed left basilar consolidation and left sided pleural effusion. CT chest showed bilateral effusions moderate on left, small on right. She was ordered for lasix and admitted for further treatment. Patient History Medical History CHF (congestive heart failure) Chronic a-fib Chronic low back pain COPD (chronic obstructive pulmonary disease) Degenerative disc disease Dementia Depression GERD (gastroesophageal reflux disease) Hyperlipidemia Hypertension Hyperthyroidism TIA (transient ischemic attack) UTI (urinary tract infection) Surgical History History of mitral valve replacement Status post appendectomy Status post hysterectomy Family & Social History Social History: household members other Safety & Behavioral: Feels Safe in Current Yes Environment Been Physically Hurt or No Threatened By a Person Tobacco & Substance use: Smoking Status Former smoker alcohol intake never alcohol intake frequency holiday/special occasion Substance Use Type does not use Meds Home Medications and Allergies Home Medications Medication Instructions Recorded Confirmed Type albuterol sulfate 90 mcg/actuation 2 puff inhalation Q4H PRN 01/10/18 01/16/22 History aerosol inhaler (Ventolin HFA) Shortness Of Breath Or Wheezing docusate sodium 100 mg capsule 200 mg PO BID 01/10/18 01/16/22 History fluticasone propionate 50 1 spray intranasal DAILY 01/10/18 01/16/22 History mcg/actuation nasal spray,suspension methimazole 5 mg tablet 5 mg PO DAILY 01/10/18 01/16/22 History nystatin 100,000 unit/gram topical 1 applic topical BID 01/10/18 01/16/22 History powder omeprazole 40 mg capsule,delayed 40 mg PO DAILY 01/10/18 01/16/22 History release potassium chloride 20 mEq 20 meq PO DAILY 01/10/18 01/16/22 History tablet,extended release beclomethasone dipropionate 40 2 puff inhalation BID 04/11/18 01/16/22 History mcg/actuation HFA breath activated aerosol (Qvar RediHaler) sennosides 8.6 mg tablet (senna) 2 tab PO DAILY 04/11/18 01/16/22 History hydrocodone 5 mg-acetaminophen 325 1 tab PO QID PRN Pain (Scale Score 10/29/19 01/16/22 Rx mg tablet 4-6) #10 tabs rosuvastatin 10 mg tablet 20 mg PO BEDTIME #60 tabs 10/29/19 01/16/22 Rx metoprolol tartrate 75 mg tablet 75 mg PO BID #20 tabs 08/04/21 01/16/22 Rx acetaminophen 500 mg tablet 1,000 mg PO Q6H PRN Pain, Moderate 01/16/22 01/16/22 History magnesium hydroxide 400 mg/5 mL 60 ml PO BEDTIME PRN Constipation 01/16/22 01/16/22 History oral suspension (Milk of Magnesia) polyethylene glycol 3350 17 gram 17 g PO DAILY 01/16/22 01/16/22 History oral powder packet (Miralax) warfarin 5 mg tablet See Rx Instructions .Route 01/17/22 Rx .COMPLEX #60 tabs Allergies Allergy/AdvReac Type Severity Reaction Status Date / Time aspartame [ASPARTAME] Allergy Intermediate violently Verified 01/31/22 18:57 ill, fever, rashes. codeine [CODEINE] Allergy Intermediate PROJECTILE Verified 01/31/22 18:57 VOMITING latex [LATEX] Allergy Intermediate VERY Verified 01/31/22 18:57 ITCHY RASH morphine [MORPHINE] Allergy Intermediate HALLUCINATI Verified 01/31/22 18:57 ONS. albuterol Allergy Verified 01/31/22 18:57 ipratropium Allergy Verified 01/31/22 18:57 Review of Systems Review of Systems Narrative: 14 systems reviewed and negative aside from what is noted in HPI Exam Vital Signs (past 8 hours): - 01/31/22 18:53 01/31/22 19:02 01/31/22 19:30 Temperature 98.5 F Pulse Rate 89 89 Respiratory Rate 17 Blood Pressure 114/58 L 134/60 Pulse Oximetry 94 93 Oxygen Delivery Method Room Air 01/31/22 19:30 01/31/22 20:00 01/31/22 20:00 Temperature Pulse Rate 89 88 Respiratory Rate 22 Blood Pressure 147/64 H Pulse Oximetry 92 92 Oxygen Delivery Method Room Air 01/31/22 20:33 01/31/22 20:36 01/31/22 20:36 Temperature Pulse Rate 86 86 Respiratory Rate 25 H Blood Pressure 121/56 L Pulse Oximetry 91 Oxygen Delivery Method 01/31/22 21:00 01/31/22 21:01 01/31/22 21:01 Temperature Pulse Rate 86 86 Respiratory Rate 28 H 26 H Blood Pressure 145/67 H Pulse Oximetry 91 92 Oxygen Delivery Method 01/31/22 21:30 01/31/22 21:30 01/31/22 22:00 Temperature Pulse Rate 86 Respiratory Rate 29 H Blood Pressure 117/56 L 126/60 Pulse Oximetry 92 Oxygen Delivery Method Room Air 01/31/22 22:00 01/31/22 22:30 01/31/22 22:30 Temperature Pulse Rate 87 87 Respiratory Rate 25 H 27 H Blood Pressure 135/70 Pulse Oximetry 92 92 Oxygen Delivery Method Room Air 01/31/22 23:00 01/31/22 23:00 01/31/22 23:30 Temperature Pulse Rate 87 Respiratory Rate 27 H Blood Pressure 133/60 135/60 Pulse Oximetry 91 Oxygen Delivery Method 01/31/22 23:30 02/01/22 00:00 02/01/22 00:00 Temperature Pulse Rate 87 87 Respiratory Rate 23 26 H Blood Pressure 132/61 Pulse Oximetry 92 93 Oxygen Delivery Method Room Air Room Air Oxygen Delivery Method Room Air Narrative Exam Narrative: GEN: mild respiratory distress HEENT: moist mucous membranes, PERRL NECK: trachea midline, no JVD CV: regular rate and rhythm, no murmurs PULM: left base absent breath sounds ABD: soft, nontender, nondistended, no organomegaly, normal bowel sounds EXT: warm and well perfused with no edema NEURO: sleepy, confused, no focal deficits noted Objective Labs Result Diagrams: 01/31/22 19:10 01/31/22 19:10 Labs: Laboratory Results - last 24 hr 01/31/22 01/31/22 01/31/22 19:10 19:10 19:10 WBC 7.1 RBC 4.54 Hgb 11.4 L Hct 35.5 L MCV 78.1 L MCH 25.1 L MCHC 32.1 RDW 17.7 H Plt Count 252 Neut % (Auto) 69.8 Lymph % (Auto) 18.8 L [place] % (Auto) 9.1 Eos % (Auto) 1.3 L Baso % (Auto) 1.0 Neut # (Auto) 5000 Lymph # (Auto) 1300 [place] # (Auto) 700 Eos # (Auto) 100 Baso # (Auto) 100 PT INR Sodium 138 Potassium 3.7 Chloride 104 Carbon Dioxide 28 BUN 14 Creatinine 0.51 L Estimated GFR > 60 BUN/Creatinine Ratio 27.5 H Glucose 95 Calcium 8.3 L Total Bilirubin 0.8 AST 39 H ALT 14 Alkaline Phosphatase 93 Total Creatine Kinase 46 CK-MB (CK-2) TNP CK-MB (CK-2) Rel Index TNP Troponin I 0.089 H NT-Pro-B Natriuret Pep 2340 H Total Protein 7.8 Albumin 4.0 Globulin 3.8 Albumin/Globulin Ratio 1.1 Lipase 526 H Procalcitonin 0.06 SARS-CoV-2 (PCR) 01/31/22 01/31/22 01/31/22 19:10 19:40 21:23 WBC RBC Hgb Hct MCV MCH MCHC RDW Plt Count Neut % (Auto) Lymph % (Auto) [place] % (Auto) Eos % (Auto) Baso % (Auto) Neut # (Auto) Lymph # (Auto) [place] # (Auto) Eos # (Auto) Baso # (Auto) PT 22.3 H INR 2.0 H Sodium Potassium Chloride Carbon Dioxide BUN Creatinine Estimated GFR BUN/Creatinine Ratio Glucose Calcium Total Bilirubin AST ALT Alkaline Phosphatase Total Creatine Kinase 48 CK-MB (CK-2) TNP CK-MB (CK-2) Rel Index TNP Troponin I 0.098 H NT-Pro-B Natriuret Pep Total Protein Albumin Globulin Albumin/Globulin Ratio Lipase Procalcitonin SARS-CoV-2 (PCR) Negative Assessment & Plan Assessment & Plan narrative: Ms. Yeh is a 76W with PMH CHFrEF, aortic stenosis, dementia who presents with shortness of breath. 1. Acute hypoxemic respiratory failure -sats in ED in 80s on room air, placed on o2 -suspect secondary to acute systolic CHF exacerbation and aortic stenosis -BNP elevated 2340 -compared to recent admission has developing left pleural effusion -she is currently anticoagulated with mechanical mitral valve, high threshold to stop coumadin as she has had stroke when stopped in the past -procal negative, WBC ok -COVID negative -wean oxygen as able 2. Acute systolic CHF exacerbation -last EF was recently checked earlier in January and was 20-25% -ordered IV lasix BID -continue beta-rene and add bradley-inhibitor 3. Elevated troponin -suspect secondary to cardiac demand ischemia -troponin elevated to 0.08->0.09 -no chest pain -no need to trend further for now 4. Paroxysmal atrial fibrillation -currently appears in junctional rhythm -continue warfarain and metoprolol 5. s/p MVR with mechanical valve -has had cva when stopping coumadin in past -continue coumadin 6. Dementia -chronic 7. Microcytic anemia -chronic, at baseline CODE: DNR, but ok to intubate Proxy: Skylar Haddad, daughter I have utilized all available resources to reconcile the patient's home medications Time Spent With Patient Critical Care time: I spent a total of [] minutes of critical care time on this patient's care today; this time is exclusive of procedural time. Quality MIPS - Admit I confirm the patient?s Advance Care Plan is present, Code status is documented, Surrogate decision maker is in patient?s record [If Yes, STOP here]: Yes
--- NOTE | 2022-02-01 05:07 | PC.NURSE ---
Patient admitted to AC unit from ED at 0110. Alert and oriented to self. Shown how to use call light, bed in low position and breaks locked. Repositioned every two hours for comfort.
[2022-02-01 05:22] LABS: Add Manual Diff / Slide Review NO; Basophils Absolute Auto 100 /uL (0-100); Basophils Percent Auto 2.2 % (0-2); Eosinophils Absolute Auto 100 /uL (0-450); Eosinophils Percent Auto 2.3 % (2-4); Hematocrit 36.1 % (36-46); Hemoglobin 11.3 g/dL (12.0-16.0); Lymphocytes Absolute Auto 700 /uL (1100-4500); Lymphocytes Percent Auto 11.7 % (25-40); Mean Corpuscular HGB Conc 31.2 % (30-36); Mean Corpuscular Hemoglobin 24.4 PG (26-34); Monocytes Absolute Auto 700 /uL (0-900); Neutrophils Absolute Auto 4600 /uL (1500-7000); Neutrophils Percent Auto 72.8 % (50-75); Platelet Count 246 X10^3/uL (150-400); Red Blood Cell Count 4.63 X10^6/uL (4.0-5.2); Red Cell Distribution Width 17.4 % (11.6-14.8); White Blood Cell Count 6.4 X10^3/uL (4.5-11.0)
[2022-02-01 05:39] LABS: BUN Creatinine Ratio 22.6 (6-22); Blood Urea Nitrogen 12 mg/dL (7-17); Calcium 8.4 mg/dL (8.4-10.2); Carbon Dioxide 31 mmol/L (22-32); Chloride 101 mmol/L (98-107); Estimated Glomerular Filt Rate > 60 mL/min (>60); Glucose 93 mg/dL (80-110); HEMOLYSIS < 15 (0-50); Magnesium 2.1 mg/dL (1.6-2.3); Potassium 3.1 mmol/L (3.4-5.1); Sodium 139 mmol/L (137-145)
[2022-02-01 07:39] LABS: INR 2.2 (0.9-1.3); Prothrombin Time 24.6 SECONDS (10.1-12.7)
[2022-02-01] MEDS: FUROSEMIDE 40 MG/4 ML VIAL IV ×2 (09:33→20:10)
[2022-02-01] MEDS: METOPROLOL IR 25 MG TABLET 75 MG PO ×2 (09:34→20:10)
[2022-02-01] MEDS: POTASSIUM CHLORIDE 20 MEQ TAB 40 MEQ PO (10:43)
--- NOTE | 2022-02-01 13:42 | PM.PN.1 ---
Subjective Subjective Date Patient Seen: 02/01/22 Interval history: Hospitalist follow-up visit. Per H&P on admission: Ms. Yeh is a 77W with PMH afib, CAD s/p CABG, s/p mechanical MVR, CHFrEF, CVA, HTN, HL, pAfib dementia who presents with shortness of breath. She has known EF of 20-25% with moderate to severe stenosis noted last admission. She is demented and can not provide history, but daughter was at bedside who provides history. The patient has decreased appetite over the past few days. Otherwise she was feeling normally until today when she developed increased worsening of her breathing and shortness of breath. She was noted to be hypoxemic in the 80s and placed on oxygen at her facility. She did not have fevers, chills. No chest pain. She has a nonproductive cough. In the ED workup was done, vitals notable for sats in 90s no oxygen. Labs notable for WBC 7.1, hgb 11.4, plts 252. BUN 14, creatinine 0.51. Trop 0.089->0.098, BNP 2340. Procal 0.06. COVID negative. Chest xray showed left basilar consolidation and left sided pleural effusion. CT chest showed bilateral effusions moderate on left, small on right. She was ordered for lasix and admitted for further treatment. Patient is quiet and not much interaction. However indicating she has no new complaints. Exam Vital Signs (past 8 hours): - 02/01/22 07:40 02/01/22 10:07 02/01/22 12:00 Temperature 97.6 F Pulse Rate 89 71 Respiratory Rate 17 16 Blood Pressure 123/45 L 109/52 L Pulse Oximetry 93 92 Oxygen Delivery Method Room Air Oxygen Flow Rate 0 0 Oxygen Delivery Method Room Air Oxygen Flow Rate 0 Narrative Exam Narrative: GEN: Calm with very little chest expansion. Appears to be in no acute distress. Not interactive and not speaking. But does open her eyes and acknowledge things. HEENT: moist mucous membranes, PERRL NECK: trachea midline, no JVD CV: regular rate and rhythm, no murmurs PULM: left base absent breath sounds ABD: soft, nontender, nondistended, no organomegaly, normal bowel sounds EXT: warm and well perfused with no edema NEURO: No localized neurological signs. Appears to have dementia. Objective Labs Result Diagrams: 02/01/22 05:06 02/01/22 05:06 Labs: Laboratory Results - last 24 hr 01/31/22 01/31/22 01/31/22 19:10 19:10 19:10 WBC 7.1 RBC 4.54 Hgb 11.4 L Hct 35.5 L MCV 78.1 L MCH 25.1 L MCHC 32.1 RDW 17.7 H Plt Count 252 Neut % (Auto) 69.8 Lymph % (Auto) 18.8 L [place] % (Auto) 9.1 Eos % (Auto) 1.3 L Baso % (Auto) 1.0 Neut # (Auto) 5000 Lymph # (Auto) 1300 [place] # (Auto) 700 Eos # (Auto) 100 Baso # (Auto) 100 PT INR Sodium 138 Potassium 3.7 Chloride 104 Carbon Dioxide 28 BUN 14 Creatinine 0.51 L Estimated GFR > 60 BUN/Creatinine Ratio 27.5 H Glucose 95 Calcium 8.3 L Magnesium Total Bilirubin 0.8 AST 39 H ALT 14 Alkaline Phosphatase 93 Total Creatine Kinase 46 CK-MB (CK-2) TNP CK-MB (CK-2) Rel Index TNP Troponin I 0.089 H NT-Pro-B Natriuret Pep 2340 H Total Protein 7.8 Albumin 4.0 Globulin 3.8 Albumin/Globulin Ratio 1.1 Lipase 526 H Procalcitonin 0.06 SARS-CoV-2 (PCR) 01/31/22 01/31/22 01/31/22 19:10 19:40 21:23 WBC RBC Hgb Hct MCV MCH MCHC RDW Plt Count Neut % (Auto) Lymph % (Auto) [place] % (Auto) Eos % (Auto) Baso % (Auto) Neut # (Auto) Lymph # (Auto) [place] # (Auto) Eos # (Auto) Baso # (Auto) PT 22.3 H INR 2.0 H Sodium Potassium Chloride Carbon Dioxide BUN Creatinine Estimated GFR BUN/Creatinine Ratio Glucose Calcium Magnesium Total Bilirubin AST ALT Alkaline Phosphatase Total Creatine Kinase 48 CK-MB (CK-2) TNP CK-MB (CK-2) Rel Index TNP Troponin I 0.098 H NT-Pro-B Natriuret Pep Total Protein Albumin Globulin Albumin/Globulin Ratio Lipase Procalcitonin SARS-CoV-2 (PCR) Negative 06/02/01/22 02/01/22 05:06 05:06 07:18 WBC 6.4 RBC 4.63 Hgb 11.3 L Hct 36.1 MCV 78.0 L MCH 24.4 L MCHC 31.2 RDW 17.4 H Plt Count 246 Neut % (Auto) 72.8 Lymph % (Auto) 11.7 L [place] % (Auto) 11.0 Eos % (Auto) 2.3 Baso % (Auto) 2.2 H Neut # (Auto) 4600 Lymph # (Auto) 700 L [place] # (Auto) 700 Eos # (Auto) 100 Baso # (Auto) 100 PT 24.6 H INR 2.2 H Sodium 139 Potassium 3.1 L Chloride 101 Carbon Dioxide 31 BUN 12 Creatinine 0.53 Estimated GFR > 60 BUN/Creatinine Ratio 22.6 H Glucose 93 Calcium 8.4 Magnesium 2.1 Total Bilirubin AST ALT Alkaline Phosphatase Total Creatine Kinase CK-MB (CK-2) CK-MB (CK-2) Rel Index Troponin I NT-Pro-B Natriuret Pep Total Protein Albumin Globulin Albumin/Globulin Ratio Lipase Procalcitonin SARS-CoV-2 (PCR) [facility] Medical History CHF (congestive heart failure) Chronic a-fib Chronic low back pain COPD (chronic obstructive pulmonary disease) Degenerative disc disease Dementia Depression GERD (gastroesophageal reflux disease) Hyperlipidemia Hypertension Hyperthyroidism TIA (transient ischemic attack) UTI (urinary tract infection) Surgical History History of mitral valve replacement Status post appendectomy Status post hysterectomy Social History household members: other housing: assisted living facility Smoking Status: Former smoker alcohol intake: never Assessment & Plan Assessment & Plan narrative: Ms. Yeh is a 76W with PMH CHFrEF, aortic stenosis, dementia who presented with shortness of breath. This is a hospitalization is within a couple weeks of the previous hospitalization. Patient's last week while under hospice care, and patient herself now is more amenable to having a hospice consult. Both daughters agree with this as well. 1. Acute hypoxemic respiratory failure Currently off oxygen. Breathing very shallowly. Not active at all in the bed. 2. Acute systolic CHF exacerbation Responding to intravenous furosemide, beta-rene and NEFTALY-inhibitor. 3. Elevated troponin Mild elevation due to demand ischemia. 4. Paroxysmal atrial fibrillation Continue warfarin and metoprolol. 5. s/p MVR with mechanical valve INR not therapeutic for mechanical valve. Increase the daily dose of warfarin to 7.5 mg and follow INR daily. 6. Dementia Chronic. One of the daughters has power of nutrition teacher on finances and medical. 7. Microcytic anemia Chronic. With a decision to proceed with a hospice consult will not do further workup. 8. Family and patient agree to hospice consult. Inadequate improvement requiring active, continues management. CODE: DNR, but ok to intubate Time Spent With Patient Critical Care time: I spent a total of [] minutes of critical care time on this patient's care today; this time is exclusive of procedural time. Quality VTE Deep Vein Thrombosis/Pulmonary Embolism Present on Admission: No
--- NOTE | 2022-02-01 13:52 | CM.DANOTE ---
Patient is a 76 yo female who was admitted on 02/01/22 today for Low O2 sats. Pt has [facility] and [facility] for insurance and his PCP is Dr. Amna Franco. EMR was reviewed. Per MD, pt with hx of dementia and EF of 20-25% and admitted for Acute Respiratory Failure and CHF. Pt was last admitted a couple weeks ago for AFIB and discharged back to [facility] as a LTC resident. Pt's spouse was also at [facility] for LTC and was on [facility] and about a week ago. Pt has a history of afib with anticoagulation on Coumadin, coronary artery disease status post CABG and mitral mechanical valve replacement in 94. Pt has an extensive history of COPD, dementia, depression, Hyperlipidemia, hypertension, and hyperthyroidism. Pt currently lives at [facility] and was on O2 but is currently off and on RA. DCP spoke with [facility] and pt is a total assist with ADL's and is a ismael lift. Pt can feed herself once the meal is prepped and placed in front of her. RN states that pt is forgetful at times but is a [facility] resident. Pts POA is her daughter Swati. Once pt is medically stable for discharge, she is able to return back to [facility] and they are aware that family is considering Hospice referral for pt and confirm pt can return either for Comfort care or regular resident. RON received a call from Lucie at [facility] stating she received a call from pt's Dtrs Swati and Skylar stating they would like Hospice for pt but that pt may be stating she wants full tx. RON met bedside with Dtr Skylar who confirms that her sister Swati who lives locally is DPOA and that she is down from [place] to be here for her father's end of life care and now here to stay for a while to help with coordinating care for pt with her sister. Preference is Hospice and Comfort and aware that pt waxes and wanes in her decisions of comfort DNR/DNI vs full tx. Family is requesting a Hospice referral and are hopeful that Hospice can approach working with pt as more supportive services and quality of life rather than end of life care. Dtr quite tearful and states additional family members are coming to visit and RON encouraged them to discuss with pt if her goal is to be with family and not be in the hospital with multiple readmits without family able to be present then this might help pt be comfortable with Hospice/Comfort Care measures. SW made [facility] referral and left ms for Lucie asking to contact JEREMY Longoria and Skylar for Info Visit and further discuss ways that Hospice staff could present their services without mentioning hospice. Plan: SW to follow for plan of d/c back to [facility] when medically stable and [facility] will follow with JEREMY Dtrs to determine if Hospice will open pt to care after discharge or in the near future to reduce readmits to the hospital and promote quality of life and comfort. CLARENCE Infante Discharge Planning/Care Management Advanced directive, confirm from CLINIC Start: 02/01/22 01:29 Freq: Q24H Status: Complete Protocol: Document 02/01/22 01:29 (Rec: 02/01/22 02:15 [id number]) Advance Directive, confirm on record Time 02:15 Person contacted in file, scanned in chart Copy received Yes Advanced directive available on record Yes Document 02/01/22 01:29 (Rec: 02/01/22 02:16 [id number]) Advance Directive, confirm on record Time 02:15 Person contacted in file, scanned in chart Copy received Yes Advanced directive available on record Yes CM Discharge Assessment Start: 02/01/22 13:49 Freq: Status: Active Protocol: Document 02/01/22 13:49 BF (Rec: 02/01/22 13:52 [id number]) Discharge Planning Assessment Assigned Core Filer CLARENCE Easley DPOA/Assigned Designee Name Grant Longoria [phone] Advance Directives? Yes Advance Directives on File Yes History Provided By Patient,Family Member,Medical Record Has Patient been admitted in last 30 Yes days? Comment last here couple weeks ago for AFIB and returned back to [facility] Prior Living Arrangements Skilled Nurse Facility Household Members none Comment LT resident Type of transporation used prior to Relies on Others admit Facility Name Admitted From: [facility] Willing to Return to Facility? Yes Independent with ADL's No Is patient alert and oriented? No: dementia, waxes and wanes Needs Assistance With Bathing,Meal Prep,Toileting, Managing Medications,Home Chores / Shopping Caregiver for Another No DME Already Rented / Owned Wheelchair Comment ismael at baseline Patient/Family Preference [facility] Facility Barriers to Discharge No Comment Made referral to [facility] Discharge Plan [facility] Facility Transportation Arrangement Facility to provide transport for return Referrals Initiated Other Additional Comment [facility] Whiteboard Updated in Patient Room with Yes name and ext. # of Core Filer Review Status In Process Please Provide Date Initial DC 02/01/22 Assessment Was Performed Next Review Type Continued Stay Review
[2022-02-01] MEDS: ACETAMINOPHEN 325 MG TABLET 650 MG PO (14:24)
[2022-02-01] MEDS: WARFARIN 5 MG TABLET 7.5 MG PO (17:58)
[2022-02-02] VITALS: BP 117/55; PULSE 77; RESP 16; TEMP 35.6; O2SAT 94
[2022-02-02 04:00] VITALS: BP 115/50; PULSE 70; RESP 16; TEMP 36.2; O2SAT 94
[2022-02-02 05:32] LABS: Add Manual Diff / Slide Review NO; Basophils Absolute Auto 100 /uL (0-100); Eosinophils Absolute Auto 100 /uL (0-450); Eosinophils Percent Auto 1.8 % (2-4); Hematocrit 36.3 % (36-46); Hemoglobin 11.6 g/dL (12.0-16.0); Lymphocytes Absolute Auto 1100 /uL (1100-4500); Lymphocytes Percent Auto 21.4 % (25-40); Mean Corpuscular HGB Conc 31.9 % (30-36); Mean Corpuscular Hemoglobin 24.9 PG (26-34); Mean Corpuscular Volume 78.1 fL (80-100); Monocytes Absolute Auto 600 /uL (0-900); Monocytes Percent Auto 10.9 % (3-14); Neutrophils Absolute Auto 3500 /uL (1500-7000); Neutrophils Percent Auto 64.9 % (50-75); Platelet Count 236 X10^3/uL (150-400); Red Blood Cell Count 4.64 X10^6/uL (4.0-5.2); Red Cell Distribution Width 17.6 % (11.6-14.8); White Blood Cell Count 5.3 X10^3/uL (4.5-11.0)
[2022-02-02 05:40] LABS: INR 2.1 (0.9-1.3)
[2022-02-02 05:47] LABS: Alanine Aminotransferase 12 IU/L (<35); Albumin 4.1 g/dL (3.5-5.0); Albumin Globulin Ratio 1.1 (1.0-2.8); Alkaline Phosphatase 90 U/L (38-126); Aspartate Aminotransferase 35 IU/L (14-36); Bilirubin Total 0.9 mg/dL (0.2-1.3); Blood Urea Nitrogen 13 mg/dL (7-17); Calcium 8.6 mg/dL (8.4-10.2); Carbon Dioxide 34 mmol/L (22-32); Chloride 101 mmol/L (98-107); Estimated Glomerular Filt Rate > 60 mL/min (>60); Globulin 3.6 g/dL (1.7-4.1); Glucose 90 mg/dL (80-110); HEMOLYSIS < 15 (0-50); Potassium 3.7 mmol/L (3.4-5.1); Sodium 140 mmol/L (137-145); Total Protein 7.7 g/dL (6.3-8.2)
[2022-02-02 08:00] VITALS: BP 109/50; PULSE 76; RESP 16; TEMP 35.6; O2SAT 95
[2022-02-02] MEDS: METOPROLOL IR 25 MG TABLET 75 MG PO (09:54)
[2022-02-02] MEDS: FUROSEMIDE 40 MG/4 ML VIAL IV (09:55)
[2022-02-02] MEDS: ONDANSETRON 4 MG/2 ML INJ IV (11:17)
[2022-02-02 11:49] VITALS: BP 103/48; PULSE 84; RESP 17; TEMP 37.2; O2SAT 92
[2022-02-02] MEDS: CALCIUM CARBONATE 500 MG TAB PO (12:32)
[2022-02-02] MEDS: METOCLOPRAMIDE 10 MG/2 ML INJ IV (12:32)
--- NOTE | 2022-02-02 13:46 | CM.DPC ---
Discharge Planning Note: Patient medically stable for discharge and being discharged today between 2-3pm back to [facility]. [facility] will be here for pickup. Jannet Plaza RN/DCP
--- NOTE | 2022-02-02 13:56 | PM.DS.1 ---
History of Present Illness History of Present Illness Date Patient Seen: 02/02/22 Chief complaint: low O2 sat Narrative: Primary history and physical in the patient's presentation was as follows: Ms. Yeh is a 77W with PMH afib, CAD s/p CABG, s/p mechanical MVR, CHFrEF, CVA, HTN, HL, pAfib dementia who presents with shortness of breath. She has known EF of 20-25% with moderate to severe stenosis noted last admission. She is demented and can not provide history, but daughter is at bedside who provides history. The patient has decreased appetite over the past few days. Otherwise she was feeling normally until today when she developed increased worsening of her breathing and shortness of breath. She was noted to be hypoxemic in the 80s and placed on oxygen at her facility. She did not have fevers, chills. No chest pain. She has a nonproductive cough. Patient had some nausea this morning that was settled with medication, required Zofran and Reglan. However patient is eating lunch well and has no new complaints. Breathing comfortably without oxygen support. No cough or wheezes. No shortness of breath. Patient is eager to return to [facility]. Discharge Providers Provider Date of admission: 02/01/22 00:56 Discharge Date: 02/02/22 Primary care physician: Amna Franco MD Consults: 02/01/22 13:57 Consult to Hospice Referral Routine Comment: last week and was under hospice care. Discharge provider: Denise Wagner MD Summary Hospital Course Discharge Diagnosis: HFrEF in the end stage. Hospital Course: Patient presented with acute hypoxic respiratory failure secondary to exacerbation of congestive heart failure. This is treated with diuresis with furosemide 40 mg IV every 12 hours. Patient stabilized. Patient was noted to have a non therapeutic level of INR for her mitral mechanical valve. The warfarin dose was increased to 7.5 mg daily. This should be followed as an outpatient. As well regular diuresis with furosemide 40 mg p.o. b.i.d. will be continued on discharge. In conjunction with this potassium level should be monitored. However due to the repeated hospitalizations in this patient was severe congestive heart failure, there is a discussion with her daughters and the patient in regards to goals of care. The desire was to have a hospice consult. Patient will be transferred back to [facility] to proceed with hospice care Status at Discharge Cognitive/behavioral status at discharge: at baseline, confused Functional status at discharge: wheelchair bound Overall status at discharge: patient is back to baseline Time Spent with Patient Time spent: Greater than 30 minutes Exam Vital Signs (past 8 hours): - 02/02/22 08:00 02/02/22 11:49 Temperature 96.1 F L 99.0 F Pulse Rate 76 84 Respiratory Rate 16 17 Blood Pressure 109/50 L 103/48 L Pulse Oximetry 95 92 Oxygen Flow Rate 0 0 Oxygen Delivery Method Room Air Oxygen Flow Rate 0 Narrative Exam Narrative: Patient alert oriented to person and place HEENT: Patient wearing glasses. Pupils equal reactive to light. Neck is supple. Trachea midline. Cardiovascular: Heart sounds S1-S2 without extra sounds or murmurs. No pedal edema. Respiratory: Decreased air entry in general throughout the lung [place] with low lung sounds in left base. Gastrointestinal: Abdomen soft. Nontender. Bowel sounds normal Extremities: Able to move all extremities volitionally. Neuro: Normal sensation of all extremities. Skin: No lesions or rashes. Objective Labs Result Diagrams: 02/02/22 05:16 02/02/22 05:16 Labs: Laboratory Results - last 24 hr 02/02/22 02/02/22 02/02/22 05:16 05:16 05:16 WBC 5.3 RBC 4.64 Hgb 11.6 L Hct 36.3 MCV 78.1 L MCH 24.9 L MCHC 31.9 RDW 17.6 H Plt Count 236 Neut % (Auto) 64.9 Lymph % (Auto) 21.4 L [place] % (Auto) 10.9 Eos % (Auto) 1.8 L Baso % (Auto) 1.0 Neut # (Auto) 3500 Lymph # (Auto) 1100 [place] # (Auto) 600 Eos # (Auto) 100 Baso # (Auto) 100 PT 24.0 H INR 2.1 H Sodium 140 Potassium 3.7 Chloride 101 Carbon Dioxide 34 H BUN 13 Creatinine 0.65 Estimated GFR > 60 BUN/Creatinine Ratio 20.0 Glucose 90 Calcium 8.6 Total Bilirubin 0.9 AST 35 ALT 12 Alkaline Phosphatase 90 Total Protein 7.7 Albumin 4.1 Globulin 3.6 Albumin/Globulin Ratio 1.1 [facility] Medical History CHF (congestive heart failure) Chronic a-fib Chronic low back pain COPD (chronic obstructive pulmonary disease) Degenerative disc disease Dementia Depression GERD (gastroesophageal reflux disease) Hyperlipidemia Hypertension Hyperthyroidism TIA (transient ischemic attack) UTI (urinary tract infection) Surgical History History of mitral valve replacement Status post appendectomy Status post hysterectomy Social History household members: none housing: assisted living facility Smoking Status: Former smoker alcohol intake: never Discharge Assessment & Plan Assessment and Plan Assessment: Exacerbation of congestive heart failure. HFrEF. 1. Acute hypoxemic respiratory failure secondary to congestive heart failure exacerbation. Currently off oxygen.? Breathing very shallowly.? 2. Acute systolic CHF exacerbation Transition to oral furosemide, beta-rene and NEFTALY-inhibitor for discharge medication. 3. Elevated troponin Mild elevation due to demand ischemia. 4. Paroxysmal atrial fibrillation Continue warfarin and metoprolol. 5. s/p MVR with mechanical valve INR not therapeutic for mechanical valve.? Increased the daily dose of warfarin to 7.5 mg and follow INR post discharge. 6. Dementia Chronic.? One of the daughters has power of state attorney on finances and medical. 7. Microcytic anemia Chronic.? With a decision to proceed with a hospice consult, so no workup. 8. Family and patient agree to hospice consult. 9. Nausea on the day of discharge that has settled with medications of Zofran and Reglan. CODE: DNR, but ok to intubate Plan of Treatment: Return to [facility] for hospice care Discharge Plan Discharge Plan Patient Disposition: Assisted Living Transfer to: [facility] Discharge orders & Medications Discharge Orders: Discharge (Order); Ordered 02/02/22 Ordered By: Denise Wagner Prescriptions: New warfarin 5 mg Tablet 7.5 mg PO DAILY@1700 Qty: 15 0RF furosemide 40 mg tablet 40 mg PO BID Qty: 30 0RF Continued docusate sodium 100 mg Capsule 200 mg PO BID omeprazole 40 mg Capsule,Delayed Release(Dr/Ec) 40 mg PO DAILY methimazole 5 mg Tablet 5 mg PO DAILY nystatin 100,000 unit/gram Powder 1 applic TOPICAL BID Label Comments: No redness/yeasty areas noted to breasts, groin, or abdominal fold during assessment. Rx Instructions: Apply to breasts, groin, abdominal fold. Change to PRN one areas have resolved. albuterol sulfate [Ventolin HFA] 90 mcg/actuation Hfa Aerosol Inhaler 2 puff Inhalation Q4H PRN (Reason: Shortness Of Breath Or Wheezing) Rx Instructions: Use first then QVAR. fluticasone propionate 50 mcg/actuation [place],Suspension 1 spray INTRANASAL DAILY potassium chloride 20 mEq Tablet Extended Release 20 meq PO DAILY Qvar RediHaler 40 mcg/actuation Hfa Aerosol Breath Activated 2 puff Inhalation BID sennosides [senna] 8.6 mg Tablet 2 tab PO DAILY Label Comments: hold for loose stools rosuvastatin 10 mg Tablet 20 mg PO BEDTIME Qty: 60 0RF metoprolol tartrate 75 mg tablet 75 mg PO BID Qty: 20 0RF Rx Instructions: Hold for SBP <110 and or HR < 60 acetaminophen 500 mg Tablet 1,000 mg PO Q6H PRN (Reason: Pain, Moderate) magnesium hydroxide [Milk of Magnesia] 400 mg/5 mL Suspension 60 ml PO BEDTIME PRN (Reason: Constipation) polyethylene glycol 3350 [Miralax] 17 gram Powder In Packet 17 g PO DAILY hydrocodone-acetaminophen 5 MG/325 MG tablet 1 tab PO QID MDD 3 gm apap PRN (Reason: Pain (Scale Score 7-10)) Rx Instructions: QID PRN Discontinued warfarin 5 mg tablet See Rx Instructions .ROUTE .COMPLEX Qty: 60 0RF Label Comments: 5mg on 01/31; 7.5mg on 01/30. Rx Instructions: 7.5 mg (1.5 tabs) PO Q ,,F. 5 mg (1 tab) Q ,,,[place] furosemide 40 mg tablet 40 tab PO BID Follow up/Referrals: Amna Franco MD [Primary Care Provider] - Discharge Data Primary Care Provider: Amna Franco Quality VTE Deep Vein Thrombosis/Pulmonary Embolism Present on Admission: No
== END 2022-02-02 14:20 | DRG 291 ==
LOC: ED 19:02 → AC 02-01 01:08
PROVIDERS: Neuromusculoskeletal Medicine, Sports Medicine; Admitting Provider Internal Medicine; Emergency Provider Emergency Medicine; PCP Internal Medicine; Referring Provider Emergency Medicine; Visit Provider Internal Medicine
DX: I11.0 Hypertensive heart disease with heart failure (principal); I50.23 Acute on chronic systolic (congestive) heart failure; J96.01 Acute respiratory failure with hypoxia; I24.8 Other forms of acute ischemic heart disease; I48.0 Paroxysmal atrial fibrillation; I50.84 End stage heart failure; F03.90 Unspecified dementia, unspecified severity, without behavioral disturbance, psychotic disturbance, mood disturbance, and anxiety; R11.0 Nausea; K21.9 Gastro-esophageal reflux disease without esophagitis; E05.90 Thyrotoxicosis, unspecified without thyrotoxic crisis or storm; E78.5 Hyperlipidemia, unspecified; I25.10 Atherosclerotic heart disease of native coronary artery without angina pectoris; Z87.891 Personal history of nicotine dependence; Z95.2 Presence of prosthetic heart valve; Z79.01 Long term (current) use of anticoagulants; Z95.1 Presence of aortocoronary bypass graft; Z20.822 Contact with and (suspected) exposure to COVID-19
CPT/HCPCS: 36415; 71045; 71260; 80048; 80053; 82550; 83690; 83735; 83880; 84145; 84484; 85025; 85610; 87635; 93005; 93010; 96365; 96375; 99284; 99285; C9803; G0378; J0696; J1940; J2405; J2765; Q9967